=== PATIENT | male | born 1950 | race African-American/Black ===

== ENCOUNTER 2018-08-16 17:07 | Emergency (ER) | payer OTHER ==
[2018-08-16 19:15] LABS: Absolute Lymphocytes (CBC) 2.2 K/uL (0.7-4.9); Absolute Neutrophil 10.8 K/uL (1.8-8.0); Basophils % 0.6 % (0-1.3); Eosinophils % 0.7 % (0-4.4); Hematocrit 22.9 % (39.6-49.0); Lymphocytes % 15.8 % (15.3-44.8); MPV 8.8 fL (7.6-11.3); Monocytes % 6.9 % (3.3-12.3); RBC Red Blood Cell Count 2.81 M/uL (4.33-5.43)
[2018-08-16 19:29] LABS: Protime INR 1.16
[2018-08-16 19:38] LABS: ALT/SGPT 19 U/L (12-78); AST/SGOT 23 U/L (15-37); Albumin 3.3 g/dL (3.4-5.0); Alkaline Phosphatase 65 U/L (45-117); BUN Blood Urea Nitrogen 49 mg/dL (7-18); Bicarbonate 29 mmol/L (21-32); Bilirubin Direct < 0.1 mg/dL (0-0.2); Bilirubin Total 0.1 mg/dL (0.2-1.0); Glucose Level 117 mg/dL (74-106); Lipase 299 U/L (73-393); Magnesium 1.8 mg/dL (1.8-2.4); NT PRO-BNP 19 pg/mL (<125); Potassium 4.1 mmol/L (3.5-5.1); Protein, Total 7.3 g/dL (6.4-8.2); Sodium Level 131 mmol/L (136-145); Troponin (Emerg Dept Use Only) < 0.02 ng/mL (0.0-0.045)
--- NOTE | 2018-08-16 19:39 | RAD REPORT ---
EXAM DESCRIPTION: Nesha Single View08/16/2018 7:14 pm CLINICAL HISTORY: sob COMPARISON: none FINDINGS: The lungs appear clear of acute infiltrate. The heart is normal size IMPRESSION: No acute abnormalities displayed
--- NOTE | 2018-08-17 00:35 | ER ---
Nurse's Notes [facility] Name: Justen Escalera Age: 68 yrs Sex: Male : 1950 Arrival Date: 08/16/2018 Time: 17:11 Bed 20 Private MD: Diagnosis: Acute Anemia;Gastrointestinal hemorrhage, unspecified-Upper GI bleed;Gastritis, unspecified, with bleeding Presentation: 08/16 17:36 Presenting complaint: Patient states: epigastric abdominal pain for two week, with ch vomiting. pain is radiating into my chest. states it started after buying a bottle of scotch that I guess was bad. It doesn't hurt now, but when I lay down it goes up a lot. Transition of care: patient was not received from another setting of care. Onset of symptoms was August 02, 2018. Risk Assessment: Do you want to hurt yourself or someone else? Patient reports no desire to harm self or others. Initial Sepsis Screen: Does the patient meet any 2 criteria? No. Patient's initial sepsis screen is negative. Does the patient have a suspected source of infection? No. Patient's initial sepsis screen is negative. Care prior to arrival: None. 17:36 Method Of Arrival: Ambulatory 17:36 Acuity: SHU 4 ch Triage Assessment: 17:39 General: Appears in no apparent distress. comfortable, Behavior is calm, cooperative, ch appropriate for age. Pain: Complains of pain in diaphragm, xyphoid area and epigastric area Pain currently is 0 out of 10 on a pain scale. at worst was 9 out of 10 on a pain scale. Respiratory: No deficits noted. Historical: - Allergies: 17:39 No Known Allergies; ch - PMHx: 17:39 GERD; ch - PSHx: 17:39 LEFT ANKLE SX; ch - Immunization history:: Adult Immunizations up to date. - Social history:: Smoking status: Patient/guardian denies using tobacco, Patient uses alcohol, I quit two weeks ago, before that, twice a month. . Patient/guardian denies using street drugs. - Ebola Screening: : Patient negative for fever greater than or equal to 101.5 degrees Fahrenheit, and additional compatible Ebola Virus Disease symptoms Patient denies exposure to infectious person Patient denies travel to an Ebola-affected area in the 21 days before illness onset No symptoms or risks identified at this time. Screenin:08 Abuse screen: Denies threats or abuse. Denies injuries from another. Nutritional sv screening: No deficits noted. Tuberculosis screening: No symptoms or risk factors identified. Fall Risk None identified. Assessment: 18:33 General: Appears in no apparent distress. comfortable, well groomed, well developed, sv Behavior is calm, cooperative, appropriate for age. Pain: Denies pain. Neuro: Level of Consciousness is awake, alert, obeys commands, Oriented to person, place, time, situation, Moves all extremities. Full function Gait is steady, Speech is normal. Respiratory: Respiratory effort is even, unlabored, Respiratory pattern is regular, symmetrical. GI: Reports epigastric pain, that starts at 0700 and ends shortly after and starts again around 1900 and ends shortly after. Pt reports that he usually drink bourbon daily but has backed off to monthly and decided to switch to scotch last week to see how it tastes. Patient currently denies nausea, vomiting. Derm: Skin is pink, warm \T\ dry. 19:15 Reassessment: Patient appears in no apparent distress at this time. Patient and/or aa1 family updated on plan of care and expected duration. Pain level reassessed. Patient is alert, oriented x 3, equal unlabored respirations, skin warm/dry/pink. Awaiting lab reults. 21:00 Reassessment: Patient appears in no apparent distress at this time. Patient and/or aa1 family updated on plan of care and expected duration. Pain level reassessed. Patient is alert, oriented x 3, equal unlabored respirations, skin warm/dry/pink. Awaiting CT scan. 22:30 Reassessment: Patient appears in no apparent distress at this time. Patient and/or aa1 family updated on plan of care and expected duration. Pain level reassessed. Patient is alert, oriented x 3, equal unlabored respirations, skin warm/dry/pink. Awaiting CT results. 23:35 Reassessment: Patient appears in no apparent distress at this time. Patient and/or aa1 family updated on plan of care and expected duration. Pain level reassessed. Patient is alert, oriented x 3, equal unlabored respirations, skin warm/dry/pink. Pt still awaiting CT results. 08/17 00:29 Reassessment: Patient appears in no apparent distress at this time. Patient and/or aa1 family updated on plan of care and expected duration. Pain level reassessed. Patient is alert, oriented x 3, equal unlabored respirations, skin warm/dry/pink. PA at bedside discussing CT results with pt. 00:58 Reassessment: Patient appears in no apparent distress at this time. Patient and/or aa1 family updated on plan of care and expected duration. Pain level reassessed. Patient is alert, oriented x 3, equal unlabored respirations, skin warm/dry/pink. Pt to be transferred. 02:10 Reassessment: Patient appears in no apparent distress at this time. Patient and/or aa1 family updated on plan of care and expected duration. Pain level reassessed. Patient is alert, oriented x 3, equal unlabored respirations, skin warm/dry/pink. Pt consented for blood transfusion; awaiting unit from blood bank. 03:18 Reassessment: Patient appears in no apparent distress at this time. Patient and/or aa1 family updated on plan of care and expected duration. Pain level reassessed. Patient is alert, oriented x 3, equal unlabored respirations, skin warm/dry/pink. PRBCs infusing at this time. Transfer pending completion of unit. 03:23 Reassessment: Report given to Shanique Cuenca RN at [facility]. Will contact [facility] for transfer once PRBCs completed. 03:46 Reassessment: Patient appears in no apparent distress at this time. Patient and/or aa1 family updated on plan of care and expected duration. Pain level reassessed. Patient is alert, oriented x 3, equal unlabored respirations, skin warm/dry/pink. PRBCs complete at this time. [employer] notified EMS for transfer \T\ was told crew will be here in approx 1.5 hrs. 04:45 Reassessment: Patient appears in no apparent distress at this time. Patient and/or aa1 family updated on plan of care and expected duration. Pain level reassessed. Patient is alert, oriented x 3, equal unlabored respirations, skin warm/dry/pink. Pt continues to await EMS for transfer. 05:45 Reassessment: Patient appears in no apparent distress at this time. Patient and/or aa1 family updated on plan of care and expected duration. Pain level reassessed. Patient is alert, oriented x 3, equal unlabored respirations, skin warm/dry/pink. Pt still awaiting EMS for transfer. 06:04 Reassessment: Patient appears in no apparent distress at this time. Patient is alert, aa1 oriented x 3, equal unlabored respirations, skin warm/dry/pink. [facility] present for transfer. Vital Signs: 08/16 17:39 BP 102 / 73; Pulse 78; Resp 16; Temp 98.5; Pulse Ox 99% on R/A; Weight 99.79 kg; Height 6 ft. 4 in. (193.04 cm); Pain 0/10; 18:33 BP 106 / 68; Pulse 108; Resp 16; Pulse Ox 99% ; sv 19:55 BP 116 / 85; Pulse 104; Resp 16; Pulse Ox 99% on R/A; mt 21:00 BP 134 / 84; Pulse 102; Resp 18; Pulse Ox 98% on R/A; Pain 0/10; aa1 22:00 BP 106 / 74; Pulse 108; Resp 18; Pulse Ox 100% on R/A; Pain 0/10; aa1 23:01 BP 99 / 51; Pulse 94; Resp 16; Pulse Ox 100% on R/A; Pain 0/10; aa1 08/17 00:29 BP 92 / 51; Pulse 91; Resp 18; Pulse Ox 99% on R/A; Pain 0/10; aa1 00:59 BP 122 / 66; Pulse 93; Resp 16; Pulse Ox 98% on R/A; Pain 0/10; aa1 02:15 BP 123 / 72; Pulse 92; Resp 18; Temp 98.4; Pulse Ox 100% on R/A; Pain 0/10; aa1 03:12 BP 117 / 75; Pulse 90; Resp 16; Temp 98.1; Pulse Ox 100% ; Pain 0/10; aa1 03:46 BP 112 / 72; Pulse 89; Resp 16; Temp 98.2; Pulse Ox 100% on R/A; Pain 0/10; aa1 05:18 BP 106 / 78; Pulse 86; Resp 18; Pulse Ox 99% on R/A; Pain 0/10; aa1 08/16 17:39 Body Mass Index 26.78 (99.79 kg, 193.04 cm) ED Course: 08/16 17:11 Patient arrived in ED. as 17:38 Triage completed. ch 17:39 Arm band placed on left wrist. Patient placed in an exam room, on a stretcher. ch 18:13 Mina Petersen PA is PHCP. jr8 18:13 Spike Schneider MD is Attending Physician. jr8 18:27 Elsi Beard, RN is Primary Nurse. sv 18:30 Patient has correct armband on for positive identification. Placed in gown. Bed in low sv position. Call light in reach. compliance monitor on. Pulse ox on. NIBP on. Door closed. Head of bed elevated. 19:00 Initial lab(s) drawn, by me, sent to lab. Inserted saline lock: 20 gauge in left sv antecubital area, using aseptic technique. Blood collected. Flushed left antecubital with 5 ml normal saline. 19:08 Report given to Aishwarya YU. sv 19:09 Primary Nurse role handed off by Elsi Beard, AIMEE sv 19:14 XRAY Chest (1 view) In Process Unspecified. EDMS 20:30 Oral contrast reported to be complete. vr 20:48 Aishwarya Fleming, RN is Primary Nurse. aa1 21:14 T\T\S collected, blood band applied to patient. aa1 22:17 CT Abd/Pelvis - Without Cont In Process Unspecified. EDMS 03 02:29 Inserted saline lock: 20 gauge in left upper arm, using aseptic technique. aa1 06:09 No provider procedures requiring assistance completed. Patient admitted, IV remains in aa1 place. Administered Medications: 00:50 Drug: ProTONIX 40 mg Route: IVP; Site: left antecubital; aa1 01:50 Follow up: Response: No adverse reaction; Marked relief of symptoms aa1 00:52 Drug: ProTONIX 8 mg/hr Route: IV; Rate: 25 ml/hr; Site: left antecubital; aa1 03:17 Follow up: IV Status: Infusion continued upon transfer aa1 Outcome: 00:35 ER care complete, transfer ordered by . jr8 06:09 Transferred by ground EMS to [facility], Transfer form completed. aa1 06:09 Condition: stable 06:09 Instructed on the need for transfer, Demonstrated understanding of instructions. 06:11 Patient left the ED. aa1 Signatures: Dispatcher [employer] Erica Thomson RN RN Elsi Beard RN RN Aishwarya Fleming RN RN aa1 Edd, Nazanin Yost Josh, PA PA jr8 Jenny Cunha mt Corrections: (The following items were deleted from the chart) 08/16 17:41 17:36 Presenting complaint: Patient states: epigastric abdominal pain for two week, ch with vomiting. pain is radiating into my chest. states it started after buying a bottle of scotch that I guess was bad. 17:41 17:36 Acuity: SHU 3 ch 20:36 20:[address] vr vr 23:19 22:59 Reassessment: Patient appears in no apparent distress at this time. Patient aa1 and/or family updated on plan of care and expected duration. Pain level reassessed. Patient is alert, oriented x 3, equal unlabored respirations, skin warm/dry/pink. MD at bedside with pt \T\ family discussing CT results aa1
--- NOTE | 2018-08-17 00:36 | EDPHYS ---
Physician Documentation [facility] Name: Justen Escalera Age: 68 yrs Sex: Male : 1950 Arrival Date: 08/16/2018 Time: 17:11 Bed 20 Private MD: ED Physician Spike Schneider HPI: 08/16 20:35 This 68 yrs old Black Male presents to ER via Ambulatory with complaints of abdominal jr8 pain. 20:35 The patient presents with abdominal pain. Onset: The symptoms/episode began/occurred jr8 gradually, 2 week(s) ago. The symptoms radiate to chest. Associated signs and symptoms: Pertinent positives: blood in stools, nausea. The symptoms are described as intermittent, vague. Modifying factors: The symptoms are alleviated by antacids, the symptoms are aggravated by alcohol, food. Severity of pain: At its worst the pain was moderate in the emergency department the pain has improved mildly. The patient has not experienced similar symptoms in the past. The patient has not recently seen a physician. Patient stated that he has longstanding drinking history. Thought he had a bad bottle of scotch 2 weeks ago. Stated that he stopped drinking since then because he was having abdominal pain that would radiate to epigastric region and chest. Worse at night. Some relief with antacids. Has never had this before. Has also noticed blood in stools that seems to be improving per patient . Historical: - Allergies: 17:39 No Known Allergies; ch - PMHx: 17:39 GERD; ch - PSHx: 17:39 LEFT ANKLE SX; ch - Immunization history:: Adult Immunizations up to date. - Social history:: Smoking status: Patient/guardian denies using tobacco, Patient uses alcohol, I quit two weeks ago, before that, twice a month. . Patient/guardian denies using street drugs. - Ebola Screening: : Patient negative for fever greater than or equal to 101.5 degrees Fahrenheit, and additional compatible Ebola Virus Disease symptoms Patient denies exposure to infectious person Patient denies travel to an Ebola-affected area in the 21 days before illness onset No symptoms or risks identified at this time. ROS: 20:35 Eyes: Negative for injury, pain, redness, and discharge, ENT: Negative for injury, jr8 pain, and discharge, Neck: Negative for injury, pain, and swelling, Cardiovascular: Negative for chest pain, palpitations, and edema, Respiratory: Negative for shortness of breath, cough, wheezing, and pleuritic chest pain, Back: Negative for injury and pain, MS/Extremity: Negative for injury and deformity, Skin: Negative for injury, rash, and discoloration, Neuro: Negative for headache, weakness, numbness, tingling, and seizure. 20:35 Abdomen/GI: Positive for abdominal pain, nausea, abdominal cramps, black/tarry stool. Exam: 20:35 Eyes: Pupils equal round and reactive to light, extra-ocular motions intact. Lids and jr8 lashes normal. Conjunctiva and sclera are non-icteric and not injected. Cornea within normal limits. Periorbital areas with no swelling, redness, or edema. ENT: Nares patent. No nasal discharge, no septal abnormalities noted. Tympanic membranes are normal and external auditory canals are clear. Oropharynx with no redness, swelling, or masses, exudates, or evidence of obstruction, uvula midline. Mucous membranes moist. Neck: Trachea midline, no thyromegaly or masses palpated, and no cervical lymphadenopathy. Supple, full range of motion without nuchal rigidity, or vertebral point tenderness. No Meningismus. Cardiovascular: Sinus Tachycardia with a normal S1 and S2. No gallops, murmurs, or rubs. Normal PMI, no JVD. No pulse deficits. Respiratory: Lungs have equal breath sounds bilaterally, clear to auscultation and percussion. No rales, rhonchi or wheezes noted. No increased work of breathing, no retractions or nasal flaring. Back: No spinal tenderness. No costovertebral tenderness. Full range of motion. Skin: Warm, dry with normal turgor. Normal color with no rashes, no lesions, and no evidence of cellulitis. MS/ Extremity: Pulses equal, no cyanosis. Neurovascular intact. Full, normal range of motion. Neuro: Awake and alert, GCS 15, oriented to person, place, time, and situation. Cranial nerves II-XII grossly intact. Motor strength 5/5 in all extremities. Sensory grossly intact. Cerebellar exam normal. Normal gait. 20:35 Abdomen/GI: Inspection: abdomen appears normal, Bowel sounds: active, all quadrants, jr8 Palpation: soft, in all quadrants, mild abdominal tenderness, in the epigastric area, right upper quadrant and left upper quadrant, mass, is not appreciated, rebound tenderness, is not appreciated, voluntary guarding, is not appreciated, involuntary guarding, is not appreciated, no appreciated organomegaly, Rectal exam: Prostate: normal, rectal tone normal, Stool: guaiac positive, black, hemorrhoid(s), are not appreciated, mass, is not appreciated, swelling, is not appreciated, tenderness, is not appreciated, Indicators: McBurney's point is not tender, Rahman's sign is negative, Rovsing's sign is negative, Liver: tenderness, is not appreciated. Vital Signs: 17:39 BP 102 / 73; Pulse 78; Resp 16; Temp 98.5; Pulse Ox 99% on R/A; Weight 99.79 kg; Height ch 6 ft. 4 in. (193.04 cm); Pain 0/10; 18:33 BP 106 / 68; Pulse 108; Resp 16; Pulse Ox 99% ; sv 19:55 BP 116 / 85; Pulse 104; Resp 16; Pulse Ox 99% on R/A; mt 21:00 BP 134 / 84; Pulse 102; Resp 18; Pulse Ox 98% on R/A; Pain 0/10; aa1 22:00 BP 106 / 74; Pulse 108; Resp 18; Pulse Ox 100% on R/A; Pain 0/10; aa1 23:01 BP 99 / 51; Pulse 94; Resp 16; Pulse Ox 100% on R/A; Pain 0/10; aa1 /23 00:29 BP 92 / 51; Pulse 91; Resp 18; Pulse Ox 99% on R/A; Pain 0/10; aa1 00:59 BP 122 / 66; Pulse 93; Resp 16; Pulse Ox 98% on R/A; Pain 0/10; aa1 02:15 BP 123 / 72; Pulse 92; Resp 18; Temp 98.4; Pulse Ox 100% on R/A; Pain 0/10; aa1 03:12 BP 117 / 75; Pulse 90; Resp 16; Temp 98.1; Pulse Ox 100% ; Pain 0/10; aa1 03:46 BP 112 / 72; Pulse 89; Resp 16; Temp 98.2; Pulse Ox 100% on R/A; Pain 0/10; aa1 05:18 BP 106 / 78; Pulse 86; Resp 18; Pulse Ox 99% on R/A; Pain 0/10; aa1 08/16 17:39 Body Mass Index 26.78 (99.79 kg, 193.04 cm) ch MDM: 08/16 18:13 Patient medically screened. 8 08/17 00:33 Data reviewed: vital signs, nurses notes, lab test result(s), radiologic studies, CT jr8 scan. Data interpreted: Pulse oximetry: on room air is 99 %. Interpretation: normal. Counseling: I had a detailed discussion with the patient and/or guardian regarding: the historical points, exam findings, and any diagnostic results supporting the discharge/admit diagnosis, lab results, radiology results, the need to transfer to another facility, for higher level of care, [facility] does not immediately have the required specialist. 01:18 ED course: Spoke with GI and Medicine at [facility]. Both accepted for further jr8 evaluation of patient . 08/16 18:49 Order name: Basic Metabolic Panel; Complete Time: 20:[address] [facility] 08/16 18:49 Order name: CBC with Diff; Complete Time: 19:29 8 08/16 18:49 Order name: LFT's; Complete Time: 20:[address] [facility] 08/16 18:49 Order name: Magnesium; Complete Time: 20:[address] [facility] 08/16 18:49 Order name: NT PRO-BNP; Complete Time: 20:[address] [facility] 08/16 18:49 Order name: PT-INR; Complete Time: 20:[address] [facility] 08/16 18:49 Order name: Troponin (emerg Dept Use Only); Complete Time: 20:[address] [facility] 08/16 18:49 Order name: XRAY Chest (1 view); Complete Time: 20:07 jr 08/16 18:49 Order name: Lipase; Complete Time: 20:[address] [facility] 08/16 19:30 Order name: TS jr8 08/16 20:08 Order name: CT Abd/Pelvis - Without Cont jr8 08/17 00:35 Order name: Packed RBCs (Additional Unit) [facility] 08/17 01:43 Order name: ABO/RH no charge; Complete Time: 02:06 EDNM 08/16 18:01 Order name: EKG Electrocardiogram; Complete Time: 18:02 [facility] 08/16 18:49 Order name: Cardiac monitoring; Complete Time: 19:8 08/16 18:49 Order name: EKG - Nurse/Tech; Complete Time: 19:8 08/16 18:49 Order name: IV Saline Lock; Complete Time: :8 08/16 18:49 Order name: Labs collected and sent; Complete Time: 19:8 08/16 18:49 Order name: O2 Per Protocol; Complete Time: :08/16 18:49 Order name: O2 Sat Monitoring; Complete Time: : Administered Medications: 00:50 Drug: ProTONIX 40 mg Route: IVP; Site: left antecubital; aa1 01:50 Follow up: Response: No adverse reaction; Marked relief of symptoms aa1 00:52 Drug: ProTONIX 8 mg/hr Route: IV; Rate: 25 ml/hr; Site: left antecubital; aa1 03:17 Follow up: IV Status: Infusion continued upon transfer aa1 Disposition: 08/17/18 00:35 Transfer ordered to [facility]. Diagnosis are Acute Anemia, Gastrointestinal hemorrhage, unspecified - Upper GI bleed, Gastritis, unspecified, with bleeding. - Reason for transfer: Higher level of care. - Accepting physician is Dr. Jean-Baptiste . - Condition is Stable. - Problem is new. - Symptoms are unchanged. Addendum: 08/19/2018 10:08 Co-signature as Attending Physician, Spike Schneider MD I agree with the assessment and c cary plan of care. Signatures: Dispatcher [employer] EDMS Erica Martin RN RN ch Autenrieth, Alissa, RN RN aa1 Spike Schneider MD MD cha Roszak, Josh, PA PA jr8 Corrections: (The following items were deleted from the chart) 08/17 00:32 08/16 20:35 Eyes: Pupils equal round and reactive to light, extra-ocular motions jr8 intact. Lids and lashes normal. Conjunctiva and sclera are non-icteric and not injected. Cornea within normal limits. Periorbital areas with no swelling, redness, or edema. ENT: Nares patent. No nasal discharge, no septal abnormalities noted. Tympanic membranes are normal and external auditory canals are clear. Oropharynx with no redness, swelling, or masses, exudates, or evidence of obstruction, uvula midline. Mucous membranes moist. Neck: Trachea midline, no thyromegaly or masses palpated, and no cervical lymphadenopathy. Supple, full range of motion without nuchal rigidity, or vertebral point tenderness. No Meningismus. Cardiovascular: Sinus Tachycardia with a normal S1 and S2. No gallops, murmurs, or rubs. Normal PMI, no JVD. No pulse deficits. Respiratory: Lungs have equal breath sounds bilaterally, clear to auscultation and percussion. No rales, rhonchi or wheezes noted. No increased work of breathing, no retractions or nasal flaring. Abdomen/GI: Soft, non-tender, with normal bowel sounds. No distension or tympany. No guarding or rebound. No evidence of tenderness throughout. Back: No spinal tenderness. No costovertebral tenderness. Full range of motion. Skin: Warm, dry with normal turgor. Normal color with no rashes, no lesions, and no evidence of cellulitis. MS/ Extremity: Pulses equal, no cyanosis. Neurovascular intact. Full, normal range of motion. Neuro: Awake and alert, GCS 15, oriented to person, place, time, and situation. Cranial nerves II-XII grossly intact. Motor strength 5/5 in all extremities. Sensory grossly intact. Cerebellar exam normal. Normal gait. jr8 08/17 01:16 00:35 08/17/2018 00:35 Transfer ordered to [facility]. Diagnosis is jr8 Acute Anemia; Gastrointestinal hemorrhage, unspecified - Upper GI bleed. Reason for transfer: Higher level of care. Accepting physician is [facility]. Condition is Stable. Problem is new. Symptoms are unchanged. jr8 :18 01:16 08/17/2018 00:35 Transfer ordered to [facility]. Diagnosis is jr8 Acute Anemia; Gastrointestinal hemorrhage, unspecified - Upper GI bleed. Reason for transfer: Higher level of care. Accepting physician is Dr. Jean-Baptiste . Condition is Stable. Problem is new. Symptoms are unchanged. jr8 06:11 01:18 08/17/2018 00:35 Transfer ordered to [facility]. Diagnosis is aa1 Acute Anemia; Gastrointestinal hemorrhage, unspecified - Upper GI bleed; Gastritis, unspecified, with bleeding. Reason for transfer: Higher level of care. Accepting physician is Dr. Jean-Baptiste . Condition is Stable. Problem is new. Symptoms are unchanged. jr8
[2018-08-17] MEDS ORDERED: PANTOPRAZOLE 40 MG INJ ONE (00:46)
[2018-08-17] MEDS ORDERED: NA CHLORIDE 0.9% 250 ML ONE (00:46)
[2018-08-17] MEDS ORDERED: NA CHLORIDE 0.9% 100 ML IV ONE (02:29)
--- NOTE | 2018-08-19 11:41 | RAD REPORT ---
EXAM DESCRIPTION: CT - Abdomen Pelvis Wo Contrast - 08/16/2018 10:43 pm CLINICAL HISTORY: The patient is 68 years old and is Male; ABD PAIN TECHNIQUE: Axial computed tomography images of the abdomen and pelvis without intravenous contrast. Sagittal and coronal reformatted images were created and reviewed. This CT exam was performed usi ng one or more of the following dose reduction techniques: automated exposure control, adjustment o f the mA and/or kV according to patient size, and/or use of iterative reconstruction technique. Oral contrast was administered. COMPARISON: None. FINDINGS: LUNG BASES: Unremarkable. No mass. No consolidation. ABDOMEN: LIVER: Unremarkable. GALLBLADDER AND BILE DUCTS: Unremarkable. No calcified stones. No ductal dilation. PANCREAS: Unremarkable. No ductal dilation. SPLEEN: Unremarkable. No splenomegaly. ADRENALS: Unremarkable. No mass. KIDNEYS AND URETERS: Unremarkable. No obstructing stones. No hydronephrosis. STOMACH AND BOWEL: Partial evaluation of nodular thickening of the gastric wall with ulcerated reg ion involving the distal aspect of the lesser curvature measuring 1.4 x 1.5 cm with contrast within i t (series 201, image 20). Prominent perigastric vasculature an perigastric stranding PELVIS: APPENDIX: Enteric contrast is seen throughout the small and large bowel. The appendix is seen and is within normal limits. No obstruction or perforation. BLADDER: Unremarkable. No stones. REPRODUCTIVE: Unremarkable as visualized. ABDOMEN and PELVIS: INTRAPERITONEAL SPACE: Unremarkable. No free air. No significant fluid collection. BONES/JOINTS: Grade 1 anterolisthesis of L5 on S1 on a spondylolysis basis. Retrolisthesis of L4 on L5. Lower lumbar disc space narrowing also present. No acute fracture. No dislocation. SOFT TISSUES: Unremarkable. VASCULATURE: Atherosclerotic calcification of the abdominal aorta and iliac vasculature. LYMPH NODES: Unremarkable. No enlarged lymph nodes. OTHER FINDINGS: Heterogenous mineralization with multiple hypodensities. IMPRESSION: 1. Diffuse heterogenous thickening of the gastric wall with ulcerated defect involving the distal aspect of the lesser curvature with intraluminal contrast. Associated prominence of the p erigastric vasculature and mild perigastric stranding. Findings could be due to chronic gastritis juana mariama neoplastic process (linitis plastica). Endoscopy is recommended. 2. Heterogenous mineralization of the lower lumbar spine and advanced degenerative changes. MRI of the lumbar spine with and without contrast is recommended for bone marrow further characterization. Electronically signed by: Ryder Oviedo DO 08/16/2018 10:36 PM CDT Due to temporary technical issues with the PACS/Fluency reporting system, reports are being signed by the in house radiologist as a courtesy to ensure prompt reporting. The interpreting radiologist is f ully responsible for the content of the report.
== END 2018-08-17 06:11 | disposition short-term general hospital (02) ==
LOC: ER 17:07
PROC: 30233N1 Transfusion of Nonautologous Red Blood Cells into Peripheral Vein, Percutaneous Approach (ICD-10-PCS; principal; 2018-08-17)
DX: D64.9 Anemia, unspecified (principal); K29.71 Gastritis, unspecified, with bleeding
CPT/HCPCS: 96365; 93005; 85025; 80048; 36415; 86900; 83735; 86850; 85610; 86901; 80076; 84484; 83690; 83880; 74176; 71045; 99285; 96366; 36430; C9113; P9016

== ENCOUNTER 2020-02-09 13:57 | Emergency (ER) | payer OTHER ==
--- OUTSIDE RECORDS SUMMARY | 2020-02-09 13:59 | XMS REPORT | Clinical Summary ---
:1950 Author Organization [facility] Address [address] [place] [address] Care Team Providers Name Role Phone Unavailable Primary Care Provider Unavailable Allergies No Known Allergies Medications Medication Sig Dispensed Refills Start Date End Date Status thiamine 100 MG Take 1 tablet 30 tablet 0 08/20/2018 0 tablet (100 mg total) by mouth daily. folic acid (FOLVITE) Take 1 tablet (1 30 tablet 0 08/20/2018 0 08/20/2019 1 MG tablet mg total) by mouth daily. Active Problems Problem Noted Date Acute gastric ulcer with hemorrhage 08/19/2018 Alcoholism 08/17/2018 Normocytic anemia 08/17/2018 Epigastric pain 08/17/2018 Hyponatremia 08/17/2018 BERTHA (acute kidney injury) 08/17/2018 GI bleed 08/17/2018 Immunizations Name Dates Previously Given Next Due Pneumococcal Conjugate (Prevnar) 08/18/2018 (Deferred: - Va ccine 13-Valent never sent after several requests to pharmacy) Social History Tobacco Use Types Packs/Day Years Used Date Never Smoker Smokeless Tobacco: Never Used Alcohol Use Drinks/Week oz/Week Comments Yes 2 bottles a week Alcohol Habits Answer Date Recorded How often do you have a drink containing 4 or more times a w [place] 08/17/2018 alcohol? How many drinks containing alcohol do you have 3 or 4 08/17/2018 on a typical day when you are drinking? How often do you have six or more drinks on one Less than mo nthly 08/17/2018 occasion? Sex Assigned at Date Recorded Not on file Job Start Date Occupation Industry Not on file Not on file Not on file Travel History Travel Start Travel End No recent travel history available. Last Filed Vital Signs Not on file Plan of Treatment Health Maintenance Due Date Last Done Comments COLON CANCER SCREENING COLONOSCOPY 1950 PNEUMOCOCCAL 65+ LOW/MEDIUM RISK (1 of 2 - PCV13) 2017 MEDICARE ANNUAL WELLNESS (YEAR 2 or FIRST YEAR if no 05/29/2018 IPPE) INFLUENZA VACCINE (#1) 2020 Results Not on fileafter 02/08/2019 Insurance Payer Benefit Plan / Group Subscriber ID Type Phone A ddress MEDICARE MEDICARE A B xxxxxxxxxxx Medicare Advance Directives For more information, please contact:[facility] [place], [place] [phone] Code Status Date Activated Date Inactivated Comments Full Code 08/17/2018 9:07 AM 08/20/2018 1:46 PM This code status was determined by: Patient
--- OUTSIDE RECORDS SUMMARY | 2020-02-09 13:59 | XMS REPORT | Continuity of Care Document ---
:1950 [facility] t Address [address] [place] [id number] Care Team Providers Name Role Phone KARL SANZ Attending Clinician Unavailable Willie SANZ Admitting Clinician Unavailable Problems Condition Condition Condition Status Onset Resolution Last Treating Co mments Source Name Details Category Date Date Treatment Clinician Date Acute Acute Disease Active [facility] - ulcer with ulcer with 00:00: Ia dical hemorrhage hemorrhage 00 Ce nter Alcoholism Alcoholism Disease Active [facility] 00 [place] Normocytic Normocytic Disease Active [facility] anemia anemia 08-17 [facility] - 00:[facility]: Medical 00 [place] Epigastric Epigastric Disease Active [facility] pain pain 08-17 [facility] - 00:[facility]: Medical 00 [place] Hyponatrem Hyponatrem Disease Active [facility] ia ia 08-17 [facility] - 00:00: Medical 00 [place] BERTHA (acute BERTHA (acute Disease Active [facility] kidney kidney 08-17 [facility] - injury) injury) 00:00: Medical 00 [place] GI bleed GI bleed Disease [facility] 00 Center Allergies, Adverse Reactions, Alerts This patient has no known allergies or adverse reactions. Social History Social Habit Start Date Stop Date Quantity Comments Source Sex Assigned At [facility] - [facility] History [facility] 2018-08-17 2018-08-[address] [facility] [address] [facility] - Alcohol Frequency 00:00:00 00:00:00 Medical Center History [facility] 2018-08-17 2018-08-[address] [facility] [address] [facility] - Alcohol Std Drinks 00:00:00 00:00:00 Medica Center History [facility] 2018-08-17 2018-08-[address] [facility] - Alcohol Binge 00:00:00 00:00:00 Medical [facility] ter Alcohol Comment 2018-08-17 2018-08-17 2 bottles a week [facility] - 00:[facility]00 Medical Center Smoking Status Start Date Stop Date Source Never smoker [facility] Medications Ordered Filled Start Stop Current Ordering Indication Dosage Frequency Signature Comments Components Source Medication Medication Date Date Medication? Clinician (SIG) Name Name thiamine 2019- No 100mg QD Take 1 [facility] - tablet 00:00: 23:59 (100 mg Medical 00 :00 total) by Center mouth daily. folic acid 2019- No 1mg QD Take [address] (FOLVITE) 1 08-20 tablet (1 Vika kes - MG tablet 00:00: 23:59 mg total) Me dical 00 :00 by mouth Center daily. Procedures This patient has no known procedures. Plan of Care Planned Activity Planned Date Details Comments Source Future Scheduled 2020-01-27 INFLUENZA VACCINE (#1) [facility] Test 00:[facility]00 [code = INFLUENZA Medical Ce nter VACCINE (#1)] Future Scheduled 2018-05-[address] [facility] - Test 00:00:00 WELLNESS (YEAR 2 or Medical Center FIRST YEAR if no IPPE) [code = MEDICARE ANNUAL WELLNESS (YEAR 2 or FIRST YEAR if no IPPE)] Future Scheduled 2017 PNEUMOCOCCAL [address] - Test 00:00:00 LOW/MEDIUM RISK ([facility] [place] 2 - PCV13) [code = PNEUMOCOCCAL 65+ LOW/MEDIUM RISK (1 of 2 - PCV13)] Future Scheduled [address] [facility] - Test 00:00:00 malignant [facility] colon (procedure) [code = 652298966] Results Test Description Test Time Test Comments Results Result [facility] e Comments TISSUE EXAM 2018-08-23 Surgical Pathology Report 16:45:00 Case: [id number] Authorizing Provider: Dom Le MD Collected: 08/19/2018 1031 Ordering Location: [address] Received: 08/19/2018 1423 Service Pathologist: Jonas Gaines MD Specimens: A) - Biopsy, Gastric, R/O H PYLORI B) - Ulcer, PRE PYLORIC BX C) - Ulcer, INCISURA ULCER Addendum is issued to report additional results. The original diagnosis remains the same.Results:B. An iron stain is negative. The finding is supportive of the original diagnosis.Addendum electronically signed by Jonas Gaines MD on 08/23/2018 at 3:17 PMA. STOMACH, BIOPSY: - INTESTINAL METAPLASIA - CHRONIC ACTIVE GASTRITIS - MICROORGANISMS COMPATIBLE H. PYLORI IDENTIFIED BY BOTH WARTHIN-STARRY STAIN AND IMMUNOHISTOCHEMISTRY B. STOMACH, PRE PYLORIC AREA, ULCER, BIOPSY: - ULCER WITH GRANULATION TISSUE AND REACTIVE EPITHELIAL CHANGES - CHRONIC ACTIVE GASTRITIS (SEE COMMENT) - EQUIVOCAL FOR H. PYLORI-LIKE ORGANISMS BY IMMUNOHISTOCHEMISTRYC. STOMACH, INCISURA, ULCER, BIOPSY: - ULCER WITH CHRON ACTIVE GASTRITIS Signing Pathologist Direct Phone Line: [phone] electronically signed by Jonas Gaines MD on 08/23/2018 at 4:45 PM The diagnosis is amended to delete the diagnosis line for part B, "intestinal metaplasia". The diagnosis line is a typographic error and was removed. Dr. Le was notified about the change via email on 08/23/2018.B. Sections show ulceration with marked reactive epithelial changes, and chronic active gastritis. An immunostain for Helicobacter is equivocal. Additionally, due to the extensive ulceration, an immunostain for CMV was performed and is negative. AFB and GMS stains are negative for acid fast bacilli and fungal elements. An iron stain is pending. [id number] x [id number] x [id number] bleed, rule out H. Pylori A. Gastric biopsy. B. Prepyloric ulcer biopsy. C. Incisura ulcer biopsy Specimen is received in three parts all labeled with the patient's information. Specimen A: Labeled "gastric biopsy" consists of three fragments of su tissue ranging from 0.1 to 0.3 cm, submitted entirely in A1. Specimen B: Labeled "prepyloric ulcer biopsy" consists of four fragments of su tissue ranging from 0.1 to 0.3 cm, submitted entirely in B1. Specimen C: Labeled "incisura ulcer biopsy" consists of multiple fragments of su-white soft tissue ranging from 0.1 and 0.3 cm, submitted entirely in C1. CG/ew A-C performedThe interpretation of this case included the use of immunohistochemistry or special stains. Please see the immunohistochemistry and special stain results in the COMMENT section. Immunohistochemistry technical testing was performed at [facility], Pathology Laboratory where it was developed and its performance characteristics were determined. It has not been cleared or approved by the U.S. Food and Drug Administration. The FDA has determined that such clearance or approval is not necessary. The test is used for clinical purposes. It should not be regarded as investigational or for research. This laboratory is certified under the Clinical Laboratory Improvement Amendments of 1988 (CLIA-88) as qualified to perform high complexity clinical laboratory testing. CALCIUM, IONIZED 2018-08-20 07:23:00 Test Item Value Reference Range Interpretation Comme nts CALCIUM IONIZED (BEAKER) (test code = 698) 0.94 mmol/L 1.12-1.27 L PH, BLOOD (BEAKER) (test code = 1810) 7.37 [id number] 05:55:00 Test Item Value Reference Range Interpretation Comments PHOSPHORUS (BEAKER) (test code = 3.0 mg/dL 2.3-4.7 604) [id number] 05:55:00 Test Item Value Reference Range Interpretation Comments MAGNESIUM (BEAKER) (test code = 1.7 mg/dL 1.6-2.6 627) BASIC METABOLIC [id number] 05:55:00 Test Item Value Reference Range Interpretation Comments SODIUM (BEAKER) 135 meq/L 136-145 L (test code = 381) POTASSIUM (BEAKER) 3.9 meq/L 3.5-5.1 (test code = 379) CHLORIDE (BEAKER) 105 meq/L 98-107 (test code = 382) CO2 (BEAKER) (test 21 meq/L 22-29 L code = 355) BLOOD UREA NITROGEN 9 mg/dL 7-21 (BEAKER) (test code = 354) CREATININE (BEAKER) 0.98 mg/dL 0.57-1.25 (test code = 358) GLUCOSE RANDOM 101 mg/dL 70-105 (BEAKER) (test code = 652) CALCIUM (BEAKER) 8.7 mg/dL 8.4-10.2 (test code = 697) EGFR (BEAKER) (test mL/min/1.73 INSUFFIC IENT CLINICAL code = 1092) sq m DATA TO CALCULA TE ESTIMATED GFR. CBC W/PLT COUNT & AUTO [id number] 05:17:00 Test Item Value Reference Range Interpretation Comments WHITE BLOOD CELL COUNT (BEAKER) 9.2 K/ L 3.5-10.5 (test code = 775) RED BLOOD CELL COUNT (BEAKER) 3.26 M/ L 4.63-6.08 L (test code = 761) HEMOGLOBIN (BEAKER) (test code = 8.8 GM/DL 13.7-17.5 L 410) HEMATOCRIT (BEAKER) (test code = 27.8 % 40.1-51.0 L 411) MEAN CORPUSCULAR VOLUME (BEAKER) 85.3 fL 79.0-92.2 (test code = 753) MEAN CORPUSCULAR HEMOGLOBIN 27.0 pg 25.7-32.2 (BEAKER) (test code = 751) MEAN CORPUSCULAR HEMOGLOBIN CONC 31.7 GM/DL 32.3-36.5 L (BEAKER) (test code = 752) RED CELL DISTRIBUTION WIDTH 15.7 % 11.6-14.4 H (BEAKER) (test code = 412) PLATELET COUNT (BEAKER) (test 381 K/CU MM 150-450 code = 756) MEAN PLATELET VOLUME (BEAKER) 10.1 fL 9.4-12.4 (test code = 754) NUCLEATED RED BLOOD CELLS 0 /100 WBC 0-0 (BEAKER) (test code = 413) NEUTROPHILS RELATIVE PERCENT 69 % (BEAKER) (test code = 429) LYMPHOCYTES RELATIVE PERCENT 18 % (BEAKER) (test code = 430) MONOCYTES RELATIVE PERCENT 9 % (BEAKER) (test code = 431) EOSINOPHILS RELATIVE PERCENT 3 % (BEAKER) (test code = 432) BASOPHILS RELATIVE PERCENT 1 % (BEAKER) (test code = 437) NEUTROPHILS ABSOLUTE COUNT 6.28 K/ L 1.78-5.38 H (BEAKER) (test code = 670) LYMPHOCYTES ABSOLUTE COUNT 1.64 K/ L 1.32-3.57 (BEAKER) (test code = 414) MONOCYTES ABSOLUTE COUNT (BEAKER) 0.85 K/ L 0.30-0.82 H (test code = 415) EOSINOPHILS ABSOLUTE COUNT 0.28 K/ L 0.04-0.54 (BEAKER) (test code = 416) BASOPHILS ABSOLUTE COUNT (BEAKER) 0.05 K/ L 0.01-0.08 (test code = 417) IMMATURE GRANULOCYTES-RELATIVE 1 % 0-1 PERCENT (BEAKER) (test code = 2801) CALCIUM, [id number] 05:40:00 Test Item Value Reference Range Interpretation Comments CALCIUM IONIZED (BEAKER) (test 1.09 mmol/L 1.12-1.27 L code = 698) PH, BLOOD (BEAKER) (test code = 7.31 1810) BASIC METABOLIC [id number] 04:21:00 Test Item Value Reference Range Interpretation Comments SODIUM (BEAKER) 140 meq/L 136-145 (test code = 381) POTASSIUM (BEAKER) 4.0 meq/L 3.5-5.1 (test code = 379) CHLORIDE (BEAKER) 108 meq/L 98-107 H (test code = 382) CO2 (BEAKER) (test 23 meq/L 22-29 code = 355) BLOOD UREA NITROGEN 11 mg/dL 7-21 (BEAKER) (test code = 354) CREATININE (BEAKER) 0.97 mg/dL 0.57-1.25 (test code = 358) GLUCOSE RANDOM 100 mg/dL 70-105 (BEAKER) (test code = 652) CALCIUM (BEAKER) 8.9 mg/dL 8.4-10.2 (test code = 697) EGFR (BEAKER) (test mL/min/1.73 INSUFFIC IENT CLINICAL code = 1092) sq m DATA TO CALCULA TE ESTIMATED GFR. [id number] 04:18:00 Test Item Value Reference Range Interpretation Comments PHOSPHORUS (BEAKER) (test code = 2.2 mg/dL 2.3-4.7 L 604) [id number] 04:18:00 Test Item Value Reference Range Interpretation Comments MAGNESIUM (BEAKER) (test code = 1.9 mg/dL 1.6-2.6 627) CBC W/PLT COUNT & AUTO [id number] 04:02:00 Test Item Value Reference Range Interpretation Comments WHITE BLOOD CELL COUNT (BEAKER) 9.2 K/ L 3.5-10.5 (test code = 775) RED BLOOD CELL COUNT (BEAKER) 3.31 M/ L 4.63-6.08 L (test code = 761) HEMOGLOBIN (BEAKER) (test code = 9.0 GM/DL 13.7-17.5 L 410) HEMATOCRIT (BEAKER) (test code = 28.5 % 40.1-51.0 L 411) MEAN CORPUSCULAR VOLUME (BEAKER) 86.1 fL 79.0-92.2 (test code = 753) MEAN CORPUSCULAR HEMOGLOBIN 27.2 pg 25.7-32.2 (BEAKER) (test code = 751) MEAN CORPUSCULAR HEMOGLOBIN CONC 31.6 GM/DL 32.3-36.5 L (BEAKER) (test code = 752) RED CELL DISTRIBUTION WIDTH 15.8 % 11.6-14.4 H (BEAKER) (test code = 412) PLATELET COUNT (BEAKER) (test 370 K/CU MM 150-450 code = 756) MEAN PLATELET VOLUME (BEAKER) 9.9 fL 9.4-12.4 (test code = 754) NUCLEATED RED BLOOD CELLS 0 /100 WBC 0-0 (BEAKER) (test code = 413) NEUTROPHILS RELATIVE PERCENT 71 % (BEAKER) (test code = 429) LYMPHOCYTES RELATIVE PERCENT 19 % (BEAKER) (test code = 430) MONOCYTES RELATIVE PERCENT 8 % (BEAKER) (test code = 431) EOSINOPHILS RELATIVE PERCENT 3 % (BEAKER) (test code = 432) BASOPHILS RELATIVE PERCENT 1 % (BEAKER) (test code = 437) NEUTROPHILS ABSOLUTE COUNT 6.47 K/ L 1.78-5.38 H (BEAKER) (test code = 670) LYMPHOCYTES ABSOLUTE COUNT 1.71 K/ L 1.32-3.57 (BEAKER) (test code = 414) MONOCYTES ABSOLUTE COUNT (BEAKER) 0.69 K/ L 0.30-0.82 (test code = 415) EOSINOPHILS ABSOLUTE COUNT 0.23 K/ L 0.04-0.54 (BEAKER) (test code = 416) BASOPHILS ABSOLUTE COUNT (BEAKER) 0.05 K/ L 0.01-0.08 (test code = 417) IMMATURE GRANULOCYTES-RELATIVE 0 % 0-1 PERCENT (BEAKER) (test code = 2801) HEMOGLOBIN [id number] 14:11:00 Test Item Value Reference Range Interpretation Comments HEMOGLOBIN A1C (BEAKER) (test code = 5.8 % 4.3-6.1 368) TSH/FREE T4 IF [id number] 08:40:00 Test Item Value Reference Range Interpretation Comments THYROID STIMULATING HORMONE 1.88 uIU/mL 0.35-4.94 (BEAKER) (test code = 772) CBC W/PLT COUNT & AUTO [id number] 06:27:00 Test Item Value Reference Range Interpretation Comments WHITE BLOOD CELL COUNT (BEAKER) 7.2 K/ L 3.5-10.5 (test code = 775) RED BLOOD CELL COUNT (BEAKER) 2.24 M/ L 4.63-6.08 L (test code = 761) HEMOGLOBIN (BEAKER) (test code = 6.1 GM/DL 13.7-17.5 L 410) HEMATOCRIT (BEAKER) (test code = 19.2 % 40.1-51.0 L 411) MEAN CORPUSCULAR VOLUME (BEAKER) 85.7 fL 79.0-92.2 (test code = 753) MEAN CORPUSCULAR HEMOGLOBIN 27.2 pg 25.7-32.2 (BEAKER) (test code = 751) MEAN CORPUSCULAR HEMOGLOBIN CONC 31.8 GM/DL 32.3-36.5 L (BEAKER) (test code = 752) RED CELL DISTRIBUTION WIDTH 16.5 % 11.6-14.4 H (BEAKER) (test code = 412) PLATELET COUNT (BEAKER) (test 307 K/CU MM 150-450 code = 756) MEAN PLATELET VOLUME (BEAKER) 10.6 fL 9.4-12.4 (test code = 754) NUCLEATED RED BLOOD CELLS 0 /100 WBC 0-0 (BEAKER) (test code = 413) NEUTROPHILS RELATIVE PERCENT 65 % (BEAKER) (test code = 429) LYMPHOCYTES RELATIVE PERCENT 24 % (BEAKER) (test code = 430) MONOCYTES RELATIVE PERCENT 8 % (BEAKER) (test code = 431) EOSINOPHILS RELATIVE PERCENT 3 % (BEAKER) (test code = 432) BASOPHILS RELATIVE PERCENT 0 % (BEAKER) (test code = 437) NEUTROPHILS ABSOLUTE COUNT 4.70 K/ L 1.78-5.38 (BEAKER) (test code = 670) LYMPHOCYTES ABSOLUTE COUNT 1.73 K/ L 1.32-3.57 (BEAKER) (test code = 414) MONOCYTES ABSOLUTE COUNT (BEAKER) 0.55 K/ L 0.30-0.82 (test code = 415) EOSINOPHILS ABSOLUTE COUNT 0.19 K/ L 0.04-0.54 (BEAKER) (test code = 416) BASOPHILS ABSOLUTE COUNT (BEAKER) 0.03 K/ L 0.01-0.08 (test code = 417) IMMATURE GRANULOCYTES-RELATIVE 1 % 0-1 PERCENT (BEAKER) (test code = 2801) BASIC METABOLIC [id number] 06:09:00 Test Item Value Reference Range Interpretation Comments SODIUM (BEAKER) 138 meq/L 136-145 (test code = 381) POTASSIUM (BEAKER) 3.9 meq/L 3.5-5.1 (test code = 379) CHLORIDE (BEAKER) 106 meq/L 98-107 (test code = 382) CO2 (BEAKER) (test 24 meq/L 22-29 code = 355) BLOOD UREA NITROGEN 18 mg/dL 7-21 (BEAKER) (test code = 354) CREATININE (BEAKER) 0.97 mg/dL 0.57-1.25 (test code = 358) GLUCOSE RANDOM 100 mg/dL 70-105 (BEAKER) (test code = 652) CALCIUM (BEAKER) 8.1 mg/dL 8.4-10.2 L (test code = 697) EGFR (BEAKER) (test mL/min/1.73 INSUFFIC IENT CLINICAL code = 1092) sq m DATA TO CALCULA TE ESTIMATED GFR. [id number] 06:08:00 Test Item Value Reference Range Interpretation Comments PHOSPHORUS (BEAKER) (test code = 3.1 mg/dL 2.3-4.7 604) [id number] 06:08:00 Test Item Value Reference Range Interpretation Comments MAGNESIUM (BEAKER) (test code = 1.7 mg/dL 1.6-2.6 627) LIPID [id number] 06:08:00 Test Item Value Reference Range Interpretation Comments TRIGLYCERIDES (BEAKER) (test code = 96 mg/dL 540) CHOLESTEROL (BEAKER) (test code = 121 mg/dL 631) HDL CHOLESTEROL (BEAKER) (test code 32 mg/dL = 976) LDL CHOLESTEROL CALCULATED (BANNER) 70 mg/dL (test code = 633) Triglyceride Reference Range: Low Risk <150 Borderline 150-199 High Risk 200-499 Very High Risk >=500Cholesterol Reference Range: Low Risk <200 Borderline 200-239 High Risk >240HDL Cholesterol Reference Range: Low Risk >=60 High Risk <40LDL Cholesterol Reference Range: Optimal <100 Near Optimal 100-129 Borderline 130-159 High 160-189 Very High >=190CALCIUM, [id number] 05:51:00 Test Item Value Reference Range Interpretation Comments CALCIUM IONIZED (BANNER) (test 1.01 mmol/L 1.12-1.27 L code = 698) PH, BLOOD (BANNER) (test code = 7.37 1810) POCT-GLUCOSE [id number] 21:21:00 Test Item Value Reference Range Interpretation Comments POC-GLUCOSE METER 135 mg/dL 70-110 H TESTED AT [facility] 6720 (BANNER) (test code = [facility] 1538) [address] PROTHROMBIN [id number] 17:27:00 Test Item Value Reference Range Interpretation Comments PROTIME (1006.tv) (test code = 14.1 seconds 11.7-14.7 759) INR (BANNER) (test code = 370) 1.1 <=5.9 RECOMMENDED COUMADIN/WARFARIN INR THERAPY RANGESSTANDARD DOSE: 2.0 - 3.0 Includes: PROPHYLAXIS forvenous thrombosis, systemic embolization; TREATMENT for venous thrombosis and/or pulmonary embolus.HIGH RISK: Target INR is 2.5-3.5 for patients with mechanical heart valves.COMPREHENSIVE METABOLIC [id number] 10:27:00 Test Item Value Reference Range Interpretation Comments TOTAL PROTEIN 6.5 gm/dL 6.0-8.3 (Zoom TelephonicsAKER) (test code = 770) ALBUMIN (AKER) 3.4 g/dL 3.5-5.0 L (test code = 1145) ALKALINE PHOSPHATASE 62 U/L 40-150 (BEAKER) (test code = 346) BILIRUBIN TOTAL 0.5 mg/dL 0.2-1.2 (BEAKER) (test code = 377) SODIUM (BEAKER) 134 meq/L 136-145 L (test code = 381) POTASSIUM (BEAKER) 3.6 meq/L 3.5-5.1 (test code = 379) CHLORIDE (BEAKER) 97 meq/L 98-107 L (test code = 382) CO2 (BEAKER) (test 27 meq/L 22-29 code = 355) BLOOD UREA NITROGEN 31 mg/dL 7-21 H (BEAKER) (test code = 354) CREATININE (BEAKER) 1.17 mg/dL 0.57-1.25 (test code = 358) GLUCOSE RANDOM 113 mg/dL 70-105 H (BEAKER) (test code = 652) CALCIUM (BEAKER) 8.8 mg/dL 8.4-10.2 (test code = 697) AST (SGOT) (BEAKER) 17 U/L 5-34 (test code = 353) ALT (SGPT) (BEAKER) 11 U/L 6-55 (test code = 347) EGFR (BEAKER) (test mL/min/1.73 INSUFFIC IENT code = 1092) sq m CLINICAL DATA T O CALCULATE ESTIM ATED GFR. CBC W/PLT COUNT & AUTO [id number] 09:55:00 Test Item Value Reference Range Interpretation Comments WHITE BLOOD CELL COUNT (BEAKER) 9.6 K/ L 3.5-10.5 (test code = 775) RED BLOOD CELL COUNT (BEAKER) 2.73 M/ L 4.63-6.08 L (test code = 761) HEMOGLOBIN (BEAKER) (test code = 7.5 GM/DL 13.7-17.5 L 410) HEMATOCRIT (BEAKER) (test code = 22.8 % 40.1-51.0 L 411) MEAN CORPUSCULAR VOLUME (BEAKER) 83.5 fL 79.0-92.2 (test code = 753) MEAN CORPUSCULAR HEMOGLOBIN 27.5 pg 25.7-32.2 (BEAKER) (test code = 751) MEAN CORPUSCULAR HEMOGLOBIN CONC 32.9 GM/DL 32.3-36.5 (BEAKER) (test code = 752) RED CELL DISTRIBUTION WIDTH 16.6 % 11.6-14.4 H (BEAKER) (test code = 412) PLATELET COUNT (BEAKER) (test 328 K/CU MM 150-450 code = 756) MEAN PLATELET VOLUME (BEAKER) 10.4 fL 9.4-12.4 (test code = 754) NUCLEATED RED BLOOD CELLS 0 /100 WBC 0-0 (BEAKER) (test code = 413) NEUTROPHILS RELATIVE PERCENT 67 % (BEAKER) (test code = 429) LYMPHOCYTES RELATIVE PERCENT 18 % (BEAKER) (test code = 430) MONOCYTES RELATIVE PERCENT 11 % (BEAKER) (test code = 431) EOSINOPHILS RELATIVE PERCENT 2 % (BEAKER) (test code = 432) BASOPHILS RELATIVE PERCENT 1 % (BEAKER) (test code = 437) NEUTROPHILS ABSOLUTE COUNT 6.42 K/ L 1.78-5.38 H (BEAKER) (test code = 670) LYMPHOCYTES ABSOLUTE COUNT 1.73 K/ L 1.32-3.57 (BEAKER) (test code = 414) MONOCYTES ABSOLUTE COUNT (BEAKER) 1.07 K/ L 0.30-0.82 H (test code = 415) EOSINOPHILS ABSOLUTE COUNT 0.20 K/ L 0.04-0.54 (BEAKER) (test code = 416) BASOPHILS ABSOLUTE COUNT (BEAKER) 0.05 K/ L 0.01-0.08 (test code = 417) IMMATURE GRANULOCYTES-RELATIVE 1 % 0-1 PERCENT (BEAKER) (test code = 0940)
[2020-02-09 14:36] LABS: Absolute Lymphocytes (CBC) 1.4 K/uL (0.7-4.9); Basophils % 0.1 % (0-1.3); MPV 8.9 fL (7.6-11.3); RBC Red Blood Cell Count 3.27 M/uL (4.33-5.43)
[2020-02-09] MEDS ORDERED: PANTOPRAZOLE 40 MG INJ ONE (14:36)
[2020-02-09] MEDS ORDERED: NA CHLORIDE 0.9% 2,000 ML ONE (14:36)
[2020-02-09] MEDS ORDERED: ONDANSETRON 4 MG/2 ML VIAL ONE ×2 (14:36→15:08)
[2020-02-09 14:42] LABS: Protime INR 1.17
--- NOTE | 2020-02-09 14:50 | ER ---
Nurse's Notes [facility] Name: Justen Escalera Age: 69 yrs Sex: Male : 1950 Arrival Date: 02/09/2020 Time: 13:58 Bed 17 Private MD: Diagnosis: Abdominal tenderness;Vomiting;Gastrointestinal hemorrhage, unspecified-upper;Anemia, unspecified;Hypokalemia;Hypotension;Acute kidney failure;Gastric ulcer Presentation: 02/08 14:05 Chief complaint: Patient states: Diarrhea x 2 months, intermittent. Vomiting blood x 1 ca1 month, intermittent. Worse in the past 2 weeks. Chest pain just started upon MAINTENANCE CHIEF. Pt appears weak and pale. Coronavirus screen: Client denies travel out of the [place] in the last 14 days. At this time, the client does not indicate any symptoms associated with coronavirus-19. Ebola Screen: Patient negative for fever greater than or equal to 101.5 degrees Fahrenheit, and additional compatible Ebola Virus Disease symptoms Patient denies exposure to infectious person. Patient denies travel to an Ebola-affected area in the 21 days before illness onset. No symptoms or risks identified at this time. Initial Sepsis Screen: Does the patient meet any 2 criteria? Systolic BP < 90 mmHg. HR > 90 bpm. Does the patient have a suspected source of infection? No. Patient's initial sepsis screen is negative. Risk Assessment: Do you want to hurt yourself or someone else? Patient reports no desire to harm self or others. Onset of symptoms was February 09, 2020. 14:05 Method Of Arrival: Wheelchair ca1 14:05 Acuity: SHU 2 ca1 Historical: - Allergies: 14:09 No Known Allergies; ca1 - Home Meds: 14:09 None [Active]; ca1 - PMHx: 14:09 GERD; ca1 - PSHx: 14:09 None; ca1 - Immunization history:: Adult Immunizations up to date. - Social history:: Smoking status: Patient denies any tobacco usage or history of. Patient uses alcohol, son reports pt is alcoholic. Screenin:23 Abuse screen: Denies threats or abuse. Nutritional screening: No deficits noted. tw2 Tuberculosis screening: No symptoms or risk factors identified. Fall Risk Secondary diagnosis (15 points) impaired mobility. Assessment: 14:10 General: Appears uncomfortable, Behavior is calm, cooperative. Pain: Complains of pain aa5 in epigastric area Pain does not radiate. Pain currently is 8 out of 10 on a pain scale. Quality of pain is described as burning, Pain began 1 day ago. Is continuous. Neuro: Level of Consciousness is awake, alert, obeys commands, Oriented to person, place, time, situation. Cardiovascular: Heart tones S1 S2 present Rhythm is sinus tachycardia. Respiratory: Airway is patent Respiratory effort is even, unlabored, Respiratory pattern is regular, symmetrical. GI: Abdomen is flat, non-distended, Bowel sounds present X 4 quads. Abdomen is tender to palpation in epigastric area Reports diarrhea, nausea, vomiting, Pt reports vomiting blood on and off x 1 month ago, reports got worse last night. Pt also reports intermittent black diarrhea x 2 months. : No signs and/or symptoms were reported regarding the genitourinary system. EENT: No signs and/or symptoms were reported regarding the EENT system. Derm: Skin is dry, Skin is pale, Skin temperature is warm. Musculoskeletal: Range of motion: intact in all extremities. 14:30 Reassessment: Pt vomited 200cc of dark blood emesis . aa5 14:40 Reassessment: Pt states "I used to be an alcoholic and used to drink every day, now I aa5 only drink about every couple of weeks". Pt reports last drink was 2 weeks ago. . 15:00 Reassessment: Central line placement consent signed by pt. . aa5 15:00 Neuro: Level of Consciousness is awake, alert, obeys commands, Oriented to person, aa5 place, time, situation. Respiratory: Airway is patent Respiratory effort is even, unlabored, Respiratory pattern is regular, symmetrical. Derm: Skin is dry, Skin is pale, Skin temperature is warm. 15:00 GI: Reports nausea is unchanged, MD was notified. aa5 15:05 Reassessment: Pt vomited 100cc of dark blood emesis . aa5 15:30 Neuro: Level of Consciousness is awake, alert, obeys commands, Oriented to person, aa5 place, time, situation. Respiratory: Airway is patent Respiratory effort is even, unlabored, Respiratory pattern is regular, symmetrical. Derm: Skin is dry, Skin is pale, Skin temperature is warm. 15:30 GI: Reports nausea. aa5 15:32 Reassessment: Pt vomited dark blood, 100cc noted in emesis bag. . aa5 15:35 Reassessment: RBC administration consent form signed by pt. . aa5 15:35 Reassessment: Pt states feeling better and reports nausea has improved. . Neuro: Level aa5 of Consciousness is awake, alert, obeys commands, Oriented to person, place, time, situation. Cardiovascular: Rhythm is sinus tachycardia. Respiratory: Airway is patent Respiratory effort is even, unlabored, Respiratory pattern is regular, symmetrical. Derm: Skin is dry, Skin is pale, Skin temperature is warm. 15:51 Reassessment: Pt to CT via stretcher. Received unit of RBCs from lab while pt was in [facility], will administer when pt comes back from CT.. 16:10 Reassessment: Pt back from CT scan via stretcher . aa5 16:25 Reassessment: RBC unit # 1 administered at 1610 at 50mls/hr, pt tolerating well, lungs aa5 CTA, pt denies any complaints at this time, states feeling better, no adverse reactions noted or reported by pt. RBC now infusing at 200ml/hr, pt tolerating well. . 17:17 Reassessment: Repeat lactate drawn and sent to lab. Pt states feeling better, pt's skin aa5 color has improved at this time, equal and unlabored respirations. No blood transfusion reactions noted, RBCs infusing at 200ml/hr, pt tolerating well, denies any complaints. Awaiting EMS for transfer, pt notified of wait time. . 17:30 Reassessment: EMS at bedside. Blood transfusion, Unit # 1 completed at this time. Will [facility] start 2nd unit before transfer. . 17:45 Reassessment: Pt c/o nausea, notified and Phenergan ordered. . aa5 18:10 Reassessment: RBC unit # 2 administered at 1755 at 50mls/hr, pt tolerating well, lungs aa5 CTA, no adverse reactions noted or reported, RBCs now infusing at 200mls/hr, pt tolerating well. Blood transfusion transferred of care to [facility]. . 18:10 Neuro: Level of Consciousness is awake, alert, obeys commands, Oriented to person, aa5 place, time, situation. Respiratory: Airway is patent Respiratory effort is even, unlabored, Respiratory pattern is regular, symmetrical. Derm: Skin is dry, Skin is normal, Skin temperature is warm. 18:10 Cardiovascular: Rhythm is sinus tachycardia. aa5 Vital Signs: 14:05 BP 80 / 63; Pulse 125; Resp 19 S; Temp 97.2(TE); Pulse Ox 100% on R/A; Weight 99.79 kg ca1 (R); Height 6 ft. 4 in. (193.04 cm) (R); 16:10 BP 94 / 63; Pulse 123; Resp 20 S; Temp 99.0(O); Pulse Ox 97% on R/A; aa5 16:25 BP 117 / 70; Pulse 120; Resp 18; Temp 98.6(O); Pulse Ox 97% on R/A; aa5 16:25 aa5 16:40 BP 93 / 54; Pulse 115; Resp 18 S; Temp 98.7(O); Pulse Ox 97% on R/A; aa5 17:30 BP 121 / 72; Pulse 105; Resp 18 S; Temp 99.0(O); Pulse Ox 97% on R/A; aa5 18:00 BP 123 / 72; Pulse 106; Resp 18 S; Temp 99.4(O); Pulse Ox 97% on R/A; aa5 18:10 BP 106 / 67; Pulse 104; Resp 20 S; Temp 99.0(O); Pulse Ox 94% on R/A; aa5 14:05 Body Mass Index 26.78 (99.79 kg, 193.04 cm) ca1 16:25 See blood transfusion record for more information and VS. aa5 ED Course: 13:58 Patient arrived in ED. as 14:00 Placed in gown. Bed in low position. Side rails up X 1. quality assurance monitor body on. Pulse ox tw2 on. NIBP on. 14:07 Triage completed. ca1 14:08 Michelle Catalan, RN is Primary Nurse. aa5 14:09 Arm band placed on right wrist. ca1 14:15 Inserted saline lock: 18 gauge in right antecubital area, using aseptic technique. aa5 14:15 Initial lab(s) drawn, by sc, sent to lab. First set of blood cultures drawn by me. aa5 14:25 Spike Schneider MD is Attending Physician. nam 14:30 Second set of blood cultures drawn by me. aa5 14:30 Missed attempt(s): 20 gauge in right wrist. Bleeding controlled, band aid applied, aa5 catheter tip intact. 14:35 Inserted saline lock: 20 gauge in left upper arm, using aseptic technique. ,using aa5 aseptic technique. Inserted by GIULIANA Nath. 14:48 Chest Single View XRAY In Process Unspecified. EDMS 14:52 transfer initiated to [facility] by dr Schneider. bd 15:30 Assisted provider with central line placement. Set up central line tray. Triple lumen aa5 line placed in right femoral. Line placed by Spike Schneider MD Placement verified by blood return, Dressed with Tegaderm, Patient tolerated well. Before procedure, did Practitioner(s) obtain informed consent? Yes. 15:57 Abdomen In Process Unspecified. EDMS 16:22 pt accepted in transfer to [facility] by Dr Vivar, admin approval given by chuy Snider. 18:10 Patient transferred, IV remains in place. aa5 19:46 Primary Nurse role handed off by Michelle Catalan, RN aa5 Administered Medications: 14:20 Drug: NS 0.9% (30 ml/kg) 30 ml/kg Route: IV; Rate: bolus; Site: right antecubital; aa5 16:15 Follow up: IV Status: Completed infusion; IV Intake: 2000ml ; Administered 2000ml per aa5 MD VO 14:38 Drug: ProTONIX 80 mg Route: IVP; Site: right antecubital; aa5 14:45 Follow up: Response: No adverse reaction aa5 14:38 Drug: Zofran (Ondansetron) 4 mg Route: IVP; Site: right antecubital; aa5 14:45 Follow up: Response: No adverse reaction aa5 15:00 Drug: Flagyl 500 mg Volume: 100 ml; Route: IVPB; Rate: 200 ml/hr; Infused Over: 30 aa5 mins; Site: right antecubital; 15:00 Drug: fentaNYL (PF) 25 mcg Route: IVP; Site: right antecubital; aa5 15:05 Follow up: Response: No adverse reaction aa5 15:11 Drug: Zofran (Ondansetron) 4 mg Route: IVP; Site: left upper arm; aa5 15:16 Follow up: Response: No adverse reaction aa5 15:15 Drug: Thiamine 100 mg Route: IV; Rate: bolus; Site: left upper arm; aa5 15:30 Drug: ProTONIX 8 mg/hr Route: IV; Rate: 25 ml/hr; Site: right femoral; aa5 18:10 Follow up: IV Status: Infusion continued upon transfer aa5 15:30 Drug: Potassium Chloride 20 mEq Route: IV; Rate: per protocol; Site: right femoral; aa5 17:21 Follow up: IV Status: Completed infusion aa5 15:30 Drug: SandoSTATIN 100 mcg Route: IV; Rate: per protocol; Site: left upper arm; aa5 15:30 Drug: Phenergan 12.5 mg Route: IVP; Site: left upper arm; aa5 15:40 Follow up: Response: No adverse reaction aa5 15:40 Drug: Cipro 400 mg Volume: 200 ml; Route: IVPB; Infused Over: 60 mins; Site: right aa antecubital; 16:40 Follow up: Response: No adverse reaction; IV Status: Completed infusion aa5 16:10 Drug: SandoSTATIN 50 mcg/h Route: IV; Rate: calculated rate; Site: left upper arm; aa5 18:10 Follow up: IV Status: Infusion continued upon transfer aa5 16:10 Drug: Tylenol Suppository 650 mg Route: RI; aa5 17:00 Follow up: Response: No adverse reaction aa5 16:10 Drug: Benadryl 12.5 mg Route: IVP; Site: left upper arm; aa5 16:15 Follow up: Response: No adverse reaction aa5 16:30 Drug: Vitamin K1 10 mg Route: Sub-Q; Site: left upper arm; aa5 17:00 Follow up: Response: No adverse reaction aa5 17:21 Drug: Potassium Chloride 20 mEq Route: IV; Rate: per protocol; Site: right femoral; aa5 18:10 Follow up: IV Status: Infusion continued upon transfer aa5 17:48 Drug: Phenergan 12.5 mg Route: IVP; Site: right antecubital; aa5 17:55 Follow up: Response: No adverse reaction; Nausea is decreased aa5 Point of Care Testing: Blood Glucose: 14:22 Blood Glucose: 201 mg/dL; tw2 Ranges: Intake: 16:15 IV: 2000ml; Total: 2000ml. aa5 Outcome: 14:48 ER care complete, transfer ordered by MD. browinng 18:10 Patient left the ED. aa5 18:10 Transferred by ground EMS to [facility], [facility], Transfer form completed. aa5 X-rays sent w/ patient. Note: Report given to [facility] and AIMEE Patricia at [facility] 18:10 Condition: improved aa5 18:10 Discharge instructions given to patient, Instructed on the need for transfer, Demonstrated understanding of instructions. Signatures: Dispatcher [employer] EDMS Cecilia Padron Corey, MD MD cha Martinez, Amelia as Calderon, Audri RN RN aa5 Palmira Irizarry RN RN tw2 Rosy Fraire RN RN ca1 Corrections: (The following items were deleted from the chart) 14:09 14:05 Chief complaint: Patient states: Diarrhea x 2 months, intermittent. Vomiting ca1 blood x 1 month, intermittent. Chest pain just started upon MAINTENANCE CHIEF. Pt appears weak and pale. ca1 19:45 18:19 Patient left the ED. aa5 aa5 19:49 19:48 Patient left the ED. aa5 aa5
--- NOTE | 2020-02-09 14:50 | EDPHYS ---
Physician Documentation [facility] Name: Justen Escalera Age: 69 yrs Sex: Male : 1950 Arrival Date: 02/09/2020 Time: 13:58 Bed 17 Private MD: ED Physician Spike Schneider HPI: 02/08 14:44 This 69 yrs old Black Male presents to ER via Wheelchair with complaints of Vomiting. nam 14:44 The patient presents to the emergency department with nausea, vomiting, that is nam continuous. Onset: The symptoms/episode began/occurred 14 day(s) ago. Possible causes: unknown. The symptoms are aggravated by nothing. movement. Associated signs and symptoms: Pertinent positives: abdominal pain, GI bleeding. Severity of symptoms: At their worst the symptoms were moderate in the emergency department the symptoms are unchanged. The patient has not experienced similar symptoms in the past. Historical: - Allergies: 14: No Known Allergies; ca1 - Home Meds: 14: None [Active]; ca1 - PMHx: 14: GERD; ca1 - PSHx: 14: None; ca1 - Immunization history:: Adult Immunizations up to date. - Social history:: Smoking status: Patient denies any tobacco usage or history of. Patient uses alcohol, son reports pt is alcoholic. ROS: 14:45 Constitutional: Negative for fever, chills, and weight loss, Eyes: Negative for injury, nam pain, redness, and discharge, ENT: Negative for injury, pain, and discharge, Neck: Negative for injury, pain, and swelling, Cardiovascular: Negative for chest pain, palpitations, and edema, Respiratory: Negative for shortness of breath, cough, wheezing, and pleuritic chest pain, Back: Negative for injury and pain, : Negative for injury, bleeding, discharge, and swelling, MS/Extremity: Negative for injury and deformity, Skin: Negative for injury, rash, and discoloration, Neuro: Negative for headache, weakness, numbness, tingling, and seizure, Psych: Negative for depression, anxiety, suicide ideation, homicidal ideation, and hallucinations, Allergy/Immunology: Negative for hives, rash, and allergies, Endocrine: Negative for neck swelling, polydipsia, polyuria, polyphagia, and marked weight changes, Hematologic/Lymphatic: Negative for swollen nodes, abnormal bleeding, and unusual bruising. 14:45 Abdomen/GI: Positive for abdominal pain, nausea and vomiting, abdominal cramps, hematemesis, black/tarry stool. Exam: 14:45 Constitutional: This is a well developed, well nourished patient who is awake, alert, nam and in no acute distress. Head/Face: Normocephalic, atraumatic. Eyes: Pupils equal round and reactive to light, extra-ocular motions intact. Lids and lashes normal. Conjunctiva and sclera are non-icteric and not injected. Cornea within normal limits. Periorbital areas with no swelling, redness, or edema. ENT: Nares patent. No nasal discharge, no septal abnormalities noted. Tympanic membranes are normal and external auditory canals are clear. Oropharynx with no redness, swelling, or masses, exudates, or evidence of obstruction, uvula midline. Mucous membranes moist. Neck: Trachea midline, no thyromegaly or masses palpated, and no cervical lymphadenopathy. Supple, full range of motion without nuchal rigidity, or vertebral point tenderness. No Meningismus. Chest/axilla: Normal chest wall appearance and motion. Nontender with no deformity. No lesions are appreciated. Respiratory: Lungs have equal breath sounds bilaterally, clear to auscultation and percussion. No rales, rhonchi or wheezes noted. No increased work of breathing, no retractions or nasal flaring. Back: No spinal tenderness. No costovertebral tenderness. Full range of motion. Male : Normal genitalia with no discharge or lesions. Skin: Warm, dry with normal turgor. Normal color with no rashes, no lesions, and no evidence of cellulitis. MS/ Extremity: Pulses equal, no cyanosis. Neurovascular intact. Full, normal range of motion. Neuro: Awake and alert, GCS 15, oriented to person, place, time, and situation. Cranial nerves II-XII grossly intact. Motor strength 5/5 in all extremities. Sensory grossly intact. Cerebellar exam normal. Normal gait. Psych: Awake, alert, with orientation to person, place and time. Behavior, mood, and affect are within normal limits. 14:45 Cardiovascular: Rate: tachycardic, Rhythm: regular, Pulses: Pulses are 4+ in bilateral radial, brachial, femoral, popliteal, posterior tibial and and dorsalis pedis arteries.. Heart sounds: normal, Edema: is not appreciated, JVD: is not appreciated. 14:59 ECG was reviewed by the Attending Physician. [facility] Vital Signs: 14:05 BP 80 / 63; Pulse 125; Resp 19 S; Temp 97.2(TE); Pulse Ox 100% on R/A; Weight 99.79 kg ca1 (R); Height 6 ft. 4 in. (193.04 cm) (R); 16:10 BP 94 / 63; Pulse 123; Resp 20 S; Temp 99.0(O); Pulse Ox 97% on R/A; aa5 16:25 BP 117 / 70; Pulse 120; Resp 18; Temp 98.6(O); Pulse Ox 97% on R/A; aa5 16:25 aa5 16:40 BP 93 / 54; Pulse 115; Resp 18 S; Temp 98.7(O); Pulse Ox 97% on R/A; aa5 17:30 BP 121 / 72; Pulse 105; Resp 18 S; Temp 99.0(O); Pulse Ox 97% on R/A; aa5 18:00 BP 123 / 72; Pulse 106; Resp 18 S; Temp 99.4(O); Pulse Ox 97% on R/A; aa5 18:10 BP 106 / 67; Pulse 104; Resp 20 S; Temp 99.0(O); Pulse Ox 94% on R/A; aa5 14:05 Body Mass Index 26.78 (99.79 kg, 193.04 cm) ca1 16:25 See blood transfusion record for more information and VS. aa5 Procedures: 15:43 Central Line: the site was prepped with Betadine, in sterile fashion, a triple lumen nam catheter was inserted, in the right femoral vein, in 1 attempts. placement was verified, by blood return, the site was dressed with using sterile technique, the patient tolerated the procedure, well. MDM: 14:25 Patient medically screened. [facility] 14:49 Differential diagnosis: Nonspecific abd pain, gastritis, cholecystitis, pancreatitis, nam viral gastroenteritis, gastroenteritis, gastritis, varices. Data reviewed: vital signs, nurses notes, lab test result(s), EKG, radiologic studies, CT scan, plain films. Data interpreted: assistant portfolio manager: rate is 125 beats/min, Pulse oximetry: on room air is 100 %. Test interpretation: by ED physician or midlevel provider: ECG, plain radiologic studies. Counseling: I had a detailed discussion with the patient and/or guardian regarding: the historical points, exam findings, and any diagnostic results supporting the discharge/admit diagnosis, lab results, radiology results, the need to transfer to another facility, for higher level of care, [facility] does not immediately have the required specialist. ED course: to [facility] icu. gi consult. 15:40 Other consultation: icu attending and gi at [facility]. [facility] 02/08 14:14 Order name: Amylase, Serum; Complete Time: 15:12 tw02/08 14:14 Order name: Basic Metabolic Panel; Complete Time: 15:12 tw02/08 14:14 Order name: Blood Culture Adult (2) tw02/08 14:14 Order name: CBC with Diff; Complete Time: 15:38 tw02/08 14:14 Order name: Ckmb; Complete Time: 15:12 tw02/08 14:14 Order name: CPK; Complete Time: 15:12 tw02/08 14:14 Order name: Lactate; Complete Time: 15:12 tw02/08 14:14 Order name: LFT's; Complete Time: 15:12 tw02/08 14:14 Order name: Lipase; Complete Time: 15:12 tw02/08 14:14 Order name: Procalcitonin; Complete Time: 15:12 02/08 14:14 Order name: Protime (+inr); Complete Time: 15:04 tw02/08 14:14 Order name: Ptt, Activated; Complete Time: 15:04 tw02/08 14:14 Order name: Troponin (emerg Dept Use Only); Complete Time: 15:12 tw02/08 14:14 Order name: Chest Single View XRAY; Complete Time: 15:04 tw02/08 14:34 Order name: Glucose, Ancillary Testing; Complete Time: 14:39 EDMS 02/08 14:38 Order name: Type And Screen [facility] 02/08 14:40 Order name: Manual Differential; Complete Time: 15:38 EDMS 02/08 14:44 Order name: Bb Add On bd 02/08 14:45 Order name: Packed RBC Leukored EDOH 02/08 15:02 Order name: Phosphorus; Complete Time: 15:38 [facility] 02/08 15:39 Order name: Occult Blood--Ancillary bd 02/08 15:55 Order name: Abdomen ; Complete Time: 16:38 EDOH 02/08 17:49 Order name: Lactate Sepsis 2 HR Follow-up EDOH 02/08 14:14 Order name: Accucheck; Complete Time: 14:22 tw2 02/08 14:14 Order name: Cardiac monitoring; Complete Time: 14:45 tw2 02/08 14:14 Order name: EKG - Nurse/Tech; Complete Time: 14:45 tw2 02/08 14:14 Order name: IV Saline Lock - Large Bore; Complete Time: 14:46 tw2 02/08 14:14 Order name: Labs collected and sent; Complete Time: 14:45 tw2 02/08 14:14 Order name: O2 Per Protocol; Complete Time: 14:45 tw2 02/08 14:14 Order name: O2 Sat Monitoring; Complete Time: 14:45 tw2 02/08 14:38 Order name: Transfuse; Complete Time: 16:37 [facility] EC:59 Rate is 115 beats/min. Rhythm is regular. QRS [place] is Normal. [place] interval is normal. nam QRS interval is normal. QT interval is normal. No Q waves. T waves are Normal. ST Segment is depressed in leads I, aVL, V4, V5, V6. Clinical impression: Sinus tachycardia. Interpreted by me. Reviewed by me. Administered Medications: 14:20 Drug: NS 0.9% (30 ml/kg) 30 ml/kg Route: IV; Rate: bolus; Site: right antecubital; aa5 16:15 Follow up: IV Status: Completed infusion; IV Intake: 2000ml ; Administered 2000ml per aa5 MD VO 14:38 Drug: ProTONIX 80 mg Route: IVP; Site: right antecubital; aa5 14:45 Follow up: Response: No adverse reaction aa5 14:38 Drug: Zofran (Ondansetron) 4 mg Route: IVP; Site: right antecubital; aa5 14:45 Follow up: Response: No adverse reaction aa5 15:00 Drug: Flagyl 500 mg Volume: 100 ml; Route: IVPB; Rate: 200 ml/hr; Infused Over: 30 aa5 mins; Site: right antecubital; 15:00 Drug: fentaNYL (PF) 25 mcg Route: IVP; Site: right antecubital; aa5 15:05 Follow up: Response: No adverse reaction aa5 15:11 Drug: Zofran (Ondansetron) 4 mg Route: IVP; Site: left upper arm; aa5 15:16 Follow up: Response: No adverse reaction aa5 15:15 Drug: Thiamine 100 mg Route: IV; Rate: bolus; Site: left upper arm; aa5 15:30 Drug: ProTONIX 8 mg/hr Route: IV; Rate: 25 ml/hr; Site: right femoral; aa5 18:10 Follow up: IV Status: Infusion continued upon transfer aa5 15:30 Drug: Potassium Chloride 20 mEq Route: IV; Rate: per protocol; Site: right femoral; aa5 17:21 Follow up: IV Status: Completed infusion 5 15:30 Drug: SandoSTATIN 100 mcg Route: IV; Rate: per protocol; Site: left upper arm; aa5 15:30 Drug: Phenergan 12.5 mg Route: IVP; Site: left upper arm; aa5 15:40 Follow up: Response: No adverse reaction aa5 15:40 Drug: Cipro 400 mg Volume: 200 ml; Route: IVPB; Infused Over: 60 mins; Site: right aa5 antecubital; 16:40 Follow up: Response: No adverse reaction; IV Status: Completed infusion aa5 16:10 Drug: SandoSTATIN 50 mcg/h Route: IV; Rate: calculated rate; Site: left upper arm; aa5 18:10 Follow up: IV Status: Infusion continued upon transfer aa5 16:10 Drug: Tylenol Suppository 650 mg Route: [place]; aa5 17:00 Follow up: Response: No adverse reaction aa5 16:10 Drug: Benadryl 12.5 mg Route: IVP; Site: left upper arm; aa5 16:15 Follow up: Response: No adverse reaction aa5 16:30 Drug: Vitamin K1 10 mg Route: Sub-Q; Site: left upper arm; aa5 17:00 Follow up: Response: No adverse reaction aa5 17:21 Drug: Potassium Chloride 20 mEq Route: IV; Rate: per protocol; Site: right femoral; aa5 18:10 Follow up: IV Status: Infusion continued upon transfer aa5 17:48 Drug: Phenergan 12.5 mg Route: IVP; Site: right antecubital; aa5 17:55 Follow up: Response: No adverse reaction; Nausea is decreased aa5 Point of Care Testing: Blood Glucose: 14:22 Blood Glucose: 201 mg/dL; tw2 Ranges: Critical Glucose Levels:Adult <50 mg/dl or >400 mg/dl <40 mg/dl or >180 mg/dl Disposition: 02/09/20 14:[address] [facility]. Diagnosis are Abdominal tenderness, Vomiting, Gastrointestinal hemorrhage, unspecified - upper, Anemia, unspecified, Hypokalemia, Hypotension, Acute kidney failure, Gastric ulcer. - Reason for transfer: Higher level of care. - Accepting physician is [facility]. - Condition is Stable. - Problem is new. - Symptoms have improved. Signatures: Dispatcher [employer] Spike De Jesus MD MD cha Calderon, Audri, RN RN aa5 Palmira Irizarry RN RN tw2 Rosy Fraire RN AIMEE ca1 Corrections: (The following items were deleted from the chart) 15:03 14:48 02/09/2020 14:[address] [facility]. nam Diagnosis is Abdominal tenderness; Vomiting; Gastrointestinal hemorrhage, unspecified - upper; Anemia, unspecified. Reason for transfer: Higher level of care. Accepting physician is [facility] [place]. Condition is Stable. Problem is new. Symptoms have improved. [facility] 15:04 15:03 02/09/2020 14:[address] [facility]. nam Diagnosis is Abdominal tenderness; Vomiting; Gastrointestinal hemorrhage, unspecified - upper; Anemia, unspecified; Hypokalemia. Reason for transfer: Higher level of care. Accepting physician is [facility] [place]. Condition is Stable. Problem is new. Symptoms have improved. nam 15:13 15:04 02/09/2020 14:[address] [facility]. nam Diagnosis is Abdominal tenderness; Vomiting; Gastrointestinal hemorrhage, unspecified - upper; Anemia, unspecified; Hypokalemia; Hypotension. Reason for transfer: Higher level of care. Accepting physician is [facility] [place]. Condition is Stable. Problem is new. Symptoms have improved. [facility] 15:55 14:39 Abdomen Pelvis W Con+CT.RAD.BRZ ordered. EDMS EDMS 16:40 15:13 02/09/2020 14:[address] [facility]. nam Diagnosis is Abdominal tenderness; Vomiting; Gastrointestinal hemorrhage, unspecified - upper; Anemia, unspecified; Hypokalemia; Hypotension; Acute kidney failure. Reason for transfer: Higher level of care. Accepting physician is [facility] [place]. Condition is Stable. Problem is new. Symptoms have improved. nam 18:17 14:14 Urine Dipstick-Ancillary ordered. tw2 aa5 18:19 16:40 02/09/2020 14:[address] [facility]. aa5 Diagnosis is Abdominal tenderness; Vomiting; Gastrointestinal hemorrhage, unspecified - upper; Anemia, unspecified; Hypokalemia; Hypotension; Acute kidney failure; Gastric ulcer. Reason for transfer: Higher level of care. Accepting physician is [facility] [place]. Condition is Stable. Problem is new. Symptoms have improved. nam 19:48 18:19 02/09/2020 14:[address] [facility]. aa5 Diagnosis is Abdominal tenderness; Vomiting; Gastrointestinal hemorrhage, unspecified - upper; Anemia, unspecified; Hypokalemia; Hypotension; Acute kidney failure; Gastric ulcer. Reason for transfer: Higher level of care. Accepting physician is [facility] [place]. Condition is Stable. Problem is new. Symptoms have improved. aa5
--- NOTE | 2020-02-09 14:54 | RAD REPORT ---
EXAM DESCRIPTION: RAD - Chest Single View - 02/09/2020 2:49 pm CLINICAL HISTORY: CHEST PAIN Chest pain. COMPARISON: Chest Single View dated 08/16/2018 FINDINGS: Portable technique limits examination quality. The lungs are grossly clear. The heart is normal in size. No displaced fractures. IMPRESSION: No acute intrathoracic process suspected.
[2020-02-09 14:58] LABS: ALT/SGPT 27 U/L (12-78); AST/SGOT 13 U/L (15-37); Albumin 2.6 g/dL (3.4-5.0); Alkaline Phosphatase 57 U/L (45-117); Amylase 75 U/L (25-115); BUN Blood Urea Nitrogen 63 mg/dL (7-18); Bicarbonate 37 mmol/L (21-32); Bilirubin Direct < 0.1 mg/dL (0-0.2); Bilirubin Total 0.2 mg/dL (0.2-1.0); CKMB Creatine Kinase MB < 1.0 ng/mL (0.3-3.6); Creatine Phosphokinase 63 U/L (39-308); Glucose Level 230 mg/dL (74-106); Lipase 112 U/L (73-393); Protein, Total 7.4 g/dL (6.4-8.2); Sodium Level 137 mmol/L (136-145); Troponin (Emerg Dept Use Only) < 0.02 ng/mL (0.0-0.045)
[2020-02-09 15:00] LABS: Potassium 2.9 mmol/L (3.5-5.1)
[2020-02-09] MEDS ORDERED: PANTOPRAZOLE INJ 80 MG in NA CHLORIDE 0.9% 250 ML IV ONE (15:00)
[2020-02-09] MEDS ORDERED: PROMETHAZINE INJ 25 MG/ML AMP ONE ×2 (15:07→17:48)
[2020-02-09] MEDS ORDERED: CIPROFLOXACIN 400mg IV 400 MG/200 ML BAG IV ONE (15:08)
[2020-02-09] MEDS ORDERED: FENTANYL CITR 100 MCG/2 ML ONE (15:08)
[2020-02-09] MEDS ORDERED: METRONIDAZOLE 500mg IVPB 500 MG/100 ML BAG IV ONE (15:08)
[2020-02-09 15:16] LABS: Anisocytosis 1+; Blood Morphology Comment NOTED (NOT SEEN); Hypochromasia 1+; Platelet Estimate ADEQ
[2020-02-09] MEDS ORDERED: THIAMINE 200 MG/2 ML INJ ONE (15:26)
[2020-02-09] MEDS ORDERED: OCTREOTIDE ACETATE 100 MCG/ML ONE (15:27)
[2020-02-09] MEDS ORDERED: KCL 20 MEQ/100 mL IVPB 20 MEQ/100 ML BAG IV ONE ×2 (15:27→17:27)
[2020-02-09] MEDS ORDERED: NA CHLORIDE 0.9% 250 ML ONE ×2 (15:40→17:49)
[2020-02-09] MEDS ORDERED: OCTREOTIDE 500 MCG in NA CHLORIDE 0.9% 500 ML IV ONE (16:00)
--- NOTE | 2020-02-09 16:08 | RAD REPORT ---
EXAM DESCRIPTION: CT - Abdomen Pelvis Wo Contrast - 02/09/2020 3:57 pm CLINICAL HISTORY: Abdominal pain. ABD PAIN COMPARISON: Abdomen Pelvis Wo Contrast dated 08/16/2018 TECHNIQUE: CT imaging of the abdomen and pelvis was performed without contrast. Solid organ, bowel a nd vascular assessment is limited due to lack of IV and oral contrast. All CT scans are performed using dose optimization technique as appropriate and may include automated exposure control or mA/KV adjustment according to patient size. FINDINGS: The lower lung fong are clear.A few small gastroesophageal lymph nodes are seen. Stomach wall appears thickened with an area ulceration along the superior greater curvature of the st omach. This appears to be a progressive abnormality since comparative 2019 study. Several perigastric lymph nodes are present with inflammatory changes in the perigastric fat. The liver, spleen, pancreas, adrenal glands and kidneys are within normal limits for a limited non-co ntrast examination. No bowel obstruction, free air, free fluid or abscess. The appendix is not identified as a discrete structure, however, no secondary findings of appendicitis are identified. Significant lower lumbar degenerative changes. IMPRESSION: A significant gastric ulcer or ulcerating gastric mass is suspected, a progressive abnor mality since comparative study. Recommend followup upper endoscopy assessment for direct visualizatio n. A limited non-contrast examination was performed as detailed.
[2020-02-09] MEDS ORDERED: DIPHENHYDRAMINE 50 MG/ML VIAL ONE (16:16)
[2020-02-09] MEDS ORDERED: ACETAMINOPHEN 650MG/RECT SUPP PR ONE (16:16)
[2020-02-09] MEDS ORDERED: VITAMIN K (ADULT) 10 MG/ML ONE (16:23)
[2020-02-09 20:50] VITALS: BP 106/67; TEMP 99; O2SAT 94
--- NOTE | 2020-02-11 05:55 | EKG ---
Test Date: 2020-02-09 Test Time: 14:47:58 [employer] Specialist: ELTON MEASUREMENT RESULTS: Intervals: Rate: 115 DC: 144 QRSD: 90 QT: 346 QTc: 478 [place]: P: 2 DC: 144 QRS: -7 T: 121 INTERPRETIVE STATEMENTS: Sinus tachycardia Inferior infarct, age undetermined ST & T wave abnormality, consider lateral ischemia Abnormal ECG Compared to ECG 08/16/2018 17:45:29 Myocardial infarct finding now present ST (T wave) deviation now present Ventricular premature complex(es) no longer present T-wave abnormality no longer present Possible ischemia still present Electronically Signed On 02-11-20 05:50:42 CDT by Anson Gutierrez
== END 2020-02-09 19:48 | disposition short-term general hospital (02) ==
LOC: ER 13:57
PROC: 06HM33Z Insertion of Infusion Device into Right Femoral Vein, Percutaneous Approach (ICD-10-PCS; principal; 2020-02-09)
PROC: 30233N1 Transfusion of Nonautologous Red Blood Cells into Peripheral Vein, Percutaneous Approach (ICD-10-PCS; 2020-02-09)
DX: D64.9 Anemia, unspecified (principal); N17.9 Acute kidney failure, unspecified; E87.6 Hypokalemia; I95.9 Hypotension, unspecified; K25.9 Gastric ulcer, unspecified as acute or chronic, without hemorrhage or perforation; R10.819 Abdominal tenderness, unspecified site
CPT/HCPCS: 93005; 87040 ×2; 85025; 80048; 36415; 82150; 86900; 86850; 82550; 84100; 85610; 86901; 82947; 80076; 83605 ×2; 85730; 84484; 82553; 83690; 84145; 74176; 71045; 96372; 99285; 36556; 36430; J2550 ×2; J3411; J3430; J1200; J2354 ×2; C9113 ×2; J3480 ×2; J3010; P9016 ×2; J7050 ×3; J7040; J7030; J2405 ×2; J0744; 96361; 96365; 96366; 96367; 96368; 96375

== ENCOUNTER 2021-05-01 09:10 | Inpatient (IN) | payer OTHER ==
--- OUTSIDE RECORDS SUMMARY | 2021-05-01 09:28 | XMS REPORT | Continuity of Care Document ---
:1950 Author Organization [facility] t Address [address] [place] [id number] Care Team Providers Name Role Phone TALYA DE LA CRUZ Attending Clinician Unavailhao BUTTERFIELD Attending Clinician Unavailable Lulú Addison MD Attending Clinician George GOLDSTEIN Attending Clinician Azael GOLDSTEIN Attending Clinician Soheila MARTEL Attending Clinician Unavailable Noemi ALTAMIRANO Attending Clinician Unavailable Sandor Attending Clinician Sea GOLDSTEIN Attending Clinician Stacy GOLDSTEIN P Attending Clinician Smith Marie MD Attending Clinician Noemi Altamirano MD Attending Clinician SEA Attending Clinician Unavailable Fortino YU, A Attending Clinician Unavailable Noemi Samuels DO Attending Clinician Elijah GOLDSTEIN Attending Clinician Marco GOLDSTEIN Attending Clinician Noemi SAMUELS Attending Clinician Unavailable Willie SANZ Attending Clinician Unavailable RAMANDEEP DE LA CRUZ Admitting Clinician Unavailable KYLEIGH BUTTERFIELD Admitting Clinician Unavailable Azael GOLDSTEIN Admitting Clinician Stacy GOLDSTEIN P Admitting Clinician Willie SANZ Admitting Clinician Unavailable Payers Payer Name Policy Type Policy Number Effective Date Expiration Date S ource MEDICARE PART A [id number] 2017 \\T\\ B 00:00:00 MEDICARE A B [id number] 2017 00:00:00 Problems Condition Condition Condition Status Onset Resolution Last Treating Co mments Source Name Details Category Date Date Treatment Clinician Date BERTHA (acute BERTHA (acute Disease Active U nivers kidney kidney 2-13 ity of injury) injury) 00:00: [place] 00 Medical Branch Other Other Disease Active Univers chest pain chest pain 2-13 it y of 00:00: [place] 00 Medical Branch UTI UTI Disease Active Univers (urinary (urinary 2-13 ity of tract tract 00:00: [place] infection) infection) 00 Nd dical Branch Pulmonary Pulmonary Disease Active 2019-05 Uni vers embolism, embolism, 1- it[place] of bilateral bilateral [place] [facility] [place] Acute Acute Disease Active 2019-05 Univers blood loss blood loss 1-02 it y of anemia anemia 00:00: [place] 00 Medical Branch Upper GI Upper GI Disease Active 2019-05 Overview: Un jackie bleed bleed 0-26 Added ity of 00:00: automatic [place] 00 ally from Medical request Branch for surgery [id number] Duodenal Duodenal Disease Active 2019-05 Overview: Un jackie ulcer ulcer 0-26 Added ity of 00:00: automatic [place] 00 ally from Medical request Branch for surgery [id number] Esophagiti Esophagiti Disease Active U nivers s s 9- ity of 00:00: [place] 00 Medical Branch H. pylori H. pylori Disease Active Uni vers infection infection 9- ity of 00:00: [place] 00 Medical Branch Gastrointe Gastrointe Disease Active Overview : Univers stinal stinal 9-20 Added ity of hemorrhage hemorrhage 00:00: automatic [place] with with 00 ally from Medical melena melena request Branch for surgery [id number] Allergies, Adverse Reactions, Alerts Allergy Allergy Status Severity Reaction(s) Onset Inactive Treating Comm ents Source Name Type Date Date Clinician NO KNOWN Drug Active Univers ALLERGIE Class ity of S [facility] NO KNOWN Allergy Active [facility] ALLERGIE S Social History Social Habit Start Date Stop Date Quantity Comments Source Sex Assigned At Universit y of [facility] Exposure to Yes University of SARS-CoV-2 [place] [facility] (event) Branch Tobacco use and 2020-07-10 2020-07-10 Never used Universit y of exposure 00:00:00 00:00:00 [facility] Alcohol intake 2020-07-10 2020-07-10 Ex-drinker University 00:00:00 00:00:00 (finding) [facility] Smoking Status Start Date Stop Date Source Former smoker 2020-07-10 00:00:00 2020-07-10 00:00:00 Universi [facility] Unknown if ever smoked [facility] Medications Ordered Filled Start Stop Current Ordering Indication Dosage Frequency Signature Comments Components Source Medication Medication Date Date Medication? Clinician (SIG) Name Name flu vaccine 2020- No .7mL 0.7 mL, Un jackie 67 yrs and 14 07-11 Intramuscu it y of up(PF) 19:30: 19:31 lar, [place]CE[place] (FLUZONE 00 :00 1 dose, Medical HIGHDOSE [facility] QUAD -07/11/20 at PF) syringe 1330, 0.7 mL Routine enoxaparin Yes 40mg 40 mg, Unive rs (LOVENOX) 2-13 Subcutaneo ity of injection 23:00: [place], [place]ILY, [place] 40 mg 00 First dose Medical on [facility] Branch 07/10/20 at 1700, Until Discontinu ed, Routine cefTRIAXone Yes 1000mg 1,000 mg, Univers (ROCEPHIN) 2-13 IV ity of 1,000 mg in 20:00: [place], [place] NaCl 0.9% 00 Q24H ABX, Medic al (NS) 50 mL First dose [facility] MINI-BAG (after last reorder) on 07/10/20 at 1400, Until Discontinu ed, 50 mL
Reas on for Anti-Infec tive: Documented Infection< br>Documen arsalan Infection Site: Urine
D uration of Therapy: Other (see Comments) NaCl 0.9% Yes 1000mL at 100 Univ ers (NS) IV 2-13 mL/hr, ity of infusion 17:45: Intravenou [place] 1,000 mL 00 s, Medical CONTINUOUS Branch , Starting 07/10/20 at 1145, Until Discontinu ed, Routine magnesium Yes 400mg 400 mg, Univ ers oxide 2-13 Oral, ity of (MAG-OX 15:00: DAILY, [place] 400) tablet 00 First dose Me dical 400 mg on Sat Branch 07/10/20 at 0900, Until Discontinu ed, Routine docusate Yes 100mg 100 mg, Unive rs (COLACE) 2-13 Oral, BID, ity o f capsule 100 14:00: First dose [place] mg 00 on [facility] Medical 07/10/20 at Branch 0800, Until Discontinu ed, Routine magnesium 2020- No 2g 2 g, IV Univ ers sulfate in 07-10 Piggyback, it y of water 2 10:51: 12:42 ONCE, 1 [place] gram/50 mL 00 :00 dose, [facility] Medi albaro (4 %) 07/10/20 at [place] infusion 2 0500, SOFÍA g NaCl 0.9% 2020- No 1000mL at 999 Uni vers (NS) bolus 07-10- mL/hr, ity of infusion 10:45: 10:24 1,000 mL, [place] as 1,000 mL 00 :00 IV Medical Infusion, [place] ONCE, 1 dose, 07/10/20 at 0445, STAT lactobacill 0 Yes 1{tbl} 1 tablet, Univers us 2- Oral, BID, ity of acidophilus 10:15: First dose [place] (ACIDOPHILL 00 on [facility] Medica l US) 25 07/10/20 at Branch million 0415, cell -100 Until mg captab 1 Discontinu tablet ed, Routine pantoprazol Yes 40mg 40 mg, Univ ers e 07-10 Oral, ity of (PROTONIX) 10:15: DAILY, [place] EC tablet 00 First dose Medi albaro 40 mg on Sat Branch 07/10/20 at 0415, Until Discontinu ed, Routine NaCl 0.9% 2020- No 1000mL at 150 Uni vers (NS) IV 07-10- mL/hr, ity of infusion 10:15: 17:40 Intravenou [place] 1,000 mL 00 :24 s, Medical CONTINUOUS Branch , Starting 07/10/20 at 0415, Until 07/10/20 at 1140, Routine NaCl 0.9% 2020- No 1000mL at 125 Uni vers (NS) IV 07-10- mL/hr, ity of infusion 07:15: 10:06 Intravenou [place] 1,000 mL 00 :26 s, Medical CONTINUOUS Branch , Starting 07/10/20 at 0115, Until 07/10/20 at 0406, Routine cefTRIAXone 2020- No 1000mg 1,000 mg, Univers (ROCEPHIN) 07-10 IV ity of 1,000 mg in 07:15: 06:56 Piggyback, [place] NaCl 0.9% 00 :00 ONCE, 1 Medical (NS) 50 mL dose, Sat Bran ch MINI-BAG 07/10/20 at 0115, 50 mL
Reas on for Anti-Infec tive: Documented Infection< br>Documen arsalan Infection Site: Urine
D uration of Therapy: Other (see Comments) NaCl 0.9% 2020- No 500mL at 999 Univ ers (NS) bolus 07-10 mL/hr, 500 it y of infusion 05:00: 04:50 mL, IV [place] 500 mL 00 :00 Infusion, Medical ONCE, 1 Branch dose, 07/09/20 at 2300, STAT ondansetron 2020- No 4mg 4 mg, Slow Univers (ZOFRAN 07-10 IV Push, ity of (PF)) 03:45: 02:47 ONCE, 1 [place] injection 4 00 :00 dose, Fri Med ical mg 07/09/20 at Branch 2145, SOFÍA pantoprazol 2019-05 Yes [id number] 40mg Take 1 Univers e 40 mg EC 1-17 tablet by ity of tablet 00:00: mouth [place] 00 daily. Medical Branch magnesium 2019-05 2020- No 2g 2 g, IV Univ ers sulfate in 06-07 Piggyback, it y of water 2 15:15: 15:27 ONCE, 1 [place] gram/50 mL 00 :00 dose, Wed Medi albaro (4 %) 04/07/20 Branch infusion 2 at 0915, g Routine pantoprazol 2019-05 Yes [id number] 40mg Take 1 Univers e 40 mg EC -11 tablet by ity of tablet 00:00: mouth [place] 00 daily. Medical Branch pantoprazol 2019-05 Yes [id number] 40mg Take 1 Univers e 40 mg EC 06-07 tablet by ity of tablet 00:00: mouth [place] 00 daily. Medical Branch acetaminoph 2019-05- No [id number] 650mg Take 2 Univers en 325 mg 06-07 tablets by ity of tablet 00:00: 05:59 mouth [place] 00 :00 every 6 Medical (six) Branch hours as needed for Pain (scale 1-3), Pain (scale 4-6) or Temp > 38.5 C. acetaminoph 2019-05 No [id number] 650mg Take 2 Univers en 325 mg 06-07 tablets by ity of tablet 00:00: 05:59 mouth [place] 00 :00 every 6 Medical (six) Branch hours as needed for Pain (scale 1-3), Pain (scale 4-6) or Temp > 38.5 C. acetaminoph 2019-05 No [id number] 650mg Take 2 Univers en 325 mg 06-07 tablets by ity of tablet 00:00: 05:59 mouth [place] 00 :00 every 6 Medical (six) Branch hours as needed for Pain (scale 1-3), Pain (scale 4-6) or Temp > 38.5 C. traMADoL 50 2019-05- No [id number] 50mg Take 1 Uni vers mg tablet 06-07 tablet by ity of 00:00: 05:59 mouth [place] 00 :00 every 6 Medical (six) Branch hours as needed for Pain (scale 7-10) for up to 7 days. Indication s: acute pain traMADoL 50 2019-05- No [id number] 50mg Take 1 Uni vers mg tablet 06-07 tablet by ity of 00:00: 05:59 mouth [place] 00 :00 every 6 Medical (six) Branch hours as needed for Pain (scale 7-10) for up to 7 days. Indication s: acute pain KCL 20 2019-05 Yes 20meq 20 mEq, Univers mEq/15 mL 1-10 Oral, ity of solution 20 15:00: DAILY, [place] mEq 00 First dose Medical on [place] [facility] 04/06/20 at 0900, Until Discontinu ed, Routine NaCl 0.9% 2019-05- No 1000mL at 10 Univ ers (NS) IV 06-05 mL/hr, IV ity of infusion 17:30: 19:31 Infusion, [place] 1,000 mL 00 :16 CONTINUOUS Medic al , Starting Branch [facility] 04/05/20 at 1130, Until [facility] 04/05/20 at 1331, Routine NaCl 0.9% 2019-05 Yes 10mL 10 mL, Univer s (NS) 06-05 Slow IV ity of injection 17:17: Push, PRN [place] as 10 mL 43 - SEE Medical INSTRUCTIO [place] NS, Starting [facility] 04/05/20 at 1117, Until Discontinu ed, Routine heparin 2019-05 Yes 2mL 200 Units Unive rs lock flush 06-05 (2 mL), IV ity of (HEP-LOCK) 17:17: Push, PRN [place] 100 unit/mL 43 - SEE [facility] , Starting [facility] 04/05/20 at 1117, Until Discontinu ed, Routine sennosides- 2019-05 Yes 1{tbl} 1 tablet, Univers docusate 06-05 Oral, ity of sodium 15:00: DAILY, [place] (SENOKOT-S) 00 First dose Me dical 8.6-50 mg on [facility] per tablet 04/05/20 at 1 tablet 0900, Until Discontinu ed, Routine magnesium 2019-05- No 2g 2 g, IV Univ ers sulfate in 06-05 Piggyback, it y of water 2 13:00: 13:00 ONCE, 1 [place] gram/50 mL 00 :00 dose, [facility] albaro (4 %) 04/05/20 at [place] infusion 2 0700, g Routine KCL 20 2019-05 2020- No 40meq 40 mEq, Univer s mEq/15 mL 06-05 Oral, ity of solution 40 13:00: 12:37 ONCE, 1 [place] mEq 00 :00 dose, [facility] 04/05/20 at Branch 0700, Routine KCL 20 2019-05 2020- No 40meq 40 mEq, Univer s mEq/15 mL 06-04 Oral, ity of solution 40 12:30: 11:55 ONCE, 1 [place] mEq 00 :00 dose, [facility] 04/04/20 at Branch 0630, Routine KCL 20 2019-05 2020- No 40meq 40 mEq, Univer s mEq/15 mL 06-03 Oral, ity of solution 40 13:15: 12:48 ONCE, 1 [place] mEq 00 :00 dose, Sat Medical 04/03/20 at Branch 0715, Routine HYDROcodone 2019-05 Yes 1{tbl} 1 tablet, Univers -acetaminop 06-03 Oral, ity of hen (NORCO 00:50: Q6HPRN, [place] 5) 5-325 mg 44 Starting Medi albaro tablet 1 [place] tablet 04/02/20 at 1850, Until Discontinu ed, Routine, Pain (scale 4-6) acetaminoph 2019-05 Yes 500mg 500 mg, Un jackie en 06-03 Oral, ity of (TYLENOL) 00:50: Q6HPRN, [place] tablet 500 44 Starting Medic al mg [facility] 04/02/20 at 1850, Until Discontinu ed, Routine, Pain (scale 1-3) morpHINE 2019-05 Yes 2mg 2 mg, Slow Uni vers injection 2 06-03 IV Push, ity of mg 00:50: Q4HPRN, [place] 29 Starting Medical [facility] 04/02/20 at 1850, Until Discontinu ed, Routine, Pain (scale 7-10) D5W 0.45% 2019-05 2020- No IV Univers NaCl + KCL 06-03 Infusion, ity of 20 mEq RTU 00:30: 16:23 CONTINUOUS [place] 20 mEq/L 00 :46 , Starting Medic al 1,000 mL IV Fri Branch Solution 04/02/20 at 1830, Until 04/05/20 at 1023, 1,000 mL, at 50 mL/hr iohexol 2019-05 2020- No 200mL 200 mL, Unive rs (OMNIPAQUE 06-02 Oral, ity of 300-150 mL) 22:15: 22:12 ONCE, 1 [place] injection 00 :00 dose, Fri Medic al 200 mL 04/02/20 at Branch 1615, Routine magnesium 2019-05 2020- No 2g 2 g, IV Univ ers sulfate in 06-01 Piggyback, it y of water 2 23:45: 23:58 ONCE, 1 [place] gram/50 mL 00 :00 dose, [place] Medi albaro (4 %) 04/01/20 at Branch infusion 2 1745, g Routine enoxaparin 2019-05 Yes 40mg 40 mg, Unive rs (LOVENOX) 06-01 Subcutaneo ity of injection 22:30: us, Q24H, [place] 40 mg 00 First dose Medical on [place] Branch 04/01/20 at 1630, Until Discontinu ed, Routine furosemide 2019-05- No 20mg 20 mg, Univ ers (LASIX) 05-31 Slow IV ity of injection 19:15: 18:33 Push, [place] 20 mg 00 :00 ONCE, 1 Medical dose, Wed Branch 03/31/20 at 1315, Routine magnesium 2019-05- No 2g 2 g, IV Univ ers sulfate in 05-31 Piggyback, it y of water 2 13:00: 14:52 ONCE, 1 [place] gram/50 mL 00 :00 dose, [facility] albaro (4 %) 03/31/20 at Branch infusion 2 0700, g Routine KCL 20 2019-05 No 40meq 40 mEq, Univer s mEq/15 mL 05-31 Enteral, ity o f solution 40 11:52: 13:34 ONCE, 1 [place] mEq 00 :00 dose, [facility] Medical 03/31/20 at Branch 0600, Routine D5W-LR IV 2019-05- No 1000mL at 20 Univ ers infusion 05-31 11-07 mL/hr, IV ity o f 1,000 mL 04:15: 00:48 Infusion, [place] as 00 :14 CONTINUOUS Medical , Starting Branch Tu03/30/20 at 2215, Until Sun04/02/20 at 1848, Routine KCL 2019-05 No 40meq 40 mEq, IV Unive rs (POTASSIUM 05-31 Piggyback, it y of CHLORIDE) 03:30: 04:26 ONCE, 1 [place] 40 mEq in 00 :00 dose, Tue Medic al NaCl 0.9% 03/30/20 at [facility] ch (NS) 2130, 250 piggyback mL potassium 2019-05- No 20meq 20 mEq, IV Univers chloride 20 05-30 Piggyback, i ty of mEq/100 mL 21:45: 23:27 ONCE, 1 [place] (KCL) 20 00 :00 dose, Tue Medica l mEq/100 mL 03/30/20 at [facility] RTU IVPB 20 1545, 100 mEq mL furosemide 2019-05- No 40mg 40 mg, Univ ers (LASIX) 05-30 Slow IV ity of injection 17:45: 17:23 Push, [place] 40 mg 00 :00 ONCE, 1 Medical dose, Tue Branch 03/30/20 at 1145, Routine pantoprazol 2019-05 Yes 40mg 40 mg, IV U nivers e 05-30 Piggyback, ity of (PROTONIX) 16:45: Q12H, [place] 40 mg in 00 First dose Medic al NaCl 0.9% on Tue Branch (NS) 100 mL 03/30/20 at MINI-BAG 1045, Until Discontinu ed, 100 mL magnesium 2019-05- No 4g 4 g, IV Univ ers sulfate in 05-30 Piggyback, it y of water 4 12:15: 13:00 ONCE, 1 [place] gram/50 mL 00 :00 dose, [facility] Medi albaro (8 %) IV 03/30/20 at [facility] h Piggyback 4 0615, g Routine KCL 2019-05 No 40meq 40 mEq, IV Unive rs (POTASSIUM 05-28 Piggyback, it y of CHLORIDE) 20:30: 19:37 ONCE, 1 [place] 40 mEq in 00 :00 dose, [place] Medic al NaCl 0.9% 03/28/20 at [facility] (NS) 1430, 100 piggyback mL lactated 2019-05- No 1000mL at 42 Unive rs ringers IV 05-28 mL/hr, ity of infusion 14:45: 16:44 1,000 mL, [place] as 1,000 mL 00 :57 IV Medical Infusion, Branch CONTINUOUS , Starting 03/28/20 at 0845, Until 03/29/20 at 1044, Routine calcium 2019-05- No 2g 2 g, IV Univer s gluconate 2 05-28 Infusion, it y of g in NaCl 12:30: 12:20 ONCE, 1 [place] 100 mL 00 :00 dose, [place] Medical (ISO-OSM) 03/28/20 at [facility] RTU IV 0630, infusion 2 Routine g potassium 2019-05- No 40meq 40 mEq, Uni vers chloride 40 103-28 Intravenou i ty of mEq in 100 10:45: 12:45 s, ONCE, 1 [place] mL IVPB 00 :00 dose, [place] Medical 03/28/20 at Branch 0445, 100 mL morpHINE 50 2019-05 No 2mg/h 2 mg/hr (2 Univers mg in NaCl 0 11-07 mL/hr), IV it y of 0.9% (NS) 07:15: 00:51 Infusion, [place] infusion 00 :01 CONTINUOUS Medic al , Starting Branch 03/27/20 at 0215 LORazepam 2019-05 No 2mg/h 2 mg/hr (2 Univers (ATIVAN) 0 1107 mL/hr), IV ity of 100 mg in 07:15: 00:51 Infusion, [place] NaCl 0.9% 00 :01 CONTINUOUS Medi albaro (NS) 100 mL , Starting Br anch infusion 03/27/20 at 0215 magnesium 2019-05 No 4g 4 g, IV Univ ers sulfate in 003-27 Piggyback, it y of water 4 07:15: 07:00 ONCE, 1 [place] gram/50 mL 00 :00 dose, Sat Medi albaro (8 %) IV 03/27/20 Branch Piggyback 4 at 0215, g Routine dexMEDEtomi 2019-05 No .2ug/kg 0.2-1.5 Univers dine 200 031 10-31 /h mcg/kg/hr ity o f mcg in 0.9 05:55: 09:40 ?83.1 kg [place] % NaCl 50 50 :04 (4.155-31. Medi albaro mL 1625 Branch (PRECEDEX) mL/hr, RTU IV rounded to infusion 4.16-31.16 mL/hr), IV Infusion, TITRATE, Sedation-R ASS score (0 to -1), Starting 03/27/20 at 0055
In itiate infusion at 0.2 mcg/kg/hr and titrate by 0.1 mcg/kg/hr every 30 minutes to goal sedation score. Maximum dose = 1.5 mcg/kg/hr. If goal not maintained at maximum allowed dose, contact prescriber .
fluconazole 2020-1 Yes 100mg at 100 Uni vers (DIFLUCAN) 0-31 mL/hr, IV ity of IV 05:30: Piggyback, [place] piggyback 00 Q24H ABX, Medic al 100 mg First dose Branch on 03/27/20 at 0030, Until Discontinu ed, SOFÍA pantoprazol 2019-05- No 8mg/h 8 mg/hr U nivers e 0-31 1103 (50 ity of (PROTONIX) 05:30: 16:42 mL/hr), IV [place] 80 mg in 00 :42 Infusion, Medica l NaCl 0.9% CONTINUOUS Bran ch (NS) 500 mL , Starting infusion 03/27/20 at 0030 piperacilli 2019-05 Yes 3.375g 3.375 g, Univers n-tazobacta 0-31 IV ity of m (ZOSYN) 02:45: [place]gyback, [place] 3.375 g in 00 Q6H ABX, Medic al NaCl 0.9% First dose Bran ch (NS) 100 mL on Sun MINI-BAG 03/26/20 at 2145, Until Discontinu ed, 100 mL
R silviano for Anti-Infec tive: Surgical Prophylaxi s
Surgi albaro Prophylaxi s: Abdominal< br>Duratio n of therapy: within 24 hours of surgery lactated 2019-05- No 1000mL at 999 Univ ers ringers IV 0-30 10-31 mL/hr, ity of infusion 23:45: 06:39 1,000 mL, [place] 1,000 mL 00 :00 Intravenou Medic al s, ONCE, 1 Branch dose, 03/26/20 at 1845, Routine phenylephri 2019-05- No .5ug/kg 0.5-6 U nivers ne 10 mg in 0-30 10-31 /min mcg/kg/min i ty of NaCl 0.9% 23:31: 04:34 ?83.1 kg [place] as (NS) 250 mL 58 :37 (62.325-74 Me dical infusion 7.9 mL/hr, Branc h RTU rounded to 62.33-747. 9 mL/hr), IV Infusion, TITRATE, MAP Goal > or = 65 mmHg, Starting 10/30/20 at 1831
In itiate infusion at 0.5 mcg/kg/min . &nb sp;Increas e by 0.1 mcg/kg/min every 30 seconds to 5 minutes as needed to reach and maintain goal blood pressure.& nbsp;&nbsp ;Maximum dose = 6 mcg/kg/min . &nb sp;If goal not maintained at maximum allowed dose, contact prescriber .
lactated 2019-05- No 1000mL at 125 Univ ers ringers IV 0-30 11-01 mL/hr, ity of infusion 11:15: 14:40 1,000 mL, [place] as 1,000 mL 00 :47 IV Medical Infusion, Branch CONTINUOUS , Starting 03/26/20 at 0615, Until 03/28/20 at 0840, Routine iohexol 2019-05- No 150mL 150 mL, Unive rs (OMNIPAQUE 0-30 10-30 Intravenou it y of 350 02:30: 02:45 s, ONCE, 1 [place] BULK-150 00 :00 dose, [place] Medica l mL) 03/25/20 Branch injection at 2130, 150 mL Routine KCL 2019-05 No 40meq 40 mEq, IV Unive rs (POTASSIUM 0-30 10-30 Piggyback, it y of CHLORIDE) 01:15: 00:59 ONCE, 1 [place] 40 mEq in 00 :00 dose, [place] Medic al NaCl 0.9% 03/25/20 Branch (NS) at 2015, piggyback 250 mL pantoprazol 2019-05 No 40mg 40 mg, IV Univers e 0-30 10-31 Piggyback, ity of (PROTONIX) 01:00: 04:34 Q12H, [place] 40 mg in 00 :37 First dose Medic al NaCl 0.9% on [place] Branch (NS) 100 mL 03/25/20 MINI-BAG at 2000, Until Discontinu ed, 100 mL lactated 2019-05- No 1000mL at 150 Univ ers ringers IV 0-30 10-31 mL/hr, ity of infusion 00:30: 06:39 1,000 mL, [place] 1,000 mL 00 :00 IV Medical Infusion, Branch ONCE, 1 dose, [place] 03/25/20 at 1930, Routine lactated 2020-1 2020- No 1000mL at 150 Univ ers ringers IV 0-29 10-31 mL/hr, ity of infusion 23:30: 06:39 1,000 mL, [place] 1,000 mL 00 :00 IV Medical Infusion, Branch ONCE, 1 dose, [place] 03/25/20 at 1830, Routine KCL 2019-05 40meq 40 mEq, IV Unive rs (POTASSIUM 003-25 Piggyback, it y of CHLORIDE) 13:15: 14:32 ONCE, 1 [place] 40 mEq in 00 :00 dose, [place] Medic al NaCl 0.9% 03/25/20 Branch (NS) at 0815, piggyback 250 mL pantoprazol 2019-05 No 40mg 40 mg, IV Univers e 003-25 Piggyback, ity of (PROTONIX) 13:00: 23:56 Q12H, [place] 40 mg in 00 :26 First dose Medic al NaCl 0.9% on [place] Branch (NS) 100 mL 03/25/20 MINI-BAG at 0800, Until Discontinu ed, 100 mL pantoprazol 2019-05 No 8mg/h 8 mg/hr U nivers e 03-25 (50 ity of (PROTONIX) 06:30: 12:29 mL/hr), IV [place] 80 mg in 00 :00 Infusion, Medica l NaCl 0.9% CONTINUOUS Bran ch (NS) 500 mL , Starting infusion [place] 03/25/20 at 0130, For 6 hours iohexol 2019-05 150mL 150 mL, Unive rs (OMNIPAQUE 003-24 Intravenou it y of 350 15:00: 15:00 s, ONCE, 1 [place] BULK-150 00 :00 dose, Wed Medica l mL) 03/24/20 Branch injection at 1015, 150 mL Routine thiamine 2019-05 IV Univers (VITAMIN 003-24 Infusion, ity o f B1) 100 mg, 14:45: 01:00 at 100 Yuri as foLIC acid 00 :00 mL/hr, Medical (FOLATE) 1 ONCE, 1 Branch mg, dose, Tue multivitami 03/23/20 n adult at 0945, (INFUVITE 1,000 mL ADULT) 3,300 unit- 150 mcg/10 mL 10 mL in D5W 0.45% NaCl (1/2NS) IV Solution lactated 2019-05- No 1000mL at 75 Unive rs ringers IV 0- 10-29 mL/hr, ity of infusion 13:30: 16:09 1,000 mL, [place] as 1,000 mL 00 :03 IV Medical Infusion, Branch CONTINUOUS , Starting 03/23/20 at 0830, Until [place] 03/25/20 at 1109, Routine NaCl 0.9% 2019-05- No 1000mL at 999 Uni vers (NS) bolus 0 10-28 mL/hr, ity of infusion 01:00: 01:00 1,000 mL, [place] as 1,000 mL 00 :00 IV Medical Infusion, Branch ONCE, 1 dose, 03/22/20 at 2000, STAT KCL 2019-05 No 40meq 40 mEq, IV Unive rs (POTASSIUM 003-23 Piggyback, it y of CHLORIDE) 01:00: 01:14 ONCE, 1 [place] 40 mEq in 00 :00 dose, Mon Medic al NaCl 0.9% 03/22/20 Branch (NS) at 2000, piggyback 250 mL pantoprazol 2019-05- No 8mg/h 8 mg/hr U nivers e 03-25 (50 ity of (PROTONIX) 00:45: 01:25 mL/hr), IV [place] 80 mg in 00 :03 Infusion, Medica l NaCl 0.9% CONTINUOUS Bran ch (NS) 500 mL , Starting infusion 03/22/20 at 1945 dextrose 50 2019-05 Yes 25mL 25 mL, Univ ers % in water 0 Slow IV ity of (D50W) 23:37: Push, PRN, [place] injection 00 Starting Medica l 25 mL Mon Branch 03/22/20 at 1837, Until Discontinu ed, SOFÍA, Blood Glucose < or = 70 mg/dL and patient is unable to swallow or has mental status changes. piperacilli 2019-05- No 3.375g 3.375 g, Univers n-tazobacta 003-22 IV ity of m (ZOSYN) 21:45: 21:48 Piggyback, [place] 3.375 g in 00 :00 ONCE, 1 Medica l NaCl 0.9% dose, Mon Branc h (NS) 100 mL 03/22/20 MINI-BAG at 1645, 100 mL
Reas on for Anti-Infec tive: Empiric Therapy for Suspected Infection< br>Empiric Therapy Site: Abdominal< br>Duratio n of therapy: 72 hours NaCl 0.9% 2019-05- No 1000mL at 999 Uni vers (NS) bolus 0-22 03- mL/hr, ity of infusion 21:30: 21:26 1,000 mL, Yuri as 1,000 mL 00 :00 IV Medical Infusion, Branch ONCE, 1 dose, 03/22/20 at 1630, STAT octreotide 2019-05- No 50ug 50 mcg, Uni vers (SANDOSTATI 003-22 Slow IV ity of N) 21:30: 20:31 Push, [place] injection 00 :00 ONCE, 1 Medical 50 mcg dose, Mon Branch 03/22/20 at 1630, STAT octreotide 2019-05- No 50ug/h 50 mcg/hr Univers (SANDOSTATI 03-22 (10 ity of N) 1,250 21:30: 23:42 mL/hr), IV [place] mcg in NaCl 00 :54 Infusion, Med ical 0.9% (NS) CONTINUOUS Bran ch 250 mL , Starting infusion 03/22/20 at 1630, Until 03/22/20 at 1842 ondansetron 2019-05- No 4mg 4 mg, Slow Univers (ZOFRAN 03-22 IV Push, ity of (PF)) 20:45: 19:58 ONCE, 1 [place] injection 4 00 :00 dose, Mon Med ical mg 03/22/20 Branch at 1545, SOFÍA pantoprazol 2019-05- No 8mg/h 8 mg/hr U nivers e 03-22 (50 ity of (PROTONIX) 20:45: 23:40 mL/hr), IV [place] 80 mg in 00 :47 Infusion, Medica l NaCl 0.9% CONTINUOUS Bran ch (NS) 500 mL , Starting infusion 03/22/20 at 1545 pantoprazol 2019-05- No 80mg 80 mg, IV Univers e 003-22 Push, ity of (PROTONIX) 20:45: 20:01 ONCE, 1 [place] as 80 mg in 00 :00 dose, Mon Medica l NaCl 0.9% 03/22/20 Branch (NS) 20 mL at 1545, syringe 20 mL foLIC acid 2019-0 Yes [id number] 1mg Take 1 U nivers 1 mg tablet 9-25 tablet by ity of 00:00: mouth [place] 00 daily. Medical Branch thiamine 2020-0 Yes [id number] 100mg Take 1 Un jackie 100 mg 9-25 tablet by ity of tablet 00:00: mouth [place] 00 daily. Medical Branch foLIC acid 2020-0 Yes [id number] 1mg Take 1 U nivers 1 mg tablet 9-25 tablet by ity of 00:00: mouth [place] 00 daily. Medical Branch thiamine 2020-0 Yes [id number] 100mg Take 1 Un jackie 100 mg 9-25 tablet by ity of tablet 00:00: mouth [place] 00 daily. Medical Branch foLIC acid 2019-0 2020- No [id number] 1mg Take 1 Univers 1 mg tablet 9-25 10-26 tablet by it y of 00:00: 00:00 mouth [place] 00 :00 daily. Medical Branch thiamine 2020-0 2020- No [id number] 100mg Take 1 U nivers 100 mg 9-25 10-26 tablet by ity of tablet 00:00: 00:00 mouth [place] 00 :00 daily. Medical Branch pneumococca 2019-0 2020- No .5mL 0.5 mL, Un jackie l vac 02-18 Intramuscu ity of polyvalent 20:15: 21:19 lar, ONCE, [place] (PNEUMOVAX- 00 :00 1 dose, Medic al 23) [place] Branch injection 02/19/20 at 0.5 mL 1515, Routine flu vaccine 2019-0 2020- No .7mL 0.7 mL, Un jackie 67 yrs and 02-18 Intramuscu it y of up(PF) 19:30: 21:43 lar, ONCE[place] (FLUZONE 00 :00 1 dose, Medical HIGHDOSE [place] Branch QUAD -02/19/20 at PF) syringe 1430, 0.7 mL Routine acetaminoph 2019-0 2020- No Take by U nivers en 02-18 mouth. ity of (TYLENOL) 17:57: 00:00 [place] 325 mg Cap 12 :00 Medical Branch naproxen 2019- 2020- No 250mg Take 250 Uni vers 250 mg 02-18 09-24 mg by ity of tablet 17:57: 00:00 mouth 2 [place] 12 :00 (two) Medical times Branch daily as needed for Pain (scale 4-6). pantoprazol 2020-0 Yes 40mg 40 mg, Univ ers e 9-24 Oral, BID, ity of (PROTONIX) 01:00: First dose [place] EC tablet 00 (after Medical 40 mg last Branch modificati on) on Sun02/18/20 at 2000, Until Discontinu ed, Routine pantoprazol 2020-0 Yes [id number] 40mg Take 1 Univers e 40 mg EC 9-24 tablet by ity of tablet 00:00: mouth 2 [place] 00 (two) Medical times Branch daily. pantoprazol 2020-0 Yes [id number] 40mg Take 1 Univers e 40 mg EC 9-24 tablet by ity of tablet 00:00: mouth 2 [place] 00 (two) Medical times Branch daily. pantoprazol 2019-0 2020- No [id number] 40mg Take 1 Univers e 40 mg EC 9-24 10-26 tablet by ity of tablet 00:00: 00:00 mouth 2 [place] 00 :00 (two) Medical times Branch daily. KCL 2019- No 40meq 40 mEq, IV Unive rs (POTASSIUM 02-17 Piggyback, it y of CHLORIDE) 08:45: 09:07 ONCE, 1 [place] 40 mEq in 00 :00 dose, Wed Medic al NaCl 0.9% 02/18/20 at [facility] (NS) 0345, 250 piggyback mL glucagon 2019-0 2020- No Intravenou Un jackie (GLUCAGEN 02-16 s, PRN, ity of DIAGNOSTIC 22:52: 22:52 [place] KIT) 20 :20 Tue Medical injection 02/17/20 at [facility] 1752, Until Discontinu ed, Routine lidocaine 2019- 2020- No Subcutaneo U nivers 1% (PF) 02-16 us, PRN, ity of (XYLOCAINE) 22:40: 22:40 Starting [place] injection 35 :35 Tue Medical 02/17/20 at Branch 1740, Until Discontinu ed, Routine FENTanyl PF 2020-0 2020- No Slow IV Un jackie (SUBLIMAZE 02-16 Push, PRN, it y of (PF)) 22:38: 23:32 Starting [place] injection 12 :58 [facility] 02/17/20 at Branch 1738, Until Discontinu ed, Routine midazolam 2020-0 2020- No IV Push, Uni vers (VERSED) 02-16 PRN, ity of injection 22:38: 23:26 Starting [place] as 01 :13 [facility] 02/17/20 at Branch 1738, Until Discontinu ed, Routine heparin 2020-0 2020- No IV Push, Unive rs flush (PF) 02-16 PRN, ity of 2,000 units 22:32: 22:32 Starting [place] in 1000 mL 30 :30 [facility] NS RTU 02/17/20 at [place] injection 1732, Until Discontinu ed, Routine NaCl 0.9% 2019- 2020- No IV Univers (NS) IV 02-16 Infusion, ity of infusion 22:32: 22:32 CONTINUOUS [place] 12 :12 PRN, Medical Starting [facility] 02/17/20 at 1732, Until Discontinu ed, Routine iodixanol 2019-0 2020- No 250mL 250 mL, Uni vers (VISIPAQUE 02-16 Injection, it y of 320-100 mL) 21:30: 22:00 ONCE, 1 [place] injection 00 :00 dose, e Medic al 250 mL 02/17/20 at [place] 1630, Routine KCL 2019-0 2019- No 40meq 40 mEq, IV Unive rs (POTASSIUM 02-16 Piggyback, it y of CHLORIDE) 06:30: 08:42 ONCE, 1 [place] 40 mEq in 00 :00 dose, Tue Medic al NaCl 0.9% 02/17/20 at [facility] (NS) 0130, 250 piggyback mL iron 0 2020- No 1000mg 1,000 mg, Unive rs dextran 02-16 IV ity of (INFED) 02:00: 08:42 Infusion, [place] 1,000 mg in 00 :00 ONCE, 1 Medic al NaCl 0.9% dose, [facility] (NS) 500 mL 02/16/20 at IV infusion 2100, 500 mL iron 2020-0 2020- No 25mg 25 mg, IV Univers dextran 02-16 Piggyback, ity o f (INFED) 25 01:30: 02:38 ONCE, 1 [place] mg in NaCl 00 :00 dose, [facility] Medi albaro 0.9% (NS) 02/16/20 at Bran ch 100 mL IV 2030, 100 piggyback mL NaCl 0.9% 2020-0 Yes 10mL 10 mL, Univer s (NS) 02-15 Slow IV ity of injection 13:57: Push, PRN, [place] 10 mL 18 Starting Medical [facility] 02/16/20 at 0857, Until Discontinu ed, Routine, line maintenanc e lidocaine 2020-0 Yes 5mL 5 mL, Univers 1% (PF) 02-15 Subcutaneo ity of (XYLOCAINE) 13:57: us, PRN, [place] injection 5 18 Starting Medi albaro mL [facility] 02/16/20 at 0857, Until Discontinu ed, Routine, Local anesthesia NaCl 0.9% 2020-0 2020- No 1000mL at 999 Uni vers (NS) bolus 02-15 mL/hr, ity of infusion 08:45: 08:36 1,000 mL, [place] 1,000 mL 00 :00 IV Medical Infusion, Branch ONCE, 1 dose, [facility] 02/16/20 at 0345, SOFÍA NaCl 0.9% 2020-0 2020- No 1000mL at 999 Uni vers (NS) bolus 02-15 mL/hr, ity of infusion 06:30: 07:00 1,000 mL, [place] as 1,000 mL 00 :00 IV Medical Infusion, Branch ONCE, 1 dose, [facility] 02/16/20 at 0130, SOFÍA magnesium 2020-0 2020- No 2g 2 g, IV Univ ers sulfate in 02-15 Piggyback, it y of water 2 06:15: 08:36 ONCE, 1 [place] gram/50 mL 00 :00 dose, [facility] Medi albaro (4 %) 02/16/20 at Branch infusion 2 0115, g Routine thiamine 2019-0 Yes 100mg 100 mg, Unive rs (VITAMIN 02-15 Oral, ity of B1) tablet 06:00: DAILY, [place] 100 mg 00 First dose Medical on [facility] Branch 02/16/20 at 0100, Until Discontinu ed, Routine foLIC acid 2020-0 Yes 1mg 1 mg, Univer s (FOLATE) 02-15 Oral, ity of tablet 1 mg 06:00: DAILY, [place] 00 First dose Medical on [facility] Branch 02/16/20 at 0100, Until Discontinu ed, Routine glucagon 2019-0 Yes 1mg 1 mg, Univers (GLUCAGEN 02-15 Intramuscu ity of DIAGNOSTIC 04:51: lar, PRN, [place] KIT) 42 Starting Medical injection 1 [place] Branch mg 02/15/20 at 2351, Until Discontinu ed, SOFÍA, Blood Glucose < or = 70 mg/dL and patient is unable to swallow or has mental changes. phytonadion 2020- No 10mg 10 mg, Uni vers e (VITAMIN 02-14 Intramuscu it y of K) 23:45: 23:09 lar, ONCE, [place] injection 00 :00 1 dose, Medical 10 mg [facility] 02/15/20 at 1845, STAT cefTRIAXone 2020- No 1000mg 1,000 mg, Univers (ROCEPHIN) 02-14 IV ity of 1,000 mg in 23:15: 23:46 Piggyback, [place] NaCl 0.9% 00 :00 ONCE, 1 Medical (NS) 50 mL dose, Sun Bran ch MINI-BAG 02/15/20 at 1815, 50 mL
Reas on for Anti-Infec tive: Empiric Therapy for Suspected Infection< br>Empiric Therapy Site: Abdominal< br>Duratio n of therapy: 72 hours metoclopram 2020- No 10mg 10 mg, Uni vers lisette HCl 02-14 Slow IV ity of (REGLAN) 23:00: 21:48 Push, [place] injection 00 :00 ONCE, 1 Medical 10 mg dose, [facility] 02/15/20 at 1800, SOFÍA octreotide 2019-0 2020- No 50ug/h 50 mcg/hr Univers (SANDOSTATI 02-14 (10 ity of N) 1,250 22:45: 05:47 mL/hr), IV [place] mcg in NaCl 00 :10 Infusion, Med ical 0.9% (NS) CONTINUOUS Bran ch 250 mL , Starting infusion [place] 02/15/20 at 1745 octreotide 2019- 2020- No 50ug 50 mcg, Uni vers (SANDOSTATI 02-14 Slow IV ity of N) 22:45: 21:37 Push, [place] injection 00 :00 ONCE, 1 Medical 50 mcg dose, Sun Branch 02/15/20 at 1745, STAT ondansetron 2019- 2020- No 8mg 8 mg, Slow Univers (ZOFRAN 02-14 IV Push, ity of (PF)) 22:30: 21:17 ONCE, 1 [place] injection 8 00 :00 dose, Sun Med ical mg 02/15/20 at Branch 1730, SOFÍA pantoprazol 2019- 2020- No 8mg/h 8 mg/hr U nivers e 02-14 (50 ity of (PROTONIX) 21:30: 19:55 mL/hr), IV [place] 80 mg in 00 :07 Infusion, Medica l NaCl 0.9% CONTINUOUS Bran ch (NS) 500 mL , Starting infusion 02/15/20 at 1630 pantoprazol 2020- No 80mg 80 mg, IV Univers e 02-14 Push, ity of (PROTONIX) 21:30: 21:32 ONCE, 1 [place] 80 mg in 00 :00 dose, Sun Medica l NaCl 0.9% 02/15/20 at Bran ch (NS) 20 mL 1630, 20 syringe mL NaCl 0.9% 2020- No 1000mL at 999 Uni vers (NS) bolus 02-14 mL/hr, ity of infusion 21:00: 23:24 1,000 mL, [place] 1,000 mL 00 :00 IV Medical Infusion, Branch ONCE, 1 dose, 02/15/20 at 1600, SOFÍA Immunizations Ordered Filled Immunization Date Status Comments [facility] e Immunization Name Name Influenza High Dose 2020-07-11 Completed Unive rsity of [place] 00:00:00 [facility] Pneumococcal 2020-02-19 Completed University o f Polysaccharide, 00:00:00 [place] Med ical PPSV23 (PNEUMOVAX) Branch Influenza High Dose 2020-02-19 Completed Unive rsity of [place] 00:00:00 [facility] Pneumococcal 2020-02-19 Completed University o f Polysaccharide, 00:00:00 [place] Med ical PPSV23 (PNEUMOVAX) Branch Influenza High Dose 2020-02-19 Completed Unive rsity of [place] 00:00:00 [facility] Pneumococcal 2020-02-19 Completed University o f Polysaccharide, 00:00:00 [place] Med ical PPSV23 (PNEUMOVAX) Branch Influenza High Dose 2020-02-19 Completed Unive rsity of [place] 00:00:00 [facility] Pneumococcal 2020-02-19 Completed University o f Polysaccharide, 00:00:00 [place] Med ical PPSV23 (PNEUMOVAX) Branch Influenza High Dose 2020-02-19 Completed Unive rsity of Quad 00:00:00 [facility] Pneumococcal 2020-02-19 Completed University o f Polysaccharide, 00:00:00 [place] Med ical PPSV23 (PNEUMOVAX) Branch Influenza High Dose 2020-02-19 Completed Unive rsity of Quad 00:00:00 [facility] Vital Signs Vital Name Observation Time Observation Value Comments Source WEIGHT 2020-02-09 00:00:00 94.666 kg HEIGHT 2020-02-09 00:00:00 193 cm Systolic blood 2020-07-11 17:24:00 112 mm[Hg] Univer sity of pressure [facility] Diastolic blood 2020-07-11 17:24:00 77 mm[Hg] Unive rsity of pressure [facility] Heart rate 2020-07-11 17:24:00 82 /min [facility] Body temperature 2020-07-11 17:24:00 36.89 Gissel [facility] Respiratory rate 2020-07-11 17:24:00 18 /min [facility] Oxygen saturation in 2020-07-11 17:24:00 96 /min [facility] Arterial blood by [facility] Pulse oximetry Branch Body weight 2020-07-11 10:05:00 84.369 kg [facility] BMI 2020-07-11 10:05:00 22.64 kg/m2 [facility] Body height 2020-07-10 07:36:00 193 cm [facility] Systolic blood 2020-04-07 18:13:00 113 mm[Hg] Univer sity of pressure [facility] Diastolic blood 2020-04-07 18:13:00 71 mm[Hg] Unive rsity of pressure [facility] Heart rate 2020-04-07 18:13:00 88 /min Universi ty of [place] [facility] [place] Respiratory rate 2020-04-07 18:13:00 20 /min Univ ersity of [facility] Branch Oxygen saturation in 2020-04-07 18:13:00 98 /min University of Arterial blood by [facility] Pulse oximetry Branch Body temperature 2020-04-07 13:27:00 37 Gissel Univ ersity of [place] [facility] [place] Body weight 2020-03-25 13:00:00 83.09 kg [facility]i ty [facility] [place] [facility] BMI 2020-03-25 13:00:00 22.30 kg/m2 Universi ty of [facility] Body height 2020-03-22 19:33:00 193 cm Universi ty of [facility] Systolic blood 2020-02-19 16:18:00 137 mm[Hg] Univer sity of pressure [facility] Diastolic blood 2020-02-19 16:18:00 72 mm[Hg] Unive rsity of pressure [facility] Heart rate 2020-02-19 16:18:00 81 /min [facility]i ty [facility] [place] [facility] [place] Body temperature 2020-02-19 16:18:00 37.39 Gissel Univ ersity of [facility] Respiratory rate 2020-02-19 16:18:00 18 /min Univ ersity of [facility] Oxygen saturation in 2020-02-19 16:18:00 98 /min University of Arterial blood by [facility] Pulse oximetry Branch Body height 2020-02-17 22:23:00 193 cm Universi ty of [facility] Body weight 2020-02-17 22:23:00 92.987 kg [facility] [place] [facility] BMI 2020-02-17 22:23:00 24.95 kg/m2 [facility] [place] [facility] [place] WEIGHT 2020-02-09 00:00:00 94.666 kg HEIGHT 2020-02-09 00:00:00 193 cm Procedures Procedure Date / Time Performing Source Performed Clinician PHOSPHORUS 2020-07-11 Jael Vazquez [facility] 09:56:00 [facility] MAGNESIUM 2020-07-11 Jael Vazquez [facility] 09:56:00 [facility] TROPONIN I 2020-07-11 Jael Vazquez [facility] 09:56:00 [facility] HEPATIC FUNCTION PANEL (58580) 2020-07-11 Jael Vazquez U niversity of (ALB,T.PRO,BILI 09:56:00 [place] [facility] T,BU/BC,ALT,AST,ALK PHOS) Branch BASIC METABOLIC PANEL (NA, K, CL, 2020-07-11 [facility] University of CO2, GLUCOSE, BUN, CREATININE, CA) 09:56:00 [facility] CBC WITH DIFF 2020-07-11 [facility] of 09:56:00 [facility] TROPONIN I 2020-07-11 [facility] of 02:15:00 [facility] SEDIMENTATION RATE 2020-07-11 [facility] of 02:15:00 [facility] PREALBUMIN, SERUM 2020-07-10 [facility] of 10:49:00 [facility] PHOSPHORUS 2020-07-10 [facility], [facility] of 10:49:00 [facility] MAGNESIUM 2020-07-10 [facility], [facility] of 10:49:00 [facility] TROPONIN I 2020-07-10 [facility] of 10:49:00 [facility] HEPATIC FUNCTION PANEL ([id number]) 2020-07-10 Jael Vazquez U niversity of (ALB,T.PRO,BILI 10:49:00 [place] [facility] T,BU/BC,ALT,AST,ALK PHOS) [place] BASIC METABOLIC PANEL (NA, K, CL, 2020-07-10 [facility] University of CO2, GLUCOSE, BUN, CREATININE, CA) 10:49:00 [facility] CBC WITH DIFF 2020-07-10 [facility] of 10:49:00 [facility] LACTIC ACID WHOLE BLOOD 2020-07-10 [facility] ty of 10:49:00 [facility] PROCALCITONIN 2020-07-10 [facility] of 10:49:00 [facility] URINE CULTURE 2020-07-10 Jorge Addison University of 06:25:00 [facility] CT ABDOMEN PELVIS WO CONTRAST 2020-07-10 Jorge Addison U niversity of 04:24:33 [facility] URINALYSIS 2020-07-10 Jorge Addison [place] of 04:10:00 [facility] HB ABO GROUPING 2020-07-10 Jorge Addison [place] of 02:50:00 [facility] PHOSPHORUS 2020-07-10 Jael Vazquez [place] of 02:44:00 [facility] CREATINE KINASE 2020-07-10 Jael Vazquez [place] of 02:44:00 [facility] URIC ACID 2020-07-10 Jael Vazquez [place] of 02:44:00 [facility] LIPASE 2020-07-10 Jorge Addison [place] of 02:44:00 [facility] MAGNESIUM 2020-07-10 Jael Vazquez [place] of 02:44:00 [facility] TROPONIN I 2020-07-10 Jorge Addison [place] of 02:44:00 [facility] THYROID STIMULATING HORMONE 2020-07-10 Jael Vazquez [facility] ersity of 02:44:00 [facility] COMP. METABOLIC PANEL ([id number]) 2020-07-10 Jorge Addison U niversity of 02:44:00 [facility] LIPID PANEL ([id number])(TOTAL 2020-07-10 [facility] [place] [facility] CHOLESTEROL, TRIGLYCERIDES, HDL) 02:44:00 [facility] CBC WITH DIFF 2020-07-10 Jorge Addison [place] of 02:44:00 [facility] GLYCOSYLATED HEMOGLOBIN (A1C) 2020-07-10 Jael Vazquez iversity of 02:44:00 [facility] N-TERMINAL PRO-BNP 2020-07-10 Jael Vazquez [place] of 02:44:00 [facility] COVID-19 (ID NOW RAPID TESTING) 2020-07-10 Jorge Addison [place] of 02:44:00 [facility] XR CHEST 1 VW 2020-07-10 Jorge Addison [place] of 02:40:10 [facility] HB ECG ROUTINE & RHYTHM STRIP 2020-07-10 Jorge Addison U niversity of 01:59:31 [facility] NOTICE OF PRIVACY PRACTICES 2020-07-10 Doctor Univ ersity of 00:08:22 Unassigned, No [facility] CONSENT/REFUSAL FOR DIAGNOSIS AND 2020-07-10 [facility] 00:04:46 Unassigned, No [facility] PHOSPHORUS 2020-04-07 [place], [facility] of 10:27:00 [facility] MAGNESIUM 2020-04-07 [place], [facility] of 10:27:00 [facility] BASIC METABOLIC PANEL (NA, K, CL, 2020-04-07 [place], [facility] of CO2, GLUCOSE, BUN, CREATININE, CA) 10:27:00 [facility] CBC WITH DIFF 2020-04-07 [place], [facility] of 10:27:00 [facility] CBC WITH DIFF 2020-04-06 [place], [facility] of 12:16:00 [facility] PHOSPHORUS 2020-04-06 [place], [facility] of 10:58:00 [facility] MAGNESIUM 2020-04-06 [place], [facility] of 10:58:00 [facility] BASIC METABOLIC PANEL (NA, K, CL, 2020-04-06 [place], [facility] University of CO2, GLUCOSE, BUN, CREATININE, CA) 10:58:00 [facility] PHOSPHORUS 2020-04-05 [place], [facility] of 09:41:00 [facility] MAGNESIUM 2020-04-05 [place], [facility] of 09:41:00 [facility] BASIC METABOLIC PANEL (NA, K, CL, 2020-04-05 [place], [facility] University of CO2, GLUCOSE, BUN, CREATININE, CA) 09:41:00 [facility] CBC WITH DIFF 2020-04-05 [place], [facility] of 09:41:00 [facility] PHOSPHORUS 2020-04-04 [place], [facility] of 10:00:00 [facility] MAGNESIUM 2020-04-04 [place], [facility] of 10:00:00 [facility] BASIC METABOLIC PANEL (NA, K, CL, 2020-04-04 [place], [facility] University of CO2, GLUCOSE, BUN, CREATININE, CA) 10:00:00 [facility] CBC WITH DIFF 2020-04-04 Lisa Mccall [place] of 10:00:00 [facility] PHOSPHORUS 2020-04-03 [place], [facility] of 10:59:00 [facility] MAGNESIUM 2020-04-03 [place], [facility] of 10:59:00 [facility] BASIC METABOLIC PANEL (NA, K, CL, 2020-04-03 [place], Mani angulo University of CO2, GLUCOSE, BUN, CREATININE, CA) 10:59:00 [facility] CBC WITH DIFF 2020-04-03 [place] [facility] of 10:59:00 [facility] FL UPPER GI SERIES 2020-04-02 [place] [facility] of 22:40:00 [facility] XR CHEST 1 VW 2020-04-02 [facility] of 15:55:00 [facility] XR KUB 2020-04-02 [place], [facility] of 15:55:00 [facility] XR CHEST 1 VW 2020-04-02 [place] [facility] of 11:15:00 [facility] ACUTE CARE ARTERIAL BLOOD GAS 2020-04-02 [place] [facility] of 10:08:00 [facility] PHOSPHORUS 2020-04-02 [place], [facility] of 09:15:00 [facility] MAGNESIUM 2020-04-02 [place], [facility] of 09:15:00 [facility] BASIC METABOLIC PANEL (NA, K, CL, 2020-04-02 [facility] of CO2, GLUCOSE, BUN, CREATININE, CA) 09:15:00 [facility] CBC WITH DIFF 2020-04-02 [place] [facility] of 09:15:00 [facility] XR CHEST 1 VW 2020-04-01 Perico [place]field [place] of 11:22:00 [facility] PHOSPHORUS 2020-04-01 [place], [facility] of 10:53:00 [facility] MAGNESIUM 2020-04-01 [place], [facility] of 10:53:00 [facility] BASIC METABOLIC PANEL (NA, K, CL, 2020-04-01 [place], University of CO2, GLUCOSE, BUN, CREATININE, CA) 10:53:00 [facility] CBC WITH DIFF 2020-04-01 [place] [facility] of 10:53:00 [facility] PHOSPHORUS 2020-03-31 [place] [facility] of 10:55:00 [facility] MAGNESIUM 2020-03-31 [facility] of 10:55:00 [facility] BASIC METABOLIC PANEL (NA, K, CL, 2020-03-31 [place], University of CO2, GLUCOSE, BUN, CREATININE, CA) 10:55:00 [facility] CBC WITH DIFF 2020-03-31 [facility] of 10:55:00 [facility] XR CHEST 1 VW 2020-03-31 Perico [place] of 10:30:00 [facility] BASIC METABOLIC PANEL (NA, K, CL, 2020-03-30 Saul Enamorado University of CO2, GLUCOSE, BUN, CREATININE, CA) 23:54:00 [facility] AC PANEL 20 + LACTIC ACID 2020-03-30 [place], [facility] sity of 19:07:00 [facility] AC PANEL 20 + LACTIC ACID 2020-03-30 [place], [place] [facility] 15:46:00 [facility] PROTHROMBIN TIME / INR 2020-03-30 [facility] 15:45:00 [facility] ACTIVATED PARTIAL THRMPLAS NATE 2020-03-30 Kalen Fatima niversity of 15:45:00 [facility] FIBRINOGEN 2020-03-30 Kalen Fatima [place] of 15:45:00 [facility] XR CHEST 1 VW 2020-03-30 [facility] of 12:02:00 [facility] PHOSPHORUS 2020-03-30 [place] [facility] of 09:15:00 [facility] MAGNESIUM 2020-03-30 [facility] of 09:15:00 [facility] BASIC METABOLIC PANEL (NA, K, CL, 2020-03-30 [place], [employer] of CO2, GLUCOSE, BUN, CREATININE, CA) 09:15:00 [facility] CBC WITH DIFF 2020-03-30 [facility] of 09:15:00 Breanna [facility] AC PANEL 20 + LACTIC ACID 2020-03-30 [facility] sity of 09:15:00 [facility] POCT GLUCOSE (AUTOMATED) 2020-03-30 Damien Kumar [facility] of 00:11:00 [facility] POCT GLUCOSE (AUTOMATED) 2020-03-29 Damien Kumar [facility] it[facility] of 22:16:00 [facility] AC PANEL 20 + LACTIC ACID 2020-03-29 [facility], [facility] of 19:43:00 [facility] AC PANEL 20 + LACTIC ACID 2020-03-29 Sketchler, [facility] sity of 16:59:00 [facility] POCT GLUCOSE (AUTOMATED) 2020-03-29 Damien Kumar [facility] ity of 16:21:00 [facility] XR CHEST 1 VW 2020-03-29 Sonia Samuels [place] of 12:00:00 [facility] BASIC METABOLIC PANEL (NA, K, CL, 2020-03-29 [facility] of CO2, GLUCOSE, BUN, CREATININE, CA) 10:52:00 [facility] CBC WITH DIFF 2020-03-29 [facility] of 10:52:00 [facility] AC PANEL 20 + LACTIC ACID 2020-03-29 Coleoglou [facility] sity of 10:52:00 Rashaun Dao [facility] CBC WITH DIFF 2020-03-28 [facility] of 22:03:00 [facility] PREPARE PACKED RBC 2020-03-28 Sonia Samuels [place] o f 19:32:04 [facility] AC PANEL 20 + LACTIC ACID 2020-03-28 [facility] sity of 18:35:00 [facility] BASIC METABOLIC PANEL (NA, K, CL, 2020-03-28 Gerry Samuels [facility] of CO2, GLUCOSE, BUN, CREATININE, CA) 16:03:00 [facility] CBC WITH DIFF 2020-03-28 Abril [facility] of 16:03:00 [facility] CBC WITH DIFF 2020-03-28 [facility] of 12:17:00 [facility] AC PANEL 20 + LACTIC ACID 2020-03-28 Sketchler, Univer sity of 12:17:00 [facility] XR CHEST 1 VW 2020-03-28 Mauriciosd [facility] of 09:50:00 [facility] BASIC METABOLIC PANEL (NA, K, CL, 2020-03-28 [facility] CO2, GLUCOSE, BUN, CREATININE, CA) 09:12:00 [facility] CBC WITHOUT DIFF 2020-03-28 [place], [place] of 09:12:00 [facility] AC PANEL 20 + LACTIC ACID 2020-03-28 Sketchler, Univer sity of 09:12:00 [facility] CBC WITHOUT DIFF 2020-03-28 [place]ler, [place] of 04:32:00 [facility] AC PANEL 20 + LACTIC ACID 2020-03-28 Sketchler, Univer sity of 04:32:00 [facility] CBC WITHOUT DIFF 2020-03-27 Sketchler, [place] of 23:05:00 [facility] AC PANEL 20 + LACTIC ACID 2020-03-27 Sketchler, Univer sity of 23:05:00 [facility] AC PANEL 20 + LACTIC ACID 2020-03-27 Sketchler, Univer sity of 21:24:00 [facility] XR CHEST 1 VW 2020-03-27 [facility] of 16:55:00 [facility] AC PANEL 20 + LACTIC ACID 2020-03-27 [facility] of 16:47:00 [facility] CBC WITHOUT DIFF 2020-03-27 [facility] of 16:46:00 [facility] AC PANEL 20 + LACTIC ACID 2020-03-27 [facility] Univer sity of 13:00:00 [facility] PHOSPHORUS 2020-03-27 [facility] of 09:58:00 [facility] MAGNESIUM 2020-03-27 [facility] of 09:58:00 [facility] BASIC METABOLIC PANEL (NA, K, CL, 2020-03-27 [facility] of CO2, GLUCOSE, BUN, CREATININE, CA) 09:58:00 [facility] AC PANEL 20 + LACTIC ACID 2020-03-27 [facility] Univer sity of 09:58:00 [facility] AC PANEL 20 + LACTIC ACID 2020-03-27 [facility] of 07:51:00 Dao [facility] PREPARE PACKED RBC 2020-03-27 [facility] of 05:25:00 Sylwia Rashaun [facility] XR CHEST 1 VW 2020-03-27 Katelin Seymour [place] of 05:19:12 [facility] XR KUB 2020-03-27 [facility] of 05:19:12 [facility] PREPARE PLASMA 2020-03-27 [facility] of 05:09:59 [facility] PHOSPHORUS 2020-03-27 [facility] of 05:03:00 [facility] MAGNESIUM 2020-03-27 [facility] of 05:03:00 [facility] BASIC METABOLIC PANEL (NA, K, CL, 2020-03-27 [facility] of CO2, GLUCOSE, BUN, CREATININE, CA) 05:03:00 Dao [facility] CBC WITHOUT DIFF 2020-03-27 [facility] of 05:03:00 [facility] / INR 2020-03-27 [facility] 05:03:00 [facility] FIBRINOGEN 2020-03-27 [facility] of 05:03:00 [facility] AC PANEL 20 + LACTIC ACID 2020-03-27 [facility] of 05:03:00 Dao [facility] TRANSFUSE PACKED RBC 2020-03-27 [facility] of 04:24:20 [facility] TRANSFUSE PLATELETS 2020-03-27 [facility] o f 04:23:05 [facility] PREPARE PLATELETS 2020-03-27 [facility] of 03:37:21 [facility] PREPARE CRYOPRECIPITATE 2020-03-27 [facility] of 03:09:34 Sylwia [facility] ABG+COOX+NA+K+GLU+CA2+ 2020-03-27 Damien Kumar Universit y of 03:00:00 [facility] TRANSFUSE PACKED RBC 2020-03-27 [facility] of 02:55:20 [facility] TRANSFUSE PACKED RBC 2020-03-27 [facility] 02:54:23 [facility] TRANSFUSE PLASMA 2020-03-27 [facility] 02:52:45 [facility] TRANSFUSE PLASMA 2020-03-27 [facility] 02:51:52 [facility] TRANSFUSE PLATELETS 2020-03-27 [facility] o f 02:51:00 [facility] SURGICAL PATHOLOGY EXAM 2020-03-27 Kike Adams [facility] ty of 02:46:00 [facility] TRANSFUSE PACKED RBC 2020-03-27 [facility] 02:34:20 [facility] TRANSFUSE PACKED RBC 2020-03-27 [facility] 02:27:13 [facility] ABG+COOX+NA+K+GLU+CA2+ 2020-03-27 Damien Kumar [facility] y of 02:27:00 [facility] TRANSFUSE PACKED RBC 2020-03-27 [facility] 02:19:53 [facility] TRANSFUSE PACKED RBC 2020-03-27 [facility] 02:14:16 [facility] PROTHROMBIN TIME / INR 2020-03-27 Kike Adams [facility] y of 02:13:34 [facility] ACTIVATED PARTIAL THRMPLAS NATE 2020-03-27 Kike Adams U niversity of 02:13:34 [facility] CBC WITH DIFF 2020-03-27 [facility] of 02:13:10 [facility] PREPARE CRYOPRECIPITATE 2020-03-27 [facility] ty of 01:52:48 [facility] PREPARE PACKED RBC 2020-03-27 Tia Osei [place] of 01:26:25 [facility] PREPARE PLASMA 2020-03-27 Tia Osei [place] of 01:26:25 [facility] PREPARE PLATELETS 2020-03-27 [facility] 01:26:21 [facility] PREPARE PACKED RBC 2020-03-27 [facility] 01:26:20 [facility] PROTHROMBIN TIME / INR 2020-03-27 Kalen Jeff [facility] y of 01:11:00 [facility] ACTIVATED PARTIAL THRMPLAS NATE 2020-03-27 Kalen Jeff U niversity of 01:11:00 [facility] FIBRINOGEN 2020-03-27 Kalen Jeff [place] of 01:11:00 [facility] EXPLORATORY LAPAROTOMY 2020-03-27 Kike Adams [facility] y of 01:10:00 Godfrey [facility] AC PANEL 20 + LACTIC ACID 2020-03-27 Katelin [facility] of 01:01:00 [facility] XR CHEST 1 VW 2020-03-27 [facility] of 00:31:47 [facility] PREPARE PACKED RBC 2020-03-27 [facility] of 00:15:25 [facility] PREPARE PACKED RBC 2020-03-26 Tomer Kalen [place] of 23:13:02 [facility] POCT GLUCOSE (AUTOMATED) 2020-03-26 [facility] of 22:42:00 Chava C [facility] CBC WITHOUT DIFF 2020-03-26 Eduardo, [facility] of 22:37:00 [facility] CBC WITHOUT DIFF 2020-03-26 [facility] of 19:01:00 [facility] CBC WITHOUT DIFF 2020-03-26 [facility] of 15:06:00 [facility] TRANSFUSE PACKED RBC 2020-03-26 [facility] of 14:05:02 [facility] PREPARE PACKED RBC 2020-03-26 [facility] of 11:33:08 [facility] BASIC METABOLIC PANEL (NA, K, CL, 2020-03-26 [facility] of CO2, GLUCOSE, BUN, CREATININE, CA) 09:52:00 [facility] CBC WITHOUT DIFF 2020-03-26 Eduardo, [facility] of 09:52:00 [facility] HB INDIRECT ANTIGLOBULIN TEST 2020-03-26 [facility] i[facility] of 09:50:00 [facility] CBC WITHOUT DIFF 2020-03-[address] [facility] of 05:00:00 [facility] CT ANGIOGRAM ABDOMEN/PELVIS 2020-03-26 Hang Dunaway [facility] ersity of 02:59:10 [facility] LACTIC ACID WHOLE BLOOD 2020-03-25 Hang [facility]way [facility] of 23:45:00 [facility] POCT GLUCOSE (AUTOMATED) 2020-03-25 Cynthia [facility] of 23:22:00 Chava Mtz [facility] CBC WITH DIFF 2020-03-25 [facility] of 23:02:00 [facility] CBC WITH DIFF 2020-03-25 [facility] of 18:26:00 [facility] BASIC METABOLIC PANEL (NA, K, CL, 2020-03-25 [facility] of CO2, GLUCOSE, BUN, CREATININE, CA) 10:57:00 [facility] CBC WITH DIFF 2020-03-25 [facility] of 10:57:00 [facility] CBC WITH DIFF 2020-03-25 [facility] of 05:02:00 [facility] CBC WITHOUT DIFF 2020-03-24 [facility] of 22:51:00 [facility] CBC WITHOUT DIFF 2020-03-24 [facility] 19:14:00 [facility] CT ANGIOGRAM ABDOMEN/PELVIS 2020-03-24 [facility] ersity of 15:07:14 [facility] CBC WITHOUT DIFF 2020-03-24 [facility] of 12:52:00 [facility] CBC WITHOUT DIFF 2020-03-24 [facility] 10:49:00 [facility] CREATININE, URINE RANDOM 2020-03-24 [facility] of 10:49:00 [facility] SODIUM, URINE RANDOM 2020-03-[address] [facility] 10:49:00 [facility] BASIC METABOLIC PANEL (NA, K, CL, 2020-03-24 [facility] of CO2, GLUCOSE, BUN, CREATININE, CA) 06:55:00 [facility] CBC WITHOUT DIFF 2020-03-24 [facility] 06:55:00 [facility] CBC WITHOUT DIFF 2020-03-24 Analilia, [facility] 01:40:00 [facility] PROTHROMBIN TIME / INR 2020-03-23 Analilia [facility] y of 23:41:00 [facility] ESOPHAGOGASTRODUODENOSCOPY 2020-03-23 Nixon Bundy Uni versity of 20:32:00 [facility] EGD (ENDO) 2020-03-23 Damien Kumar [place] of 20:19:35 [facility] CBC WITHOUT DIFF 2020-03-23 [facility] of 17:34:00 [facility] VITAMIN B1 (THIAMINE), WHOLE BLOOD 2020-03-23 Analilia [facility] 14:06:00 Pankhuri [facility] US RETROPERITONEAL COMPLETE 2020-03-23 [facility] ersity of 11:06:38 [facility] BASIC METABOLIC PANEL (NA, K, CL, 2020-03-23 [facility] of CO2, GLUCOSE, BUN, CREATININE, CA) 10:19:00 [facility] CBC WITHOUT DIFF 2020-03-23 [facility], [facility] of 10:19:00 [facility] CBC WITHOUT DIFF 2020-03-23 [facility], [facility] of 06:38:00 [facility] BASIC METABOLIC PANEL (NA, K, CL, 2020-03-23 [facility], [facility] of CO2, GLUCOSE, BUN, CREATININE, CA) 01:15:00 [facility] CBC WITHOUT DIFF 2020-03-23 [facility] of 01:15:00 [facility] PROTHROMBIN TIME / INR 2020-03-23 [facility] y of 01:15:00 [facility] FIBRINOGEN 2020-03-23 [facility], [facility] of 01:15:00 [facility] MRSA / MSSA SCREEN BY JASON JARVIS 2020-03-23 [facility] of 01:15:00 [facility] CT ABDOMEN PELVIS WO CONTRAST 2020-03-22 Tia Osei iversity of 21:48:27 [facility] CRITICAL CARE 2020-03-22 Tia Osei of 21:35:03 [facility] COVID-19 (ID NOW RAPID TESTING) 2020-03-22 Tia Osei of 19:57:00 [facility] LAB ONLY COVID INTERPRETATION 2020-03-22 Tia Osei Un iversity of 19:57:00 [facility] LIPASE 2020-03-22 Tia Osei of 19:51:00 [facility] TROPONIN I 2020-03-22 Tia Osei of 19:51:00 [facility] HEPATIC FUNCTION PANEL (17628) 2020-03-22 Tia Osei niversity of (ALB,T.PRO,BILI 19:51:00 [facility] T,BU/BC,ALT,AST,ALK PHOSPhelps Health BASIC METABOLIC PANEL (NA, K, CL, 2020-03-22 Sharmaine Osei University of CO2, GLUCOSE, BUN, CREATININE, CA) 19:51:00 [facility] CBC WITH DIFF 2020-03-22 Tia Osei [place] of 19:51:00 [facility] PROTHROMBIN TIME / INR 2020-03-22 Tia Oseiit y of 19:51:00 [facility] ACTIVATED PARTIAL THRMPLAS NATE 2020-03-22 Tia Osei niversity of 19:51:00 [facility] HB ABO GROUPING 2020-03-22 Tia Osei [place] of 19:51:00 [facility] N-TERMINAL PRO-BNP 2020-03-22 Tia Osei [place] of 19:51:00 [facility] EKG-12 LEAD 2020-03-22 Tia Osei [place] of 19:40:08 [facility] EMERGENCY DEPARTMENT DOCUMENTS 2020-03-22 [facility] of 05:01:00 Unassigned, No [facility] HOSPITAL ADMISSION 2020-03-22 [facility] of 05:01:00 Unassigned, No [facility] XR KUB 2020-02-18 Deja [facility] of 07:22:55 [facility] MAGNESIUM 2020-02-18 Deja [facility] of 07:06:00 [facility] BASIC METABOLIC PANEL (NA, K, CL, 2020-02-18 Ezio Short University of CO2, GLUCOSE, BUN, CREATININE, CA) 07:06:00 [facility] CBC WITHOUT DIFF 2020-02-18 Elias Short [place] of 07:06:00 [facility] LACTATE DEHYDROGENASE 2020-02-17 Elias Short [facility] ty of 11:13:00 [facility] PROTHROMBIN TIME / INR 2020-02-17 Deja [facility] ity of 11:13:00 [facility] CBC WITHOUT DIFF 2020-02-17 Danny Knight [place] of 11:12:00 [facility] TRANSFUSE PACKED RBC 2020-02-17 Tyler Chinchilla [place] of 08:48:36 [facility] PREPARE PACKED RBC 2020-02-17 Elias Short [place] of 06:26:36 [facility] GASTRIN 2020-02-17 Deja [facility] of 04:35:00 [facility] MAGNESIUM 2020-02-17 Deja [facility] of 04:35:00 [facility] VITAMIN B12, LEVEL 2020-02-17 Deja [facility] of 04:35:00 [facility] HEPATIC FUNCTION PANEL ([id number]) 2020-02-17 Deja [facility] of (ALB,T.PRO,BILI 04:35:00 [facility],BU/BC,ALT,AST,ALK PHOS) [place] BASIC METABOLIC PANEL (NA, K, CL, 2020-02-17 Deja, [facility] CO2, GLUCOSE, BUN, CREATININE, CA) 04:35:00 [facility] CBC WITHOUT DIFF 2020-02-17 Deja [facility] of 04:35:00 [facility] EGD (ENDO) 2020-02-16 Nava [facility] of 18:12:41 [facility] ESOPHAGOGASTRODUODENOSCOPY 2020-02-16 Kvng [facility] of 18:03:00 [facility] CBC WITHOUT DIFF 2020-02-[address] [facility] of 17:37:00 [facility] ACTIVATED PARTIAL THRMPLAS NATE 2020-02-16 Deja [facility] of 17:37:00 [facility] MRSA / MSSA SCREEN BY PCR, JASON 2020-02-16 Yadiel Short [facility] of 17:37:00 [facility] TRANSFUSE PACKED RBC 2020-02-16 Elias Short [facility] y of 16:04:29 [facility] PREPARE PACKED RBC 2020-02-16 Tyler Chinchilla [place] of 14:22:26 [facility] TRANSFUSE PACKED RBC 2020-02-16 Elias Short [facility] y of 13:57:09 [facility] CBC WITHOUT DIFF 2020-02-16 Elias Short [place] of 13:27:00 [facility] XR CHEST 1 VW 2020-02-16 Deja [facility] of 11:03:09 [facility] PREPARE PACKED RBC 2020-02-16 Elias Short [place] of 10:07:25 [facility] TRANSFUSE PACKED RBC 2020-02-16 Elias Short [facility] y of 09:57:48 [facility] FIBRINOGEN 2020-02-16 Deja [facility] of 06:56:00 [facility] HB INDIRECT ANTIGLOBULIN TEST 2020-02-16 Elias Short [place] of 06:30:00 [facility] LACTIC ACID WHOLE BLOOD 2020-02-16 Elias Short [facility] sity of 06:29:00 [facility] CBC WITH DIFF 2020-02-16 [facility] of 05:45:00 [facility] CREATINE KINASE 2020-02-16 Tyler Chinchilla [place] of 02:26:00 [facility] MAGNESIUM 2020-02-16 [facility] of 02:26:00 [facility] IONIZED CALCIUM 2020-02-16 [facility] of 02:26:00 [facility] HAPTOGLOBIN, SERUM 2020-02-16 [facility] of 02:26:00 [facility] BASIC METABOLIC PANEL (NA, K, CL, 2020-02-16 [facility] of CO2, GLUCOSE, BUN, CREATININE, CA) 02:26:00 [facility] PROTHROMBIN TIME / INR 2020-02-16 [facility] of 02:26:00 [facility] HEMOGLOBIN 2020-02-16 [facility] of 01:32:00 [facility] URINALYSIS 2020-02-16 [facility] 01:13:00 J [facility] LACTIC ACID WHOLE BLOOD 2020-02-15 Rosy Samuels [facility] ity of 23:28:00 [facility] TRANSFUSE PACKED RBC 2020-02-15 Abril [facility] of 22:36:02 [facility] PREPARE PACKED RBC 2020-02-15 Abril [facility] o f 22:29:34 J [facility] TRANSFUSE PACKED RBC 2020-02-15 Rosy Samuels [place] of 22:00:19 J [facility] ABORH CONFIRMATION 2020-02-15 Abril [facility] o f 20:56:00 [facility] EKG-12 LEAD 2020-02-15 Abril [facility] of 20:31:31 [facility] [facility] HB ABO GROUPING 2020-02-15 Rosy Samuels [place] of 20:27:00 [facility] LACTIC ACID WHOLE BLOOD 2020-02-15 Rosy Samuels [facility] ity of 20:27:00 [facility] LIPASE 2020-02-15 Rosy Samuels [place] of 20:26:00 [facility] TROPONIN I 2020-02-15 Abril [facility] of 20:26:00 [facility] HEPATIC FUNCTION PANEL (49027) 2020-02-15 [facility] of (ALB,T.PRO,BILI 20:26:00 J [facility],BU/BC,ALT,AST,ALK PHOS) Branch BASIC METABOLIC PANEL (NA, K, CL, 2020-02-15 [facility] of CO2, GLUCOSE, BUN, CREATININE, CA) 20:26:00 [facility] CBC WITH DIFF 2020-02-15 [facility] of 20:26:00 [facility] PROTHROMBIN TIME / INR 2020-02-15 [facility] of 20:26:00 [facility] COVID-19 (ID NOW RAPID TESTING) 2020-02-15 [facility] of 20:23:00 [facility] EKG-12 LEAD 2020-02-15 [facility] of 20:19:04 [facility] NOTICE OF PRIVACY PRACTICES 2020-02-15 [facility] of 20:15:55 Unassigned, No [facility] CONSENT/REFUSAL FOR DIAGNOSIS AND 2020-02-15 [facility] of TREATMENT 20:15:36 Unassigned, No [facility] EMERGENCY DEPARTMENT DOCUMENTS 2020-02-15 [facility] of 05:01:00 Unassigned, No [facility] EMERGENCY SERVICES AGREEMENTS AND 2020-02-15 [facility] of AUTHORIZATIONS 05:01:00 Unassigned, No [facility] Encounters Start End Encounter Admission Attending Care Care Encounter Source Date/Time Date/Time Type Type Clinicians Facility Department ID 2021-03-26 Emergency [facility] [id number] Univers 23:28:20 ity of [facility] 2021-03-02 Inpatient ER [facility] Medical ICU [id number] [facility] [address] 07:43:30 Joan MARCIAL [facility] 2020-02-09 Inpatient ER ARIZMENDI [facility] [id number] SLEH 19:28:00 ANGELA BUTTERFIELD 2020-07-09 2020-07-11 [facility] 1.2.840. 114 [id number] Univers 18:14:00 13:40:00 Encounter Jael Vazquez [id number] ity of [facility] 4.2.7.2.686 [facility] [id number] Medical 081 Branch 2020-05-25 2020-05-25 Outpatient R [facility] [id number] Univers 10:30:00 10:30:00 [id number] ity of [facility] 2020-05-25 2020-05-25 Outpatient R [facility] [id number] Univers 10:30:00 10:30:00 ity of [facility] 2020-05-04 2020-05-04 Outpatient R [facility] [id number] Univers 10:00:00 10:00:00 ity of [facility] 2020-05-04 2020-05-04 [facility] [id number] Univers 10:00:00 10:00:00 JUAN wilson o f [facility] 2020-04-13 2020-04-13 [facility] [id number] Univers 11:15:00 11:15:00 RITO wilson [facility] 2020-04-08 2020-04-08 Transition Ramona Patten [id number] Univers 00:00:00 00:00:00 of Care Emily Benavidez [id number] ity of [place] 4.2.7.2.686 [facility] [id number] [address] 2020-03-22 2020-04-07 Hospital Tia Osei 1.2.840.1 [id number] Univers 14:29:00 16:50:00 Encounter Damien Kumar [id number] [facility] 4.2.7.2.68 6 [place] Damien Kumar [id number] [facility] Rito Altamirano Noemi 093 Branch 2020-03-22 2020-03-22 Emergency X [facility] ERT [id number] Univers 14:29:00 14:29:00 TIA wilson [facility] 2020-02-20 2020-02-20 Transition Ramona Freitas 1.2.840.114 [id number] Univers 00:00:00 00:00:00 of Care Tru Benavidez [id number] ity of [place] 4.2.7.2.686 Sammie ball [id number] [facility] 403 Branch 2020-02-15 2020-02-19 Hospital Rosy Samuels 1.2.84 0.114 [id number] Univers 15:18:00 18:32:00 Encounter Jorge Addison [id number] ity of StacyDamien [facility] 4.2.7.2.686 [place] Yousif Nava [id number] [facility] Terrance Lara 094 Branch 2020-02-15 2020-02-15 Emergency X ABRIL [facility] ERT [id number] Univers 15:18:00 15:18:00 ROSY wilson [facility] Results Test Description Test Time Test Comments Results Result Comments Source URINE CULTURE 2020-07-11 13:16:00 Test Item Value Reference Range Interpretation Comme nts URINE CULTURE (test code = 630-4) No aerobic growth (< 1000 CFU/mL) [facility] [id number] 11:13:00 Test Item Value Reference Range Interpretation Comments TROPONIN I (test 0.011 ng/mL See_Comment [Automated code = 9317744586) message] The system which generated this result transmitted reference range : <=0.034. The reference range was not used to interpret this result as normal/abnormal . YENI (test code = Equal or Less than YENI) 0.034 ng/ml---Normal ?Note: Cardiac troponin begins to rise 3-4 hours after the onset of ischemia. Repeat in 4-6 hours if the sample was drawn within 3-4 hours of the onset of the symptom and found normal. Between 0.035 and 0.120 ng/mL--- Borderline. Questionable myocardial injury or necrosis ? ?Note: Serial measurement may be necessary to confirm or exclude the diagnosis of myocardial injury or necrosis; Clinical correlation (symptoms, EKGs, imaging studies, and others) required; Repeat in 4-6 hours if clinically indicated. ? Equal or Higher than 0.121 ng/mL---Abnormal. Myocardial Injury or Necrosis Likely ? Biotin has been reported to cause a negative bias, interpret results relative to patient's use of biotin. ? Lab Interpretation Normal (test code = 77172-4) [facility] METABOLIC PANEL (NA, K, CL, CO2, GLUCOSE, BUN, CREATININE, CA)2020-07-11 11:03:00 Test Item Value Reference Range Interpretation Comments NA (test code = 139 mmol/L 135-145 9971446908) K (test code = 4.3 mmol/L 3.5-5 4491520515) CL (test code = 108 mmol/L 98-108 6399936424) CO2 TOTAL (test code = 24 mmol/L 23-31 3581645134) AGAP (test code = 2-16 0248661321) BUN (test code = 16 mg/dL 7-23 4642988399) GLUCOSE (test code = 95 mg/dL 70-110 7546152660) CREATININE (test code = 1.20 mg/dL 0.6-1.25 1234054792) CALCIUM (test code = 8.4 mg/dL 8.6-10.6 L 6424958661) eGFR Calculation mL/min/1.73m2 (Non-) (test code = 5135004422) eGFR Calculation mL/min/1.73m2 () (test code = 0171817038) YENI (test code = YENI) Association of Glomerular Filtration Rate (GFR) and Staging of Kidney Disease* + --+ --+ ------+| GFR (mL/min/1.73 m2) ?| With Kidney Damage ?| ?Without Kidney Damage+ --------+ --------+ +| ?>90 ?| ?Stage one ?| ? Normal ?+ ---+ ---+ -------+| ?60-89 ?| ?Stage two ?| ? Decreased GFR ? + --+ --+ ------+| ?30-59 ?| ?Stage three ?| ? Stage three ? + --+ --+ ------+| ?15-29 ?| ?Stage four ? | ? Stage four ?+ ---+ ---+ -------+| ?<15 (or dialysis) ? ?| ?Stage five ? | ? Stage five ?+ ---+ ---+ -------+ *Each stage assumes the associated GFR level has been in effect for at least three months. ?Stages 1 to 5, with or without kidney disease, indicate chronic kidney disease. Notes: Determination of stages one and two (with eGFR >59mL/min/1.73 m2) requires estimation of kidney damage for at least three months as defined by structural or functional abnormalities of the kidney, manifested by either:Pathological abnormalities or Markers of kidney damage (including abnormalities in the composition of the blood or urine or abnormalities in imaging tests). Lab Interpretation Abnormal (test code = 98553-0) [facility] 11:03:00 Test Item Value Reference Range Interpretation Comments MAGNESIUM (test code = 8734195224) 1.8 mg/dL 1.7-2.4 Lab Interpretation (test code = Normal 38721-7) [facility]21-[facility]14 11:03:00 Test Item Value Reference Range Interpretation Comments PHOSPHORUS (test code = 0738251081) 3.3 mg/dL 2.5-5 Lab Interpretation (test code = Normal 70914-8) [facility]51054[facility] (ALB,T.PRO,BILI T,BU/BC,ALT,AST,ALK PHOS)2020-07-11 11:02:00 Test Item Value Reference Range Interpretation Comments TOTAL BILI (test code = 8876071547) 0.3 mg/dL 0.1-1.1 BILI UNCON (test code = 7573550993) 0.2 mg/dL 0.1-1.1 BILI CONJ (test code = 7398243349) 0.0 mg/dL 0-0.3 T PROTEIN (test code = 6823457508) 6.4 g/dL 6.3-8.2 ALBUMIN (test code = 4167591173) 3.4 g/dL 3.5-5 L ALK PHOS (test code = 2467131066) 67 U/L 34-122 ALTv (test code = 1742-6) 14 U/L 5-50 AST(SGOT) (test code = 6594126339) 20 U/L 13-40 Lab Interpretation (test code = Abnormal 69846-6) [facility] WITH [id number] 10:43:00 Test Item Value Reference Range Interpretation Comments WBC (test code = See_Comment [Automated 6690-2) message] The sy stem which generated this result transmitted reference range : 4.20 - 10.70 10*3/?L. The reference range was not used to interpret this result as normal/abnormal . RBC (test code = See_Comment L [Automated 789-8) message] The sy stem which generated this result transmitted reference range : 4.26 - 5.52 10*6/?L. The reference range was not used to interpret this result as normal/abnormal . HGB (test code = 9.7 g/dL 12.2-16.4 L 718-7) HCT (test code = 30.5 % 38.4-49.3 L 4544-3) MCV (test code = 83.8 fL 81.7-95.6 787-2) MCH (test code = 26.6 pg 26.1-32.7 785-6) MCHC (test code = 31.8 g/dL 31.2-35 786-4) RDW-SD (test code = 44.2 fL 38.5-51.6 75888-5) RDW-CV (test code = 14.4 % 12.1-15.4 788-0) PLT (test code = See_Comment [Automated 777-3) message] The sy stem which generated this result transmitted reference range : 150 - 328 10*3/ ?L. The reference r fili was not used to interpret this result as normal/abnormal . MPV (test code = 10.3 fL 9.8-13 60069-7) NRBC/100 WBC (test See_Comment [Automat ed code = 4953542855) message] The system which generated this result transmitted reference range : 0.0 - 10.0 /100 WBCs. The refer ence range was not u sed to interpret th is result as normal/abnormal . NRBC x10^3 (test code <0.01 See_Comment [Auto mated = 7323787624) message] The s ystem which generated this result transmitted reference range : 10*3/?L. The reference range was not used to interpret this result as normal/abnormal . GRAN MAT (NEUT) % 52.4 % (test code = 770-8) IMM GRAN % (test code 0.20 % = 6059800315) LYMPH % (test code = 32.4 % 736-9) MONO % (test code = 10.7 % 5905-5) EOS % (test code = 3.9 % 713-8) BASO % (test code = 0.4 % 706-2) GRAN MAT x10^3(ANC) 2.56 10*3/uL 1.99-6.95 (test code = 5525873572) IMM GRAN x10^3 (test <0.03 0-0.06 code = 0369649590) LYMPH x10^3 (test code 1.58 10*3/uL 1.09-3.23 = 731-0) MONO x10^3 (test code 0.52 10*3/uL 0.36-1.02 = 742-7) EOS x10^3 (test code = 0.19 10*3/uL 0.06-0.53 711-2) BASO x10^3 (test code <0.03 0.01-0.09 = 704-7) Lab Interpretation Abnormal (test code = 84948-1) [facility] [id number] 03:33:00 Test Item Value Reference Range Interpretation Comments ESR (test code = See_Comment H [Automated message] 4681302475) The system Myrio generated this result transmitted ref erence range: 0 - 10 m m/HR. The reference r fili was not used to interpret this result as normal/abnor mal. Lab Interpretation (test Abnormal code = 86538-1) [facility] [id number] 02:51:00 Test Item Value Reference Range Interpretation Comments TROPONIN I (test 0.008 ng/mL See_Comment [Automated code = 8350049468) message] The system which generated this result transmitted reference range : <=0.034. The reference range was not used to interpret this result as normal/abnormal . YENI (test code = Equal or Less than YENI) 0.034 ng/ml---Normal ?Note: Cardiac troponin begins to rise 3-4 hours after the onset of ischemia. Repeat in 4-6 hours if the sample was drawn within 3-4 hours of the onset of the symptom and found normal. Between 0.035 and 0.120 ng/mL--- Borderline. Questionable myocardial injury or necrosis ? ?Note: Serial measurement may be necessary to confirm or exclude the diagnosis of myocardial injury or necrosis; Clinical correlation (symptoms, EKGs, imaging studies, and others) required; Repeat in 4-6 hours if clinically indicated. ? Equal or Higher than 0.121 ng/mL---Abnormal. Myocardial Injury or Necrosis Likely ? Biotin has been reported to cause a negative bias, interpret results relative to patient's use of biotin. ? Lab Interpretation Normal (test code = 52946-2) [facility]2021-02-13 17:32:00 Test Item Value Reference Range Interpretation Comments Procalcitonin (test 0.08 ng/mL <0.07 H code = 0526608463) YENI (test code = YENI) INTERPRETATION OF PROCALCITONIN RESULTS IN ADULTS >= 18 YEARS OF AGE Initiation and discontinuation of antibiotics on patients with suspected or confirmed Lower Respiratory Tract Infection in Adults >= 18 years of age. + +-------- --------+ + -----+|Procalcitonin |Interpretation ?|Antibiotic ? ? |Considerations ? |ng/mL ? | ?|recommendation | ? + +-------- --------+ + -----+| <0.1 ? | Bacterial ? ? ?| Strongly ? ? ?| ? | ?| infection very | discouraged ? | Overruling: ? | ?| unlikely ? ? ? | ? | ? Clinically unstable ? ? ? + +-------- --------+ + ? High risk for adverse ? ? | <0.25 ?| Bacterial ? ? ?| Discouraged ? | ? outcome ? | ?| infection ? ? ?| ? | ? SEE IMPORTANT NOTE ?| ?| unlikely ? ? ? | ? | ? + +-------- --------+ + -----+| >=0.25 ? ? ? | Bacterial ? ? ?| Encouraged ? ?| ? | ?| infection ? ? ?| ? | ? | ?| likely ? | ? | Consider treatment failure ?+ +------- ---------+ -+ if levels does not decrease | >0.5 ? | Bacterial ? ? ?| Strongly ? ? ?| appropriately ? | ?| infection very | encouraged ? ?| ? | ?| likely ? | ? | ? + +-------- --------+ + -----+ Discontinuation of antibiotics in high-acuity patients with suspected or confirmed sepsis in Adults >= 18 years of age. + +-------- --------+ + -----+|Procalcitonin |Interpretation ?|Antibiotic ? ? |Considerations ? |ng/mL ? | ?|recommendation | ? + +-------- --------+ + -----+| <0.25 ?| Bacterial ? ? ?| Strongly ? ? ?| ? | ?| infection very | discouraged ? | Overruling: ? | ?| unlikely ? ? ? | ? | ? Clinically unstable ? ? ? + +-------- --------+ + ? High risk for adverse ? ? | <0.5 or drop | Bacterial ? ? ?| Discouraged ? | ? outcome ? | >80% from ? ?| infection ? ? ?| ? | ? SEE IMPORTANT NOTE ?| highest PCT ?| unlikely ? ? ? | ? | ? | level ?| ?| ? | ? + +-------- --------+ + -----+| >=0.5 ?| Bacterial ? ? ?| Encouraged ? ?| ? | ?| infection ? ? ?| ? | ? | ?| likely ? | ? | Consider treatment failure ?+ +------- ---------+ -+ if levels does not decrease | >1.0 ? | Bacterial ? ? ?| Strongly ? ? ?| appropriately ? | ?| infection very | encouraged ? ?| ? | ?| likely ? | ? | ? + +-------- --------+ + -----+ Percentage of drop of Procalcitonin calculation for Discontinuation of antibiotics in high-acuity patients with suspected or confirmed sepsis in Adults >= 18 years of age. ? Procalcitonin highest{}-Procalcitonin current{}Delta Procalcitonin = x100% ? Procalcitonin current {} IMPORTANT NOTE: Procalcitonin may be elevated without bacterial infection by physiologic stress related to trauma, carbajal, chronic dialysis, metastatic cancer, surgery in the past seven days, malaria, some fungal infections, and some forms of vasculitis. The interpretation algorithm may not apply to patients with immunosuppression (equivalent of >10 mg of prednisone daily), HIV with CD4 cell count < 350 cells/mm3, active malignancy on systemic chemotherapy, solid organ transplant or hematopoietic stem cell transplantation, or hospital acquired pneumonia. Additionally, some clinical trials of procalcitonin have excluded patients with shock requiring vasopressor use, acute respiratory failure requiring mechanical ventilation, or those with known lung abscess/empyema. For further information please refer to:[email or web address] Lab Interpretation Abnormal (test code = 88083-2) [facility]2021-02-13 17:10:00 Test Item Value Reference Range Interpretation Comments PALB (test code = 40293-8) 21.2 mg/dL 18-45 Lab Interpretation (test code = Normal 86227-8) [facility] [id number] 13:31:00 Test Item Value Reference Range Interpretation Comments TROPONIN I (test 0.010 ng/mL See_Comment [Automated code = 2940316767) message] The system which generated this result transmitted reference range : <=0.034. The reference range was not used to interpret this result as normal/abnormal . YENI (test code = Equal or Less than YENI) 0.034 ng/ml---Normal ?Note: Cardiac troponin begins to rise 3-4 hours after the onset of ischemia. Repeat in 4-6 hours if the sample was drawn within 3-4 hours of the onset of the symptom and found normal. Between 0.035 and 0.120 ng/mL--- Borderline. Questionable myocardial injury or necrosis ? ?Note: Serial measurement may be necessary to confirm or exclude the diagnosis of myocardial injury or necrosis; Clinical correlation (symptoms, EKGs, imaging studies, and others) required; Repeat in 4-6 hours if clinically indicated. ? Equal or Higher than 0.121 ng/mL---Abnormal. Myocardial Injury or Necrosis Likely ? Biotin has been reported to cause a negative bias, interpret results relative to patient's use of biotin. ? Lab Interpretation Normal (test code = 38165-2) [facility] METABOLIC PANEL (NA, K, CL, CO2, GLUCOSE, BUN, CREATININE, CA)2020-07-10 13:21:00 Test Item Value Reference Range Interpretation Comments NA (test code = 138 mmol/L 135-145 3870071589) K (test code = 4.2 mmol/L 3.5-5 9710377784) CL (test code = 104 mmol/L 98-108 3585929668) CO2 TOTAL (test code = 24 mmol/L 23-31 3024011262) AGAP (test code = 2-16 7444678947) BUN (test code = 18 mg/dL 7-23 2878486350) GLUCOSE (test code = 107 mg/dL 70-110 1877425007) CREATININE (test code = 1.71 mg/dL 0.6-1.25 H 6662823986) CALCIUM (test code = 8.3 mg/dL 8.6-10.6 L 3975042295) eGFR Calculation mL/min/1.73m2 (Non-) (test code = 0912255950) eGFR Calculation mL/min/1.73m2 () (test code = 8818417602) YENI (test code = YENI) Association of Glomerular Filtration Rate (GFR) and Staging of Kidney Disease* + --+ --+ ------+| GFR (mL/min/1.73 m2) ?| With Kidney Damage ?| ?Without Kidney Damage+ --------+ --------+ +| ?>90 ?| ?Stage one ?| ? Normal ?+ ---+ ---+ -------+| ?60-89 ?| ?Stage two ?| ? Decreased GFR ? + --+ --+ ------+| ?30-59 ?| ?Stage three ?| ? Stage three ? + --+ --+ ------+| ?15-29 ?| ?Stage four ? | ? Stage four ?+ ---+ ---+ -------+| ?<15 (or dialysis) ? ?| ?Stage five ? | ? Stage five ?+ ---+ ---+ -------+ *Each stage assumes the associated GFR level has been in effect for at least three months. ?Stages 1 to 5, with or without kidney disease, indicate chronic kidney disease. Notes: Determination of stages one and two (with eGFR >59mL/min/1.73 m2) requires estimation of kidney damage for at least three months as defined by structural or functional abnormalities of the kidney, manifested by either:Pathological abnormalities or Markers of kidney damage (including abnormalities in the composition of the blood or urine or abnormalities in imaging tests). Lab Interpretation Abnormal (test code = 19201-9) [facility]2021-[facility]-13 13:20:00 Test Item Value Reference Range Interpretation Comments MAGNESIUM (test code = 0657002574) 1.5 mg/dL 1.7-2.4 L Lab Interpretation (test code = Abnormal 70162-2) [facility] (97949) (ALB,T.PRO,BILI T,BU/BC,ALT,AST,ALK PHOS)2020-07-10 13:19:00 Test Item Value Reference Range Interpretation Comments TOTAL BILI (test code = 7964672365) 0.4 mg/dL 0.1-1.1 BILI UNCON (test code = 0626740468) 0.4 mg/dL 0.1-1.1 BILI CONJ (test code = 0644381776) 0.0 mg/dL 0-0.3 T PROTEIN (test code = 2085948351) 6.8 g/dL 6.3-8.2 ALBUMIN (test code = 8807183408) 3.8 g/dL 3.5-5 ALK PHOS (test code = 1309989560) 72 U/L 34-122 ALTv (test code = 1742-6) 19 U/L 5-50 AST(SGOT) (test code = 6911461126) 26 U/L 13-40 Lab Interpretation (test code = Normal 76200-7) [facility]2021-02-13 13:19:00 Test Item Value Reference Range Interpretation Comments PHOSPHORUS (test code = 9796235127) 4.5 mg/dL 2.5-5 Lab Interpretation (test code = Normal 77882-2) [facility] WITH [id number] 11:57:00 Test Item Value Reference Range Interpretation Comments WBC (test code = See_Comment [Automated 6690-2) message] The sy stem which generated this result transmitted reference range : 4.20 - 10.70 10*3/?L. The reference range was not used to interpret this result as normal/abnormal . RBC (test code = See_Comment L [Automated 799-8) message] The sy stem which generated this result transmitted reference range : 4.26 - 5.52 10*6/?L. The reference range was not used to interpret this result as normal/abnormal . HGB (test code = 10.9 g/dL 12.2-16.4 L 718-7) HCT (test code = 33.1 % 38.4-49.3 L 4544-3) MCV (test code = 81.7 fL 81.7-95.6 787-2) MCH (test code = 26.9 pg 26.1-32.7 785-6) MCHC (test code = 32.9 g/dL 31.2-35 786-4) RDW-SD (test code = 43.2 fL 38.5-51.6 10460-3) RDW-CV (test code = 14.6 % 12.1-15.4 788-0) PLT (test code = See_Comment [Automated 777-3) message] The sy stem which generated this result transmitted reference range : 150 - 328 10*3/ ?L. The reference r fili was not used to interpret this result as normal/abnormal . MPV (test code = 10.5 fL 9.8-13 75246-9) NRBC/100 WBC (test See_Comment [Automat ed code = 0299387748) message] The system which generated this result transmitted reference range : 0.0 - 10.0 /100 WBCs. The refer ence range was not u sed to interpret th is result as normal/abnormal . NRBC x10^3 (test code <0.01 See_Comment [Auto mated = 4687169604) message] The s ystem which generated this result transmitted reference range : 10*3/?L. The reference range was not used to interpret this result as normal/abnormal . GRAN MAT (NEUT) % 69.4 % (test code = 770-8) IMM GRAN % (test code 0.20 % = 6846252865) LYMPH % (test code = 19.8 % 736-9) MONO % (test code = 8.4 % 5905-5) EOS % (test code = 2.0 % 713-8) BASO % (test code = 0.2 % 706-2) GRAN MAT x10^3(ANC) 5.56 10*3/uL 1.99-6.95 (test code = 6738803588) IMM GRAN x10^3 (test <0.03 0-0.06 code = 7106239171) LYMPH x10^3 (test code 1.59 10*3/uL 1.09-3.23 = 731-0) MONO x10^3 (test code 0.67 10*3/uL 0.36-1.02 = 742-7) EOS x10^3 (test code = 0.16 10*3/uL 0.06-0.53 711-2) BASO x10^3 (test code <0.03 0.01-0.09 = 704-7) Lab Interpretation Abnormal (test code = 56381-5) [facility] Whole [id number] 11:04:00 Test Item Value Reference Range Interpretation Comments LACTIC ACID (test code = 1.16 mmol/L 0.5-2.2 4238948290) Lab Interpretation (test code = Normal 50169-2) [facility]ham[facility] STIMULATING [id number] 09:17:00 Test Item Value Reference Range Interpretation Comments TSH (test code = See_Comment [Automated message] 2322484872) The system Myrio generated this result transmitted ref erence range: 0.45 - 4 .70 mIU/L. The refe rence range was not u sed to interpret this result as normal/abnor mal. Lab Interpretation (test Normal code = 09628-6) [facility] [place]N[facility]2021-02-13 09:10:00 Test Item Value Reference Range Interpretation Comments MAGNESIUM (test code = 1495144651) 1.6 mg/dL 1.7-2.4 L Lab Interpretation (test code = Abnormal 68130-0) [facility]2021-02-13 09:10:00 Test Item Value Reference Range Interpretation Comments PHOSPHORUS (test code = 2531580680) 5.2 mg/dL 2.5-5 H Lab Interpretation (test code = Abnormal 43951-2) [facility]hamURIC [id number] 09:10:00 Test Item Value Reference Range Interpretation Comments URIC ACID (test code = 5516067488) 5.7 mg/dL 3.6-8 Lab Interpretation (test code = Normal 37186-1) [facility]hamN-TERMINAL [id number] 09:10:00 Test Item Value Reference Range Interpretation Comments NT-proBNP (test code 110 pg/mL See_Comment [Autom ated = 2159126903) message] The system which generated this result transmitted reference range : <=125. The reference range was not used to interpret this result as normal/abnormal . YENI (test code = YENI) Biotin has been reported to cause a negative bias, interpret results relative to patient's use of biotin. Lab Interpretation Normal (test code = 82708-1) [facility]hamCREATINE [id number] 09:10:00 Test Item Value Reference Range Interpretation Comments CK (test code = 0413120561) 129 U/L 33-194 Lab Interpretation (test code = Normal 42768-6) [facility]hamGLYCOSYLATED HEMOGLOBIN (A1C)2020-07-10 09:09:00 Test Item Value Reference Range Interpretation Comments HGB A1C (test code = 5.8 % 4-6 4548-4) YENI (test code = YENI) %A1C (NGSP) Interpretation (ADA)4.8-5.6 ? ? Normal or (Non-Diabetic Range)5.7-6.4 ? ? Increased Risk (Pre-Diabetic)>6.5 ?Diabetes Indicated Lab Interpretation Normal (test code = 33356-6) [facility]hamLIPID PANEL (63761)(TOTAL CHOLESTEROL, TRIGLYCERIDES, HDL)2020-07-10 08:47:00 Test Item Value Reference Range Interpretation Comments CHOL (test code = 230 mg/dL 120-200 H 5633290077) HDL (test code = 46 mg/dL >40 3603787550) HDLC RATIO (test code = See_Comment [Au tomated message] 4827898743) The system Myrio generated this result transmit arsalan reference range : <=5.0. The refe rence range was not u sed to interpret th is result as normal/abnormal . TRIG (test code = 146 mg/dL 30-170 1330329054) LDL CHOL (test code = 155 mg/dL See_Comment [Auto mated message] 93912-0) The system Myrio generated this result transmit arsalan reference range : <=160. The refe rence range was not u sed to interpret th is result as normal/abnormal . VLDL (test code = 29 mg/dL 5-60 0471819923) Lab Interpretation (test Abnormal code = 04648-1) [facility]hamCT ABDOMEN PELVIS WO [id number] 05:19:13 1. Maribell appearance of the mesentery with a few mildly prominent mesentericlymph nodes in the left abdomen, suggestive of sclerosing mesenteritis.Otherwise no acute abdominopelvic CT findings within the confines of thislimited noncontrast study. Preliminary Report Dictated by Resident: Gordon Rodriguez MD., have reviewed this study and agree with the abovereport.CT ABDOMEN PELVIS WO CONTRAST HISTORY: 70 years-old; Male; Abdominal pain, acute, nonlocalized COMPARISON: AbdominopelvicCT 03/25/2020 TECHNIQUE AND FINDINGS: Contiguous axial imaging from the level of the lungbases through the pubic symphysis was performed without the intravenousadministration of contrast. Coronal and sagittal reconstructions wereobtained. ?Auto mA and/or iterative reconstruction were used to reduceradiation dose. FINDINGS: LOWER THORAX: The lung bases are clear. No cardiomegaly. LIVER: Normal in sizeand contour. GALLBLADDER AND BILIARY TREE: No intra or extrahepatic biliary ductaldilation. No gallbladder wall thickening. SPLEEN: A splenule measuring 0.9 cm (2:37). PANCREAS: No ductal dilation or masses. ADRENAL GLANDS: No adrenal mass. KIDNEYS: No hydronephrosis or stones. PERITONEUM AND RETROPERITONEUM: No free air or fluid collection. Mistyappearance of the mesentery is noted with fat stranding and multiplemesenteric prominent lymph nodes measuring up to 1.2 cm (2:61). LYMPH NODES: Multiple mesenteric prominent lymph nodes up to 1.2 cm (2:61). GI TRACT: Changes of gastric bypass surgery arenoted. No dilation or bowelwall thickening. The appendix is not clearly visualized, however noinflamm atory stranding is noted about the cecum to suggest appendicitis. PELVIS/BLADDER: Bladder is decompressed with no wall thickening. Theprostate is normal in size. Bilateral prominent inguinal lymph nodes areseen. VESSELS: Atherosclerotic calcifications are seen in the aorta and itsbranches.. BONES AND SOFT TISSUES: Moderate lumbar spondylotic changes with exuberantanterior osteophytosis at L5-S1. Grade 1 retrolisthesis of L4 over L5 andanterolisthesis of L5 over S1. Bilateral L5 pars defect. Lines/Tubes/Devices/Hardware: None [facility], Radiant Results Inft User - 07/09/2020 11:20 PM CSTCT ABDOMEN PELVIS WO CONTRASTHISTORY: 70 years-old; Male; Abdominal pain, acute, nonlocalized COMPARISON: Abdominopelvic CT 03/25/2020TECHNIQUE AND FINDINGS: Contiguous axial imaging from the level of the lungbases through the pubic symphysis was performed without the intravenousadministration of contrast. Coronal andsagittal reconstructions wereobtained. Auto mA and/or iterative reconstruction were used to reduceradiation dose.FINDINGS:LOWER THORAX: The lung bases are clear. No cardiomegaly.LIVER: Normal in size and contour. GALLBLADDER AND BILIARY TREE: No intra or extrahepatic biliary ductaldilation. No gallbladder wall thickening.SPLEEN: A splenule measuring 0.9 cm (2:37).PANCREAS: No ductal dilation or masses.ADRENAL GLANDS: No adrenal mass.KIDNEYS: No hydronephrosis or stones.PERITONEUM AND RETROPERITONEUM: No free air or fluid collection. Mistyappearance of the mesentery is noted with fat stranding and m ultiplemesenteric prominent lymph nodes measuring up to 1.2 cm (2:61).LYMPH NODES: Multiple mesenteric prominent lymph nodes up to 1.2 cm (2:61).GI TRACT: Changes of gastric bypass surgery are noted. No dilation or bowelwall thickening. The appendix is not clearly visualized, however noinflammatory str anding is noted about the cecum to suggest appendicitis. PELVIS/BLADDER: Bladder is decompressed with no wall thickening. Theprostate is normal in size. Bilateral prominent inguinal lymph nodes areseen.VESSELS: Atherosclerotic calcifications are seen in the aorta and itsbranches..BONES AND SOFT TISSUES: Moderate lumbar spondylotic changes with exuberantanterior osteophytosis at L5- S1. Grade 1 retrolisthesis of L4 over L5 andanterolisthesis of L5 over S1. Bilateral L5 pars defect.Lines/Tubes/Devices/Hardware: NoneIMPRESSION1. Maribell appearance of the mesentery with a few mildly prominent mesentericlymph nodes in the left abdomen, suggestive of sclerosing mesenteritis.Otherwise no acute abdominopelvic CT findings within the confines of thislimited noncontrast study.Preliminary Report Dictated by Resident: Gordon Kemp MD., have reviewed this study and agree with the abovereport.[facility]hamURINALYSIS2021-02-13 04:54:00 Test Item Value Reference Range Interpretation Comments APPEARANCE (test code = Cloudy Clear A 2371398778) COLOR (test code = Tawana Yellow A 3016727591) PH (test code = 4.8-8.0 5826812950) SP GRAVITY (test code = 1.003-1.030 H 9147692339) GLU U QUAL (test code = Normal Normal 5002234925) BLOOD (test code = Negative Negative 3387145936) KETONES (test code = 5 mg/dL Negative A 3097461203) PROTEIN (test code = 100 mg/dL Negative A 2887-8) UROBILIN (test code = 2.0 mg/dL Normal A 3064028991) BILIRUBIN (test code = 2 mg/dL Negative A 1624914151) NITRITE (test code = Negative Negative 0322825399) LEUK BLAINE (test code = Negative Negative 8713243167) RBC/HPF (test code = See_Comment H [Autom ated message] 1918418548) The system Myrio generated this result transmit arsalan reference range : 0 - 3 HPF. The refe rence range was not u sed to interpret th is result as normal/abnormal . WBC/HPF (test code = See_Comment H [Autom ated message] 0503245063) The system Myrio generated this result transmit arsalan reference range : 0 - 5 HPF. The refe rence range was not u sed to interpret th is result as normal/abnormal . BACTERIA (test code = Few Negative A 7775240720) MUCOUS (test code = Moderate Negative LPF A 4498714771) SQ EPITH (test code = HPF 5022717625) HYAL CAST (test code = See_Comment H [Aut omated message] 2166508008) The system Myrio generated this result transmit arsalan reference range : <=2 LPF. The refere nce range was not u sed to interpret th is result as normal/abnormal . Lab Interpretation (test Abnormal code = 25415-3) [facility] [id number] 03:30:00 Test Item Value Reference Range Interpretation Comments TROPONIN I (test 0.013 ng/mL See_Comment [Automated code = 7831629667) message] The system which generated this result transmitted reference range : <=0.034. The reference range was not used to interpret this result as normal/abnormal . YENI (test code = Equal or Less than YENI) 0.034 ng/ml---Normal ?Note: Cardiac troponin begins to rise 3-4 hours after the onset of ischemia. Repeat in 4-6 hours if the sample was drawn within 3-4 hours of the onset of the symptom and found normal. Between 0.035 and 0.120 ng/mL--- Borderline. Questionable myocardial injury or necrosis ? ?Note: Serial measurement may be necessary to confirm or exclude the diagnosis of myocardial injury or necrosis; Clinical correlation (symptoms, EKGs, imaging studies, and others) required; Repeat in 4-6 hours if clinically indicated. ? Equal or Higher than 0.121 ng/mL---Abnormal. Myocardial Injury or Necrosis Likely ? Biotin has been reported to cause a negative bias, interpret results relative to patient's use of biotin. ? Lab Interpretation Normal (test code = 14204-9) [facility]hamType and Screen - ONCE [id number] 03:28:40 Test Item Value Reference Range Interpretation Comments ABO & RH (test AB Positive Performed at [facility] code = 20) Laboratory [facility] Blood Bank[address] [place], [place] [address]Toll Free: [phone] A No. [id number] IAT (test code = Negative Performed a t [facility] 1185) Laboratory [facility] Blood [facility] [place], [place] [address]Toll Free: [phone] A No. [id number] [facility]hamCOMP. METABOLIC PANEL (45185)2020-07-10 03:20:00 Test Item Value Reference Range Interpretation Comments NA (test code = 135 mmol/L 135-145 4232380065) K (test code = 5.2 mmol/L 3.5-5 H 4289315621) CL (test code = 100 mmol/L 98-108 2894926650) CO2 TOTAL (test code = 25 mmol/L 23-31 5127482715) AGAP (test code = 2-16 5040819646) BUN (test code = 16 mg/dL 7-23 6121857399) GLUCOSE (test code = 110 mg/dL 70-110 3865943825) CREATININE (test code = 2.21 mg/dL 0.6-1.25 H 7748008674) TOTAL BILI (test code = 0.5 mg/dL 0.1-1.7 9685725645) CALCIUM (test code = 9.2 mg/dL 8.6-10.6 3379349661) T PROTEIN (test code = 8.6 g/dL 6.3-8.2 H 8626625782) ALBUMIN (test code = 4.9 g/dL 3.5-5 4729589252) ALK PHOS (test code = 91 U/L 34-122 3454737930) ALTv (test code = 25 U/L 5-50 1742-6) AST(SGOT) (test code = 32 U/L 13-40 8455624781) eGFR Calculation mL/min/1.73m2 (Non-) (test code = 5137257657) eGFR Calculation mL/min/1.73m2 () (test code = 2716701257) YENI (test code = YENI) Association of Glomerular Filtration Rate (GFR) and Staging of Kidney Disease* + --+ --+ ------+| GFR (mL/min/1.73 m2) ?| With Kidney Damage ?| ?Without Kidney Damage+ --------+ --------+ +| ?>90 ?| ?Stage one ?| ? Normal ?+ ---+ ---+ -------+| ?60-89 ?| ?Stage two ?| ? Decreased GFR ? + --+ --+ ------+| ?30-59 ?| ?Stage three ?| ? Stage three ? + --+ --+ ------+| ?15-29 ?| ?Stage four ? | ? Stage four ?+ ---+ ---+ -------+| ?<15 (or dialysis) ? ?| ?Stage five ? | ? Stage five ?+ ---+ ---+ -------+ *Each stage assumes the associated GFR level has been in effect for at least three months. ?Stages 1 to 5, with or without kidney disease, indicate chronic kidney disease. Notes: Determination of stages one and two (with eGFR >59mL/min/1.73 m2) requires estimation of kidney damage for at least three months as defined by structural or functional abnormalities of the kidney, manifested by either:Pathological abnormalities or Markers of kidney damage (including abnormalities in the composition of the blood or urine or abnormalities in imaging tests). Lab Interpretation Abnormal (test code = 14753-1) [facility]hamLIPASE2021-02-13 03:20:00 Test Item Value Reference Range Interpretation Comments LIPASE (test code = 2766460490) 198 U/L 0-220 Lab Interpretation (test code = Normal 73624-8) [facility]hamCOVID-19 (ID NOW RAPID TESTING)2020-07-10 03:13:00 Test Item Value Reference Range Interpretation Comments SARS-CoV-2 Rapid ID NOW Not Detected Not Detected (test code = 37753-5) YENI (test code = YENI) ID NOW COVID-19 Assay is an isothermal nucleic acid amplification test intended for the qualitative detection of nucleic acid from SARS-CoV-2 viral RNA in nasopharyngeal (COOLING T[employer] TECHNICIAN) specimens. It is used under Emergency Use Authorization (EUA) by FDA. The limit of detection (LOD) of the assay is 125 Genome Equivalents/mL. A positive result is indicative of the presence of SARS-CoV-2 RNA. ?Clinical correlation with patient history and other diagnostic information is necessary to determine patient infection status. A negative (Not Detected) result does not preclude SARS-CoV-2 infection. In patients with clinical symptoms and other tests that are consistent with SARS-CoV-2 infection, negative results should be treated as presumptive negative and a new specimen should be tested with alternative PCR molecular test. Invalid: Please collect a new specimen for repeat patient testing if clinically indicated. Lab Interpretation Normal (test code = 77016-0) [facility] WITH [id number] 03:03:00 Test Item Value Reference Range Interpretation Comments WBC (test code = See_Comment H [Automated 7390-2) message] The sy stem which generated this result transmitted reference range : 4.20 - 10.70 10*3/?L. The reference range was not used to interpret this result as normal/abnormal . RBC (test code = See_Comment [Automated 908-8) message] The sy stem which generated this result transmitted reference range : 4.26 - 5.52 10*6/?L. The reference range was not used to interpret this result as normal/abnormal . HGB (test code = 12.6 g/dL 12.2-16.4 718-7) HCT (test code = 40.1 % 38.4-49.3 4544-3) MCV (test code = 84.4 fL 81.7-95.6 787-2) MCH (test code = 26.5 pg 26.1-32.7 785-6) MCHC (test code = 31.4 g/dL 31.2-35 786-4) RDW-SD (test code = 44.3 fL 38.5-51.6 26157-0) RDW-CV (test code = 14.5 % 12.1-15.4 788-0) PLT (test code = See_Comment H [Automated 777-3) message] The sy stem which generated this result transmitted reference range : 150 - 328 10*3/ ?L. The reference r fili was not used to interpret this result as normal/abnormal . MPV (test code = 10.1 fL 9.8-13 76991-3) NRBC/100 WBC (test See_Comment [Automat ed code = 1358370687) message] The system which generated this result transmitted reference range : 0.0 - 10.0 /100 WBCs. The refer ence range was not u sed to interpret th is result as normal/abnormal . NRBC x10^3 (test code <0.01 See_Comment [Auto mated = 2601450554) message] The s ystem which generated this result transmitted reference range : 10*3/?L. The reference range was not used to interpret this result as normal/abnormal . GRAN MAT (NEUT) % 85.9 % (test code = 770-8) IMM GRAN % (test code 0.40 % = 7922170704) LYMPH % (test code = 7.9 % 736-9) MONO % (test code = 5.3 % 5905-5) EOS % (test code = 0.3 % 713-8) BASO % (test code = 0.2 % 706-2) GRAN MAT x10^3(ANC) 9.98 10*3/uL 1.99-6.95 H (test code = 0531079702) IMM GRAN x10^3 (test 0.05 10*3/uL 0-0.06 code = 2715224586) LYMPH x10^3 (test code 0.92 10*3/uL 1.09-3.23 L = 731-0) MONO x10^3 (test code 0.62 10*3/uL 0.36-1.02 = 742-7) EOS x10^3 (test code = 0.03 10*3/uL 0.06-0.53 L 711-2) BASO x10^3 (test code <0.03 0.01-0.09 = 704-7) Lab Interpretation Abnormal (test code = 42540-0) [facility]hamXR CHEST 1 [id number] 02:46:55CHEST PORTABLE ONE VIEW HISTORY:Cough TECHNIQUE: Frontal, portable projection of the chest is obtained. COMPARISON: 04/02/2020 FINDINGS: The lungs are clear. A lucent area in the right midlung probablyrepresents a prominent bulla. The heart size and mediastinal silhouette arenormal. No pleural effusionor pneumothorax is seen. CONCLUSIONS: No acute cardiopulmonary disease. [facility], Radiant Results Inft User - 07/09/2020 8:48 PM CSTCHEST PORTABLE ONE VIEWHISTORY:CoughTECHNIQUE: Frontal, portable projection of the chest is obtained.COMPARISON: 04/02/2020FINDINGS: The lungs are clear. A lucent area in theright midlung probablyrepresents a prominent bulla. The heart size and mediastinal silhouette arenormal. No pleural effusion or pneumothorax is seen.CONCLUSIONS: No acute cardiopulmonary disease. [facility]hamBASI METABOLIC PANEL (NA, K, CL, CO2, GLUCOSE, BUN, CREATININE, CA)2020-04-07 11:24:00 Test Item Value Reference Range Interpretation Comments NA (test code = 139 mmol/L 135-145 1133473319) K (test code = 3.7 mmol/L 3.5-5 8184942966) CL (test code = 109 mmol/L 98-108 H 2969607677) CO2 TOTAL (test code = 23 mmol/L 23-31 8140992066) AGAP (test code = 2-16 6333721272) BUN (test code = 3 mg/dL 7-23 L 5647042907) GLUCOSE (test code = 104 mg/dL 70-110 1048534070) CREATININE (test code = 1.01 mg/dL 0.6-1.25 0985446212) CALCIUM (test code = 8.3 mg/dL 8.6-10.6 L 4269741810) eGFR Calculation mL/min/1.73m2 (Non-) (test code = 8210290022) eGFR Calculation mL/min/1.73m2 () (test code = 5065494583) YENI (test code = YENI) Association of Glomerular Filtration Rate (GFR) and Staging of Kidney Disease* + --+ --+ ------+| GFR (mL/min/1.73 m2) ?| With Kidney Damage ?| ?Without Kidney Damage+ --------+ --------+ +| ?>90 ?| ?Stage one ?| ? Normal ?+ ---+ ---+ -------+| ?60-89 ?| ?Stage two ?| ? Decreased GFR ? + --+ --+ ------+| ?30-59 ?| ?Stage three ?| ? Stage three ? + --+ --+ ------+| ?15-29 ?| ?Stage four ? | ? Stage four ?+ ---+ ---+ -------+| ?<15 (or dialysis) ? ?| ?Stage five ? | ? Stage five ?+ ---+ ---+ -------+ *Each stage assumes the associated GFR level has been in effect for at least three months. ?Stages 1 to 5, with or without kidney disease, indicate chronic kidney disease. Notes: Determination of stages one and two (with eGFR >59mL/min/1.73 m2) requires estimation of kidney damage for at least three months as defined by structural or functional abnormalities of the kidney, manifested by either:Pathological abnormalities or Markers of kidney damage (including abnormalities in the composition of the blood or urine or abnormalities in imaging tests). Lab Interpretation Abnormal (test code = 43842-9) [facility]hamMAG[facility]IUM2020-11-11 11:24:00 Test Item Value Reference Range Interpretation Comments MAGNESIUM (test code = 3461801988) 1.8 mg/dL 1.7-2.4 Lab Interpretation (test code = Normal 58459-5) [facility]hamPHOSPHORUS2020-11-11 11:24:00 Test Item Value Reference Range Interpretation Comments PHOSPHORUS (test code = 7400936501) 3.7 mg/dL 2.5-5 Lab Interpretation (test code = Normal 37879-2) [facility]hamCB WITH [id number] 10:49:00 Test Item Value Reference Range Interpretation Comments WBC (test code = See_Comment [Automated 6690-2) message] The sy stem which generated this result transmitted reference range : 4.20 - 10.70 10*3/?L. The reference range was not used to interpret this result as normal/abnormal . RBC (test code = See_Comment L [Automated 789-8) message] The sy stem which generated this result transmitted reference range : 4.26 - 5.52 10*6/?L. The reference range was not used to interpret this result as normal/abnormal . HGB (test code = 8.2 g/dL 12.2-16.4 L 718-7) HCT (test code = 25.2 % 38.4-49.3 L 4544-3) MCV (test code = 89.4 fL 81.7-95.6 787-2) MCH (test code = 29.1 pg 26.1-32.7 785-6) MCHC (test code = 32.5 g/dL 31.2-35 786-4) RDW-SD (test code = 44.8 fL 38.5-51.6 83796-4) RDW-CV (test code = 13.6 % 12.1-15.4 788-0) PLT (test code = See_Comment H [Automated 777-3) message] The sy stem which generated this result transmitted reference range : 150 - 328 10*3/ ?L. The reference r fili was not used to interpret this result as normal/abnormal . MPV (test code = 9.6 fL 9.8-13 L 33102-0) NRBC/100 WBC (test See_Comment [Automat ed code = 8615128159) message] The system which generated this result transmitted reference range : 0.0 - 10.0 /100 WBCs. The refer ence range was not u sed to interpret th is result as normal/abnormal . NRBC x10^3 (test code <0.01 See_Comment [Auto mated = 6838804677) message] The s ystem which generated this result transmitted reference range : 10*3/?L. The reference range was not used to interpret this result as normal/abnormal . GRAN MAT (NEUT) % 68.1 % (test code = 770-8) IMM GRAN % (test code 0.30 % = 2055341840) LYMPH % (test code = 20.1 % 736-9) MONO % (test code = 7.3 % 5905-5) EOS % (test code = 3.7 % 713-8) BASO % (test code = 0.5 % 706-2) GRAN MAT x10^3(ANC) 4.42 10*3/uL 1.99-6.95 (test code = 9807102198) IMM GRAN x10^3 (test <0.03 0-0.06 code = 1857583328) LYMPH x10^3 (test code 1.30 10*3/uL 1.09-3.23 = 731-0) MONO x10^3 (test code 0.47 10*3/uL 0.36-1.02 = 742-7) EOS x10^3 (test code = 0.24 10*3/uL 0.06-0.53 711-2) BASO x10^3 (test code 0.03 10*3/uL 0.01-0.09 = 704-7) Lab Interpretation Abnormal (test code = 02289-4) [facility]hamSURG[facility] PATHOLOGY [id number] 14:12:00 Test Item Value Reference Range Interpretation Comments Case Report (test Surgical Pathology code = 3735700998) ?Case: [id number] ? Authorizing Provider: ?Kike Adams MD Collected: ? 03/26/20202145 ?Ordering Location: ? ? [facility] OR ? Received: ?03/29/2020 0935 ? Department ? Pathologist: ? Iona Rachel MD ? Specimens: ? A) - STOMACH, gastric ulcer biopsy. ?test for H Pylori ? B) - STOMACH, gastric ulcer atrium, R/O cancer ? Final Diagnosis z0dxdNUyHUVtg3yxKJ Previo us (test code = VmbGFuZzEwMzNcZnRu prelimina ry result 2169069710) YmpcdWMxIHtccnRmMV was repor arsalan on esp8GcF9RcIaExQVqq 04/02/2020 at 1824 bnNpXGRlZmxhbmcxMD RETAIL VISUAL MERCHANDISER GqKKA0mjAkCLShRAsl YVKaPAsqVs9znHYyuT goHvKuSCIme9cizjZD slawuTa1z0tzDKFiHn E7mJJzZWjcT3rregWl mTCgDBJlWNt4fG81MZ YchG0sjTOpNJsztwKz QgG4BOufLPUsWfH3XA IqtBDePQOzN6ksOYXg XGdyZWVuMFxibHVlMC Q6hFajy4M0cUFvePWt dHtcZjBcZnMyMCBOb3 LsGJd0wZvfL4UdJMDu JpZ5bAMpZCEgSMeyCW HgCNLcfdU0gL06GUyv xgO3nMRxy4Adw51ru5 26nM8wrTXoESB6PCVl HMSaxFNlLPArNOJ9PC ByhERaK9hqWSalML0r kahbSNO8YAvjMXNdrI cyMFxtYXJnYjBcaGVh VGRdwYhwFEosf150DW Q3ObTeUV8mV2Myg3P3 rH9xoBUjYIJdhOKrOo DuLZWrqz2doPZoACef m4RkHBW3afS1vEBipX CfAYDyYK28Ktqde1Lk MuirCKP4FIWvfwEsj0 Eom3kuFvDpjrZvB1bs O7LpQTBfIONqTGDcAf LaysOiu9Dkq9WpoGCk xKx3g1cyTUPpSEQqsA xfz3auBFC2TNVzQ1T7 bBOac3rhLUwkMVNbpB X8btYoNKIibGYwX9Ta dB6tOGfeGY0htwx6a8 aeWbIxUA3opudqw0az DHroGWJgSED2OxKhBN Bmh6RqtezyHtRlp3Ji uVUgJCrxS88un593FW CbdkRhA5hmvRKdbwyb cVFwhncdBHduppK9DG FsXHBsYWluXGYxXGZz MjBcbGFuZzEwMzNcaG ljaFxmMVxkYmNoXGYx UQfbH8iiHpQcNlJaCN xwYXJccGFyZFxwbGFp qnyuJUevmoA6YMRxGA luXGYxXGZzMjBcbGFu ZzEwMzNcaGljaFxmMV slPcYvKNDrJWzwW3ew ZjFcZnMyMCBBLiBTVE 9QGLGDVJFTQA6QH8e7 GDByfhScRFIuSQ5oM9 HHNGSOQaAZW9TAHR3I A19ZEPGDNZTRXFOGSa 8ARPEaX0GDIHLDQJkG EATNYMMRYh1BQ18sXV JNVUBKIjtEEhtVP7Ik KFBQSSkgRUZGRUNUXH XpyrCpQJXdTO6zIx3j CT5METFOBL2AQXUNRH JCZHnSH5pMKIbICU3R SUZJRURccGFyXHFsXH BsYWluXGYwXGZzMjRc bDkavK9qFcQeCwLsBH brXT2kJETlN4bhjWDi NASrDDHoD0pmKwCnoJ 9jaFxmMVxmczIwICAg ICAgLSBOTyBILiBQWU qETorfY2GEFT7WE61U LUoRJC5MHXXCTLDgN1 8iOB5GJB8BF4JVLS9n cGFyXHBhciBCLiBTVE 6ABNVVXRXGRsSBDK7k BKTODxQNNOnrC2YEQN SVG2JZINm2UQkhYOUy cGFyZFxwbGFpblxmMF giwgU0ZJEcLAczVSHw XGZzMjBcbGFuZzEwMz NcaGljaFxmMVxkYmNo IQMyRPyyA4pxOgUbUs ZkAMVgEDQnXF4fP5BS VFJJQyBUSVNTVUUgV0 sLLBOUC9LDPmZoC9cX I22MNgEXODXOUlqHTP CoNUDJG5LLHNUKI67m AJJQWV7NEZWYOGlzRL NXAQYdUF7FJPJyfiCf UPBzYMIoKRCZWd8PUQ GhGZ2IUNTAUSIIRG2P LCBHUkFOVUxBVElPTi BUSVNTVUUsIEFORCBI UF9LYrROMFdZKTIopx SlLPUgPJ5yAn6iZI7L VTROSN8HVATVKMQXEE pGE9iHAVoDYJ3OAJWR RURccGFyICAgICAgLS BOTyBILiBQWUxPUkkg S8KPNR3FX47EBRfCPQ 4JWGCBOKOqX18mBF7S ER9GQ5QSAK4rjCSnBS FsXHBsYWluXGYwXGZz WcPuyUmliH7bJiVaKm OcAAwlJK3eSHSgQ4nx nQFaSAGgWZCxR4ufKo CozS3jhTjbYBarudFq ZKBvJUKxXFFPH67eEa DCR3BNGvKpAOkHJZuu Pe6NONEwjOHnROHePQ BxVEVGReAZJPePP93G HlYSMKoBNB2FATTROF SeYDBpiuypLQK8k4gl dGYxXHNzdGVjZjIyMD FzUPTxp0uqTZUxwNFd ZzEwMzNcZnRuYmpcdW FcMJHwPlJhp5zzo359 pLGne4weZILqJjM0dG QvUSYwnIntmin0nGdx RzFlUOIig6udjvXhHe NoYXJzZXQwIEFyaWFs T776VIXmUNbig6hyi2 QzQWVksBKiw1A2GCYE LOdtUxVpM492e2ryy2 oisaNngGL8JPUzRZC2 KCivdoPqouV1FHyqzQ RzPiB4NQecjwUxPLtp miKtxsWhVzu5FDKoA3 66YAF3bKcxo2swAPS0 BWZtXWOmKeelBp8omU MzY798TFOwABFDIXJy aWv4UGKhzhCvubMvnU XFt728Z329x7xnEQIj mlPjtXyPkagbi5fcV8 19XHBhcGVydzEyMjQw PPOgkJQxmBI4ITHkJR 1hcmdsMTgwMFxtYXJn gwF1TXCdvWDiD1ShRB NxCU9kotuoXXA8QAwq NTNyRYP5HrZbSWEqe6 Mwezw5WwMxvw4ido18 RJM4g5WrePgxGIX3OE T1EsEzTo7grSZlTQFs AW7pJxRsbANwASXddz 54nSxjFPxfqpDrbZ1a YmRiXGZldDRcYWVuZG 9uiLPjZRUkpZ0jycsm XHBnYnJkcmhlYWRccG kklaTxRj8tdInxCQX0 ZVzvD7gcmE9uNoL1DJ cnM7tsnW2vCCl0WPku aCC1CDYhgR0zVP2vna uzc4lvDRgsFCtlPLGd ubN2imT8WQFtnSOwM6 WvzT6nBNXsNL9aormk r0kiTEK2QAakQGLdMM U9BiDxOYHms5Qkmjg9 FoEml7BvkDDdSLhkY4 6ei089GDHmgmLxI9qf bGFpblxwbGFpblxmMF hqhwD8VSZyAUYpCTbg XGYxXGZzMjBcbGFuZz EwMzNcaGljaFxmMVxk WbXqHFVbPKxoS4ozYv UsG4KdVPYcLdPgaYQo MUwsdJZ4ZRVmHITzc7 1xmSd7DLYynbqmt3Pa EAQkwEXhfQOnrG2aus Igz9szMJQtIPZvJDCg F9YyCWU3fRFtFQLfdO NxeYJ8TH4sztTqZL2i ZGUgYnkgcmVzaWRlbn XqEEAcZZula7gxWO9v CZQliKhqeO9hvTH8HP Iwf5tqzUZvdMUxz4il d4CxhdNoRKonCJZoMM isGTUoTRKrSQ2cIWAw rMHyqvNgi2H4QbcvmR EcbgjhMqtoohU1FEfl gfvlFPVqRTlmE8kcZj IgUJIcoMqgLjqlp9Op XGYyXGZzMjhccGFyfX 0= Final Diagnosis s3cefOSqQKHfwLBpBh Previo us Comment (test code UwSKKePVXcz7paACGr pre liminary result = [id number]) FuZzEwMzNcZnRuYtoo was repo rted on yokHZcJLNzWkIut4cl 04/02/2020 at 1824 h633hIRfb9vnPCUwQt RETAIL VISUAL MERCHANDISER J1wNCdPBZziMVaL908 JDCaOBcig2fgx3JqSB FloXZhi4J2ZKARuoib fYq7jHpwM51ik8C1Cr awZ8vjNDNwDSIfY6Qt AM5iCXEcJnj7OQB9NJ I3CZDeYMTlL4FnTU1o RMVipUKfTHo9w4dtjO itYJKeZHZ4x6bgOVjw tvCdPV7cqk1dtPh8a5 xjczEgRGVmYXVsdCBQ ZDZgB7RkqQsgMs4qxR z8kYdzGboqCID3Dtd4 FZ6uvg81msy7nSliAK NfnlurTkB1HHmeYSBx tpjuDYz1GOllOKRhaH MxIZGqlMZiN7XdGFga RB8gieu5DrFnSY6rao qmEUvhHHCcAWZ4FqWc RUUke2JcpjvoYkJfkd 4qzj03DPD1n3VkeSgw CZP2GKM7WtXiLl1lxS DmUYKkGJ1cSaCwgHUv VJTuii16pOasIQoquj DvcE9gHtKoPGJprKSg RCCeLZPgD1ezOaJqts SwV7evW2TvPQEtNXAp RHMsYtEynvGqt4Xdc8 LufQEtsFs1o8uyLLPb UMXkkZmlc0veTVC1TB VpT0R4dEMjo7euDQuw CHAhcXZ1poRcFRUzmN RbK4AzyR1wEFwwXJ2p ngt7o8ikZbAyDS2saj cud5xrUThiEYRjDOD2 WyAvZWNnd2YgfmcaGb Pvr4RmmJBbTKfbL72c h382GYMiylJzP2swjV FpblxwbGFpblxmMFxm eiX4NVTrACMpXOkfLM YxXGZzMjBcbGFuZzEw MzNcaGljaFxmMVxkYm CwFROiCXmaG1bsYbWb AwArNMZKbN59mn0aqN MorpHdb7QsFE3DlHgd unruuHTnQi7wnQTdZP 9yNAJgIYXgeH6pjiVE IBFtsqFgSBagjSr2GO 5ccGFyXHBhcmRccGxh tC6oOdMkIaEcIBocmM FpblxmMVxmczIwXGxh nbfhRHEuXRdeJ8ciWz DsZOMqgSlvDTtce7Iq WLDeEKWyPsZxQT8yuL 6sy2EuyD2nOo2aVEoq DVblp0YwONJhmyUetm 1aKRHztnZ3fPVfRlys P3wqUeCrlJUeixRlSQ RpdmUuXHBhclxxbFxw hTNhwseeSGhyzaY1QO BsYWluXGYxXGZzMjBc bGFuZzEwMzNcaGljaF xmMVxkYmNoXGYxXGxv S2hdVrSwMmSiCJhfBB DxyGgukY0sPtDnZrVq UUsjXG0qRTXtQ0jggH FfWFCtMSJuP0mmAgCu hI0huMvnNXnqGhFfXb MyMFxsdHJjaCBBbGwg J57gqDFrwRGrp1oyfb GyuFCoo0VfcQF6WJSi ZXPfzBm8mCR4GTOyZL luXGYxXGZzMjBcbGFu ZzEwMzNcaGljaFxmMV qzJhAbAVPeMTbuT5ws ZjFcZnMyMCAgIFxwYX JccGFyfQ== Clinical Gastric bleeding Information (test code = 9528813857) Gross Description x3ypsUPuSZDqvAQlNt (test code = IuUGSqVPBik0yrAXFi [id number]) bGFuZzEwMzNcZnRuYm hsyJWnWPAnNeZyh6yf i289pHCfr9hfVAPkEv L7kPRwETPgrSMbF699 ZGJwRQczf3uuh5VlQM TrzMCts5T0UDMLledr sMz8lTguK07dx3X4Ld yfP8sgGESuCERjA5Od ZH4uUTSrYjl7IAE3GQ W3HOWrXNBsG1QbSJ2o VZJxsNCmXOu0s8wsmY gaPIAuSSN8e1auUQzg jlHnZN0htu2esNg5x9 xjczEgRGVmYXVsdCBQ AUUxG8MkfPmxGm3teE a6fSuoRehpMYD3Kaq2 VM0jjp36tcp3fTcpWJ HmqnsbHqD5UAngQDQf kvmiFTl5KVkvOHUohR JbVSTxdKHgJ1PmYKbf NT2mvzi7ZlJtQO7oop vqLDbqOEQiNAR8KoTz UVNwm3EoqgnyBpWewj 7sot86JPC4y3AveQdn AZQ9AZA2ZrPwJg2rgV RxAUJkRY4mYbAjmLCb DQIjba63wOxeRQwwsn ZnkT1bJfAbYWAlzJKf MNYnOC1fyIBoNFKsgD 5ucmxjXHBnYnJkcmhl WNLyzQsgmxQqIh5jrS xzNEC6IGioL0vupT0i GhE1ILnlG5sdpO8xYE t8RDcssGD9USRxlA9v TO0swjqrk8keMNV3RV duCTBsinB9xfMtRLPs qYFxL8UfnX24IlNzxT AvI8HbhE2lRSwjEPEl gbr9QrVkSs9xeUFcqD R2JPyyLevaWWsrOPYa bmNvbnRccGduZGVjXH BsYWluXHBsYWluXGYw XGZzMjRccWxccGxhaW 2dSzQcCsVoYLzdAS2j LPYhD5wxkWEkJAZdNH EzU5ctSeLlfF7baPyn MVxmczIwIFNwZWNpbW VuIEEgaXMgcmVjZWl2 CRUmUcZcq9rmrFLbOE eqQNV4jYJmLJZnFEDt GFPrSL84I0UjvdMgWL wgVUggbnVtYmVyIGFu NGEng7LdwLHjoOsrB9 XztCTvDsR6sTSyffHs pM7ah2lpLAApm1XbWA ZvciBILiBweWxvcmki HNIjXNTvv54xmEM0qm BvZiBhIHNpbmdsZSB0 NM9sKrYbt62mn34wkP S6uPVirYZuRqTsM78g vmGwHEKtOIP2SECgVY H9BFKaVcNrgRwpBSHy SFEkOTOfJ9Yyu93elL NhR1slPDeeNCsze2Yb KURsfKKhNX8gTZWbTC OqlNFukN2zrwOvchNf CDGyGEgzqEJfPPX0nC 5dWZLicO4ngwK5OAGv QOKkrf7wyR5tMCZ3tY CamTKaNCBpny7xGSbf IHNwZWNpbWVuIGlzIH R2Rw4baLStLSHcruUs noAqkMPydPQgc7poYS Tqa7hvQLmgTZJaHveg YXJccGFyIFNwZWNpbW VuIEIgaXMgcmVjZWl2 AZTdsF2qWo0qtZOtxW 0rqZIaXZejNYI8oHGq XHKrLJFpMYIpFO03O5 MgbmFtZSwgVUggbnVt VjSbHVAwHVYwG6AcvX ZoTaL2dVMfbnDpdHLy tQ3zTWP8kZBto8G1FK OlinWqlwTsBE9xRPMy zaSvc5MkKT7rNAZcd9 ckD1iuWTM8tu5yvGEm gSXtTJI2NB5quqPhHH Q7l67dU4kdMiZjF24r kqRlUWGtWPP4FZMzIE O7KNJiAAGkfHxpTFDk ZXJlIGlzIGFuIHVsY2 LhPOYiVFDkZRYag16z h7g9pIBqkJQeKBHvIN TzJYLfEDNxFeG7CZVs BKAsmSvls16npSojOF 00P77oLLlbEJG0yEAo axqhwRoyKPRvw4Vmy5 AlemFqPGO7cW7vTZ9n dtwerlHekqEtWC7mBJ JvJxLpFB4sLZDdHRDg oPKlzh7tHZTmSWWmmI gdocXiCFYdA5Gel46j jFLjV8tokx4dQXcvJN Qtde5zAYPzynOhvZ0g VLRfmmF8xILvPYX1V3 tlcmluZyBzdWJqYWNl qnNjmE7dpUbgIRAzE9 VyLiBUaGVyZSBpcyBh OE1hkVNboOoeNLTzpQ Oil06htAbrFH67X95q BLpbk9jmTP1zZKeeME NwZWNpbWVuIGlzIGlu s8RfXIDaEDTcNLYwQB sviTZcVXF9oB4qFWCl bA76ysW9SIIejLXixv G0yuKmLIWxWMkhHO2a LPStLOPvbSQrHD6wDX HuZRV3vUAyvyGvugDv VJLxSBLnShPcy95bfB 4yxSYmbJYeu9NqgUC9 dXJlICgxLjIgeCAwLj mmrTKjWzZvC79uKOlq c2piQIZ4hHLacBcqSJ WmUGFiBHIjNT3qxO4o caojY4K6RYK5lxPmN3 CcLURxXBQ8IA6zq0gb uZLtXN0tDNY3RfEluk jyHKerl3QgDF7dWWzf HOqpeYyynL4mkyHtwX YlWGWiEGAqu6AmBGCi ZCByZXByZXNlbnRhdG x5ZNQsAYL3qD1rceHf eeTij0BxeXe2wISdTU luIEIxXHBsYWluXGYx XGZzMjBcbGFuZzEwMz NcaGljaFxmMVxkYmNo YNQdTYqrH0thNrOgAm VrDEv1TZOcIWWmDcf7 XHBsYWluXGYxXGZzMj BcbGFuZzEwMzNcaGlj aFxmMVxkYmNoXGYxXG stU2xaHxAnHbRaLBUW RPE5cxBwzkVizQOcKF RoZSBlbnRpcmUgdWxj ZXIuIFxwYXJccGFyIE asopXdh3PvHhISqWRz NSTbXJEeZ1Fry40cxK XoM8zoLHYxoHMtu9hs bGFpblxmMVxmczIwXG hzzpliWQFdSHzqI2dh ZjFcZGJjaFxmMVxsb2 NoXGYxXGZzMjBcdTgy XWFrGRu8ItqczLPkgn xmMVxmczIwXGxhbmcx UKFuCYxfX2pyXtIwXW VgaFzhMYpry8AwTRGd QIXfWoKfj8Rbs7KknM BzdXJmYWNlXHBhclxw GCXtP1BsrAtnfuAyb7 RlOlxwYXIgQjFccGxh mL6tEuDxJsWpVWviKS 4hAGAiP8cytDBjPFRi ENFcR1bhIuRagG8flF iaEApzvjAgZDK2SmWy FFbyXEBdkNfxlO8aUa BvLnYkYUsbDA6xBMWl A3ebkQJgEXEnKEXgM8 cvCoVjdL7hdXldSSzb czIwIEIyOiBVbGNlci Duab4aLCPbqNKnHAUf RRXkp7UjkUHlIEAxie QAJv1ITNkxOVlsZAQc ZnJvbSBzbGljZSAzLC FckGKjW4QoCZpnYESc HiKgBtC7IHHtW7MaDB Tzv91lj5fuY4WkLDB3 byBpbmNsdWRlIHBvbH nua5hwVAN7edTwtFJj HKPayiYczJOfd3TnbT BwdWNrZXJpbmdccGFy BNP0KBB6UyVXvQCuue Syxp3nPGYniMIkSHZn mB5dxT6vxTFyVSPzz5 z1bE1dKABypHX1Q7F9 beYxbMAfPTK1NhXLyR GsuxWigp2kIQRucFVs IDYgXHBhclxwYXJccG FyZFxwbGFpblxmMFxm ppO3NIUqBHckYXUnBP ZzMjBcbGFuZzEwMzNc aGljaFxmMVxkYmNoXG QkHXklO7zaNrChYkQh IUUTBJ2jriSgCWplMR IsIFBhdGhBMiBTdHVk OI09PRxpDHJuYwXgaQ OwXJXAlMepgpY0WJMB QSAoQVNDUClccGFyXH Bhcn0= Embedded Images (test code = 5101755130) [facility] WITH [id number] 12:35:00 Test Item Value Reference Range Interpretation Comments WBC (test code = See_Comment [Automated 6690-2) message] The sy stem which generated this result transmitted reference range : 4.20 - 10.70 10*3/?L. The reference range was not used to interpret this result as normal/abnormal . RBC (test code = See_Comment L [Automated 789-8) message] The sy stem which generated this result transmitted reference range : 4.26 - 5.52 10*6/?L. The reference range was not used to interpret this result as normal/abnormal . HGB (test code = 8.3 g/dL 12.2-16.4 L 718-7) HCT (test code = 25.0 % 38.4-49.3 L 4544-3) MCV (test code = 87.7 fL 81.7-95.6 787-2) MCH (test code = 29.1 pg 26.1-32.7 785-6) MCHC (test code = 33.2 g/dL 31.2-35 786-4) RDW-SD (test code = 43.5 fL 38.5-51.6 09826-4) RDW-CV (test code = 13.4 % 12.1-15.4 788-0) PLT (test code = See_Comment H [Automated 777-3) message] The sy stem which generated this result transmitted reference range : 150 - 328 10*3/ ?L. The reference r fili was not used to interpret this result as normal/abnormal . MPV (test code = 9.7 fL 9.8-13 L 33865-4) NRBC/100 WBC (test See_Comment [Automat ed code = 1054606955) message] The system which generated this result transmitted reference range : 0.0 - 10.0 /100 WBCs. The refer ence range was not u sed to interpret th is result as normal/abnormal . NRBC x10^3 (test code <0.01 See_Comment [Auto mated = 0980725726) message] The s ystem which generated this result transmitted reference range : 10*3/?L. The reference range was not used to interpret this result as normal/abnormal . GRAN MAT (NEUT) % 69.1 % (test code = 770-8) IMM GRAN % (test code 0.30 % = 4024088234) LYMPH % (test code = 18.2 % 736-9) MONO % (test code = 7.9 % 5905-5) EOS % (test code = 3.9 % 713-8) BASO % (test code = 0.6 % 706-2) GRAN MAT x10^3(ANC) 4.44 10*3/uL 1.99-6.95 (test code = 9864073076) IMM GRAN x10^3 (test <0.03 0-0.06 code = 0994730578) LYMPH x10^3 (test code 1.17 10*3/uL 1.09-3.23 = 731-0) MONO x10^3 (test code 0.51 10*3/uL 0.36-1.02 = 742-7) EOS x10^3 (test code = 0.25 10*3/uL 0.06-0.53 711-2) BASO x10^3 (test code 0.04 10*3/uL 0.01-0.09 = 704-7) Lab Interpretation Abnormal (test code = 04619-4) [facility] METABOLIC PANEL (NA, K, CL, CO2, GLUCOSE, BUN, CREATININE, CA)2020-04-06 11:51:00 Test Item Value Reference Range Interpretation Comments NA (test code = 139 mmol/L 135-145 8147934580) K (test code = 3.6 mmol/L 3.5-5 Slight 7528620229) hemolysis CL (test code = 108 mmol/L 98-108 0122313434) CO2 TOTAL (test code 25 mmol/L 23-31 = 5315725326) AGAP (test code = 2-16 4534002833) BUN (test code = 4 mg/dL 7-23 L Slight 3306259240) hemolysis GLUCOSE (test code = 101 mg/dL 70-110 1819987791) CREATININE (test code 0.96 mg/dL 0.6-1.25 = 5218348601) CALCIUM (test code = 8.3 mg/dL 8.6-10.6 L 5851643098) eGFR Calculation mL/min/1.73m2 (Non-) (test code = 3820121741) eGFR Calculation mL/min/1.73m2 () (test code = 7368708381) YENI (test code = YENI) Association of Glomerular Filtration Rate (GFR) and Staging of Kidney Disease* + -----+ --------+ +| GFR (mL/min/1.73 m2) ?| With Kidney Damage ?| ?Without Kidney Damage+ +------- +---- --+| ?>90 ?| ?Stage one ?| ? Normal ?+ ------+ ---------+--------- +| ?60-89 ?| ?Stage two ?| ? Decreased GFR ? + -----+ --------+ +| ?30-59 ?| ?Stage three ?| ? Stage three ? + -----+ --------+ +| ?15-29 ?| ?Stage four ? | ? Stage four ?+ ------+ ---------+--------- +| ?<15 (or dialysis) ? ?| ?Stage five ? | ? Stage five ?+ ------+ ---------+--------- + *Each stage assumes the associated GFR level has been in effect for at least three months. ?Stages 1 to 5, with or without kidney disease, indicate chronic kidney disease. Notes: Determination of stages one and two (with eGFR >59mL/min/1.73 m2) requires estimation of kidney damage for at least three months as defined by structural or functional abnormalities of the kidney, manifested by either:Pathological abnormalities or Markers of kidney damage (including abnormalities in the composition of the blood or urine or abnormalities in imaging tests). Lab Interpretation Abnormal (test code = 18448-6) [facility] Test Item Value Reference Range Interpretation Comments MAGNESIUM (test code = 0476667436) 1.9 mg/dL 1.7-2.4 Lab Interpretation (test code = Normal 95453-1) [facility] Test Item Value Reference Range Interpretation Comments PHOSPHORUS (test code = 5059789278) 3.5 mg/dL 2.5-5 Lab Interpretation (test code = Normal 77358-9) [facility] Test Item Value Reference Range Interpretation Comments MAGNESIUM (test code = 4190800646) 1.8 mg/dL 1.7-2.4 Lab Interpretation (test code = Normal 27105-3) [facility] 10:20:00 Test Item Value Reference Range Interpretation Comments PHOSPHORUS (test code = 5296282051) 3.8 mg/dL 2.5-5 Lab Interpretation (test code = Normal 95651-2) [facility] METABOLIC PANEL (NA, K, CL, CO2, GLUCOSE, BUN, CREATININE, CA)2020-04-05 10:20:00 Test Item Value Reference Range Interpretation Comments NA (test code = 136 mmol/L 135-145 4877006412) K (test code = 3.3 mmol/L 3.5-5 L 2768665526) CL (test code = 107 mmol/L 98-108 6207062627) CO2 TOTAL (test code = 23 mmol/L 23-31 8541587614) AGAP (test code = 2-16 8800922342) BUN (test code = 3 mg/dL 7-23 L 2116051391) GLUCOSE (test code = 100 mg/dL 70-110 6575819447) CREATININE (test code = 0.77 mg/dL 0.6-1.25 1555408883) CALCIUM (test code = 8.2 mg/dL 8.6-10.6 L 6744424455) eGFR Calculation mL/min/1.73m2 (Non-) (test code = 0355836608) eGFR Calculation mL/min/1.73m2 () (test code = 8770835782) YENI (test code = YENI) Association of Glomerular Filtration Rate (GFR) and Staging of Kidney Disease* + --+ --+ ------+| GFR (mL/min/1.73 m2) ?| With Kidney Damage ?| ?Without Kidney Damage+ --------+ --------+ +| ?>90 ?| ?Stage one ?| ? Normal ?+ ---+ ---+ -------+| ?60-89 ?| ?Stage two ?| ? Decreased GFR ? + --+ --+ ------+| ?30-59 ?| ?Stage three ?| ? Stage three ? + --+ --+ ------+| ?15-29 ?| ?Stage four ? | ? Stage four ?+ ---+ ---+ -------+| ?<15 (or dialysis) ? ?| ?Stage five ? | ? Stage five ?+ ---+ ---+ -------+ *Each stage assumes the associated GFR level has been in effect for at least three months. ?Stages 1 to 5, with or without kidney disease, indicate chronic kidney disease. Notes: Determination of stages one and two (with eGFR >59mL/min/1.73 m2) requires estimation of kidney damage for at least three months as defined by structural or functional abnormalities of the kidney, manifested by either:Pathological abnormalities or Markers of kidney damage (including abnormalities in the composition of the blood or urine or abnormalities in imaging tests). Lab Interpretation Abnormal (test code = 37744-3) [facility] WITH [id number] 10:00:00 Test Item Value Reference Range Interpretation Comments WBC (test code = See_Comment [Automated 4780-2) message] The sy stem which generated this result transmitted reference range : 4.20 - 10.70 10*3/?L. The reference range was not used to interpret this result as normal/abnormal . RBC (test code = See_Comment L [Automated 726-8) message] The sy stem which generated this result transmitted reference range : 4.26 - 5.52 10*6/?L. The reference range was not used to interpret this result as normal/abnormal . HGB (test code = 8.6 g/dL 12.2-16.4 L 718-7) HCT (test code = 26.5 % 38.4-49.3 L 4544-3) MCV (test code = 90.4 fL 81.7-95.6 787-2) MCH (test code = 29.4 pg 26.1-32.7 785-6) MCHC (test code = 32.5 g/dL 31.2-35 786-4) RDW-SD (test code = 44.6 fL 38.5-51.6 23118-0) RDW-CV (test code = 13.3 % 12.1-15.4 788-0) PLT (test code = See_Comment H [Automated 777-3) message] The sy stem which generated this result transmitted reference range : 150 - 328 10*3/ ?L. The reference r fili was not used to interpret this result as normal/abnormal . MPV (test code = 9.8 fL 9.8-13 06742-3) NRBC/100 WBC (test See_Comment [Automat ed code = 6701636143) message] The system which generated this result transmitted reference range : 0.0 - 10.0 /100 WBCs. The refer ence range was not u sed to interpret th is result as normal/abnormal . NRBC x10^3 (test code <0.01 See_Comment [Auto mated = 3846746739) message] The s ystem which generated this result transmitted reference range : 10*3/?L. The reference range was not used to interpret this result as normal/abnormal . GRAN MAT (NEUT) % 66.2 % (test code = 770-8) IMM GRAN % (test code 0.30 % = 2773929483) LYMPH % (test code = 20.8 % 736-9) MONO % (test code = 6.9 % 5905-5) EOS % (test code = 5.0 % 713-8) BASO % (test code = 0.8 % 706-2) GRAN MAT x10^3(ANC) 4.23 10*3/uL 1.99-6.95 (test code = 5446436848) IMM GRAN x10^3 (test <0.03 0-0.06 code = 5297098752) LYMPH x10^3 (test code 1.33 10*3/uL 1.09-3.23 = 731-0) MONO x10^3 (test code 0.44 10*3/uL 0.36-1.02 = 742-7) EOS x10^3 (test code = 0.32 10*3/uL 0.06-0.53 711-2) BASO x10^3 (test code 0.05 10*3/uL 0.01-0.09 = 704-7) Lab Interpretation Abnormal (test code = 43512-5) [facility] Test Item Value Reference Range Interpretation Comments MAGNESIUM (test code = 9933118024) 1.9 mg/dL 1.7-2.4 Lab Interpretation (test code = Normal 23077-5) [facility] 10:29:00 Test Item Value Reference Range Interpretation Comments PHOSPHORUS (test code = 1824057168) 3.7 mg/dL 2.5-5 Lab Interpretation (test code = Normal 10846-8) [facility] (NA, K, CL, CO2, GLUCOSE, BUN, CREATININE, CA)2020-04-04 10:29:00 Test Item Value Reference Range Interpretation Comments NA (test code = 138 mmol/L 135-145 3429874162) K (test code = 3.6 mmol/L 3.5-5 5786183045) CL (test code = 107 mmol/L 98-108 7403910018) CO2 TOTAL (test code = 25 mmol/L 23-31 0640974708) AGAP (test code = 2-16 2842647915) BUN (test code = 4 mg/dL 7-23 L 0910808748) GLUCOSE (test code = 103 mg/dL 70-110 6888490346) CREATININE (test code = 0.80 mg/dL 0.6-1.25 5977169679) CALCIUM (test code = 8.2 mg/dL 8.6-10.6 L 0132554773) eGFR Calculation mL/min/1.73m2 (Non-) (test code = 2489660923) eGFR Calculation mL/min/1.73m2 () (test code = 5504254443) YENI (test code = YENI) Association of Glomerular Filtration Rate (GFR) and Staging of Kidney Disease* + --+ --+ ------+| GFR (mL/min/1.73 m2) ?| With Kidney Damage ?| ?Without Kidney Damage+ --------+ --------+ +| ?>90 ?| ?Stage one ?| ? Normal ?+ ---+ ---+ -------+| ?60-89 ?| ?Stage two ?| ? Decreased GFR ? + --+ --+ ------+| ?30-59 ?| ?Stage three ?| ? Stage three ? + --+ --+ ------+| ?15-29 ?| ?Stage four ? | ? Stage four ?+ ---+ ---+ -------+| ?<15 (or dialysis) ? ?| ?Stage five ? | ? Stage five ?+ ---+ ---+ -------+ *Each stage assumes the associated GFR level has been in effect for at least three months. ?Stages 1 to 5, with or without kidney disease, indicate chronic kidney disease. Notes: Determination of stages one and two (with eGFR >59mL/min/1.73 m2) requires estimation of kidney damage for at least three months as defined by structural or functional abnormalities of the kidney, manifested by either:Pathological abnormalities or Markers of kidney damage (including abnormalities in the composition of the blood or urine or abnormalities in imaging tests). Lab Interpretation Abnormal (test code = 61096-4) [facility] WITH [id number] 10:16:00 Test Item Value Reference Range Interpretation Comments WBC (test code = See_Comment [Automated 1852-2) message] The sy stem which generated this result transmitted reference range : 4.20 - 10.70 10*3/?L. The reference range was not used to interpret this result as normal/abnormal . RBC (test code = See_Comment L [Automated 199-8) message] The sy stem which generated this result transmitted reference range : 4.26 - 5.52 10*6/?L. The reference range was not used to interpret this result as normal/abnormal . HGB (test code = 8.6 g/dL 12.2-16.4 L 718-7) HCT (test code = 26.3 % 38.4-49.3 L 4544-3) MCV (test code = 89.5 fL 81.7-95.6 787-2) MCH (test code = 29.3 pg 26.1-32.7 785-6) MCHC (test code = 32.7 g/dL 31.2-35 786-4) RDW-SD (test code = 44.3 fL 38.5-51.6 89090-5) RDW-CV (test code = 13.4 % 12.1-15.4 788-0) PLT (test code = See_Comment H [Automated 777-3) message] The sy stem which generated this result transmitted reference range : 150 - 328 10*3/ ?L. The reference r fili was not used to interpret this result as normal/abnormal . MPV (test code = 9.8 fL 9.8-13 69340-7) NRBC/100 WBC (test See_Comment [Automat ed code = 2601380743) message] The system which generated this result transmitted reference range : 0.0 - 10.0 /100 WBCs. The refer ence range was not u sed to interpret th is result as normal/abnormal . NRBC x10^3 (test code <0.01 See_Comment [Auto mated = 1269258080) message] The s ystem which generated this result transmitted reference range : 10*3/?L. The reference range was not used to interpret this result as normal/abnormal . GRAN MAT (NEUT) % 66.9 % (test code = 770-8) IMM GRAN % (test code 0.30 % = 3203887306) LYMPH % (test code = 19.6 % 736-9) MONO % (test code = 7.1 % 5905-5) EOS % (test code = 5.4 % 713-8) BASO % (test code = 0.7 % 706-2) GRAN MAT x10^3(ANC) 4.92 10*3/uL 1.99-6.95 (test code = 0561744427) IMM GRAN x10^3 (test <0.03 0-0.06 code = 3026491695) LYMPH x10^3 (test code 1.44 10*3/uL 1.09-3.23 = 731-0) MONO x10^3 (test code 0.52 10*3/uL 0.36-1.02 = 742-7) EOS x10^3 (test code = 0.40 10*3/uL 0.06-0.53 711-2) BASO x10^3 (test code 0.05 10*3/uL 0.01-0.09 = 704-7) Lab Interpretation Abnormal (test code = 67868-6) [facility] 11:[facility]:00 Test Item Value Reference Range Interpretation Comments MAGNESIUM (test code = 8685047249) 2.0 mg/dL 1.7-2.4 Lab Interpretation (test code = Normal 39621-1) [facility] 11:38:00 Test Item Value Reference Range Interpretation Comments PHOSPHORUS (test code = 7342851384) 4.1 mg/dL 2.5-5 Lab Interpretation (test code = Normal 51963-4) [facility] (NA, K, CL, CO2, GLUCOSE, BUN, CREATININE, CA)2020-04-03 11:38:00 Test Item Value Reference Range Interpretation Comments NA (test code = 136 mmol/L 135-145 2183966316) K (test code = 3.6 mmol/L 3.5-5 8077908803) CL (test code = 103 mmol/L 98-108 2420862904) CO2 TOTAL (test code = 30 mmol/L 23-31 8279804619) AGAP (test code = 2-16 7441165610) BUN (test code = 4 mg/dL 7-23 L 1130783035) GLUCOSE (test code = 101 mg/dL 70-110 9420588020) CREATININE (test code = 0.83 mg/dL 0.6-1.25 6716965311) CALCIUM (test code = 8.1 mg/dL 8.6-10.6 L 7842222115) eGFR Calculation mL/min/1.73m2 (Non-) (test code = 1175227895) eGFR Calculation mL/min/1.73m2 () (test code = 3413017472) YENI (test code = YENI) Association of Glomerular Filtration Rate (GFR) and Staging of Kidney Disease* + --+ --+ ------+| GFR (mL/min/1.73 m2) ?| With Kidney Damage ?| ?Without Kidney Damage+ --------+ --------+ +| ?>90 ?| ?Stage one ?| ? Normal ?+ ---+ ---+ -------+| ?60-89 ?| ?Stage two ?| ? Decreased GFR ? + --+ --+ ------+| ?30-59 ?| ?Stage three ?| ? Stage three ? + --+ --+ ------+| ?15-29 ?| ?Stage four ? | ? Stage four ?+ ---+ ---+ -------+| ?<15 (or dialysis) ? ?| ?Stage five ? | ? Stage five ?+ ---+ ---+ -------+ *Each stage assumes the associated GFR level has been in effect for at least three months. ?Stages 1 to 5, with or without kidney disease, indicate chronic kidney disease. Notes: Determination of stages one and two (with eGFR >59mL/min/1.73 m2) requires estimation of kidney damage for at least three months as defined by structural or functional abnormalities of the kidney, manifested by either:Pathological abnormalities or Markers of kidney damage (including abnormalities in the composition of the blood or urine or abnormalities in imaging tests). Lab Interpretation Abnormal (test code = 92772-4) [facility] WITH [id number] 11:18:00 Test Item Value Reference Range Interpretation Comments WBC (test code = See_Comment [Automated 5008-2) message] The sy stem which generated this result transmitted reference range : 4.20 - 10.70 10*3/?L. The reference range was not used to interpret this result as normal/abnormal . RBC (test code = See_Comment L [Automated 517-8) message] The sy stem which generated this result transmitted reference range : 4.26 - 5.52 10*6/?L. The reference range was not used to interpret this result as normal/abnormal . HGB (test code = 8.5 g/dL 12.2-16.4 L 718-7) HCT (test code = 26.9 % 38.4-49.3 L 4544-3) MCV (test code = 91.5 fL 81.7-95.6 787-2) MCH (test code = 28.9 pg 26.1-32.7 785-6) MCHC (test code = 31.6 g/dL 31.2-35 786-4) RDW-SD (test code = 45.2 fL 38.5-51.6 79780-3) RDW-CV (test code = 13.5 % 12.1-15.4 788-0) PLT (test code = See_Comment H [Automated 777-3) message] The sy stem which generated this result transmitted reference range : 150 - 328 10*3/ ?L. The reference r fili was not used to interpret this result as normal/abnormal . MPV (test code = 10.1 fL 9.8-13 44025-8) NRBC/100 WBC (test See_Comment [Automat ed code = 4140050361) message] The system which generated this result transmitted reference range : 0.0 - 10.0 /100 WBCs. The refer ence range was not u sed to interpret th is result as normal/abnormal . NRBC x10^3 (test code <0.01 See_Comment [Auto mated = 3298820222) message] The s ystem which generated this result transmitted reference range : 10*3/?L. The reference range was not used to interpret this result as normal/abnormal . GRAN MAT (NEUT) % 67.3 % (test code = 770-8) IMM GRAN % (test code 0.30 % = 9250138200) LYMPH % (test code = 18.2 % 736-9) MONO % (test code = 7.3 % 5905-5) EOS % (test code = 6.1 % 713-8) BASO % (test code = 0.8 % 706-2) GRAN MAT x10^3(ANC) 5.29 10*3/uL 1.99-6.95 (test code = 8200344546) IMM GRAN x10^3 (test <0.03 0-0.06 code = 3327720492) LYMPH x10^3 (test code 1.43 10*3/uL 1.09-3.23 = 731-0) MONO x10^3 (test code 0.57 10*3/uL 0.36-1.02 = 742-7) EOS x10^3 (test code = 0.48 10*3/uL 0.06-0.53 711-2) BASO x10^3 (test code 0.06 10*3/uL 0.01-0.09 = 704-7) Lab Interpretation Abnormal (test code = 68163-7) [facility] UPPER GI [id number] 04:49:59 No gastric outlet obstruction and no evidence of a leak in this patientwith recent partial gastrectomy. Preliminary Report Dictated by Resident: Madie Mayo I, Yanira Brandt MD., have reviewed this study and agree with the abovereport.EXAM: [place] UPPER GI SERIES HISTORY: 69 years old Male with s/p partial gastrectomy, eval for adequategastric transit/gastric outlet obstruction TECHNIQUE: OralOmnipaque was administered as contrast for this exam. COMPARISON: CT AP 03/25/2020 FINDINGS: Esophagus: Limited evaluation of the esophagus on this post thisexamination of the stomach in this postsurgical patient. Normal esophagealcaliber throughout with no obstruction, stricture, or diverticulum. Stomach: Limited characterization of the morphology of the distal stomachgiven absence of filling of this portion of the stomach on AP imaging. Noobstruction to flow of contrast through the distal stomachand the smallbowel is seen however. When patient is rotated from supine AP position,passage of contrast to small bowel loops is observed. No extraluminalaccumulation of contrast indicate a leak. Duodenum: Normal course and caliber. Visualized proximal small bowel is unremarkable. Skin shari presentinthis patient with recent exploratory laparotomy. Multiple embolizationcoils project at the upper abdomen. [facility], Radiant Results Inft User - 04/02/2020 10:51 PM CSTEXAM: [place] UPPER GI SERIESHISTORY: 69 years old Male with s/p partial gastrectomy, eval for adequategastric transit/gastric outlet obstruction TECHNIQUE: Oral Omnipaque was administered as contrast for this exam.COMPARISON: CT AP 03/25/2020F INDINGS:Esophagus: Limited evaluation of the esophagus on this post thisexamination of the stomach in this postsurgical patient. Normal esophagealcaliber throughout with no obstruction, stricture, or di verticulum.Stomach: Limited characterization of the morphology of the distal stomachgiven absence offilling of this portion of the stomach on AP imaging. Noobstruction to flow of contrast through the distal stomach and the smallbowel is seen however. When patient is rotated from supine AP position,passage of contrast to small bowel loops is observed. No extraluminalaccumulation of contrast indicate a leak. Duodenum: Normal course and caliber.Visualized proximal small bowel is unremarkable. Skin shari present inthis patient with recent exploratory laparotomy. Multiple embolizationcoils project atthe upper abdomen.IMPRESSIONNo gastric outlet obstruction and no evidence of a leak in this patientwith recent partial gastrectomy.Preliminary Report Dictated by Resident: Yanira Mauro MD., have reviewed this study and agree with the abovereport.[facility] 2020-04-02 21:48:01 Endotracheal tube approximately 6.5 cm jumana. Preliminary Report Dictated by Resident: Jacki Azevedo MD., have reviewed this study and agree with theabove report.EXAM: XR CHEST 1VW 04/02/2020 5:10 AM HISTORY: 69 years-old Male with intubated TECHNIQUE: Portable AP view of the chest. COMPARISON: 03/01/2020, 03/31/2020 FINDINGS: Lines and tubes: Endotracheal tube tip terminates approximately 6.5 cmabove jumana. Nasogastric tube seen passing the mid thorax with distal tipin the gastric fundus. A Dobbhoff tube is also seen passing the mid thoraxwith distal end of ksfem-dr-wlka field. Multiple metallic densities are seen in the mid abdomen, correlate withpatient's history of any recent surgery or past abdominal surgery. Cardiomediastinal: The cardiomediastinal silhouette is unchanged. Tortuousand atherosclerotic thoracic aorta is noted. Lungs and pleura: The lungs are unchanged. No evidence of pneumothorax orpleural effusion. Musculoskeletal: No acute osseous abnormality. [facility], Radiant Results Inft User - 04/02/2020 3:49 PM CSTEXAM: XR CHEST 1 VW 04/02/2020 5:10 AMHISTORY: 69years-old Male with intubatedTECHNIQUE: Portable AP view of the chest. COMPARISON: 03/01/2020, 03/31/2020FINDINGS: Lines and tubes: Endotracheal tube tip terminates approximately 6.5 cmabove jumana. Nasogastric tube seen passing the mid thorax with distal tipin the gastric fundus. A Dobbhoff tube is also seen passing the mid thoraxwith distal end of zhrsc-tm-dljx field.Multiple metallic densities are seen in the mid abdomen, correlate withpatient's history of any recent surgery or past abdominal surgery.Cardiomediastinal: The cardiomediastinal silhouette is unchanged. Tortuousand atherosclerotic thoracic aorta is noted. Lungs and pleura: The lungs are unchanged. No evidence of pneumothorax orpleural effusion.Musculoskeletal: No acute osseous abnormality.IMPRESSIONEndotracheal tube approximately 6.5cm jumana.Preliminary Report Dictated by Resident: Jacki Sanchez MD., have reviewed this study and agree with theabove report.[facility] [id number] 18:54:11 The tip of the enteric tube is in the proximal jejunum. An NG tubeterminates in the stomach with its sidehole in the cardia. Preliminary Report Dictated by Resident: Madie Mayo I, Meseret Werner MD., have reviewed this study and agree with theabove report.EXAM: XR KUB HISTORY: 69-year-old male post extubation for evaluation of placement ofDOBBHOFF and NG tube. COMPARISON: Abdominal radiograph 03/27/2020. TECHNIQUE: Frontal radiographs of the abdomen and pelvis were obtained. FINDINGS:The tip of the enteric tube is in the proximal jejunum. An NG tubeterminates in the stomach, with its sidehole in the cardia. Gaseous distention is seen in the bowel loops in the visualized abdomen. Noradiopaque stones or abnormal calcifications are identified. No acute bonyabnormality is present. Multiple vascular coils are seen in the right upperquadrant. Surgical skin shari are seen in the left paramidline. [facility], Radiant Results Inft User - 04/02/2020 12:55 PM CSTEXAM: XR KUBHISTORY: 69-year-old male post extubation for evaluation of placement ofDOBBHOFF and NG tube.COMPARISON: Abdominal radiograph 03/27/2020.TECHNIQUE: Frontal radiographs of the abdomen and pelvis were obtained.FINDINGS:The tip of the enteric tube is in the proximal jejunum. An NG tubeterminates in the stomach, with its sidehole in the cardia.Gaseous distention is seen in the bowel loops in the visualized abdomen. Noradiopaque stones or abnormal calcifications are identified. No acute bonyabnormality is present. Multiple vascular coils are seen in the right upperquadrant. Surgical skin shari are seen in the left paramidline.IMPRESSIONThe tip of the enteric tube is in the proximal jejunum. An NG tubeterminates in the stomach with its sidehole in the cardia.Preliminary Report Dictated by Resident: Madie Sampson, Meseret Werner MD., have reviewed this study and agree with theabove report.[facility] [id number] 16:21:31 Hilar vascular congestion and volume overload. Preliminary Report Dictated by Resident: Godfrey Azevedo MD., have reviewed this study and agree withthe above report.EXAM: XR CHEST 1 VW 04/02/2020 9:50 AM HISTORY: 69 years-old Male with post extubation TECHNIQUE: Portable AP view of the chest. COMPARISON: 04/02/2020, 04/01/2020 FINDINGS: Lines and tubes: Interval removal of ET tube is noted. Enteric tube is seenpassing the mid thorax with distal end out of lazjg-gu-zwbw. Right IJcentral line catheter tip is seen overlying the right atrium.. Cardiomediastinal: The cardiomediastinal silhouette is enlarged, unchanged. Lungs and pleura: Bilateral hilar vascular congestion silhouette the rightheart border and left paratracheal region. Lungs otherwise satisfactoryexpanded and clear. No evidence of pneumothorax or overt pleural effusion. Musculoskeletal: No acute osseous abnormality. [facility], Radiant Results Inft User - 04/02/2020 10:22 AM CSTEXAM: XR CHEST 1 VW 04/02/2020 9:50 AMHISTORY: 69 years-old Male with post extubationTECHNIQUE: Portable AP view of the chest. COMPARISON: 04/02/2020, 04/01/2020FINDINGS: Lines and tubes: Interval removal of ET tube is noted. Enteric tube is seenpassing the mid thorax with distal end out of zsooo-ju-hfvv. Right IJcentral line catheter tip isseen overlying the right atrium..Cardiomediastinal: The cardiomediastinal silhouette is enlarged, unc hanged.Lungs and pleura: Bilateral hilar vascular congestion silhouette the rightheart border and left paratracheal region. Lungs otherwise satisfactoryexpanded and clear. No evidence of pneumothorax or overt pleural effusion.Musculoskeletal: No acute osseous abnormality.IMPRESSIONHilar vascular congestion and volume overload.Preliminary Report Dictated by Resident: Godfrey Sanchez MD., have reviewed this study and agree withthe above report.[facility] Care Arterial Blood Gas. 2020-04-02 10:14:00 Test Item Value Reference Range Interpretation Comments PH (test code = 2) 7.35-7.45 PCO2 (test code = See_Comment [Automat ed message] 7214114941) The system [employer] generated this result transmitted ref erence range: 35 - 45 mmHg. The reference r fili was not used to interpret this result as normal/abnor mal. PO2 (test code = See_Comment [Automated message] 6512239860) The system [employer] generated this result transmitted ref erence range: 80 - 100 mmHg. The reference r fili was not used to interpret this result as normal/abnor mal. HCO3 (test code = See_Comment [Automate d message] 5108943887) The system [employer] generated this result transmitted ref erence range: 22 - 26 mEq/L. The reference r fili was not used to interpret this result as normal/abnor mal. BE (test code = See_Comment [Automated message] 6685445297) The system [employer] generated this result transmitted ref erence range: -3.0 - 3 .0 mEq/L. The refe rence range was not u sed to interpret this result as normal/abnor mal. Lab Interpretation (test Normal code = 67275-8) [facility]2020-[facility] 10:10:00 Test Item Value Reference Range Interpretation Comments MAGNESIUM (test code = 7576107070) 2.2 mg/dL 1.7-2.4 Lab Interpretation (test code = Normal 72128-6) [facility]2020-11-06 10:10:00 Test Item Value Reference Range Interpretation Comments PHOSPHORUS (test code = 5551722679) 4.3 mg/dL 2.5-5 Lab Interpretation (test code = Normal 30211-6) [facility] (NA, K, CL, CO2, GLUCOSE, BUN, CREATININE, CA)2020-04-02 10:10:00 Test Item Value Reference Range Interpretation Comments NA (test code = 137 mmol/L 135-145 2232719769) K (test code = 3.6 mmol/L 3.5-5 5382652899) CL (test code = 102 mmol/L 98-108 5818117659) CO2 TOTAL (test code = 30 mmol/L 23-31 4980130827) AGAP (test code = 2-16 3522840207) BUN (test code = 3 mg/dL 7-23 L 8217158505) GLUCOSE (test code = 112 mg/dL 70-110 H 9448646227) CREATININE (test code = 0.77 mg/dL 0.6-1.25 1875065677) CALCIUM (test code = 8.0 mg/dL 8.6-10.6 L 9055473648) eGFR Calculation mL/min/1.73m2 (Non-) (test code = 4159252837) eGFR Calculation mL/min/1.73m2 () (test code = 9861582182) YENI (test code = YENI) Association of Glomerular Filtration Rate (GFR) and Staging of Kidney Disease* + --+ --+ ------+| GFR (mL/min/1.73 m2) ?| With Kidney Damage ?| ?Without Kidney Damage+ --------+ --------+ +| ?>90 ?| ?Stage one ?| ? Normal ?+ ---+ ---+ -------+| ?60-89 ?| ?Stage two ?| ? Decreased GFR ? + --+ --+ ------+| ?30-59 ?| ?Stage three ?| ? Stage three ? + --+ --+ ------+| ?15-29 ?| ?Stage four ? | ? Stage four ?+ ---+ ---+ -------+| ?<15 (or dialysis) ? ?| ?Stage five ? | ? Stage five ?+ ---+ ---+ -------+ *Each stage assumes the associated GFR level has been in effect for at least three months. ?Stages 1 to 5, with or without kidney disease, indicate chronic kidney disease. Notes: Determination of stages one and two (with eGFR >59mL/min/1.73 m2) requires estimation of kidney damage for at least three months as defined by structural or functional abnormalities of the kidney, manifested by either:Pathological abnormalities or Markers of kidney damage (including abnormalities in the composition of the blood or urine or abnormalities in imaging tests). Lab Interpretation Abnormal (test code = 28473-3) [facility] WITH [id number] 09:55:00 Test Item Value Reference Range Interpretation Comments WBC (test code = See_Comment [Automated 7390-2) message] The sy stem which generated this result transmitted reference range : 4.20 - 10.70 10*3/?L. The reference range was not used to interpret this result as normal/abnormal . RBC (test code = See_Comment L [Automated 789-8) message] The sy stem which generated this result transmitted reference range : 4.26 - 5.52 10*6/?L. The reference range was not used to interpret this result as normal/abnormal . HGB (test code = 8.4 g/dL 12.2-16.4 L 718-7) HCT (test code = 25.8 % 38.4-49.3 L 4544-3) MCV (test code = 90.2 fL 81.7-95.6 787-2) MCH (test code = 29.4 pg 26.1-32.7 785-6) MCHC (test code = 32.6 g/dL 31.2-35 786-4) RDW-SD (test code = 45.4 fL 38.5-51.6 72620-4) RDW-CV (test code = 13.9 % 12.1-15.4 788-0) PLT (test code = See_Comment [Automated 777-3) message] The sy stem which generated this result transmitted reference range : 150 - 328 10*3/ ?L. The reference r fili was not used to interpret this result as normal/abnormal . MPV (test code = 10.2 fL 9.8-13 21951-1) NRBC/100 WBC (test See_Comment [Automat ed code = 9486548971) message] The system which generated this result transmitted reference range : 0.0 - 10.0 /100 WBCs. The refer ence range was not u sed to interpret th is result as normal/abnormal . NRBC x10^3 (test code <0.01 See_Comment [Auto mated = 5781044920) message] The s ystem which generated this result transmitted reference range : 10*3/?L. The reference range was not used to interpret this result as normal/abnormal . GRAN MAT (NEUT) % 70.4 % (test code = 770-8) IMM GRAN % (test code 0.50 % = 9099318961) LYMPH % (test code = 14.5 % 736-9) MONO % (test code = 9.0 % 5905-5) EOS % (test code = 5.2 % 713-8) BASO % (test code = 0.4 % 706-2) GRAN MAT x10^3(ANC) 5.58 10*3/uL 1.99-6.95 (test code = 3315562193) IMM GRAN x10^3 (test 0.04 10*3/uL 0-0.06 code = 0462727390) LYMPH x10^3 (test code 1.15 10*3/uL 1.09-3.23 = 731-0) MONO x10^3 (test code 0.71 10*3/uL 0.36-1.02 = 742-7) EOS x10^3 (test code = 0.41 10*3/uL 0.06-0.53 711-2) BASO x10^3 (test code 0.03 10*3/uL 0.01-0.09 = 704-7) Lab Interpretation Abnormal (test code = 27881-8) [facility] [id number] 14:01:43EXAM: XR CHEST 1 VW HISTORY: surgery COMPARISON: None. FINDINGS: The tip of the endotracheal tube is at the level of the clavicles and 2nasogastric tubes pass through the thorax and into the stomach. The tip ofthe right IJ line is in the right atrium. The heart remains enlarged to theleft with a tortuous and arteriosclerotic thoracic aorta. The lungs areonly moderately well expanded, but they are clear. ? [facility], Radiant Results Inft User - 04/01/2020 8:02 AM CSTEXAM: XR CHEST 1 VWHISTORY: surgery COMPARISON: None.FINDINGS:The tip of the endotracheal tube is at the level of the clavicles and 2nasogastric tubes pass through the thorax and into the stomach. The tip ofthe right IJ line is in theright atrium. The heart remains enlarged to theleft with a tortuous and arteriosclerotic thoracic aorta. The lungs areonly moderately well expanded, but they are clear.[facility] (NA, K, CL, CO2, GLUCOSE, BUN, CREATININE, CA)2020-04-01 12:57:00 Test Item Value Reference Range Interpretation Comments NA (test code = 138 mmol/L 135-145 5978493238) K (test code = 3.8 mmol/L 3.5-5 3494109819) CL (test code = 103 mmol/L 98-108 6122395329) CO2 TOTAL (test code = 31 mmol/L 23-31 3539406410) AGAP (test code = 2-16 5748392361) BUN (test code = <2 7-23 L 2757414885) GLUCOSE (test code = 132 mg/dL 70-110 H 1725205315) CREATININE (test code = 0.77 mg/dL 0.6-1.25 3610596533) CALCIUM (test code = 7.8 mg/dL 8.6-10.6 L 4423212237) eGFR Calculation mL/min/1.73m2 (Non-) (test code = 0343075137) eGFR Calculation mL/min/1.73m2 () (test code = 7787923892) YENI (test code = YENI) Association of Glomerular Filtration Rate (GFR) and Staging of Kidney Disease* + --+ --+ ------+| GFR (mL/min/1.73 m2) ?| With Kidney Damage ?| ?Without Kidney Damage+ --------+ --------+ +| ?>90 ?| ?Stage one ?| ? Normal ?+ ---+ ---+ -------+| ?60-89 ?| ?Stage two ?| ? Decreased GFR ? + --+ --+ ------+| ?30-59 ?| ?Stage three ?| ? Stage three ? + --+ --+ ------+| ?15-29 ?| ?Stage four ? | ? Stage four ?+ ---+ ---+ -------+| ?<15 (or dialysis) ? ?| ?Stage five ? | ? Stage five ?+ ---+ ---+ -------+ *Each stage assumes the associated GFR level has been in effect for at least three months. ?Stages 1 to 5, with or without kidney disease, indicate chronic kidney disease. Notes: Determination of stages one and two (with eGFR >59mL/min/1.73 m2) requires estimation of kidney damage for at least three months as defined by structural or functional abnormalities of the kidney, manifested by either:Pathological abnormalities or Markers of kidney damage (including abnormalities in the composition of the blood or urine or abnormalities in imaging tests). Lab Interpretation Abnormal (test code = 60198-0) [facility]2020-11-05 11:42:00 Test Item Value Reference Range Interpretation Comments MAGNESIUM (test code = 3931573530) 1.9 mg/dL 1.7-2.4 Lab Interpretation (test code = Normal 95463-7) [facility]2020-11-05 11:42:00 Test Item Value Reference Range Interpretation Comments PHOSPHORUS (test code = 9529741647) 2.9 mg/dL 2.5-5 Lab Interpretation (test code = Normal 07529-9) [facility] WITH [id number] 11:32:00 Test Item Value Reference Range Interpretation Comments WBC (test code = See_Comment [Automated 6490-2) message] The sy stem which generated this result transmitted reference range : 4.20 - 10.70 10*3/?L. The reference range was not used to interpret this result as normal/abnormal . RBC (test code = See_Comment L [Automated 017-8) message] The sy stem which generated this result transmitted reference range : 4.26 - 5.52 10*6/?L. The reference range was not used to interpret this result as normal/abnormal . HGB (test code = 8.2 g/dL 12.2-16.4 L 718-7) HCT (test code = 24.8 % 38.4-49.3 L 4544-3) MCV (test code = 88.3 fL 81.7-95.6 787-2) MCH (test code = 29.2 pg 26.1-32.7 785-6) MCHC (test code = 33.1 g/dL 31.2-35 786-4) RDW-SD (test code = 44.5 fL 38.5-51.6 33180-1) RDW-CV (test code = 13.6 % 12.1-15.4 788-0) PLT (test code = See_Comment [Automated 777-3) message] The sy stem which generated this result transmitted reference range : 150 - 328 10*3/ ?L. The reference r fili was not used to interpret this result as normal/abnormal . MPV (test code = 10.3 fL 9.8-13 74160-5) NRBC/100 WBC (test See_Comment [Automat ed code = 9027295596) message] The system which generated this result transmitted reference range : 0.0 - 10.0 /100 WBCs. The refer ence range was not u sed to interpret th is result as normal/abnormal . NRBC x10^3 (test code <0.01 See_Comment [Auto mated = 2319429766) message] The s ystem which generated this result transmitted reference range : 10*3/?L. The reference range was not used to interpret this result as normal/abnormal . GRAN MAT (NEUT) % 76.5 % (test code = 770-8) IMM GRAN % (test code 0.50 % = 0239993732) LYMPH % (test code = 10.8 % 736-9) MONO % (test code = 8.4 % 5905-5) EOS % (test code = 3.6 % 713-8) BASO % (test code = 0.2 % 706-2) GRAN MAT x10^3(ANC) 7.40 10*3/uL 1.99-6.95 H (test code = 3398785914) IMM GRAN x10^3 (test 0.05 10*3/uL 0-0.06 code = 5981980047) LYMPH x10^3 (test code 1.05 10*3/uL 1.09-3.23 L = 731-0) MONO x10^3 (test code 0.81 10*3/uL 0.36-1.02 = 742-7) EOS x10^3 (test code = 0.35 10*3/uL 0.06-0.53 711-2) BASO x10^3 (test code <0.03 0.01-0.09 = 704-7) Lab Interpretation Abnormal (test code = 13426-7) [facility] [id number] 14:19:07EXAM: XR CHEST 1 VW HISTORY: surgery COMPARISON: None. FINDINGS: Two tubes traverse the thorax through the esophagus and end in the stomach.The tip of the endotracheal tube is at the level of the clavicles and thetip of a right IJ line is at the atriocaval junction. The heart remainsslightly enlargedto the left. Mild hilar vascular congestion is presentbut the lungs are satisfactorily expanded and clear otherwise. ? [facility], Radiant Results Inft User - 03/31/2020 8:20 AM CSTEXAM: XR CHEST 1 VWHISTORY: surgery COMPARISON: None.FINDINGS:Two tubes traverse the thorax through the esophagus and end in the stomach.The tip of the endotracheal tube is at the level of the clavicles and thetip of a right IJ line is at the atriocaval junction. The heart remainsslightly enlarged to the left. Mild hilar vascular congestion is presentbut the lungs are satisfactorily expanded and clear otherwise.[facility] 2020-03-31 11:28:00 Test Item Value Reference Range Interpretation Comments MAGNESIUM (test code = 5465668352) 1.8 mg/dL 1.7-2.4 Lab Interpretation (test code = Normal 05608-1) [facility]2020-11-04 11:28:00 Test Item Value Reference Range Interpretation Comments PHOSPHORUS (test code = 6313150062) 2.7 mg/dL 2.5-5 Lab Interpretation (test code = Normal 82810-8) [facility] (NA, K, CL, CO2, GLUCOSE, BUN, CREATININE, CA)2020-03-31 11:28:00 Test Item Value Reference Range Interpretation Comments NA (test code = 135 mmol/L 135-145 7239484900) K (test code = 3.2 mmol/L 3.5-5 L 6260216886) CL (test code = 102 mmol/L 98-108 6046814861) CO2 TOTAL (test code = 31 mmol/L 23-31 7762551743) AGAP (test code = 2-16 1066447228) BUN (test code = 2 mg/dL 7-23 L 6294559170) GLUCOSE (test code = 139 mg/dL 70-110 H 1154232684) CREATININE (test code = 0.75 mg/dL 0.6-1.25 7681787531) CALCIUM (test code = 7.5 mg/dL 8.6-10.6 L 4639185662) eGFR Calculation mL/min/1.73m2 (Non-) (test code = 3619307260) eGFR Calculation mL/min/1.73m2 () (test code = 0650015516) YENI (test code = YENI) Association of Glomerular Filtration Rate (GFR) and Staging of Kidney Disease* + --+ --+ ------+| GFR (mL/min/1.73 m2) ?| With Kidney Damage ?| ?Without Kidney Damage+ --------+ --------+ +| ?>90 ?| ?Stage one ?| ? Normal ?+ ---+ ---+ -------+| ?60-89 ?| ?Stage two ?| ? Decreased GFR ? + --+ --+ ------+| ?30-59 ?| ?Stage three ?| ? Stage three ? + --+ --+ ------+| ?15-29 ?| ?Stage four ? | ? Stage four ?+ ---+ ---+ -------+| ?<15 (or dialysis) ? ?| ?Stage five ? | ? Stage five ?+ ---+ ---+ -------+ *Each stage assumes the associated GFR level has been in effect for at least three months. ?Stages 1 to 5, with or without kidney disease, indicate chronic kidney disease. Notes: Determination of stages one and two (with eGFR >59mL/min/1.73 m2) requires estimation of kidney damage for at least three months as defined by structural or functional abnormalities of the kidney, manifested by either:Pathological abnormalities or Markers of kidney damage (including abnormalities in the composition of the blood or urine or abnormalities in imaging tests). Lab Interpretation Abnormal (test code = 20005-4) [facility] WITH [id number] 11:17:00 Test Item Value Reference Range Interpretation Comments WBC (test code = See_Comment [Automated 6690-2) message] The sy stem which generated this result transmitted reference range : 4.20 - 10.70 10*3/?L. The reference range was not used to interpret this result as normal/abnormal . RBC (test code = See_Comment L [Automated 789-8) message] The sy stem which generated this result transmitted reference range : 4.26 - 5.52 10*6/?L. The reference range was not used to interpret this result as normal/abnormal . HGB (test code = 8.0 g/dL 12.2-16.4 L 718-7) HCT (test code = 23.2 % 38.4-49.3 L 4544-3) MCV (test code = 85.9 fL 81.7-95.6 787-2) MCH (test code = 29.6 pg 26.1-32.7 785-6) MCHC (test code = 34.5 g/dL 31.2-35 786-4) RDW-SD (test code = 43.7 fL 38.5-51.6 54613-4) RDW-CV (test code = 13.9 % 12.1-15.4 788-0) PLT (test code = See_Comment [Automated 777-3) message] The sy stem which generated this result transmitted reference range : 150 - 328 10*3/ ?L. The reference r fili was not used to interpret this result as normal/abnormal . MPV (test code = 10.3 fL 9.8-13 22049-3) NRBC/100 WBC (test See_Comment [Automat ed code = 8379525548) message] The system which generated this result transmitted reference range : 0.0 - 10.0 /100 WBCs. The refer ence range was not u sed to interpret th is result as normal/abnormal . NRBC x10^3 (test code <0.01 See_Comment [Auto mated = 0216231688) message] The s ystem which generated this result transmitted reference range : 10*3/?L. The reference range was not used to interpret this result as normal/abnormal . GRAN MAT (NEUT) % 78.7 % (test code = 770-8) IMM GRAN % (test code 0.50 % = 1478955629) LYMPH % (test code = 8.9 % 736-9) MONO % (test code = 7.6 % 5905-5) EOS % (test code = 4.0 % 713-8) BASO % (test code = 0.3 % 706-2) GRAN MAT x10^3(ANC) 6.92 10*3/uL 1.99-6.95 (test code = 2953791427) IMM GRAN x10^3 (test 0.04 10*3/uL 0-0.06 code = 4957710637) LYMPH x10^3 (test code 0.78 10*3/uL 1.09-3.23 L = 731-0) MONO x10^3 (test code 0.67 10*3/uL 0.36-1.02 = 742-7) EOS x10^3 (test code = 0.35 10*3/uL 0.06-0.53 711-2) BASO x10^3 (test code 0.03 10*3/uL 0.01-0.09 = 704-7) Lab Interpretation Abnormal (test code = 69133-8) [facility] METABOLIC PANEL (NA, K, CL, CO2, GLUCOSE, BUN, CREATININE, CA)2020-03-31 00:16:00 Test Item Value Reference Range Interpretation Comments NA (test code = 133 mmol/L 135-145 L 9738813074) K (test code = 3.4 mmol/L 3.5-5 L 9603614987) CL (test code = 99 mmol/L 98-108 1958942261) CO2 TOTAL (test code = 27 mmol/L 23-31 6739684283) AGAP (test code = 2-16 9910706790) BUN (test code = 2 mg/dL 7-23 L 0008011959) GLUCOSE (test code = 108 mg/dL 70-110 9371485064) CREATININE (test code = 0.79 mg/dL 0.6-1.25 5641791564) CALCIUM (test code = 7.5 mg/dL 8.6-10.6 L 7247636983) eGFR Calculation mL/min/1.73m2 (Non-) (test code = 7223122859) eGFR Calculation mL/min/1.73m2 () (test code = 2542379832) YENI (test code = YENI) Association of Glomerular Filtration Rate (GFR) and Staging of Kidney Disease* + --+ --+ ------+| GFR (mL/min/1.73 m2) ?| With Kidney Damage ?| ?Without Kidney Damage+ --------+ --------+ +| ?>90 ?| ?Stage one ?| ? Normal ?+ ---+ ---+ -------+| ?60-89 ?| ?Stage two ?| ? Decreased GFR ? + --+ --+ ------+| ?30-59 ?| ?Stage three ?| ? Stage three ? + --+ --+ ------+| ?15-29 ?| ?Stage four ? | ? Stage four ?+ ---+ ---+ -------+| ?<15 (or dialysis) ? ?| ?Stage five ? | ? Stage five ?+ ---+ ---+ -------+ *Each stage assumes the associated GFR level has been in effect for at least three months. ?Stages 1 to 5, with or without kidney disease, indicate chronic kidney disease. Notes: Determination of stages one and two (with eGFR >59mL/min/1.73 m2) requires estimation of kidney damage for at least three months as defined by structural or functional abnormalities of the kidney, manifested by either:Pathological abnormalities or Markers of kidney damage (including abnormalities in the composition of the blood or urine or abnormalities in imaging tests). Lab Interpretation Abnormal (test code = 80793-9) [facility] L[facility] [id number] 19:28:00 Test Item Value Reference Range Interpretation Comments PH (test code = 2) 7.35-7.45 PCO2 (test code = See_Comment L [Automat ed 3277428426) message] The sy stem which generated this result transmitted reference range : 35 - 45 mmHg. The reference range was not used to interpret this result as normal/abnormal . PO2 (test code = See_Comment H [Automated 1593034685) message] The sy stem which generated this result transmitted reference range : 80 - 100 mmHg. The reference range was not used to interpret this result as normal/abnormal . HCO3 (test code = See_Comment [Automate d 5327517003) message] The sy stem which generated this result transmitted reference range : 22 - 26 mEq/L. The reference range was not used to interpret this result as normal/abnormal . BE (test code = See_Comment [Automated 7493800618) message] The sy stem which generated this result transmitted reference range : -3.0 - 3.0 mEq/ L. The reference r fili was not used to interpret this result as normal/abnormal . THB (test code = 7.2 g/dL 13.5-18 LL 0679328235) %O2HB (test code = 98.0 % 94-99 6225504084) %COHB ART (test code = 0.8 % 0-1.5 3781930637) %METHB ART (test code = 0.4 % 0.4-1.5 4520962169) VOL%O2 ART (test code = 10.3 % 15-23 L 0782308521) NA (test code = 134 mmol/L 135-145 L 1838451552) K+ (test code = 3.2 mmol/L 3.5-5 L 5106076122) AC CA IONZ (test code = 4.40 mg/dL 4.5-5.3 L 4587808930) GLUCOSE (test code = 101 mg/dL 70-110 6041689113) LACTIC ACID (test code 0.47 mmol/L = 8937474474) Lab Interpretation Abnormal (test code = 00837-1) [facility] / [id number] 16:02:00 Test Item Value Reference Range Interpretation Comments PROTIME PATIENT (test See_Comment [Auto mated message] code = 5964-2) The system wh ich generated this result transmitted ref erence range: 10.1 - 1 2.6 Seconds. The re ference range was not u sed to interpret this result as normal/abnor mal. INR (test code = 6301-6) Nor mal INR <1.1; Warfarin Therap eutic range 2.0 to 3. 0 or 2.5 to 3.5, dep ending upon the indica tions. Lab Interpretation (test Normal code = 96847-8) [facility] THRMPLAS [id number] 16:02:00 Test Item Value Reference Range Interpretation Comments APTT Patient (test code = See_Comment [ Automated message] 3173-2) The system whic h generated this result transmitted ref erence range: 26 - 36 Seconds. The re ference range was not u sed to interpret this result as normal/abnor mal. Lab Interpretation (test Normal code = 15020-0) [facility]2020-11-03 16:02:00 Test Item Value Reference Range Interpretation Comments Fibrinogen (test code = 1138120503) 384 mg/dL 167-453 Lab Interpretation (test code = Normal 99062-8) [facility] + LACTIC [id number] 15:51:00 Test Item Value Reference Range Interpretation Comments PH (test code = 2) 7.35-7.45 PCO2 (test code = See_Comment [Automat ed 0733897546) message] The sy stem which generated this result transmitted reference range : 35 - 45 mmHg. The reference range was not used to interpret this result as normal/abnormal . PO2 (test code = See_Comment H [Automated 0003267386) message] The sy stem which generated this result transmitted reference range : 80 - 100 mmHg. The reference range was not used to interpret this result as normal/abnormal . HCO3 (test code = See_Comment [Automate d 4586527879) message] The sy stem which generated this result transmitted reference range : 22 - 26 mEq/L. The reference range was not used to interpret this result as normal/abnormal . BE (test code = See_Comment [Automated 8752766815) message] The sy stem which generated this result transmitted reference range : -3.0 - 3.0 mEq/ L. The reference r fili was not used to interpret this result as normal/abnormal . THB (test code = 8.0 g/dL 13.5-18 LL 2090697222) %O2HB (test code = 98.3 % 94-99 1824282855) %COHB ART (test code = 1.0 % 0-1.5 9948988751) %METHB ART (test code = 0.1 % 0.4-1.5 L 1927660335) VOL%O2 ART (test code = 11.4 % 15-23 L 8222559622) NA (test code = 133 mmol/L 135-145 L 5336773264) K+ (test code = 3.4 mmol/L 3.5-5 L 0342056449) AC CA IONZ (test code = 4.40 mg/dL 4.5-5.3 L 1303601178) GLUCOSE (test code = 94 mg/dL 70-110 4679938737) LACTIC ACID (test code 0.44 mmol/L = 1960906233) Lab Interpretation Abnormal (test code = 47256-3) [facility] 1 [id number] 14:50:49EXAM: XR CHEST 1 VW HISTORY: intubated COMPARISON: None. FINDINGS: The heart remains slightly enlarged to the left and the aorta is elongatedand arteriosclerotic. The tip of the endotracheal tube is at the level ofthe clavicles and a nasogastric tube passes through the thorax and into thestomach. Thetip of the right IJ line is in the right atrium. The left lungis well expanded and clear and the right lung is less well expanded with anopacity laterally and inferiorly suggesting pneumonia or atelectasis orboth. Hilar vascular congestion persists. ? Prmb, Radiant Results Inft User - 03/30/2020 8:51 AM CSTEXAM: XR CHEST 1 VWHISTORY: intubated COMPARISON: None.FINDINGS:The heart remains slightly enlarged to the left and the aorta is elongatedand arteriosclerotic. The tip of the endotracheal tube is at the level ofthe clavicles and a nasogastric tube passes through the thorax and into thestomach. The tip of the right IJ line is in the right atrium. The left lungis well expanded and clear and the right lung is less well expanded with anopacity laterally and inferiorly suggesting pneumonia or atelectasis orboth. Hilar vascular congestion persists.[facility] [id number] 10:17:00 Test Item Value Reference Range Interpretation Comments MAGNESIUM (test code = 5905454426) 1.5 mg/dL 1.7-2.4 L Lab Interpretation (test code = Abnormal 46424-9) [facility]2020-11-03 10:17:00 Test Item Value Reference Range Interpretation Comments PHOSPHORUS (test code = 5280415058) 3.4 mg/dL 2.5-5 Lab Interpretation (test code = Normal 33940-4) [facility] (NA, K, CL, CO2, GLUCOSE, BUN, CREATININE, CA)2020-03-30 10:17:00 Test Item Value Reference Range Interpretation Comments NA (test code = 133 mmol/L 135-145 L 9516367202) K (test code = 3.5 mmol/L 3.5-5 0282093703) CL (test code = 105 mmol/L 98-108 8184588778) CO2 TOTAL (test code = 24 mmol/L 23-31 1448120406) AGAP (test code = 2-16 5950661702) BUN (test code = 4 mg/dL 7-23 L 9051128907) GLUCOSE (test code = 95 mg/dL 70-110 4264989576) CREATININE (test code = 0.82 mg/dL 0.6-1.25 7592766213) CALCIUM (test code = 7.4 mg/dL 8.6-10.6 L 0429700300) eGFR Calculation mL/min/1.73m2 (Non-) (test code = 9730131541) eGFR Calculation mL/min/1.73m2 () (test code = 9080941476) YENI (test code = YENI) Association of Glomerular Filtration Rate (GFR) and Staging of Kidney Disease* + --+ --+ ------+| GFR (mL/min/1.73 m2) ?| With Kidney Damage ?| ?Without Kidney Damage+ --------+ --------+ +| ?>90 ?| ?Stage one ?| ? Normal ?+ ---+ ---+ -------+| ?60-89 ?| ?Stage two ?| ? Decreased GFR ? + --+ --+ ------+| ?30-59 ?| ?Stage three ?| ? Stage three ? + --+ --+ ------+| ?15-29 ?| ?Stage four ? | ? Stage four ?+ ---+ ---+ -------+| ?<15 (or dialysis) ? ?| ?Stage five ? | ? Stage five ?+ ---+ ---+ -------+ *Each stage assumes the associated GFR level has been in effect for at least three months. ?Stages 1 to 5, with or without kidney disease, indicate chronic kidney disease. Notes: Determination of stages one and two (with eGFR >59mL/min/1.73 m2) requires estimation of kidney damage for at least three months as defined by structural or functional abnormalities of the kidney, manifested by either:Pathological abnormalities or Markers of kidney damage (including abnormalities in the composition of the blood or urine or abnormalities in imaging tests). Lab Interpretation Abnormal (test code = 41199-1) [facility] WITH [id number] 10:04:00 Test Item Value Reference Range Interpretation Comments WBC (test code = See_Comment [Automated 6690-2) message] The sy stem which generated this result transmitted reference range : 4.20 - 10.70 10*3/?L. The reference range was not used to interpret this result as normal/abnormal . RBC (test code = See_Comment L [Automated 789-8) message] The sy stem which generated this result transmitted reference range : 4.26 - 5.52 10*6/?L. The reference range was not used to interpret this result as normal/abnormal . HGB (test code = 8.1 g/dL 12.2-16.4 L 718-7) HCT (test code = 23.8 % 38.4-49.3 L 4544-3) MCV (test code = 87.8 fL 81.7-95.6 787-2) MCH (test code = 29.9 pg 26.1-32.7 785-6) MCHC (test code = 34.0 g/dL 31.2-35 786-4) RDW-SD (test code = 45.9 fL 38.5-51.6 60963-6) RDW-CV (test code = 14.3 % 12.1-15.4 788-0) PLT (test code = See_Comment [Automated 777-3) message] The sy stem which generated this result transmitted reference range : 150 - 328 10*3/ ?L. The reference r fili was not used to interpret this result as normal/abnormal . MPV (test code = 10.9 fL 9.8-13 62462-6) NRBC/100 WBC (test See_Comment [Automat ed code = 1712992155) message] The system which generated this result transmitted reference range : 0.0 - 10.0 /100 WBCs. The refer ence range was not u sed to interpret th is result as normal/abnormal . NRBC x10^3 (test code <0.01 See_Comment [Auto mated = 9713814029) message] The s ystem which generated this result transmitted reference range : 10*3/?L. The reference range was not used to interpret this result as normal/abnormal . GRAN MAT (NEUT) % 75.4 % (test code = 770-8) IMM GRAN % (test code 0.60 % = 7429978433) LYMPH % (test code = 11.1 % 736-9) MONO % (test code = 7.4 % 5905-5) EOS % (test code = 5.0 % 713-8) BASO % (test code = 0.5 % 706-2) GRAN MAT x10^3(ANC) 6.46 10*3/uL 1.99-6.95 (test code = 3190565960) IMM GRAN x10^3 (test 0.05 10*3/uL 0-0.06 code = 8491217891) LYMPH x10^3 (test code 0.95 10*3/uL 1.09-3.23 L = 731-0) MONO x10^3 (test code 0.63 10*3/uL 0.36-1.02 = 742-7) EOS x10^3 (test code = 0.43 10*3/uL 0.06-0.53 711-2) BASO x10^3 (test code 0.04 10*3/uL 0.01-0.09 = 704-7) Lab Interpretation Abnormal (test code = 48491-2) [facility] + LACTIC [id number] 09:28:00 Test Item Value Reference Range Interpretation Comments PH (test code = 2) 7.35-7.45 PCO2 (test code = See_Comment [Automat ed 8260835530) message] The sy stem which generated this result transmitted reference range : 35 - 45 mmHg. The reference range was not used to interpret this result as normal/abnormal . PO2 (test code = See_Comment H [Automated 1258317430) message] The sy stem which generated this result transmitted reference range : 80 - 100 mmHg. The reference range was not used to interpret this result as normal/abnormal . HCO3 (test code = See_Comment L [Automate d 0089452630) message] The sy stem which generated this result transmitted reference range : 22 - 26 mEq/L. The reference range was not used to interpret this result as normal/abnormal . BE (test code = See_Comment L [Automated 9063491032) message] The sy stem which generated this result transmitted reference range : -3.0 - 3.0 mEq/ L. The reference r fili was not used to interpret this result as normal/abnormal . THB (test code = 9.2 g/dL 13.5-18 L 5558430908) %O2HB (test code = 97.7 % 94-99 9759674057) %COHB ART (test code = 1.0 % 0-1.5 1372683487) %METHB ART (test code = 0.3 % 0.4-1.5 L 7193672314) VOL%O2 ART (test code = 12.9 % 15-23 L 7131097017) NA (test code = 132 mmol/L 135-145 L 7392689888) K+ (test code = 3.5 mmol/L 3.5-5 9144341447) AC CA IONZ (test code = 4.60 mg/dL 4.5-5.3 9451314996) GLUCOSE (test code = 90 mg/dL 70-110 8471839341) LACTIC ACID (test code 1.15 mmol/L = 9890227230) Lab Interpretation Abnormal (test code = 96143-4) [facility]X+NA+K+GLU+CA2+2020-03-30 02:27:00 Test Item Value Reference Range Interpretation Comments PH (test code = 2) 7.35-7.45 L PCO2 (test code = See_Comment [Automat ed message] 8315506532) The system [employer] generated this result transmit arsalan reference range : 35 - 45 mmHg. The reference range was not used to interpret this result as normal/abnormal . PO2 (test code = See_Comment H [Automated message] 0502512421) The system [employer] h generated this result transmit arsalan reference range : 80 - 100 mmHg. The reference range was not used to interpret this result as normal/abnormal . HCO3 (test code = See_Comment L [Automate d message] 3346131452) The system [employer] generated this result transmit arsalan reference range : 22 - 26 mEq/L. The reference range was not used to interpret this result as normal/abnormal . BE (test code = See_Comment L [Automated message] 2911041539) The system My[employer] generated this result transmit arsalan reference range : -3.0 - 3.0 mEq/ L. The reference r fili was not used to interpret this result as normal/abnormal . THB (test code = 11.2 g/dL 13.5-18 L 0239085457) %O2HB (test code = 97.5 % 94-99 3974419481) %COHB ART (test code = 0.3 % 0-1.5 7128461827) %METHB ART (test code = 1.4 % 0.4-1.5 5471804995) VOL%O2 ART (test code = 15.9 % 15-23 7122869148) NA (test code = 136 mmol/L 135-145 7616139424) K+ (test code = 3.9 mmol/L 3.5-5 2716432902) AC CA IONZ (test code = 5.30 mg/dL 4.5-5.3 7646594594) GLUCOSE (test code = 258 mg/dL 70-110 H 7690873576) Lab Interpretation Abnormal (test code = 46974-4) [facility]+NA+K+GLU+CA2+2020-03-30 01:48:00 Test Item Value Reference Range Interpretation Comments PH (test code = 2) 7.35-7.45 LL PCO2 (test code = See_Comment H [Automat ed message] 9320580079) The system [employer] generated this result transmit arsalan reference range : 35 - 45 mmHg. The reference range was not used to interpret this result as normal/abnormal . PO2 (test code = See_Comment H [Automated message] 7171368274) The system [employer] generated this result transmit arsalan reference range : 80 - 100 mmHg. The reference range was not used to interpret this result as normal/abnormal . HCO3 (test code = See_Comment L [Automate d message] 4650106865) The system whic h generated this result transmit arsalan reference range : 22 - 26 mEq/L. The reference range was not used to interpret this result as normal/abnormal . BE (test code = See_Comment L [Automated message] 6848223092) The system [employer] h generated this result transmit arsalan reference range : -3.0 - 3.0 mEq/ L. The reference r fili was not used to interpret this result as normal/abnormal . THB (test code = 12.0 g/dL 13.5-18 L 7492118484) %O2HB (test code = 98.8 % 94-99 0538408973) %COHB ART (test code = 0.1 % 0-1.5 3840803855) %METHB ART (test code = 0.4 % 0.4-1.5 0889752906) VOL%O2 ART (test code = 17.2 % 15-23 4917989311) NA (test code = 136 mmol/L 135-145 3186448795) K+ (test code = 4.4 mmol/L 3.5-5 0749471775) AC CA IONZ (test code = 3.80 mg/dL 4.5-5.3 L 3636715699) GLUCOSE (test code = 274 mg/dL 70-110 H 8636194724) Lab Interpretation Abnormal (test code = 44379-4) [facility] GLUCOSE (AUTOMATED)2020-03-30 00:12:00 Test Item Value Reference Range Interpretation Comments POCT GLU (test code = 3350094081) 82 mg/dL 70-110 Lab Interpretation (test code = Normal 05742-2) [facility] GLUCOSE (AUTOMATED)2020-03-29 22:18:00 Test Item Value Reference Range Interpretation Comments POCT GLU (test code = 3154598712) 84 mg/dL 70-110 Lab Interpretation (test code = Normal 31210-6) [facility] + LACTIC [id number] 20:03:00 Test Item Value Reference Range Interpretation Comments PH (test code = 2) 7.35-7.45 L PCO2 (test code = See_Comment [Automat ed 5425083477) message] The sy stem which generated this result transmitted reference range : 35 - 45 mmHg. The reference range was not used to interpret this result as normal/abnormal . PO2 (test code = See_Comment H [Automated 6864229319) message] The sy stem which generated this result transmitted reference range : 80 - 100 mmHg. The reference range was not used to interpret this result as normal/abnormal . HCO3 (test code = See_Comment L [Automate d 8932462918) message] The sy stem which generated this result transmitted reference range : 22 - 26 mEq/L. The reference range was not used to interpret this result as normal/abnormal . BE (test code = See_Comment L [Automated 5944937596) message] The sy stem which generated this result transmitted reference range : -3.0 - 3.0 mEq/ L. The reference r fili was not used to interpret this result as normal/abnormal . THB (test code = 12.1 g/dL 13.5-18 L 2269211831) %O2HB (test code = 98.1 % 94-99 8604748669) %COHB ART (test code = 0.6 % 0-1.5 5250686857) %METHB ART (test code = 0.0 % 0.4-1.5 L 2368199941) VOL%O2 ART (test code = 16.9 % 15-23 8581685423) NA (test code = 131 mmol/L 135-145 L 9768936103) K+ (test code = 3.6 mmol/L 3.5-5 0625106886) AC CA IONZ (test code = 4.50 mg/dL 4.5-5.3 1826981047) GLUCOSE (test code = 79 mg/dL 70-110 7617327490) LACTIC ACID (test code 0.56 mmol/L = 4782306197) Lab Interpretation Abnormal (test code = 45764-9) [facility] LACTIC [id number] 17:38:00 Test Item Value Reference Range Interpretation Comments PH (test code = 2) 7.35-7.45 PCO2 (test code = See_Comment [Automat ed 6816053332) message] The sy stem which generated this result transmitted reference range : 35 - 45 mmHg. The reference range was not used to interpret this result as normal/abnormal . PO2 (test code = See_Comment H [Automated 3676026363) message] The sy stem which generated this result transmitted reference range : 80 - 100 mmHg. The reference range was not used to interpret this result as normal/abnormal . HCO3 (test code = See_Comment L [Automate d 6744023975) message] The sy stem which generated this result transmitted reference range : 22 - 26 mEq/L. The reference range was not used to interpret this result as normal/abnormal . BE (test code = See_Comment L [Automated 4953557330) message] The sy stem which generated this result transmitted reference range : -3.0 - 3.0 mEq/ L. The reference r fili was not used to interpret this result as normal/abnormal . THB (test code = 8.2 g/dL 13.5-18 LL 4897226838) %O2HB (test code = 97.7 % 94-99 2009915477) %COHB ART (test code = 0.8 % 0-1.5 3281273109) %METHB ART (test code = 0.2 % 0.4-1.5 L 3720673353) VOL%O2 ART (test code = 11.6 % 15-23 L 1002255243) NA (test code = 131 mmol/L 135-145 L 4215744171) K+ (test code = 3.6 mmol/L 3.5-5 7221507314) AC CA IONZ (test code = 4.50 mg/dL 4.5-5.3 1229266846) GLUCOSE (test code = 77 mg/dL 70-110 9763101555) LACTIC ACID (test code 0.61 mmol/L = 9856629951) Lab Interpretation Abnormal (test code = 33619-3) [facility]29 16:22:00 Test Item Value Reference Range Interpretation Comments POCT GLU (test code = 9663018507) 78 mg/dL 70-110 Lab Interpretation (test code = Normal 50243-4) [facility] [id number] 14:29:23EXAM: XR CHEST 1 VW HISTORY: evaluate lungs COMPARISON: None. FINDINGS: The tip of the endotrachealtube is at the level of the clavicles and anasogastric tube passes through the thorax and into the stomach. The tip ofthe right IJ line is in the right atrium. The heart remains slightlyenlarged to theleft. Hilar vascular congestion persists but the onlymoderately well expanded lungs are clear otherwi se. Pleural effusion issuspected on the left but is less voluminous than noted previously. ? [facility], Radiant Results Inft User - 03/29/2020 8:30 AM CSTEXAM: XR CHEST 1 VWHISTORY: evaluate lungs COMPARISON: None.FINDINGS:The tip of the endotracheal tube is at the level of the clavicles and anasogastric tube passes through the thorax and into the stomach. The tip ofthe right IJ line is in the rightatrium. The heart remains slightlyenlarged to the left. Hilar vascular congestion persists but the onlymoderately well expanded lungs are clear otherwise. Pleural effusion issuspected on the left but is less voluminous than noted previously.[facility] (NA, K, CL, CO2, GLUCOSE, BUN, CREATININE, CA)2020-03-29 11:40:00 Test Item Value Reference Range Interpretation Comments NA (test code = 132 mmol/L 135-145 L 5935236805) K (test code = 3.6 mmol/L 3.5-5 2762021915) CL (test code = 105 mmol/L 98-108 5094109357) CO2 TOTAL (test code = 22 mmol/L 23-31 L 4295039727) AGAP (test code = 2-16 3451241701) BUN (test code = 8 mg/dL 7-23 9493409357) GLUCOSE (test code = 84 mg/dL 70-110 8921593222) CREATININE (test code = 0.86 mg/dL 0.6-1.25 7558845120) CALCIUM (test code = 7.2 mg/dL 8.6-10.6 L 9966106472) eGFR Calculation mL/min/1.73m2 (Non-) (test code = 7781017525) eGFR Calculation mL/min/1.73m2 () (test code = 7218860542) YNEI (test code = YENI) Association of Glomerular Filtration Rate (GFR) and Staging of Kidney Disease* + --+ --+ ------+| GFR (mL/min/1.73 m2) ?| With Kidney Damage ?| ?Without Kidney Damage+ --------+ --------+ +| ?>90 ?| ?Stage one ?| ? Normal ?+ ---+ ---+ -------+| ?60-89 ?| ?Stage two ?| ? Decreased GFR ? + --+ --+ ------+| ?30-59 ?| ?Stage three ?| ? Stage three ? + --+ --+ ------+| ?15-29 ?| ?Stage four ? | ? Stage four ?+ ---+ ---+ -------+| ?<15 (or dialysis) ? ?| ?Stage five ? | ? Stage five ?+ ---+ ---+ -------+ *Each stage assumes the associated GFR level has been in effect for at least three months. ?Stages 1 to 5, with or without kidney disease, indicate chronic kidney disease. Notes: Determination of stages one and two (with eGFR >59mL/min/1.73 m2) requires estimation of kidney damage for at least three months as defined by structural or functional abnormalities of the kidney, manifested by either:Pathological abnormalities or Markers of kidney damage (including abnormalities in the composition of the blood or urine or abnormalities in imaging tests). Lab Interpretation Abnormal (test code = 65154-8) [facility] WITH [id number] 11:26:00 Test Item Value Reference Range Interpretation Comments WBC (test code = See_Comment [Automated 6933-2) message] The sy stem which generated this result transmitted reference range : 4.20 - 10.70 10*3/?L. The reference range was not used to interpret this result as normal/abnormal . RBC (test code = See_Comment L [Automated 379-8) message] The sy stem which generated this result transmitted reference range : 4.26 - 5.52 10*6/?L. The reference range was not used to interpret this result as normal/abnormal . HGB (test code = 8.9 g/dL 12.2-16.4 L 718-7) HCT (test code = 26.1 % 38.4-49.3 L 4544-3) MCV (test code = 87.3 fL 81.7-95.6 787-2) MCH (test code = 29.8 pg 26.1-32.7 785-6) MCHC (test code = 34.1 g/dL 31.2-35 786-4) RDW-SD (test code = 46.1 fL 38.5-51.6 95939-6) RDW-CV (test code = 14.4 % 12.1-15.4 788-0) PLT (test code = See_Comment L [Automated 777-3) message] The sy stem which generated this result transmitted reference range : 150 - 328 10*3/ ?L. The reference r fili was not used to interpret this result as normal/abnormal . MPV (test code = 10.7 fL 9.8-13 11961-7) NRBC/100 WBC (test See_Comment [Automat ed code = 8871173978) message] The system which generated this result transmitted reference range : 0.0 - 10.0 /100 WBCs. The refer ence range was not u sed to interpret th is result as normal/abnormal . NRBC x10^3 (test code <0.01 See_Comment [Auto mated = 6218779013) message] The s ystem which generated this result transmitted reference range : 10*3/?L. The reference range was not used to interpret this result as normal/abnormal . GRAN MAT (NEUT) % 79.1 % (test code = 770-8) IMM GRAN % (test code 0.80 % = 5429199382) LYMPH % (test code = 9.5 % 736-9) MONO % (test code = 5.7 % 5905-5) EOS % (test code = 4.4 % 713-8) BASO % (test code = 0.5 % 706-2) GRAN MAT x10^3(ANC) 7.02 10*3/uL 1.99-6.95 H (test code = 3635844963) IMM GRAN x10^3 (test 0.07 10*3/uL 0-0.06 H code = 5630336142) LYMPH x10^3 (test code 0.84 10*3/uL 1.09-3.23 L = 731-0) MONO x10^3 (test code 0.51 10*3/uL 0.36-1.02 = 742-7) EOS x10^3 (test code = 0.39 10*3/uL 0.06-0.53 711-2) BASO x10^3 (test code 0.04 10*3/uL 0.01-0.09 = 704-7) Lab Interpretation Abnormal (test code = 87029-9) [facility] + LACTIC [id number] 11:05:00 Test Item Value Reference Range Interpretation Comments PH (test code = 2) 7.35-7.45 PCO2 (test code = See_Comment [Automat ed 5955067398) message] The sy stem which generated this result transmitted reference range : 35 - 45 mmHg. The reference range was not used to interpret this result as normal/abnormal . PO2 (test code = See_Comment [Automated 7264682813) message] The sy stem which generated this result transmitted reference range : 80 - 100 mmHg. The reference range was not used to interpret this result as normal/abnormal . HCO3 (test code = See_Comment L [Automate d 8275359931) message] The sy stem which generated this result transmitted reference range : 22 - 26 mEq/L. The reference range was not used to interpret this result as normal/abnormal . BE (test code = See_Comment L [Automated 5090298375) message] The sy stem which generated this result transmitted reference range : -3.0 - 3.0 mEq/ L. The reference r fili was not used to interpret this result as normal/abnormal . THB (test code = 8.8 g/dL 13.5-18 L 5971907871) %O2HB (test code = 96.8 % 94-99 3949556160) %COHB ART (test code = 0.8 % 0-1.5 5897286157) %METHB ART (test code = 0.0 % 0.4-1.5 L 2071620919) VOL%O2 ART (test code = 12.2 % 15-23 L 7287590476) NA (test code = 130 mmol/L 135-145 L 4063556918) K+ (test code = 3.6 mmol/L 3.5-5 0172720989) AC CA IONZ (test code = 4.50 mg/dL 4.5-5.3 6720202841) GLUCOSE (test code = 83 mg/dL 70-110 5382058225) LACTIC ACID (test code 0.53 mmol/L = 4336959633) Lab Interpretation Abnormal (test code = 07721-5) [facility] WITH [id number] 22:14:00 Test Item Value Reference Range Interpretation Comments WBC (test code = See_Comment H [Automated 6690-2) message] The sy stem which generated this result transmitted reference range : 4.20 - 10.70 10*3/?L. The reference range was not used to interpret this result as normal/abnormal . RBC (test code = See_Comment L [Automated 789-8) message] The sy stem which generated this result transmitted reference range : 4.26 - 5.52 10*6/?L. The reference range was not used to interpret this result as normal/abnormal . HGB (test code = 8.5 g/dL 12.2-16.4 L 718-7) HCT (test code = 24.6 % 38.4-49.3 L 4544-3) MCV (test code = 87.2 fL 81.7-95.6 787-2) MCH (test code = 30.1 pg 26.1-32.7 785-6) MCHC (test code = 34.6 g/dL 31.2-35 786-4) RDW-SD (test code = 46.1 fL 38.5-51.6 32250-0) RDW-CV (test code = 14.5 % 12.1-15.4 788-0) PLT (test code = See_Comment L [Automated 777-3) message] The sy stem which generated this result transmitted reference range : 150 - 328 10*3/ ?L. The reference r fili was not used to interpret this result as normal/abnormal . MPV (test code = 10.5 fL 9.8-13 71309-1) NRBC/100 WBC (test See_Comment [Automat ed code = 0392410041) message] The system which generated this result transmitted reference range : 0.0 - 10.0 /100 WBCs. The refer ence range was not u sed to interpret th is result as normal/abnormal . NRBC x10^3 (test code <0.01 See_Comment [Auto mated = 4268796588) message] The s ystem which generated this result transmitted reference range : 10*3/?L. The reference range was not used to interpret this result as normal/abnormal . GRAN MAT (NEUT) % 78.1 % (test code = 770-8) IMM GRAN % (test code 0.50 % = 9720209978) LYMPH % (test code = 10.9 % 736-9) MONO % (test code = 6.5 % 5905-5) EOS % (test code = 3.6 % 713-8) BASO % (test code = 0.4 % 706-2) GRAN MAT x10^3(ANC) 8.59 10*3/uL 1.99-6.95 H (test code = 8863339709) IMM GRAN x10^3 (test 0.06 10*3/uL 0-0.06 code = 8961025974) LYMPH x10^3 (test code 1.20 10*3/uL 1.09-3.23 = 731-0) MONO x10^3 (test code 0.71 10*3/uL 0.36-1.02 = 742-7) EOS x10^3 (test code = 0.40 10*3/uL 0.06-0.53 711-2) BASO x10^3 (test code 0.04 10*3/uL 0.01-0.09 = 704-7) Lab Interpretation Abnormal (test code = 65978-2) [facility] [id number] 19:59:26CHEST ONE VIEW HISTORY: ?Intubated TECHNIQUE: ?AP view of the chest is obtained. COMPARISON: 03/27/2020 FINDINGS: The endotracheal tube is unchanged in position terminating at the level ofthe clavicles. Nasogastric tube is seen with its tip in the stomach.Another feeding tube is identified with its tip collimated out of field ofview. Increased central pulmonary vascularity and interstitial lung markings arenoted. Heart size is enlarged. Blunting of the left costophrenic angle isseen. CONCLUSIONS: 1.Mild pulmonary edema, basilar atelectasis and left pleural effusion [facility], Radiant Results Inft User - 03/28/2020 2:00 PM CSTCHEST ONE VIEWHISTORY: IntubatedTECHNIQUE: AP view of the chest is obtained .COMPARISON: 03/27/2020FINDINGS:The endotracheal tube is unchanged in position terminating at the level ofthe clavicles. Nasogastric tube is seen with its tip in the stomach.Another feeding tube is identified with its tip collimated out of field ofview.Increased central pulmonary vascularity and interstitial lung markings arenoted. Heart size is enlarged. Blunting of the left costophrenic angle isseen.CONCLUSIONS: 1. Mild pulmonary edema, basilar atelectasis and left pleural effusionUnTexas Health DentonPrepare Packed RBC (in units), 1 [id number] 19:32:04 Test Item Value Reference Range Interpretation Comments Cross Match Result Compatible (test code = 4409) ISBT Blood Type Code (test code = 646210) Unit Blood Type (test A Pos code = 4410) Unit Number (test [id number] code = 4411) Blood Expiration Date & Time (test code = 138170) Status Information Issued (test code = 4412) Product Red Blood Cells Identification (test code = 4413) Product Code (test [id number] Performed at [facility] code = 4414) Laboratory Services - [facility] Blood [address] [place] [address]Hbah Free: [phone] A No. [id number] [facility] + LACTIC [id number] 18:50:00 Test Item Value Reference Range Interpretation Comments PH (test code = 2) 7.35-7.45 PCO2 (test code = See_Comment [Automat ed 6539594848) message] The sy stem which generated this result transmitted reference range : 35 - 45 mmHg. The reference range was not used to interpret this result as normal/abnormal . PO2 (test code = See_Comment H [Automated 6087703005) message] The sy stem which generated this result transmitted reference range : 80 - 100 mmHg. The reference range was not used to interpret this result as normal/abnormal . HCO3 (test code = See_Comment [Automate d 5237945169) message] The sy stem which generated this result transmitted reference range : 22 - 26 mEq/L. The reference range was not used to interpret this result as normal/abnormal . BE (test code = See_Comment [Automated 5426136301) message] The sy stem which generated this result transmitted reference range : -3.0 - 3.0 mEq/ L. The reference r fili was not used to interpret this result as normal/abnormal . THB (test code = 6.6 g/dL 13.5-18 LL 1976914702) %O2HB (test code = 96.9 % 94-99 0282734011) %COHB ART (test code = 1.5 % 0-1.5 3941924400) %METHB ART (test code = 0.4 % 0.4-1.5 5985493553) VOL%O2 ART (test code = 9.3 % 15-23 L 1334843473) NA (test code = 131 mmol/L 135-145 L 2985821582) K+ (test code = 3.4 mmol/L 3.5-5 L 5391075577) AC CA IONZ (test code = 4.50 mg/dL 4.5-5.3 3414429598) GLUCOSE (test code = 99 mg/dL 70-110 2475120794) LACTIC ACID (test code 0.50 mmol/L = 1943178565) Lab Interpretation Abnormal (test code = 23320-9) [facility] WITH [id number] 17:03:00 Test Item Value Reference Range Interpretation Comments WBC (test code = See_Comment [Automated 2890-2) message] The sy stem which generated this result transmitted reference range : 4.20 - 10.70 10*3/?L. The reference range was not used to interpret this result as normal/abnormal . RBC (test code = See_Comment L [Automated 889-8) message] The sy stem which generated this result transmitted reference range : 4.26 - 5.52 10*6/?L. The reference range was not used to interpret this result as normal/abnormal . HGB (test code = 7.8 g/dL 12.2-16.4 L 718-7) HCT (test code = 22.4 % 38.4-49.3 L 4544-3) MCV (test code = 85.8 fL 81.7-95.6 787-2) MCH (test code = 29.9 pg 26.1-32.7 785-6) MCHC (test code = 34.8 g/dL 31.2-35 786-4) RDW-SD (test code = 45.4 fL 38.5-51.6 59967-4) RDW-CV (test code = 14.7 % 12.1-15.4 788-0) PLT (test code = See_Comment L [Automated 777-3) message] The sy stem which generated this result transmitted reference range : 150 - 328 10*3/ ?L. The reference r fili was not used to interpret this result as normal/abnormal . MPV (test code = 10.7 fL 9.8-13 36755-0) IPF % (test code = 3.4 % 1.2-10.7 Platelet count 7520884769) measured by fluorescence method. NRBC/100 WBC (test See_Comment [Automat ed code = 1002565913) message] The system which generated this result transmitted reference range : 0.0 - 10.0 /100 WBCs. The refer ence range was not u sed to interpret th is result as normal/abnormal . NRBC x10^3 (test code <0.01 See_Comment [Auto mated = 8600703756) message] The s ystem which generated this result transmitted reference range : 10*3/?L. The reference range was not used to interpret this result as normal/abnormal . GRAN MAT (NEUT) % 81.0 % (test code = 770-8) IMM GRAN % (test code 0.60 % = 7302250244) LYMPH % (test code = 9.4 % 736-9) MONO % (test code = 5.9 % 5905-5) EOS % (test code = 2.6 % 713-8) BASO % (test code = 0.5 % 706-2) GRAN MAT x10^3(ANC) 8.49 10*3/uL 1.99-6.95 H (test code = 7612509470) IMM GRAN x10^3 (test 0.06 10*3/uL 0-0.06 code = 6990981280) LYMPH x10^3 (test code 0.98 10*3/uL 1.09-3.23 L = 731-0) MONO x10^3 (test code 0.62 10*3/uL 0.36-1.02 = 742-7) EOS x10^3 (test code = 0.27 10*3/uL 0.06-0.53 711-2) BASO x10^3 (test code 0.05 10*3/uL 0.01-0.09 = 704-7) Lab Interpretation Abnormal (test code = 90877-6) [facility] METABOLIC PANEL (NA, K, CL, CO2, GLUCOSE, BUN, CREATININE, CA)2020-03-28 16:51:00 Test Item Value Reference Range Interpretation Comments NA (test code = 136 mmol/L 135-145 2563064358) K (test code = 3.5 mmol/L 3.5-5 4049379775) CL (test code = 108 mmol/L 98-108 6273267124) CO2 TOTAL (test code = 22 mmol/L 23-31 L 1804188472) AGAP (test code = 2-16 6969795848) BUN (test code = 10 mg/dL 7-23 0811029195) GLUCOSE (test code = 98 mg/dL 70-110 3736717552) CREATININE (test code = 0.94 mg/dL 0.6-1.25 3466719104) CALCIUM (test code = 7.3 mg/dL 8.6-10.6 L 8090400600) eGFR Calculation mL/min/1.73m2 (Non-) (test code = 8791075093) eGFR Calculation mL/min/1.73m2 () (test code = 2431099449) YENI (test code = YENI) Association of Glomerular Filtration Rate (GFR) and Staging of Kidney Disease* + --+ --+ ------+| GFR (mL/min/1.73 m2) ?| With Kidney Damage ?| ?Without Kidney Damage+ --------+ --------+ +| ?>90 ?| ?Stage one ?| ? Normal ?+ ---+ ---+ -------+| ?60-89 ?| ?Stage two ?| ? Decreased GFR ? + --+ --+ ------+| ?30-59 ?| ?Stage three ?| ? Stage three ? + --+ --+ ------+| ?15-29 ?| ?Stage four ? | ? Stage four ?+ ---+ ---+ -------+| ?<15 (or dialysis) ? ?| ?Stage five ? | ? Stage five ?+ ---+ ---+ -------+ *Each stage assumes the associated GFR level has been in effect for at least three months. ?Stages 1 to 5, with or without kidney disease, indicate chronic kidney disease. Notes: Determination of stages one and two (with eGFR >59mL/min/1.73 m2) requires estimation of kidney damage for at least three months as defined by structural or functional abnormalities of the kidney, manifested by either:Pathological abnormalities or Markers of kidney damage (including abnormalities in the composition of the blood or urine or abnormalities in imaging tests). Lab Interpretation Abnormal (test code = 13117-6) [facility] WITH [id number] 15:08:00 Test Item Value Reference Range Interpretation Comments WBC (test code = See_Comment [Automated 2590-2) message] The sy stem which generated this result transmitted reference range : 4.20 - 10.70 10*3/?L. The reference range was not used to interpret this result as normal/abnormal . RBC (test code = See_Comment L [Automated 789-8) message] The sy stem which generated this result transmitted reference range : 4.26 - 5.52 10*6/?L. The reference range was not used to interpret this result as normal/abnormal . HGB (test code = 8.3 g/dL 12.2-16.4 L 718-7) HCT (test code = 23.8 % 38.4-49.3 L 4544-3) MCV (test code = 86.9 fL 81.7-95.6 787-2) MCH (test code = 30.3 pg 26.1-32.7 785-6) MCHC (test code = 34.9 g/dL 31.2-35 786-4) RDW-SD (test code = 46.0 fL 38.5-51.6 38034-0) RDW-CV (test code = 14.6 % 12.1-15.4 788-0) PLT (test code = See_Comment L [Automated 777-3) message] The sy stem which generated this result transmitted reference range : 150 - 328 10*3/ ?L. The reference r fili was not used to interpret this result as normal/abnormal . MPV (test code = 10.8 fL 9.8-13 54914-7) IPF % (test code = 3.9 % 1.2-10.7 Platelet count 5428545699) measured by fluorescence method. NRBC/100 WBC (test See_Comment [Automat ed code = 5895400618) message] The system which generated this result transmitted reference range : 0.0 - 10.0 /100 WBCs. The refer ence range was not u sed to interpret th is result as normal/abnormal . NRBC x10^3 (test code <0.01 See_Comment [Auto mated = 7351648051) message] The s ystem which generated this result transmitted reference range : 10*3/?L. The reference range was not used to interpret this result as normal/abnormal . GRAN MAT (NEUT) % 82.7 % (test code = 770-8) IMM GRAN % (test code 0.60 % = 1811303385) LYMPH % (test code = 7.3 % 736-9) MONO % (test code = 6.3 % 5905-5) EOS % (test code = 2.7 % 713-8) BASO % (test code = 0.4 % 706-2) GRAN MAT x10^3(ANC) 8.75 10*3/uL 1.99-6.95 H (test code = 8861351529) IMM GRAN x10^3 (test 0.06 10*3/uL 0-0.06 code = 9724646776) LYMPH x10^3 (test code 0.77 10*3/uL 1.09-3.23 L = 731-0) MONO x10^3 (test code 0.66 10*3/uL 0.36-1.02 = 742-7) EOS x10^3 (test code = 0.28 10*3/uL 0.06-0.53 711-2) BASO x10^3 (test code 0.04 10*3/uL 0.01-0.09 = 704-7) Lab Interpretation Abnormal (test code = 38979-3) [facility] L[facility]IC [id number] 12:30:00 Test Item Value Reference Range Interpretation Comments PH (test code = 2) 7.35-7.45 PCO2 (test code = See_Comment L [Automat ed 7404853495) message] The sy stem which generated this result transmitted reference range : 35 - 45 mmHg. The reference range was not used to interpret this result as normal/abnormal . PO2 (test code = See_Comment H [Automated 2237682489) message] The sy stem which generated this result transmitted reference range : 80 - 100 mmHg. The reference range was not used to interpret this result as normal/abnormal . HCO3 (test code = See_Comment L [Automate d 2794237730) message] The sy stem which generated this result transmitted reference range : 22 - 26 mEq/L. The reference range was not used to interpret this result as normal/abnormal . BE (test code = See_Comment L [Automated 5471008432) message] The sy stem which generated this result transmitted reference range : -3.0 - 3.0 mEq/ L. The reference r fili was not used to interpret this result as normal/abnormal . THB (test code = 8.6 g/dL 13.5-18 L 2121190286) %O2HB (test code = 98.2 % 94-99 8946894476) %COHB ART (test code = 0.9 % 0-1.5 7918995423) %METHB ART (test code = 0.3 % 0.4-1.5 L 2563981963) VOL%O2 ART (test code = 12.4 % 15-23 L 9100167069) NA (test code = 132 mmol/L 135-145 L 1168575673) K+ (test code = 3.9 mmol/L 3.5-5 2695723623) AC CA IONZ (test code = 4.40 mg/dL 4.5-5.3 L 7459268390) GLUCOSE (test code = 94 mg/dL 70-110 0784623009) LACTIC ACID (test code 0.50 mmol/L = 2200539538) Lab Interpretation Abnormal (test code = 68911-9) [facility] WITHOUT [id number] 11:20:00 Test Item Value Reference Range Interpretation Comments WBC (test code = See_Comment [Automated message] 6690-2) The system whic h generated this result transmitted ref erence range: 4.20 - 1 0.70 10*3/?L. The reference range was not used to int erpret this result as normal/abnormal . RBC (test code = 789-8) See_Comment L [Au tomated message] The system [employer] generated this result transmitted ref erence range: 4.26 - 5 .52 10*6/?L. The reference range was not used to int erpret this result as normal/abnormal . HGB (test code = 718-7) 7.0 g/dL 12.2-16.4 L HCT (test code = 20.1 % 38.4-49.3 L 4544-3) MCH (test code = 785-6) 30.4 pg 26.1-32.7 MCV (test code = 787-2) 87.4 fL 81.7-95.6 MCHC (test code = 34.8 g/dL 31.2-35 786-4) PLT (test code = 777-3) See_Comment L [Au tomated message] The system [facility] generated this result transmitted ref erence range: 150 - 32 8 10*3/?L. The reference range was not used to int erpret this result as normal/abnormal . MPV (test code = 11.5 fL 9.8-13 29589-1) RDW-CV (test code = 14.8 % 12.1-15.4 788-0) RDW-SD (test code = 47.2 fL 38.5-51.6 90637-6) NRBC x10^3 (test code = <0.01 See_Comment [Au tomated message] 6640906005) The system [employer] generated this result transmitted ref erence range: 10*3/?L. The reference range was not used to int erpret this result as normal/abnormal . NRBC/100 WBC (test code See_Comment [Au tomated message] = 7115938272) The system [facility] generated this result transmitted ref erence range: 0.0 - 10 .0 /100 WBCs. The reference range was not used to int erpret this result as normal/abnormal . IPF % (test code = 3.1 % 1.2-10.7 Platelet count 6538099143) measured by fluorescence me thod. Lab Interpretation Abnormal (test code = 83717-7) [facility] METABOLIC PANEL (NA, K, CL, CO2, GLUCOSE, BUN, CREATININE, CA)2020-03-28 11:16:00 Test Item Value Reference Range Interpretation Comments NA (test code = 138 mmol/L 135-145 4385049214) K (test code = 2.8 mmol/L 3.5-5 LL 1173871415) CL (test code = 117 mmol/L 98-108 H 7509374049) CO2 TOTAL (test code = 18 mmol/L 23-31 L 4931373971) AGAP (test code = 2-16 2485924635) BUN (test code = 10 mg/dL 7-23 5386425335) GLUCOSE (test code = 77 mg/dL 70-110 2031619632) CREATININE (test code = 0.72 mg/dL 0.6-1.25 5558514110) CALCIUM (test code = 5.6 mg/dL 8.6-10.6 LL 1662418254) eGFR Calculation mL/min/1.73m2 (Non-) (test code = 9192763190) eGFR Calculation mL/min/1.73m2 () (test code = 1804511058) YENI (test code = YENI) Association of Glomerular Filtration Rate (GFR) and Staging of Kidney Disease* + --+ --+ ------+| GFR (mL/min/1.73 m2) ?| With Kidney Damage ?| ?Without Kidney Damage+ --------+ --------+ +| ?>90 ?| ?Stage one ?| ? Normal ?+ ---+ ---+ -------+| ?60-89 ?| ?Stage two ?| ? Decreased GFR ? + --+ --+ ------+| ?30-59 ?| ?Stage three ?| ? Stage three ? + --+ --+ ------+| ?15-29 ?| ?Stage four ? | ? Stage four ?+ ---+ ---+ -------+| ?<15 (or dialysis) ? ?| ?Stage five ? | ? Stage five ?+ ---+ ---+ -------+ *Each stage assumes the associated GFR level has been in effect for at least three months. ?Stages 1 to 5, with or without kidney disease, indicate chronic kidney disease. Notes: Determination of stages one and two (with eGFR >59mL/min/1.73 m2) requires estimation of kidney damage for at least three months as defined by structural or functional abnormalities of the kidney, manifested by either:Pathological abnormalities or Markers of kidney damage (including abnormalities in the composition of the blood or urine or abnormalities in imaging tests). Lab Interpretation Abnormal (test code = 83631-3) [facility] [id number] 09:18:00 Test Item Value Reference Range Interpretation Comments PH (test code = 2) 7.35-7.45 PCO2 (test code = See_Comment L [Automat ed 7192888892) message] The sy stem which generated this result transmitted reference range : 35 - 45 mmHg. The reference range was not used to interpret this result as normal/abnormal . PO2 (test code = See_Comment H [Automated 4448091094) message] The sy stem which generated this result transmitted reference range : 80 - 100 mmHg. The reference range was not used to interpret this result as normal/abnormal . HCO3 (test code = See_Comment L [Automate d 8671735790) message] The sy stem which generated this result transmitted reference range : 22 - 26 mEq/L. The reference range was not used to interpret this result as normal/abnormal . BE (test code = See_Comment L [Automated 3939793276) message] The sy stem which generated this result transmitted reference range : -3.0 - 3.0 mEq/ L. The reference r fili was not used to interpret this result as normal/abnormal . THB (test code = 7.3 g/dL 13.5-18 LL 4185679819) %O2HB (test code = 96.3 % 94-99 0050780058) %COHB ART (test code = 1.2 % 0-1.5 9361259842) %METHB ART (test code = 0.6 % 0.4-1.5 7346483230) VOL%O2 ART (test code = 10.1 % 15-23 L 2438892471) NA (test code = 135 mmol/L 135-145 9904741415) K+ (test code = 2.7 mmol/L 3.5-5 LL 0449499439) AC CA IONZ (test code = 3.80 mg/dL 4.5-5.3 L 0668255227) GLUCOSE (test code = 77 mg/dL 70-110 8235582568) LACTIC ACID (test code 0.43 mmol/L = 5662089081) Lab Interpretation Abnormal (test code = 08041-7) [facility] WITHOUT [id number] 05:03:00 Test Item Value Reference Range Interpretation Comments WBC (test code = See_Comment [Automated message] 6690-2) The system [employer] generated this result transmitted ref erence range: 4.20 - 1 0.70 10*3/?L. The reference range was not used to int erpret this result as normal/abnormal . RBC (test code = 789-8) See_Comment L [Au tomated message] The system [employer] generated this result transmitted ref erence range: 4.26 - 5 .52 10*6/?L. The reference range was not used to int erpret this result as normal/abnormal . HGB (test code = 718-7) 8.2 g/dL 12.2-16.4 L HCT (test code = 23.4 % 38.4-49.3 L 4544-3) MCH (test code = 785-6) 30.0 pg 26.1-32.7 MCV (test code = 787-2) 85.7 fL 81.7-95.6 MCHC (test code = 35.0 g/dL 31.2-35 786-4) PLT (test code = 777-3) See_Comment L [Au tomated message] The system [employer] generated this result transmitted ref erence range: 150 - 32 8 10*3/?L. The reference range was not used to int erpret this result as normal/abnormal . MPV (test code = 10.8 fL 9.8-13 35028-2) RDW-CV (test code = 14.5 % 12.1-15.4 788-0) RDW-SD (test code = 44.9 fL 38.5-51.6 08482-4) NRBC x10^3 (test code = <0.01 See_Comment [Au tomated message] 3868021116) The system [facility] h generated this result transmitted ref erence range: 10*3/?L. The reference range was not used to int erpret this result as normal/abnormal . NRBC/100 WBC (test code See_Comment [Au tomated message] = 6435926305) The system [facility] generated this result transmitted ref erence range: 0.0 - 10 .0 /100 WBCs. The reference range was not used to int erpret this result as normal/abnormal . IPF % (test code = 3.4 % 1.2-10.7 Platelet count 6354162401) measured by fluorescence me thod. Lab Interpretation Abnormal (test code = 48037-4) [facility] L[facility]IC [id number] 04:39:00 Test Item Value Reference Range Interpretation Comments PH (test code = 2) 7.35-7.45 PCO2 (test code = See_Comment L [Automat ed 3846435254) message] The sy stem which generated this result transmitted reference range : 35 - 45 mmHg. The reference range was not used to interpret this result as normal/abnormal . PO2 (test code = See_Comment H [Automated 7581334789) message] The sy stem which generated this result transmitted reference range : 80 - 100 mmHg. The reference range was not used to interpret this result as normal/abnormal . HCO3 (test code = See_Comment L [Automate d 1303622977) message] The sy stem which generated this result transmitted reference range : 22 - 26 mEq/L. The reference range was not used to interpret this result as normal/abnormal . BE (test code = See_Comment L [Automated 0866755203) message] The sy stem which generated this result transmitted reference range : -3.0 - 3.0 mEq/ L. The reference r fili was not used to interpret this result as normal/abnormal . THB (test code = 11.8 g/dL 13.5-18 L 4035058288) %O2HB (test code = 98.5 % 94-99 0027372666) %COHB ART (test code = 0.8 % 0-1.5 1683746468) %METHB ART (test code = 0.1 % 0.4-1.5 L 7311092660) VOL%O2 ART (test code = 17.0 % 15-23 0113209749) NA (test code = 134 mmol/L 135-145 L 6492026181) K+ (test code = 3.5 mmol/L 3.5-5 2241251797) AC CA IONZ (test code = 4.40 mg/dL 4.5-5.3 L 6641470224) GLUCOSE (test code = 99 mg/dL 70-110 0004586977) LACTIC ACID (test code 0.64 mmol/L = 5966123471) Lab Interpretation Abnormal (test code = 24838-9) [facility] WITHOUT [id number] 23:30:00 Test Item Value Reference Range Interpretation Comments WBC (test code = See_Comment [Automated message] 6690-2) The system [employer] generated this result transmitted ref erence range: 4.20 - 1 0.70 10*3/?L. The reference range was not used to int erpret this result as normal/abnormal . RBC (test code = 789-8) See_Comment L [Au tomated message] The system [employer] generated this result transmitted ref erence range: 4.26 - 5 .52 10*6/?L. The reference range was not used to int erpret this result as normal/abnormal . HGB (test code = 718-7) 8.8 g/dL 12.2-16.4 L HCT (test code = 24.6 % 38.4-49.3 L 4544-3) MCH (test code = 785-6) 30.4 pg 26.1-32.7 MCV (test code = 787-2) 85.1 fL 81.7-95.6 MCHC (test code = 35.8 g/dL 31.2-35 H 786-4) PLT (test code = 777-3) See_Comment L [Au tomated message] The system [employer] generated this result transmitted ref erence range: 150 - 32 8 10*3/?L. The reference range was not used to int erpret this result as normal/abnormal . MPV (test code = 10.8 fL 9.8-13 78388-3) RDW-CV (test code = 14.3 % 12.1-15.4 788-0) RDW-SD (test code = 44.7 fL 38.5-51.6 47523-0) NRBC x10^3 (test code = <0.01 See_Comment [Au tomated message] 4336093538) The system ic h generated this result transmitted ref erence range: 10*3/?L. The reference range was not used to int erpret this result as normal/abnormal . NRBC/100 WBC (test code See_Comment [Au tomated message] = 6497921945) The system i ch generated this result transmitted ref erence range: 0.0 - 10 .0 /100 WBCs. The reference range was not used to int erpret this result as normal/abnormal . IPF % (test code = 2.9 % 1.2-10.7 Platelet count 7053660304) measured by fluorescence me thod. Lab Interpretation Abnormal (test code = 65265-0) [facility] LACTIC [id number] 23:24:00 Test Item Value Reference Range Interpretation Comments PH (test code = 2) 7.35-7.45 PCO2 (test code = See_Comment [Automat ed 8017254119) message] The sy stem which generated this result transmitted reference range : 35 - 45 mmHg. The reference range was not used to interpret this result as normal/abnormal . PO2 (test code = See_Comment H [Automated 7707690967) message] The sy stem which generated this result transmitted reference range : 80 - 100 mmHg. The reference range was not used to interpret this result as normal/abnormal . HCO3 (test code = See_Comment L [Automate d 1080637198) message] The sy stem which generated this result transmitted reference range : 22 - 26 mEq/L. The reference range was not used to interpret this result as normal/abnormal . BE (test code = See_Comment L [Automated 8256987435) message] The sy stem which generated this result transmitted reference range : -3.0 - 3.0 mEq/ L. The reference r fili was not used to interpret this result as normal/abnormal . THB (test code = 11.9 g/dL 13.5-18 L 7179375126) %O2HB (test code = 97.7 % 94-99 5816483681) %COHB ART (test code = 0.2 % 0-1.5 6473745287) %METHB ART (test code = 0.0 % 0.4-1.5 L 6744934689) VOL%O2 ART (test code = 16.5 % 15-23 2968483237) NA (test code = 134 mmol/L 135-145 L 1309914570) K+ (test code = 3.6 mmol/L 3.5-5 1081065985) AC CA IONZ (test code = 4.60 mg/dL 4.5-5.3 6302504720) GLUCOSE (test code = 109 mg/dL 70-110 0840492439) LACTIC ACID (test code 0.65 mmol/L = 7472160224) Lab Interpretation Abnormal (test code = 06809-7) [facility] [id number] 22:42:25Impression: Stable findings with no new changes.Exam: XR CHEST 1 VW Clinical History: respiratory distress Comparison: March 27, 2020 Findings: Frontal views of the chest are compared to the priorstudy. 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 Nonew infiltrate or pneumothorax is seen. Bones and upper abdomen areunchanged. [facility], Radiant Results Inft User - 03/27/2020 5:43 PM CDTExam: XR CHEST 1 VWClinical History: respiratory distress Comparison: March 27, 2020Findings: Frontal views of the chest are compared to the prior study. 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 Nonew infiltrate or pneumothorax is seen. Bones and upper abdomen areunchanged.IMPRESSIONImpression: Stable findings with no new changes. [facility] + LACTIC [id number] 21:53:00 Test Item Value Reference Range Interpretation Comments PH (test code = 2) 7.35-7.45 PCO2 (test code = See_Comment L [Automat ed 9846505833) message] The sy stem which generated this result transmitted reference range : 35 - 45 mmHg. The reference range was not used to interpret this result as normal/abnormal . PO2 (test code = See_Comment H [Automated 1043263506) message] The sy stem which generated this result transmitted reference range : 80 - 100 mmHg. The reference range was not used to interpret this result as normal/abnormal . HCO3 (test code = See_Comment [Automate d 6527781986) message] The sy stem which generated this result transmitted reference range : 22 - 26 mEq/L. The reference range was not used to interpret this result as normal/abnormal . BE (test code = See_Comment [Automated 6981511098) message] The sy stem which generated this result transmitted reference range : -3.0 - 3.0 mEq/ L. The reference r fili was not used to interpret this result as normal/abnormal . THB (test code = 11.0 g/dL 13.5-18 L 0357066834) %O2HB (test code = 97.9 % 94-99 1289121099) %COHB ART (test code = 0.3 % 0-1.5 6601732723) %METHB ART (test code = 0.0 % 0.4-1.5 L 5025266439) VOL%O2 ART (test code = 15.3 % 15-23 1075593752) NA (test code = 134 mmol/L 135-145 L 8411780520) K+ (test code = 3.6 mmol/L 3.5-5 2290881986) AC CA IONZ (test code = 4.50 mg/dL 4.5-5.3 1919344609) GLUCOSE (test code = 104 mg/dL 70-110 4649118009) LACTIC ACID (test code 0.90 mmol/L = 0797814248) Lab Interpretation Abnormal (test code = 79213-9) [facility] WITHOUT [id number] 17:07:00 Test Item Value Reference Range Interpretation Comments WBC (test code = 6690-2) See_Comment [A utomated message] The system [employer] h generated this result transmit arsalan reference range : 4.20 - 10.70 10*3/?L. The reference range was not used to interpret this result as normal/abnormal . RBC (test code = 789-8) See_Comment L [Au tomated message] The system [employer] generated this result transmit arsalan reference range : 4.26 - 5.52 10* 6/?L. The reference r fili was not used to interpret this result as normal/abnormal . HGB (test code = 718-7) 9.6 g/dL 12.2-16.4 L HCT (test code = 4544-3) 27.3 % 38.4-49.3 L MCH (test code = 785-6) 29.4 pg 26.1-32.7 MCV (test code = 787-2) 83.5 fL 81.7-95.6 MCHC (test code = 786-4) 35.2 g/dL 31.2-35 H PLT (test code = 777-3) See_Comment L [Au tomated message] The system [employer] generated this result transmit arsalan reference range : 150 - 328 10*3/?L. The reference range was not used to interpret this result as normal/abnormal . MPV (test code = 10.5 fL 9.8-13 80418-9) RDW-CV (test code = 14.1 % 12.1-15.4 788-0) RDW-SD (test code = 42.6 fL 38.5-51.6 73834-7) NRBC x10^3 (test code = <0.01 See_Comment [Au tomated message] 2174932055) The system [employer] generated this result transmit arsalan reference range : 10*3/?L. The reference range was not used to interpret this result as normal/abnormal . NRBC/100 WBC (test code See_Comment [Au tomated message] = 2867747088) The system [facility] generated this result transmit arsalan reference range : 0.0 - 10.0 /100 WBC s. The reference r fili was not used to interpret this result as normal/abnormal . IPF % (test code = 8099229472) Lab Interpretation (test Abnormal code = 10305-5) [facility] + LACTIC [id number] 16:52:00 Test Item Value Reference Range Interpretation Comments PH (test code = 2) 7.35-7.45 PCO2 (test code = See_Comment L [Automat ed 4109568210) message] The sy stem which generated this result transmitted reference range : 35 - 45 mmHg. The reference range was not used to interpret this result as normal/abnormal . PO2 (test code = See_Comment H [Automated 1579422866) message] The sy stem which generated this result transmitted reference range : 80 - 100 mmHg. The reference range was not used to interpret this result as normal/abnormal . HCO3 (test code = See_Comment L [Automate d 2552816516) message] The sy stem which generated this result transmitted reference range : 22 - 26 mEq/L. The reference range was not used to interpret this result as normal/abnormal . BE (test code = See_Comment L [Automated 7010741937) message] The sy stem which generated this result transmitted reference range : -3.0 - 3.0 mEq/ L. The reference r fili was not used to interpret this result as normal/abnormal . THB (test code = 10.1 g/dL 13.5-18 L 5798188817) %O2HB (test code = 98.5 % 94-99 7998536594) %COHB ART (test code = 0.5 % 0-1.5 5423392231) %METHB ART (test code = 0.2 % 0.4-1.5 L 8443066832) VOL%O2 ART (test code = 14.7 % 15-23 L 7263184666) NA (test code = 135 mmol/L 135-145 4890045460) K+ (test code = 3.7 mmol/L 3.5-5 0622570546) AC CA IONZ (test code = 4.50 mg/dL 4.5-5.3 1561313857) GLUCOSE (test code = 104 mg/dL 70-110 4318452806) LACTIC ACID (test code 0.77 mmol/L = 5602604154) Lab Interpretation Abnormal (test code = 01213-0) [facility] [id number] 13:32:33 Interval placement of endotracheal tube terminating approximately 8 cmabove the jumana Dobbhoff tube extends to proximal jejunum.. Preliminary Report Dictated by Resident: Godfrey Rodriguez MD., have reviewed this study and agree withthe above report.XR CHEST 1 VW, XR KUB HISTORY: 69 years- old; Male; intubation COMPARISON: 03/26/2020 TECHNIQUE: SINGLE VIEW CHEST RADIOGRAPH.FINDINGS: Endotracheal tube terminates approximately 8 cm above the jumana at thelevel of superior margin of interclavicular region. Esophagogastric tubesenter the stomach, continued duodenum and the tip of the enteric tube is inthe proximal jejunum. An NG tube terminates in the stomach.A right IJ central line terminates at the cavoatrial junction. Linear opacities are noted along the left paramediastinal region and theleft midlung, new from prior study and likely representing subsegmentalatelectasis in the left upper lobe and lingula. There is no pleuraleffusion or pneumothorax. The heart is normal in size. In the abdomen bowel gas distribution is nonobstructed and nonspecific. Avertical left paramedian staple line noted. Multiple surgical clips projectover the epigastrium midline. There is no acute osseous abnormality. [facility], Radiant Results Inft User - 03/27/2020 8:33 AM CDTXR CHEST 1 VW, XR KUBHISTORY: 69 years-old; Male; intubation COMPARISON: 03/26/2020TECHNIQUE: SINGLE VIEW CHEST RADIOGRAPH.FINDINGS:Endotracheal tube terminates approximately 8 cm above the jumana at thelevel of superiormargin of interclavicular region. Esophagogastric tubesenter the stomach, continued duodenum and thetip of the enteric tube is inthe proximal jejunum. An NG tube terminates in the stomach.A right IJ central line terminates at the cavoatrial junction.Linear opacities are noted along the left paramediastinal region and theleft midlung, new from prior study and likely representing subsegmentalatelectasis in the left upper lobe and lingula. There is no pleuraleffusion or pneumothorax.The heart is normal in size.In the abdomen bowel gas distribution is nonobstructed and nonspecific. Avertical left noy edian staple line noted. Multiple surgical clips projectover the epigastrium midline.There is no acute osseous abnormality.IMPRESSIONInterval placement of endotracheal tube terminating approximately 8 cmabove the carinaDobbhoff tube extends to proximal jejunum..Preliminary Report Dictated by Resident:Godfrey Kemp MD., have reviewed this study and agree withthe above report.[facility] [id number] 13:32:33 Interval placement of endotracheal tube terminating approximately 8 cmabove the jumana Dobbhoff tube extends to proximal jejunum.. Preliminary Report Dictated by Resident: Godfrey Rodriguez MD., have reviewed this study and agree withthe above report.XR CHEST 1 VW, XR KUB HISTORY: 69 years- old; Male; intubation COMPARISON: 03/26/2020 TECHNIQUE: SINGLE VIEW CHEST RADIOGRAPH.FINDINGS: Endotracheal tube terminates approximately 8 cm above the jumana at thelevel of superior margin of interclavicular region. Esophagogastric tubesenter the stomach, continued duodenum and the tip of the enteric tube is inthe proximal jejunum. An NG tube terminates in the stomach.A right IJ central line terminates at the cavoatrial junction. Linear opacities are noted along the left paramediastinal region and theleft midlung, new from prior study and likely representing subsegmentalatelectasis in the left upper lobe and lingula. There is no pleuraleffusion or pneumothorax. The heart is normal in size. In the abdomen bowel gas distribution is nonobstructed and nonspecific. Avertical left paramedian staple line noted. Multiple surgical clips projectover the epigastrium midline. There is no acute osseous abnormality. [facility], Radiant Results Inft User - 03/27/2020 8:33 AM CDTXR CHEST 1 VW, XR KUBHISTORY: 69 years-old; Male; intubation COMPARISON: 03/26/2020TECHNIQUE: SINGLE VIEW CHEST RADIOGRAPH.FINDINGS:Endotracheal tube terminates approximately 8 cm above the jumana at thelevel of superiormargin of interclavicular region. Esophagogastric tubesenter the stomach, continued duodenum and thetip of the enteric tube is inthe proximal jejunum. An NG tube terminates in the stomach.A right IJ central line terminates at the cavoatrial junction.Linear opacities are noted along the left paramediastinal region and theleft midlung, new from prior study and likely representing subsegmentalatelectasis in the left upper lobe and lingula. There is no pleuraleffusion or pneumothorax.The heart is normal in size.In the abdomen bowel gas distribution is nonobstructed and nonspecific. Avertical left noy edian staple line noted. Multiple surgical clips projectover the epigastrium midline.There is no acute osseous abnormality.IMPRESSIONInterval placement of endotracheal tube terminating approximately 8 cmabove the carinaDobbhoff tube extends to proximal jejunum..Preliminary Report Dictated by Resident:Godfrey Kemp MD., have reviewed this study and agree withthe above report.[facility] + LACTIC ACID 2020-03-27 13:06:00 Test Item Value Reference Range Interpretation Comments PH (test code = 2) 7.35-7.45 PCO2 (test code = See_Comment L [Automat ed 4776679643) message] The sy stem which generated this result transmitted reference range : 35 - 45 mmHg. The reference range was not used to interpret this result as normal/abnormal . PO2 (test code = See_Comment H [Automated 9610396635) message] The sy stem which generated this result transmitted reference range : 80 - 100 mmHg. The reference range was not used to interpret this result as normal/abnormal . HCO3 (test code = See_Comment L [Automate d 0504018481) message] The sy stem which generated this result transmitted reference range : 22 - 26 mEq/L. The reference range was not used to interpret this result as normal/abnormal . BE (test code = See_Comment L [Automated 4579886297) message] The sy stem which generated this result transmitted reference range : -3.0 - 3.0 mEq/ L. The reference r fili was not used to interpret this result as normal/abnormal . THB (test code = 10.8 g/dL 13.5-18 L 2601810517) %O2HB (test code = 97.9 % 94-99 0940181632) %COHB ART (test code = 1.0 % 0-1.5 8802680325) %METHB ART (test code = 0.3 % 0.4-1.5 L 1984099850) VOL%O2 ART (test code = 15.5 % 15-23 9591575032) NA (test code = 135 mmol/L 135-145 7273288614) K+ (test code = 4.0 mmol/L 3.5-5 5502587930) AC CA IONZ (test code = 4.70 mg/dL 4.5-5.3 6015020173) GLUCOSE (test code = 103 mg/dL 70-110 8471987937) LACTIC ACID (test code 1.02 mmol/L = 1908301328) Lab Interpretation Abnormal (test code = 46430-3) [facility]2020-10-31 10:32:00 Test Item Value Reference Range Interpretation Comments MAGNESIUM (test code = 9220730658) 2.3 mg/dL 1.7-2.4 Lab Interpretation (test code = Normal 98745-5) [facility]2020-10-31 10:32:00 Test Item Value Reference Range Interpretation Comments PHOSPHORUS (test code = 6839324484) 4.2 mg/dL 2.5-5 Lab Interpretation (test code = Normal 78964-9) [facility] (NA, K, CL, CO2, GLUCOSE, BUN, CREATININE, CA)2020-03-27 10:32:00 Test Item Value Reference Range Interpretation Comments NA (test code = 137 mmol/L 135-145 1840528125) K (test code = 4.2 mmol/L 3.5-5 1729751937) CL (test code = 112 mmol/L 98-108 H 0825573553) CO2 TOTAL (test code = 20 mmol/L 23-31 L 4730350044) AGAP (test code = 2-16 5746695261) BUN (test code = 20 mg/dL 7-23 7898368462) GLUCOSE (test code = 109 mg/dL 70-110 0954172961) CREATININE (test code = 0.87 mg/dL 0.6-1.25 5975867563) CALCIUM (test code = 8.1 mg/dL 8.6-10.6 L 1461314506) eGFR Calculation mL/min/1.73m2 (Non-) (test code = 3961213798) eGFR Calculation mL/min/1.73m2 () (test code = 1529976985) YENI (test code = YENI) Association of Glomerular Filtration Rate (GFR) and Staging of Kidney Disease* + --+ --+ ------+| GFR (mL/min/1.73 m2) ?| With Kidney Damage ?| ?Without Kidney Damage+ --------+ --------+ +| ?>90 ?| ?Stage one ?| ? Normal ?+ ---+ ---+ -------+| ?60-89 ?| ?Stage two ?| ? Decreased GFR ? + --+ --+ ------+| ?30-59 ?| ?Stage three ?| ? Stage three ? + --+ --+ ------+| ?15-29 ?| ?Stage four ? | ? Stage four ?+ ---+ ---+ -------+| ?<15 (or dialysis) ? ?| ?Stage five ? | ? Stage five ?+ ---+ ---+ -------+ *Each stage assumes the associated GFR level has been in effect for at least three months. ?Stages 1 to 5, with or without kidney disease, indicate chronic kidney disease. Notes: Determination of stages one and two (with eGFR >59mL/min/1.73 m2) requires estimation of kidney damage for at least three months as defined by structural or functional abnormalities of the kidney, manifested by either:Pathological abnormalities or Markers of kidney damage (including abnormalities in the composition of the blood or urine or abnormalities in imaging tests). Lab Interpretation Abnormal (test code = 83456-0) [facility] LACT[facility] [id number] 10:09:00 Test Item Value Reference Range Interpretation Comments PH (test code = 2) 7.35-7.45 PCO2 (test code = See_Comment L [Automat ed 3391414507) message] The sy stem which generated this result transmitted reference range : 35 - 45 mmHg. The reference range was not used to interpret this result as normal/abnormal . PO2 (test code = See_Comment H [Automated 8044467420) message] The sy stem which generated this result transmitted reference range : 80 - 100 mmHg. The reference range was not used to interpret this result as normal/abnormal . HCO3 (test code = See_Comment L [Automate d 1068739094) message] The sy stem which generated this result transmitted reference range : 22 - 26 mEq/L. The reference range was not used to interpret this result as normal/abnormal . BE (test code = See_Comment L [Automated 2196348449) message] The sy stem which generated this result transmitted reference range : -3.0 - 3.0 mEq/ L. The reference r fili was not used to interpret this result as normal/abnormal . THB (test code = 11.5 g/dL 13.5-18 L 7653649987) %O2HB (test code = 98.3 % 94-99 7232401668) %COHB ART (test code = 0.8 % 0-1.5 1571026767) %METHB ART (test code = 0.1 % 0.4-1.5 L 4505075261) VOL%O2 ART (test code = 16.3 % 15-23 5845238107) NA (test code = 136 mmol/L 135-145 9875501495) K+ (test code = 4.2 mmol/L 3.5-5 1009211497) AC CA IONZ (test code = 4.80 mg/dL 4.5-5.3 8049147870) GLUCOSE (test code = 101 mg/dL 70-110 2684142445) LACTIC ACID (test code 1.19 mmol/L = 1292687093) Lab Interpretation Abnormal (test code = 89888-4) [facility] + LACTIC [id number] 07:58:00 Test Item Value Reference Range Interpretation Comments PH (test code = 2) 7.35-7.45 PCO2 (test code = See_Comment L [Automat ed 7463468788) message] The sy stem which generated this result transmitted reference range : 35 - 45 mmHg. The reference range was not used to interpret this result as normal/abnormal . PO2 (test code = See_Comment H [Automated 8039629997) message] The sy stem which generated this result transmitted reference range : 80 - 100 mmHg. The reference range was not used to interpret this result as normal/abnormal . HCO3 (test code = See_Comment L [Automate d 9500699412) message] The sy stem which generated this result transmitted reference range : 22 - 26 mEq/L. The reference range was not used to interpret this result as normal/abnormal . BE (test code = See_Comment L [Automated 1162556047) message] The sy stem which generated this result transmitted reference range : -3.0 - 3.0 mEq/ L. The reference r fili was not used to interpret this result as normal/abnormal . THB (test code = 10.5 g/dL 13.5-18 L 0813134356) %O2HB (test code = 98.4 % 94-99 1027578981) %COHB ART (test code = 0.8 % 0-1.5 1270545608) %METHB ART (test code = 0.0 % 0.4-1.5 L 1626163778) VOL%O2 ART (test code = 15.0 % 15-23 8797267747) NA (test code = 135 mmol/L 135-145 4796481684) K+ (test code = 4.0 mmol/L 3.5-5 9195983531) AC CA IONZ (test code = 4.70 mg/dL 4.5-5.3 5905863388) GLUCOSE (test code = 109 mg/dL 70-110 6783906150) LACTIC ACID (test code 0.94 mmol/L = 7268532555) Lab Interpretation Abnormal (test code = 78913-8) [facility] METABOLIC PANEL (NA, K, CL, CO2, GLUCOSE, BUN, CREATININE, CA)2020-03-27 05:41:00 Test Item Value Reference Range Interpretation Comments NA (test code = 137 mmol/L 135-145 7038675613) K (test code = 3.8 mmol/L 3.5-5 6292891281) CL (test code = 110 mmol/L 98-108 H 6124639867) CO2 TOTAL (test code = 21 mmol/L 23-31 L 6759610294) AGAP (test code = 2-16 3355072183) BUN (test code = 23 mg/dL 7-23 9075269505) GLUCOSE (test code = 193 mg/dL 70-110 H 7103166943) CREATININE (test code = 0.88 mg/dL 0.6-1.25 7473761096) CALCIUM (test code = 8.4 mg/dL 8.6-10.6 L 9089744345) eGFR Calculation mL/min/1.73m2 (Non-) (test code = 3224273857) eGFR Calculation mL/min/1.73m2 () (test code = 5072356616) YENI (test code = YENI) Association of Glomerular Filtration Rate (GFR) and Staging of Kidney Disease* + --+ --+ ------+| GFR (mL/min/1.73 m2) ?| With Kidney Damage ?| ?Without Kidney Damage+ --------+ --------+ +| ?>90 ?| ?Stage one ?| ? Normal ?+ ---+ ---+ -------+| ?60-89 ?| ?Stage two ?| ? Decreased GFR ? + --+ --+ ------+| ?30-59 ?| ?Stage three ?| ? Stage three ? + --+ --+ ------+| ?15-29 ?| ?Stage four ? | ? Stage four ?+ ---+ ---+ -------+| ?<15 (or dialysis) ? ?| ?Stage five ? | ? Stage five ?+ ---+ ---+ -------+ *Each stage assumes the associated GFR level has been in effect for at least three months. ?Stages 1 to 5, with or without kidney disease, indicate chronic kidney disease. Notes: Determination of stages one and two (with eGFR >59mL/min/1.73 m2) requires estimation of kidney damage for at least three months as defined by structural or functional abnormalities of the kidney, manifested by either:Pathological abnormalities or Markers of kidney damage (including abnormalities in the composition of the blood or urine or abnormalities in imaging tests). Lab Interpretation Abnormal (test code = 90896-1) [facility]2020-10-[facility] 05:41:00 Test Item Value Reference Range Interpretation Comments MAGNESIUM (test code = 7440922130) 1.2 mg/dL 1.7-2.4 L Lab Interpretation (test code = Abnormal 00335-4) [facility]2020-10-31 05:41:00 Test Item Value Reference Range Interpretation Comments PHOSPHORUS (test code = 0580230211) 4.5 mg/dL 2.5-5 Lab Interpretation (test code = Normal 85923-6) [facility]2020-10-31 05:31:00 Test Item Value Reference Range Interpretation Comments Fibrinogen (test code = 1224115171) 227 mg/dL 167-453 Lab Interpretation (test code = Normal 70329-4) [facility] / [id number] 05:25:00 Test Item Value Reference Range Interpretation Comments PROTIME PATIENT (test See_Comment H [Auto mated message] code = 5964-2) The system Luxim generated this result transmitted ref erence range: 10.1 - 1 2.6 Seconds. The reference range was not used to int erpret this result as normal/abnormal . INR (test code = 6301-6) Nor mal INR <1.1; Warfarin Therap eutic range 2.0 to 3. 0 or 2.5 to 3.5, dep ending upon the indica tions. Lab Interpretation (test Abnormal code = 72172-6) [facility] Packed RBC (in units)2020-03-27 05:25:00 Test Item Value Reference Range Interpretation Comments Cross Match Result Compatible (test code = 4409) ISBT Blood Type Code (test code = 454885) Unit Blood Type (test A Pos code = 4410) Unit Number (test [id number] code = 4411) Blood Expiration Date & Time (test code = 544084) Status Information Issued (test code = 4412) Product Red Blood Cells Identification (test code = 4413) Product Code (test C1316Z74 Performed at [facility] code = 4414) Laboratory Services - [facility] Blood [address] [place] [address]Yyrr Free: [phone] A No. [id number] [facility] WITHOUT [id number] 05:13:00 Test Item Value Reference Range Interpretation Comments WBC (test code = 6690-2) See_Comment [A utomated message] The system Myrio generated this result transmit arsalan reference range : 4.20 - 10.70 10*3/?L. The reference range was not used to interpret this result as normal/abnormal . RBC (test code = 789-8) See_Comment L [Au tomated message] The system Myrio generated this result transmit arsalan reference range : 4.26 - 5.52 10* 6/?L. The reference r fili was not used to interpret this result as normal/abnormal . HGB (test code = 718-7) 10.1 g/dL 12.2-16.4 L HCT (test code = 4544-3) 29.4 % 38.4-49.3 L MCH (test code = 785-6) 30.4 pg 26.1-32.7 MCV (test code = 787-2) 88.6 fL 81.7-95.6 MCHC (test code = 786-4) 34.4 g/dL 31.2-35 PLT (test code = 777-3) See_Comment L [Au tomated message] The system Myrio generated this result transmit arsalan reference range : 150 - 328 10*3/?L. The reference range was not used to interpret this result as normal/abnormal . MPV (test code = 10.4 fL 9.8-13 16722-9) RDW-CV (test code = 13.8 % 12.1-15.4 788-0) RDW-SD (test code = 44.2 fL 38.5-51.6 94871-8) NRBC x10^3 (test code = <0.01 See_Comment [Au tomated message] 3452747466) The system Myrio generated this result transmit arsalan reference range : 10*3/?L. The reference range was not used to interpret this result as normal/abnormal . NRBC/100 WBC (test code See_Comment [Au tomated message] = 0651581870) The system [employer] generated this result transmit arsalan reference range : 0.0 - 10.0 /100 WBC s. The reference r fili was not used to interpret this result as normal/abnormal . IPF % (test code = 9741471134) Lab Interpretation (test Abnormal code = 80737-6) [facility] + LACTIC [id number] 05:12:00 Test Item Value Reference Range Interpretation Comments PH (test code = 2) 7.35-7.45 L PCO2 (test code = See_Comment H [Automat ed 1431780177) message] The sy stem which generated this result transmitted reference range : 35 - 45 mmHg. The reference range was not used to interpret this result as normal/abnormal . PO2 (test code = See_Comment H [Automated 4112341226) message] The sy stem which generated this result transmitted reference range : 80 - 100 mmHg. The reference range was not used to interpret this result as normal/abnormal . HCO3 (test code = See_Comment L [Automate d 8906934164) message] The sy stem which generated this result transmitted reference range : 22 - 26 mEq/L. The reference range was not used to interpret this result as normal/abnormal . BE (test code = See_Comment L [Automated 6111631382) message] The sy stem which generated this result transmitted reference range : -3.0 - 3.0 mEq/ L. The reference r fili was not used to interpret this result as normal/abnormal . THB (test code = 9.1 g/dL 13.5-18 L 0170670085) %O2HB (test code = 97.0 % 94-99 9325662492) %COHB ART (test code = 1.7 % 0-1.5 H 8823596316) %METHB ART (test code = 0.3 % 0.4-1.5 L 3757295986) VOL%O2 ART (test code = 12.8 % 15-23 L 8478146713) NA (test code = 135 mmol/L 135-145 6522601368) K+ (test code = 3.8 mmol/L 3.5-5 3672624587) AC CA IONZ (test code = 5.10 mg/dL 4.5-5.3 5015970143) GLUCOSE (test code = 190 mg/dL 70-110 H 4657089234) LACTIC ACID (test code 1.50 mmol/L = 7491250216) Lab Interpretation Abnormal (test code = 76228-5) [facility] Plasma (in units): 5 Units~Indication: Active [id number] 05:09:59 Test Item Value Reference Range Interpretation Comments Unit Blood Type (test AB Neg code = 4410) ISBT Blood Type Code (test code = 174927) Unit Number (test code [id number] = 4411) Blood Expiration Date & Time (test code = 928292) Status Information Issued (test code = 4412) Product Identification FFP (test code = 4413) Product Code (test S3482C19 Performed at [facility] code = 4414) Laboratory Services - [facility] Blood [address] [place] [address]Iuqr Free: [phone] A No. [id number] [facility] CHEST 1 [id number] 04:56:35Impression: Right IJ central venous catheter at the right atrium.Exam: XR CHEST 1 03/26/2020 7:19PM Clinical History: line clearance Comparison: Radiograph of 02/16/2020 Technique: frontal view of the chest Findings: A right large bore IJ central venous catheter terminates in the rightatrium. Prominence of hilar vessels.The lungs are clear. ?The leftcostophrenic angle is off the view. No right pleural effusion. ?Nopneumothorax. The cardiomediastinal silhouette appears enlargedNo acute osseous abnormality. [facility], Radiant Results Inft User - 03/26/2020 11:57 PM CDTExam: XR CHEST 1 03/26/2020 7:19 PMClinical History: line clearance Comparison: Radiograph of 02/16/2020Technique: frontal view of the chestFindings: A right large bore IJ central venous catheter terminates in the rightatrium. Prominence of hilar vessels.The lungs are clear. The leftcostophrenic angle is off the view. No right pleural effusion. Nopneumothorax. The cardiomediastinal silhouette appears enlargedNo acute osseous abnormality. IMPRESSIONImpression: Right IJ central venous catheter at the right atrium.[facility] Platelets (in units): 1 Units~Indication: 6) Other - (specify in comments) (active bleeding,low platelets)2020-03-27 03:37:21 Test Item Value Reference Range Interpretation Comments Unit Blood Type (test A Pos code = 4410) ISBT Blood Type Code (test code = 429203) Unit Number (test code [id number] = 4411) Blood Expiration Date & Time (test code = 327706) Status Information Issued (test code = 4412) Product Identification Platelets (test code = 4413) Product Code (test S6840Z90 Performed at [facility] code = 4414) Laboratory Services - [facility] Blood [address] [place] [address]Jhnp Free: [phone] A No. [id number] [facility] Cryoprecipitate (in units)~2020-03-27 03:09:34 Test Item Value Reference Range Interpretation Comments Unit Blood Type (test O Pos code = 4410) ISBT Blood Type Code (test code = 426121) Unit Number (test [id number] code = 4411) Blood Expiration Date & Time (test code = 541209) Status Information Issued (test code = 4412) Product Cryoprecipitate Identification (test code = 4413) Product Code (test O6803T52 Performed at [facility] code = 4414) Laboratory Services - [facility] Blood [address] [address]Jehq Free: [phone] A No. [id number] [facility] WITH [id number] 03:01:00 Test Item Value Reference Range Interpretation Comments WBC (test code = See_Comment H [Automated 5690-2) message] The system which generated this result transmit arsalan reference range : 4.20 - 10.70 10*3/?L. The reference range was not used to interpret this result as normal/abnormal . RBC (test code = See_Comment L [Automated 739-8) message] The system which generated this result transmit arsalan reference range : 4.26 - 5.52 10*6/?L. The reference range was not used to interpret this result as normal/abnormal . HGB (test code = 11.0 g/dL 12.2-16.4 L 718-7) HCT (test code = 33.3 % 38.4-49.3 L 4544-3) MCV (test code = 91.2 fL 81.7-95.6 787-2) MCH (test code = 30.1 pg 26.1-32.7 785-6) MCHC (test code = 33.0 g/dL 31.2-35 786-4) RDW-SD (test code = 47.4 fL 38.5-51.6 92033-2) RDW-CV (test code = 14.2 % 12.1-15.4 788-0) PLT (test code = See_Comment L [Automated 777-3) message] The system which generated this result transmit arsalan reference range : 150 - 328 10*3/ ?L. The reference range was not u sed to interpret th is result as normal/abnormal . MPV (test code = 10.9 fL 9.8-13 27934-6) NRBC/100 WBC (test See_Comment [Automat ed code = 5472359811) message] The system which generated this result transmit arsalan reference range : 0.0 - 10.0 /100 WBCs. The reference range was not used to interpret this result as normal/abnormal . NRBC x10^3 (test code <0.01 See_Comment [Auto mated = 2949542898) message] The system which generated this result transmit arsalan reference range : 10*3/?L. The reference range was not used to interpret this result as normal/abnormal . GRAN MAT (NEUT) % 79.2 % (test code = 770-8) IMM GRAN % (test code 1.90 % = 5138869843) LYMPH % (test code = 13.4 % 736-9) MONO % (test code = 4.9 % 5905-5) EOS % (test code = 0.2 % 713-8) BASO % (test code = 0.4 % 706-2) GRAN MAT x10^3(ANC) 13.43 10*3/uL 1.99-6.95 H (test code = 9203398464) IMM GRAN x10^3 (test 0.33 10*3/uL 0-0.06 H code = 6600444968) LYMPH x10^3 (test code 2.27 10*3/uL 1.09-3.23 = 731-0) MONO x10^3 (test code 0.84 10*3/uL 0.36-1.02 = 742-7) EOS x10^3 (test code = 0.04 10*3/uL 0.06-0.53 L 711-2) BASO x10^3 (test code 0.06 10*3/uL 0.01-0.09 = 704-7) Lab Interpretation Abnormal (test code = 19814-3) [facility]ham[facility]OM[facility] / [id number] 02:59:00 Test Item Value Reference Range Interpretation Comments PROTIME PATIENT (test See_Comment H [Auto mated message] code = 5964-2) The system wh ich generated this result transmitted ref erence range: 10.1 - 1 2.6 Seconds. The reference range was not used to int erpret this result as normal/abnormal . INR (test code = 6301-6) Nor mal INR <1.1; Warfarin Therap eutic range 2.0 to 3. 0 or 2.5 to 3.5, dep ending upon the indica tions. Lab Interpretation (test Abnormal code = 41340-5) [facility] THRMPLAS [id number] 02:59:00 Test Item Value Reference Range Interpretation Comments APTT Patient (test code See_Comment L [Au tomated message] = 3173-2) The system Myrio generated this result transmitted ref erence range: 26 - 36 Seconds. The reference range was not used to int erpret this result as normal/abnormal . Lab Interpretation (test Abnormal code = 07187-5) [facility] Cryoprecipitate (in units): 2 Units~Indication: 1) Fibrinogen < 100 mg/dL with bleeding or potential for bleeding associated with invasive procedure (on hold fo rsurgery)2020-03-27 01:52:48 Test Item Value Reference Range Interpretation Comments Unit Blood Type (test B Pos code = 4410) ISBT Blood Type Code (test code = 277221) Unit Number (test [id number] code = 4411) Blood Expiration Date & Time (test code = 215427) Status Information Issued (test code = 4412) Product Cryoprecipitate Identification (test code = 4413) Product Code (test E1099E03 Performed at [facility] code = 4414) Laboratory Services - [facility] Blood [address] [place] [address]Xbmm Free: [phone] A No. [id number] [facility]IB[facility]IN[facility]EN2020-10-31 01:40:00 Test Item Value Reference Range Interpretation Comments Fibrinogen (test code = 5986801947) 137 mg/dL 167-453 L Lab Interpretation (test code = Abnormal 84806-1) [facility]hamPROTHROMBIN [facility] / [id number] 01:37:00 Test Item Value Reference Range Interpretation Comments PROTIME PATIENT (test See_Comment H [Auto mated message] code = 5964-2) The system Luxim generated this result transmitted ref erence range: 10.1 - 1 2.6 Seconds. The reference range was not used to int erpret this result as normal/abnormal . INR (test code = 6301-6) Nor mal INR <1.1; Warfarin Therap eutic range 2.0 to 3. 0 or 2.5 to 3.5, dep ending upon the indica tions. Lab Interpretation (test Abnormal code = 32135-4) [facility] TH[facility] [id number] 01:37:00 Test Item Value Reference Range Interpretation Comments APTT Patient (test code See_Comment L [Au tomated message] = 3173-2) The system Myrio generated this result transmitted ref erence range: 26 - 36 Seconds. The reference range was not used to int erpret this result as normal/abnormal . Lab Interpretation (test Abnormal code = 48994-6) [facility]2020-03-27 01:26:25 Test Item Value Reference Range Interpretation Comments Cross Match Result Compatible (test code = 4409) ISBT Blood Type Code (test code = 790366) Unit Blood Type (test A Pos code = 4410) Unit Number (test [id number] code = 4411) Blood Expiration Date & Time (test code = 580911) Status Information Issued (test code = 4412) Product Red Blood Cells Identification (test code = 4413) Product Code (test A3456U76 Performed at [facility] code = 4414) Laboratory Services - [facility] Blood [address] [address]Ywrf Free: [phone] A No. [id number] [facility] Plasma (in units)~2020-03-27 01:26:25 Test Item Value Reference Range Interpretation Comments Unit Blood Type (test AB Pos code = 4410) ISBT Blood Type Code (test code = 598397) Unit Number (test code [id number] = 4411) Blood Expiration Date & Time (test code = 808275) Status Information Issued (test code = 4412) Product Identification FFP (test code = 4413) Product Code (test E4761S13 Performed at [facility] code = 4414) Laboratory Services - [facility] Blood [address] s [address]Iflt Free: [phone] A No. [id number] [facility] Packed RBC (in units), 5 Units 2020-03-27 01:26:20 Test Item Value Reference Range Interpretation Comments Cross Match Result Compatible (test code = 4409) ISBT Blood Type Code (test code = 084966) Unit Blood Type (test A Pos code = 4410) Unit Number (test [id number] code = 4411) Blood Expiration Date & Time (test code = 246991) Status Information Issued (test code = 4412) Product Red Blood Cells Identification (test code = 4413) Product Code (test O6667D31 Performed at [facility] code = 4414) Laboratory Services - [facility] Blood [address] [place] [address]Dbxq Free: [phone] A No. [id number] [facility] 20 + LACTIC [id number] 01:10:00 Test Item Value Reference Range Interpretation Comments PH (test code = 2) 7.35-7.45 PCO2 (test code = See_Comment L [Automat ed 8407302009) message] The sy stem which generated this result transmitted reference range : 35 - 45 mmHg. The reference range was not used to interpret this result as normal/abnormal . PO2 (test code = See_Comment H [Automated 4289732027) message] The sy stem which generated this result transmitted reference range : 80 - 100 mmHg. The reference range was not used to interpret this result as normal/abnormal . HCO3 (test code = See_Comment L [Automate d 7059833793) message] The sy stem which generated this result transmitted reference range : 22 - 26 mEq/L. The reference range was not used to interpret this result as normal/abnormal . BE (test code = See_Comment L [Automated 2468436954) message] The sy stem which generated this result transmitted reference range : -3.0 - 3.0 mEq/ L. The reference r fili was not used to interpret this result as normal/abnormal . THB (test code = 7.2 g/dL 13.5-18 LL 5935557640) %O2HB (test code = 97.5 % 94-99 2592953665) %COHB ART (test code = 0.3 % 0-1.5 5198669643) %METHB ART (test code = 0.3 % 0.4-1.5 L 2076900888) VOL%O2 ART (test code = 10.1 % 15-23 L 7453167178) NA (test code = 134 mmol/L 135-145 L 1270574223) K+ (test code = 3.3 mmol/L 3.5-5 L 1946010127) AC CA IONZ (test code = 4.40 mg/dL 4.5-5.3 L 5169850570) GLUCOSE (test code = 181 mg/dL 70-110 H 4527335136) LACTIC ACID (test code 4.03 mmol/L = 1184580316) Lab Interpretation Abnormal (test code = 80738-0) [facility] Packed RBC (in units), 1 Units 2020-03-27 00:15:25 Test Item Value Reference Range Interpretation Comments Cross Match Result Compatible (test code = 4409) ISBT Blood Type Code (test code = 543588) Unit Blood Type (test AB Pos code = 4410) Unit Number (test [id number] code = 4411) Blood Expiration Date & Time (test code = 316707) Status Information Issued (test code = 4412) Product Red Blood Cells Identification (test code = 4413) Product Code (test C1923X65 Performed at [facility] code = 4414) Laboratory Services - [facility] Blood [address] [address]Jehw Free: [phone] A No. [id number] [facility] Packed RBC (in units), 1 Units 2020-03-26 23:13:02 Test Item Value Reference Range Interpretation Comments Cross Match Result Compatible (test code = 4409) ISBT Blood Type Code (test code = 580295) Unit Blood Type (test AB Pos code = 4410) Unit Number (test [id number] code = 4411) Blood Expiration Date & Time (test code = 785104) Status Information Issued (test code = 4412) Product Red Blood Cells Identification (test code = 4413) Product Code (test W6713P69 Performed at [facility] code = 4414) Laboratory Services - [facility] Blood [address] dolan [address]Qecg Free: [phone] A No. [id number] [facility] WITHOUT [id number] 22:45:00 Test Item Value Reference Range Interpretation Comments WBC (test code = 6690-2) See_Comment [A utomated message] The system [employer] generated this result transmit arsalan reference range : 4.20 - 10.70 10*3/?L. The reference range was not used to interpret this result as normal/abnormal . RBC (test code = 789-8) See_Comment L [Au tomated message] The system [employer] generated this result transmit arsalan reference range : 4.26 - 5.52 10* 6/?L. The reference r fili was not used to interpret this result as normal/abnormal . HGB (test code = 718-7) 6.7 g/dL 12.2-16.4 L HCT (test code = 4544-3) 20.2 % 38.4-49.3 L MCH (test code = 785-6) 28.6 pg 26.1-32.7 MCV (test code = 787-2) 86.3 fL 81.7-95.6 MCHC (test code = 786-4) 33.2 g/dL 31.2-35 PLT (test code = 777-3) See_Comment [Au tomated message] The system [employer] generated this result transmit arsalan reference range : 150 - 328 10*3/?L. The reference range was not used to interpret this result as normal/abnormal . MPV (test code = 10.8 fL 9.8-13 26274-6) RDW-CV (test code = 13.8 % 12.1-15.4 788-0) RDW-SD (test code = 42.7 fL 38.5-51.6 64543-5) NRBC x10^3 (test code = <0.01 See_Comment [Au tomated message] [id number]) The system [employer] generated this result transmit arsalan reference range : 10*3/?L. The reference range was not used to interpret this result as normal/abnormal . NRBC/100 WBC (test code See_Comment [Au tomated message] = 7134247378) The system [employer] generated this result transmit arsalan reference range : 0.0 - 10.0 /100 WBC s. The reference r fili was not used to interpret this result as normal/abnormal . IPF % (test code = 0856513325) Lab Interpretation (test Abnormal code = 94621-6) [facility]2020-03-26 22:44:00 Test Item Value Reference Range Interpretation Comments POCT GLU (test code = 8275818937) 89 mg/dL 70-110 Lab Interpretation (test code = Normal 95862-6) [facility] WITHOUT [id number] 19:41:00 Test Item Value Reference Range Interpretation Comments WBC (test code = 6690-2) See_Comment [A utomated message] The system [employer] generated this result transmit arsalan reference range : 4.20 - 10.70 10*3/?L. The reference range was not used to interpret this result as normal/abnormal . RBC (test code = 789-8) See_Comment L [Au tomated message] The system [employer] generated this result transmit arsalan reference range : 4.26 - 5.52 10* 6/?L. The reference r fili was not used to interpret this result as normal/abnormal . HGB (test code = 718-7) 7.5 g/dL 12.2-16.4 L HCT (test code = 4544-3) 22.9 % 38.4-49.3 L MCH (test code = 785-6) 27.9 pg 26.1-32.7 MCV (test code = 787-2) 85.1 fL 81.7-95.6 MCHC (test code = 786-4) 32.8 g/dL 31.2-35 PLT (test code = 777-3) See_Comment [Au tomated message] The system [employer] generated this result transmit arsalan reference range : 150 - 328 10*3/?L. The reference range was not used to interpret this result as normal/abnormal . MPV (test code = 10.9 fL 9.8-13 77040-7) RDW-CV (test code = 13.6 % 12.1-15.4 788-0) RDW-SD (test code = 42.8 fL 38.5-51.6 22013-6) NRBC x10^3 (test code = <0.01 See_Comment [Au tomated message] 2303323817) The system [employer] generated this result transmit arsalan reference range : 10*3/?L. The reference range was not used to interpret this result as normal/abnormal . NRBC/100 WBC (test code See_Comment [Au tomated message] = 4423079181) The system [facility] generated this result transmit arsalan reference range : 0.0 - 10.0 /100 WBC s. The reference r fili was not used to interpret this result as normal/abnormal . IPF % (test code = 1383351367) Lab Interpretation (test Abnormal code = 07057-9) [facility] WITHOUT [id number] 15:14:00 Test Item Value Reference Range Interpretation Comments WBC (test code = 6690-2) See_Comment [A utomated message] The system [employer] generated this result transmit arsalan reference range : 4.20 - 10.70 10*3/?L. The reference range was not used to interpret this result as normal/abnormal . RBC (test code = 789-8) See_Comment L [Au tomated message] The system [employer] generated this result transmit arsalan reference range : 4.26 - 5.52 10* 6/?L. The reference r fili was not used to interpret this result as normal/abnormal . HGB (test code = 718-7) 7.2 g/dL 12.2-16.4 L HCT (test code = 4544-3) 21.5 % 38.4-49.3 L MCH (test code = 785-6) 28.8 pg 26.1-32.7 MCV (test code = 787-2) 86.0 fL 81.7-95.6 MCHC (test code = 786-4) 33.5 g/dL 31.2-35 PLT (test code = 777-3) See_Comment L [Au tomated message] The system [employer] generated this result transmit arsalan reference range : 150 - 328 10*3/?L. The reference range was not used to interpret this result as normal/abnormal . MPV (test code = 10.7 fL 9.8-13 24344-1) RDW-CV (test code = 13.6 % 12.1-15.4 788-0) RDW-SD (test code = 42.5 fL 38.5-51.6 82592-5) NRBC x10^3 (test code = <0.01 See_Comment [Au tomated message] 4923083748) The system [employer] generated this result transmit arsalan reference range : 10*3/?L. The reference range was not used to interpret this result as normal/abnormal . NRBC/100 WBC (test code See_Comment [Au tomated message] = 4043156600) The system [employer] generated this result transmit arsalan reference range : 0.0 - 10.0 /100 WBC s. The reference r fili was not used to interpret this result as normal/abnormal . IPF % (test code = 8876103591) Lab Interpretation (test Abnormal code = 06827-7) [facility] Packed RBC (in units), 1 Units 2020-03-26 11:33:08 Test Item Value Reference Range Interpretation Comments Cross Match Result Compatible (test code = 4409) ISBT Blood Type Code (test code = 520955) Unit Blood Type (test A Pos code = 4410) Unit Number (test [id number] code = 4411) Blood Expiration Date & Time (test code = 239720) Status Information Issued (test code = 4412) Product Red Blood Cells Identification (test code = 4413) Product Code (test G6740V06 Performed at [facility] code = 4414) Laboratory Services - [facility] Blood [address] [facility] s [address]Ziis Free: [phone] A No. [id number] [facility]hamType and Screen - ONCE [id number] 11:18:57 Test Item Value Reference Range Interpretation Comments IAT (test code = Negative Performed a t [facility] 1185) Laboratory Serv ice - [facility] Blood Bank3 [address] [facility] s [address]Zlzz Free: [phone] A No. [id number] ABO & RH (test AB POSITIVE Patient recei francine Apos code = 20) units on 0; 02/16/20; 02/17/20.Perform ed at [facility] Laboratory Services - [address] [place]ie [place]seco [address]Bdyn Free: [phone] A No. [id number] [facility] (NA, K, CL, CO2, GLUCOSE, BUN, CREATININE, CA)2020-03-26 10:37:00 Test Item Value Reference Range Interpretation Comments NA (test code = 136 mmol/L 135-145 9614517779) K (test code = 3.7 mmol/L 3.5-5 6353730077) CL (test code = 107 mmol/L 98-108 1811078772) CO2 TOTAL (test code = 24 mmol/L 23-31 0286515934) AGAP (test code = 2-16 2217710996) BUN (test code = 23 mg/dL 7-23 0180794829) GLUCOSE (test code = 97 mg/dL 70-110 7543168466) CREATININE (test code = 0.90 mg/dL 0.6-1.25 8229085586) CALCIUM (test code = 8.0 mg/dL 8.6-10.6 L 0639683692) eGFR Calculation mL/min/1.73m2 (Non-) (test code = 6514422720) eGFR Calculation mL/min/1.73m2 () (test code = 1125143781) YENI (test code = YENI) Association of Glomerular Filtration Rate (GFR) and Staging of Kidney Disease* + --+ --+ ------+| GFR (mL/min/1.73 m2) ?| With Kidney Damage ?| ?Without Kidney Damage+ --------+ --------+ +| ?>90 ?| ?Stage one ?| ? Normal ?+ ---+ ---+ -------+| ?60-89 ?| ?Stage two ?| ? Decreased GFR ? + --+ --+ ------+| ?30-59 ?| ?Stage three ?| ? Stage three ? + --+ --+ ------+| ?15-29 ?| ?Stage four ? | ? Stage four ?+ ---+ ---+ -------+| ?<15 (or dialysis) ? ?| ?Stage five ? | ? Stage five ?+ ---+ ---+ -------+ *Each stage assumes the associated GFR level has been in effect for at least three months. ?Stages 1 to 5, with or without kidney disease, indicate chronic kidney disease. Notes: Determination of stages one and two (with eGFR >59mL/min/1.73 m2) requires estimation of kidney damage for at least three months as defined by structural or functional abnormalities of the kidney, manifested by either:Pathological abnormalities or Markers of kidney damage (including abnormalities in the composition of the blood or urine or abnormalities in imaging tests). Lab Interpretation Abnormal (test code = 08302-9) [facility] WITHOUT [id number] 10:19:00 Test Item Value Reference Range Interpretation Comments WBC (test code = 6690-2) See_Comment [A utomated message] The system [employer] generated this result transmit arsalan reference range : 4.20 - 10.70 10*3/?L. The reference range was not used to interpret this result as normal/abnormal . RBC (test code = 789-8) See_Comment L [Au tomated message] The system [employer] generated this result transmit arsalan reference range : 4.26 - 5.52 10* 6/?L. The reference r fili was not used to interpret this result as normal/abnormal . HGB (test code = 718-7) 6.8 g/dL 12.2-16.4 L HCT (test code = 4544-3) 21.1 % 38.4-49.3 L MCH (test code = 785-6) 27.6 pg 26.1-32.7 MCV (test code = 787-2) 85.8 fL 81.7-95.6 MCHC (test code = 786-4) 32.2 g/dL 31.2-35 PLT (test code = 777-3) See_Comment [Au tomated message] The system [employer] generated this result transmit arsalan reference range : 150 - 328 10*3/?L. The reference range was not used to interpret this result as normal/abnormal . MPV (test code = 10.7 fL 9.8-13 91082-2) RDW-CV (test code = 13.8 % 12.1-15.4 788-0) RDW-SD (test code = 43.4 fL 38.5-51.6 39717-6) NRBC x10^3 (test code = <0.01 See_Comment [Au tomated message] 4921443948) The system [employer] generated this result transmit arsalan reference range : 10*3/?L. The reference range was not used to interpret this result as normal/abnormal . NRBC/100 WBC (test code See_Comment [Au tomated message] = 8537107868) The system [employer] generated this result transmit arsalan reference range : 0.0 - 10.0 /100 WBC s. The reference r fili was not used to interpret this result as normal/abnormal . IPF % (test code = 0906953072) Lab Interpretation (test Abnormal code = 05093-5) [facility] WITHOUT [id number] 05:43:00 Test Item Value Reference Range Interpretation Comments WBC (test code = 6690-2) See_Comment [A utomated message] The system [employer] generated this result transmit arsalan reference range : 4.20 - 10.70 10*3/?L. The reference range was not used to interpret this result as normal/abnormal . RBC (test code = 789-8) See_Comment L [Au tomated message] The system [employer] generated this result transmit arsalan reference range : 4.26 - 5.52 10* 6/?L. The reference r fili was not used to interpret this result as normal/abnormal . HGB (test code = 718-7) 7.1 g/dL 12.2-16.4 L HCT (test code = 4544-3) 21.8 % 38.4-49.3 L MCH (test code = 785-6) 28.3 pg 26.1-32.7 MCV (test code = 787-2) 86.9 fL 81.7-95.6 MCHC (test code = 786-4) 32.6 g/dL 31.2-35 PLT (test code = 777-3) See_Comment [Au tomated message] The system [employer] generated this result transmit arsalan reference range : 150 - 328 10*3/?L. The reference range was not used to interpret this result as normal/abnormal . MPV (test code = 10.2 fL 9.8-13 58864-0) RDW-CV (test code = 13.9 % 12.1-15.4 788-0) RDW-SD (test code = 43.7 fL 38.5-51.6 19590-9) NRBC x10^3 (test code = <0.01 See_Comment [Au tomated message] 5999719768) The system [employer] generated this result transmit arsalan reference range : 10*3/?L. The reference range was not used to interpret this result as normal/abnormal . NRBC/100 WBC (test code See_Comment [Au tomated message] = 2331710275) The system [employer] generated this result transmit arsalan reference range : 0.0 - 10.0 /100 WBC s. The reference r flii was not used to interpret this result as normal/abnormal . IPF % (test code = 4678038323) Lab Interpretation (test Abnormal code = 83796-9) [facility]OMEN/[id number] 04:08:16 Pulmonary emboli to bilateral lower lobes arteries. No active extravasation of contrast to suggest active GI bleeding. Colonic diverticulosis. Findings regarding pulmonary emboli was discussed with Dr. Butterfield on03/25/2020 10:55 PM with read back. CT ANGIOGRAM ABDOMEN/PELVIS 03/25/2020 9:28 PM HISTORY: Vomiting dark red blood. GI bleed COMPARISON: CT abdomen pelvis 03/16/2020 TECHNIQUE: Axial images of the abdomen and pelvis were obtained withoutintravenous contrast followed by contrast-enhanced CT angiogram in thearterial and venous phases of the abdomen and pelvis. FINDINGS: LOWER CHEST: Pulmonary emboli to the segmental and subsegmental branches tothe right lower and left lower lobe. HEPATOBILIARY: No hepatomegaly. . No biliary ductal dilatation. Nohyperdense stone. SPLEEN: No splenomegaly. PANCREAS: No ductal dilation, or solid masses. ADRENAL GLANDS: No adrenal nodules. KIDNEYS: No hy dronephrosis or stone. No solid mass. Subcentimeter withdensity in right kidney, too small to characterize but likely cyst. GI TRACT:Embolization material within the gastric body along the lessersac. Hyperdense material within the stomach likely represent blood clot relatedto recent bleeding. No active extravasation of contrast. Colonicdiverticula. Normal appendix. No dilation or wall thickening. PERITONEUM AND RETROPERITONEUM: No free air or free fluid. Haziness ofmesenteric root and prominent mesenteric nodes measuring up to 0.9 cmsuggestive of mesenteric panniculitis. LYMPH NODES: No retroperitoneal lymphadenopathy is seen. Prominentmesenteric nodes. PELVIS/BLADDER: Unremarkable. VESSELS: Mild to moderate calcified and noncalcified atherosclerotic plaqueabdominal aorta and iliac vessels. No aortic aneurysm or critical stenosis.Embolization material is noted in the gastroduodenal artery and rightgastroepiploic. Mildly prominent left gastric artery. BONES AND SOFT TISSUES: No aggressive osseous lesion. Chronic fracture ofthe left seventh rib. Moderate to marked disc and facet arthropathy. Grade1 retrolisthesis of L4 on L5. [facility], Radiant Results Inft User - 03/25/2020 11:09 PM CDTCT ANGIOGRAM ABDOMEN/PELVIS 03/25/2020 9:28 PMHISTORY: Vomiting dark red blood. GI bleed COMPARISON: CT abdomen pelvis 03/16/2020TECHNIQUE: Axial images of the abdomen and pelvis were obtained withoutintravenouscontrast followed by contrast- enhanced CT angiogram in thearterial and venous phases of the abdomen and pelvis.FINDINGS:LOWER CHEST: Pulmonary emboli to the segmental and subsegmental branches tothe right lower and left lower lobe.HEPATOBILIARY: No hepatomegaly. . No biliary ductal dilatation. Nohyperdense stone.SPLEEN: No splenomegaly.PANCREAS: No ductal dilation, or solid masses.ADRENAL GLANDS: No a drenal nodules.KIDNEYS: No hydronephrosis or stone. No solid mass. Subcentimeter withdensity in right kidney, too small to characterize but likely cyst.GI TRACT:Embolization material within the gastricbody along the lessersac. Hyperdense material within the stomach likely represent blood clot relatedto recent bleeding. No active extravasation of contrast. Colonicdiverticula. Normal appendix. No dilation or wall thickening. PERITONEUM AND RETROPERITONEUM: No free air or free fluid. Haziness ofmesenteric root and prominent mesenteric nodes measuring up to 0.9 cmsuggestive of mesenteric panniculitis.LYMPH NODES: No retroperitoneal lymphadenopathy is seen. Prominentmesenteric nodes.PELVIS/BLADDER: Unremarkable.VESSELS: Mild to moderate calcified and noncalcified atherosclerotic plaqueabdominal aortaand iliac vessels. No aortic aneurysm or critical stenosis.Embolization material is noted in the yoav roduodenal artery and rightgastroepiploic. Mildly prominent left gastric artery.BONES AND SOFT TISSUES: No aggressive osseous lesion. Chronic fracture ofthe left seventh rib. Moderate to marked disc and facet arthropathy. Grade1 retrolisthesis of L4 on L5.IMPRESSIONPulmonary emboli to bilateral lower lobes arteries.No active extravasation of contrast to suggest active GI bleeding.Colonic diverticulosis.Findings regarding pulmonary emboli was discussed with Dr. Butterfield on03/25/2020 10:55 PM with read back.[facility]ITAMIN B1 (THIAMINE), WHOLE [id number] 01:34:00 Test Item Value Reference Range Interpretation Comments Vitamin B1, Whole 121 nmol/L 70-180 INTERPRETI VE INFORMATION: Blood (test code = Vitamin B 1, Whole Blood 79996-9) This assay amanda ures the concentration o f thiamine diphosphate (TD P), the primary active form of vitamin B1. Kelley roximately 90 percent of v itamin B1 present in whol e blood is TDP. Thiamine a nd thiamine monoph osphate, which comprise the remaining 10 pe rcent, are not measured. T est developed and characteristics determined by [facility]. S ee Compliance Stat ement B: Luxim/CSP erformed By: CHAPARRO lawrence[address] [place] [id number] aboratory Director: Ghazal Dickinson MD [facility] BrenhamLactic Acid Whole [id number] 23:49:00 Test Item Value Reference Range Interpretation Comments LACTIC ACID (test code = 1.56 mmol/L 1099426972) [facility]AUT[facility]ATED[facility]2020-03-25 23:23:00 Test Item Value Reference Range Interpretation Comments POCT GLU (test code = 9292917758) 124 mg/dL 70-110 H Lab Interpretation (test code = Abnormal 88175-0) [facility] WITH [id number] 23:19:00 Test Item Value Reference Range Interpretation Comments WBC (test code = See_Comment [Automated 6690-2) message] The sy stem which generated this result transmitted reference range : 4.20 - 10.70 10*3/?L. The reference range was not used to interpret this result as normal/abnormal . RBC (test code = See_Comment L [Automated 789-8) message] The sy stem which generated this result transmitted reference range : 4.26 - 5.52 10*6/?L. The reference range was not used to interpret this result as normal/abnormal . HGB (test code = 8.0 g/dL 12.2-16.4 L 718-7) HCT (test code = 25.4 % 38.4-49.3 L 4544-3) MCV (test code = 89.1 fL 81.7-95.6 787-2) MCH (test code = 28.1 pg 26.1-32.7 785-6) MCHC (test code = 31.5 g/dL 31.2-35 786-4) RDW-SD (test code = 45.4 fL 38.5-51.6 97157-3) RDW-CV (test code = 13.9 % 12.1-15.4 788-0) PLT (test code = See_Comment [Automated 777-3) message] The sy stem which generated this result transmitted reference range : 150 - 328 10*3/ ?L. The reference r fili was not used to interpret this result as normal/abnormal . MPV (test code = 10.6 fL 9.8-13 73912-1) NRBC/100 WBC (test See_Comment [Automat ed code = 5058225740) message] The system which generated this result transmitted reference range : 0.0 - 10.0 /100 WBCs. The refer ence range was not u sed to interpret th is result as normal/abnormal . NRBC x10^3 (test code <0.01 See_Comment [Auto mated = 4535639284) message] The s ystem which generated this result transmitted reference range : 10*3/?L. The reference range was not used to interpret this result as normal/abnormal . GRAN MAT (NEUT) % 68.1 % (test code = 770-8) IMM GRAN % (test code 0.30 % = 3250441022) LYMPH % (test code = 21.8 % 736-9) MONO % (test code = 6.8 % 5905-5) EOS % (test code = 2.4 % 713-8) BASO % (test code = 0.6 % 706-2) GRAN MAT x10^3(ANC) 6.95 10*3/uL 1.99-6.95 (test code = 5446160747) IMM GRAN x10^3 (test 0.03 10*3/uL 0-0.06 code = 4238105908) LYMPH x10^3 (test code 2.23 10*3/uL 1.09-3.23 = 731-0) MONO x10^3 (test code 0.69 10*3/uL 0.36-1.02 = 742-7) EOS x10^3 (test code = 0.25 10*3/uL 0.06-0.53 711-2) BASO x10^3 (test code 0.06 10*3/uL 0.01-0.09 = 704-7) Lab Interpretation Abnormal (test code = 35564-7) [facility] WITH [id number] 18:37:00 Test Item Value Reference Range Interpretation Comments WBC (test code = See_Comment [Automated 6690-2) message] The sy stem which generated this result transmitted reference range : 4.20 - 10.70 10*3/?L. The reference range was not used to interpret this result as normal/abnormal . RBC (test code = See_Comment L [Automated 789-8) message] The sy stem which generated this result transmitted reference range : 4.26 - 5.52 10*6/?L. The reference range was not used to interpret this result as normal/abnormal . HGB (test code = 9.6 g/dL 12.2-16.4 L 718-7) HCT (test code = 29.8 % 38.4-49.3 L 4544-3) MCV (test code = 87.6 fL 81.7-95.6 787-2) MCH (test code = 28.2 pg 26.1-32.7 785-6) MCHC (test code = 32.2 g/dL 31.2-35 786-4) RDW-SD (test code = 45.0 fL 38.5-51.6 00128-3) RDW-CV (test code = 13.9 % 12.1-15.4 788-0) PLT (test code = See_Comment [Automated 777-3) message] The sy stem which generated this result transmitted reference range : 150 - 328 10*3/ ?L. The reference r fili was not used to interpret this result as normal/abnormal . MPV (test code = 10.5 fL 9.8-13 35020-3) NRBC/100 WBC (test See_Comment [Automat ed code = 2775894916) message] The system which generated this result transmitted reference range : 0.0 - 10.0 /100 WBCs. The refer ence range was not u sed to interpret th is result as normal/abnormal . NRBC x10^3 (test code <0.01 See_Comment [Auto mated = 2833895724) message] The s ystem which generated this result transmitted reference range : 10*3/?L. The reference range was not used to interpret this result as normal/abnormal . GRAN MAT (NEUT) % 67.2 % (test code = 770-8) IMM GRAN % (test code 1.40 % = 6509386813) LYMPH % (test code = 20.5 % 736-9) MONO % (test code = 7.1 % 5905-5) EOS % (test code = 3.3 % 713-8) BASO % (test code = 0.5 % 706-2) GRAN MAT x10^3(ANC) 3.71 10*3/uL 1.99-6.95 (test code = 1320278337) IMM GRAN x10^3 (test 0.08 10*3/uL 0-0.06 H code = 0436934366) LYMPH x10^3 (test code 1.13 10*3/uL 1.09-3.23 = 731-0) MONO x10^3 (test code 0.39 10*3/uL 0.36-1.02 = 742-7) EOS x10^3 (test code = 0.18 10*3/uL 0.06-0.53 711-2) BASO x10^3 (test code 0.03 10*3/uL 0.01-0.09 = 704-7) Lab Interpretation Abnormal (test code = 91504-0) [facility] METABOLIC PANEL (NA, K, CL, CO2, GLUCOSE, BUN, CREATININE, CA)2020-03-25 11:45:00 Test Item Value Reference Range Interpretation Comments NA (test code = 137 mmol/L 135-145 8086441548) K (test code = 3.5 mmol/L 3.5-5 5879828166) CL (test code = 107 mmol/L 98-108 9631539739) CO2 TOTAL (test code = 23 mmol/L 23-31 4997935577) AGAP (test code = 2-16 5645273789) BUN (test code = 11 mg/dL 7-23 7897319561) GLUCOSE (test code = 89 mg/dL 70-110 7210899398) CREATININE (test code = 0.93 mg/dL 0.6-1.25 5687362344) CALCIUM (test code = 8.2 mg/dL 8.6-10.6 L 7097371902) eGFR Calculation mL/min/1.73m2 (Non-) (test code = 3347317063) eGFR Calculation mL/min/1.73m2 () (test code = 0264461455) YENI (test code = YENI) Association of Glomerular Filtration Rate (GFR) and Staging of Kidney Disease* + --+ --+ ------+| GFR (mL/min/1.73 m2) ?| With Kidney Damage ?| ?Without Kidney Damage+ --------+ --------+ +| ?>90 ?| ?Stage one ?| ? Normal ?+ ---+ ---+ -------+| ?60-89 ?| ?Stage two ?| ? Decreased GFR ? + --+ --+ ------+| ?30-59 ?| ?Stage three ?| ? Stage three ? + --+ --+ ------+| ?15-29 ?| ?Stage four ? | ? Stage four ?+ ---+ ---+ -------+| ?<15 (or dialysis) ? ?| ?Stage five ? | ? Stage five ?+ ---+ ---+ -------+ *Each stage assumes the associated GFR level has been in effect for at least three months. ?Stages 1 to 5, with or without kidney disease, indicate chronic kidney disease. Notes: Determination of stages one and two (with eGFR >59mL/min/1.73 m2) requires estimation of kidney damage for at least three months as defined by structural or functional abnormalities of the kidney, manifested by either:Pathological abnormalities or Markers of kidney damage (including abnormalities in the composition of the blood or urine or abnormalities in imaging tests). Lab Interpretation Abnormal (test code = 37858-7) [facility] WITH [id number] 11:14:00 Test Item Value Reference Range Interpretation Comments WBC (test code = See_Comment [Automated 6690-2) message] The sy stem which generated this result transmitted reference range : 4.20 - 10.70 10*3/?L. The reference range was not used to interpret this result as normal/abnormal . RBC (test code = See_Comment L [Automated 789-8) message] The sy stem which generated this result transmitted reference range : 4.26 - 5.52 10*6/?L. The reference range was not used to interpret this result as normal/abnormal . HGB (test code = 8.0 g/dL 12.2-16.4 L 718-7) HCT (test code = 24.5 % 38.4-49.3 L 4544-3) MCV (test code = 86.3 fL 81.7-95.6 787-2) MCH (test code = 28.2 pg 26.1-32.7 785-6) MCHC (test code = 32.7 g/dL 31.2-35 786-4) RDW-SD (test code = 44.8 fL 38.5-51.6 74366-7) RDW-CV (test code = 14.1 % 12.1-15.4 788-0) PLT (test code = See_Comment [Automated 777-3) message] The sy stem which generated this result transmitted reference range : 150 - 328 10*3/ ?L. The reference r fili was not used to interpret this result as normal/abnormal . MPV (test code = 10.6 fL 9.8-13 00102-9) NRBC/100 WBC (test See_Comment [Automat ed code = 6316199980) message] The system which generated this result transmitted reference range : 0.0 - 10.0 /100 WBCs. The refer ence range was not u sed to interpret th is result as normal/abnormal . NRBC x10^3 (test code <0.01 See_Comment [Auto mated = [id number]) message] The s ystem which generated this result transmitted reference range : 10*3/?L. The reference range was not used to interpret this result as normal/abnormal . GRAN MAT (NEUT) % 66.1 % (test code = 770-8) IMM GRAN % (test code 0.40 % = 8381667323) LYMPH % (test code = 22.4 % 736-9) MONO % (test code = 6.8 % 5905-5) EOS % (test code = 3.7 % 713-8) BASO % (test code = 0.6 % 706-2) GRAN MAT x10^3(ANC) 3.58 10*3/uL 1.99-6.95 (test code = 8684125282) IMM GRAN x10^3 (test <0.03 0-0.06 code = 8880549973) LYMPH x10^3 (test code 1.21 10*3/uL 1.09-3.23 = 731-0) MONO x10^3 (test code 0.37 10*3/uL 0.36-1.02 = 742-7) EOS x10^3 (test code = 0.20 10*3/uL 0.06-0.53 711-2) BASO x10^3 (test code 0.03 10*3/uL 0.01-0.09 = 704-7) Lab Interpretation Abnormal (test code = 98445-5) [facility] WITH [id number] 05:08:00 Test Item Value Reference Range Interpretation Comments WBC (test code = See_Comment [Automated 9090-2) message] The sy stem which generated this result transmitted reference range : 4.20 - 10.70 10*3/?L. The reference range was not used to interpret this result as normal/abnormal . RBC (test code = See_Comment L [Automated 419-8) message] The sy stem which generated this result transmitted reference range : 4.26 - 5.52 10*6/?L. The reference range was not used to interpret this result as normal/abnormal . HGB (test code = 7.9 g/dL 12.2-16.4 L 718-7) HCT (test code = 24.3 % 38.4-49.3 L 4544-3) MCV (test code = 86.2 fL 81.7-95.6 787-2) MCH (test code = 28.0 pg 26.1-32.7 785-6) MCHC (test code = 32.5 g/dL 31.2-35 786-4) RDW-SD (test code = 44.3 fL 38.5-51.6 57546-8) RDW-CV (test code = 14.2 % 12.1-15.4 788-0) PLT (test code = See_Comment [Automated 777-3) message] The sy stem which generated this result transmitted reference range : 150 - 328 10*3/ ?L. The reference r fili was not used to interpret this result as normal/abnormal . MPV (test code = 10.5 fL 9.8-13 82423-5) NRBC/100 WBC (test See_Comment [Automat ed code = 5393015852) message] The system which generated this result transmitted reference range : 0.0 - 10.0 /100 WBCs. The refer ence range was not u sed to interpret th is result as normal/abnormal . NRBC x10^3 (test code <0.01 See_Comment [Auto mated = 5502999889) message] The s ystem which generated this result transmitted reference range : 10*3/?L. The reference range was not used to interpret this result as normal/abnormal . GRAN MAT (NEUT) % 65.5 % (test code = 770-8) IMM GRAN % (test code 0.30 % = 8350240857) LYMPH % (test code = 23.3 % 736-9) MONO % (test code = 7.1 % 5905-5) EOS % (test code = 3.2 % 713-8) BASO % (test code = 0.6 % 706-2) GRAN MAT x10^3(ANC) 4.43 10*3/uL 1.99-6.95 (test code = 6097328087) IMM GRAN x10^3 (test <0.03 0-0.06 code = 7027523567) LYMPH x10^3 (test code 1.58 10*3/uL 1.09-3.23 = 731-0) MONO x10^3 (test code 0.48 10*3/uL 0.36-1.02 = 742-7) EOS x10^3 (test code = 0.22 10*3/uL 0.06-0.53 711-2) BASO x10^3 (test code 0.04 10*3/uL 0.01-0.09 = 704-7) Lab Interpretation Abnormal (test code = 82196-3) [facility] WITHOUT [id number] 23:01:00 Test Item Value Reference Range Interpretation Comments WBC (test code = 6690-2) See_Comment [A utomated message] The system [employer] generated this result transmit arsalan reference range : 4.20 - 10.70 10*3/?L. The reference range was not used to interpret this result as normal/abnormal . RBC (test code = 789-8) See_Comment L [Au tomated message] The system [employer] generated this result transmit arsalan reference range : 4.26 - 5.52 10* 6/?L. The reference r fili was not used to interpret this result as normal/abnormal . HGB (test code = 718-7) 9.3 g/dL 12.2-16.4 L HCT (test code = 4544-3) 29.2 % 38.4-49.3 L MCH (test code = 785-6) 27.7 pg 26.1-32.7 MCV (test code = 787-2) 86.9 fL 81.7-95.6 MCHC (test code = 786-4) 31.8 g/dL 31.2-35 PLT (test code = 777-3) See_Comment [Au tomated message] The system [employer] generated this result transmit arsalan reference range : 150 - 328 10*3/?L. The reference range was not used to interpret this result as normal/abnormal . MPV (test code = 10.2 fL 9.8-13 51001-3) RDW-CV (test code = 14.3 % 12.1-15.4 788-0) RDW-SD (test code = 45.2 fL 38.5-51.6 61135-8) NRBC x10^3 (test code = <0.01 See_Comment [Au tomated message] [id number]) The system [employer] h generated this result transmit arsalan reference range : 10*3/?L. The reference range was not used to interpret this result as normal/abnormal . NRBC/100 WBC (test code See_Comment [Au tomated message] = 4670989522) The system [employer] generated this result transmit arsalan reference range : 0.0 - 10.0 /100 WBC s. The reference r fili was not used to interpret this result as normal/abnormal . IPF % (test code = 8408952681) Lab Interpretation (test Abnormal code = 37380-2) [facility]/[id number] 22:36:37 Addendum by Angela Galvez MD on 03/24/2020 6:10 PM* * * * * * * * ADDENDUM: * * * * * * * *The findings concerning the bilateral lower lobe subsegmental and segmentalpulmonary emboli were relayed to acknowledged by Dr. Leger at 1755 on03/24/2020. Preliminary Report Dictated by Resident: Angela Thompson MD., have reviewed this study and agree with theabove report. No acute GI bleed identified. Multiple right upper quadrant embolization coils as above. Central mesenteric haziness with a few scattered lymph nodes may representmesenteric panniculitis. Acute filling defectswithin segmental subsegmental artery supplying thebilateral lower lobes concerning for acute pulmonary embolisms. Solid enhancing 8 mm subpleural left lower lobe nodule. Follow-up in 6-12months to document stability. Additional findings and incidentals as above. Angela Hernandez MD., have reviewed this study and agree with theabove report.EXAM: CT ABDOMEN AND PELVIS WITH AND WITHOUT CONTRAST HISTORY: GI bleed. Per chart review: Hematemesis with history of gastriculcers. COMPARISON: 03/22/2020. DOSE: Total exam DLP [433] mGy-cm TECHNIQUE AND FINDINGS: Contiguous axial imaging from the level of the lungbases through the proximal thighs was performed before and after theadministration of 120 cc of intravenous Omnipaque contrast. Abdomen andpelvis were scanned in precontrast, arterial, portal venous and delayedphases per GI bleed protocol. ?Coronal and sagittal reconstructions wereobtained. 1Auto mA and/or iterative reconstruction were used to reduceradiation dose. FINDINGS: LOWER THORAX: Partially visualized acute pulmonary embolisms in segmentaland subsegmental arteries supplying the bilateral lower lobes (302:1 and22). 8mm subpleural nodule within the left lower lobe (302:46). Smallpneumatocele within the lingula. LIVER: No focal hepatic lesions. Mild perfusional abnormality seen alongthe inferior right hepatic lobe. Normal liver contour. GALLBLADDER AND BILIARY TREE: No biliary ductal dilation. No radiopaquecholelithiasis. No gallbladder wall thickening. SPLEEN: No splenomegaly. Tiny splenule along the anterior margin of thespleen. PANCREAS: No ductal dilation or masses. ADRENAL GLANDS: No adrenal nodules. Mild unchanged nonspecific hazinesssurrounding bilateral adrenal glands. KIDNEYS: No hydronephrosis, stones, or masses. PERITONEUM AND RETROPERITONEUM: No free air or fluid. Unchanged centralmesenteric haziness with few scattered subcentimeter lymph nodes. LYMPH NODES: No lymphadenopathy. GI TRACT: No dilation or abnormal wall thickening. Small sliding-typehiatal hernia withmild distal esophageal thickening and periesophageallymph nodes measuring up to 8 mm in short axis (3 02:37). PELVIS/BLADDER: Urinary bladder is normal for the degree of distention.Enlarged prostate measures 5.2 cm in transverse dimension. VESSELS: Mild atherosclerotic calcifications throughout the abdominal aortaand its branches. Multiple embolization coils and GDA, gastric,pancreaticoduodenal and gastroepiploic artery territories. BONES AND SOFT TISSUES: No suspicious lytic or sclerotic bony lesions.Advanced multilevel degenerative changes scattered throughout thevisualized spine. 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 Partial ankylosis of bilateral superior SIjoints. Subacute fracture through left anterolateral seventh rib. [facility], Radiant Results Inft User - 03/24/2020 5:37 PM CDTEXAM: CT ABDOMEN AND PELVIS WITH AND WITHOUT CONTRASTHISTORY: GI bleed. Per chart review: Hematemesis with history of gastriculcers.COMPARISON: 03/22/2020.DOSE: Total exam DLP [433] mGy-cmTECHNIQUE AND FINDINGS: Contiguous axial imaging from the level of the lungbases through the proximal thighs was performed before and after theadministration of 120 cc of intravenous Omnipaque contrast. Abdomen andpelvis were scanned in precontrast, arterial, portal venous and delayedphases perGI bleed protocol. Coronal and sagittal reconstructions wereobtained. 1Auto mA and/or iterative reconstruction were used to reduceradiation dose.FINDINGS:LOWER THORAX: Partially visualized acute pulmonary embolisms in segmentaland subsegmental arteries supplying the bilateral lower lobes (302:1 and22). 8mm subpleural nodule within the left lower lobe (302:46). Smallpneumatocele within the lingula.LIVER: No focal hepatic lesions. Mild perfusional abnormality seen alongthe inferior right hepatic lobe. Normal liver contour.GALLBLADDER AND BILIARY TREE: No biliary ductal dilation. No radiopaquecholelithiasis. No gallbladder wall thickening.SPLEEN: No splenomegaly. Tiny splenule along the anterior margin of thespleen.PANCREAS: No ductal dilation or masses.ADRENAL GLANDS: No adrenal nodules. Mild unchanged nonspecific hazinesssurrounding bilateral adrenal glands.KIDNEYS: No hydronephrosis, stones, ormasses.PERITONEUM AND RETROPERITONEUM: No free air or fluid. Unchanged centralmesenteric haziness with few scattered subcentimeter lymph nodes.LYMPH NODES: No lymphadenopathy.GI TRACT: No dilation or abnormal wall thickening. Small sliding-typehiatal hernia with mild distal esophageal thickening and periesophageallymph nodes measuring up to 8 mm in short axis (302:37).PELVIS/BLADDER: Urinary bladder is normal for the degree of distention.Enlarged prostate measures 5.2 cm in transverse dimension.VESSELS: Mild atherosclerotic calcifications throughout the abdominal aortaand its branches. Multiple embolization coils and GDA, gastric,pancreaticoduodenal and gastroepiploic artery territories.BONES AND SOFT TISSUES: No suspicious lytic or sclerotic bony lesions.Advanced multilevel degenerative changes scattered throughout thevisualized spine. 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 Partial ankylosis of bilateral superior SIjoints.Subacute fracture through left anterolateral seventh rib.IMPRESSIONNo acute GI bleed identified.Multiple right upper quadrant embolization coils as above.Central mesenteric haziness with a few scattered lymph nodes may representmesentericpanniculitis.Acute filling defects within segmental subsegmental artery supplying thebilateral lowerlobes concerning for acute pulmonary embolisms.Solid enhancing 8 mm subpleural left lower lobe nodule . Follow-up in 6-12months to document stability.Additional findings and incidentals as above.I, Angela Galvez MD., have reviewed this study and agree with theabove report.[facility] WITHOUT DIFF 2020-03-24 19:33:00 Test Item Value Reference Range Interpretation Comments WBC (test code = 6690-2) See_Comment [A utomated message] The system [employer] generated this result transmit arsalan reference range : 4.20 - 10.70 10*3/?L. The reference range was not used to interpret this result as normal/abnormal . RBC (test code = 789-8) See_Comment L [Au tomated message] The system [employer] generated this result transmit arsalan reference range : 4.26 - 5.52 10* 6/?L. The reference r fili was not used to interpret this result as normal/abnormal . HGB (test code = 718-7) 7.6 g/dL 12.2-16.4 L HCT (test code = 4544-3) 24.1 % 38.4-49.3 L MCH (test code = 785-6) 27.6 pg 26.1-32.7 MCV (test code = 787-2) 87.6 fL 81.7-95.6 MCHC (test code = 786-4) 31.5 g/dL 31.2-35 PLT (test code = 777-3) See_Comment [Au tomated message] The system [employer] generated this result transmit arsalan reference range : 150 - 328 10*3/?L. The reference range was not used to interpret this result as normal/abnormal . MPV (test code = 11.2 fL 9.8-13 32202-3) RDW-CV (test code = 14.3 % 12.1-15.4 788-0) RDW-SD (test code = 46.2 fL 38.5-51.6 74013-0) NRBC x10^3 (test code = <0.01 See_Comment [Au tomated message] [id number]) The system [employer] generated this result transmit arsalan reference range : 10*3/?L. The reference range was not used to interpret this result as normal/abnormal . NRBC/100 WBC (test code See_Comment [Au tomated message] = 6617441383) The system [employer] [facility] generated this result transmit arsalan reference range : 0.0 - 10.0 /100 WBC s. The reference r fili was not used to interpret this result as normal/abnormal . IPF % (test code = 5445694938) Lab Interpretation (test Abnormal code = 49111-2) [facility] WITHOUT [id number] 13:23:00 Test Item Value Reference Range Interpretation Comments WBC (test code = 6690-2) See_Comment [A utomated message] The system [employer] generated this result transmit arsalan reference range : 4.20 - 10.70 10*3/?L. The reference range was not used to interpret this result as normal/abnormal . RBC (test code = 789-8) See_Comment L [Au tomated message] The system [employer] generated this result transmit arsalan reference range : 4.26 - 5.52 10* 6/?L. The reference r fili was not used to interpret this result as normal/abnormal . HGB (test code = 718-7) 9.5 g/dL 12.2-16.4 L HCT (test code = 4544-3) 31.6 % 38.4-49.3 L MCH (test code = 785-6) 27.5 pg 26.1-32.7 MCV (test code = 787-2) 91.3 fL 81.7-95.6 MCHC (test code = 786-4) 30.1 g/dL 31.2-35 L PLT (test code = 777-3) See_Comment L [Au tomated message] The system [employer] generated this result transmit arsalan reference range : 150 - 328 10*3/?L. The reference range was not used to interpret this result as normal/abnormal . MPV (test code = 10.9 fL 9.8-13 31354-2) RDW-CV (test code = 14.6 % 12.1-15.4 788-0) RDW-SD (test code = 48.9 fL 38.5-51.6 83856-3) NRBC x10^3 (test code = <0.01 See_Comment [Au tomated message] [id number]) The system [employer] generated this result transmit arsalan reference range : 10*3/?L. The reference range was not used to interpret this result as normal/abnormal . NRBC/100 WBC (test code See_Comment [Au tomated message] = 8827655240) The system [facility] generated this result transmit arsalan reference range : 0.0 - 10.0 /100 WBC s. The reference r fili was not used to interpret this result as normal/abnormal . IPF % (test code = 7026854825) Lab Interpretation (test Abnormal code = 94448-0) [facility] UR[facility] [id number] 11:43:00 Test Item Value Reference Range Interpretation Comments NA URINE (test code = 8124597270) 107 mmol/L [facility]ham[facility]AT[facility], URINE [id number] 11:43:00 Test Item Value Reference Range Interpretation Comments CREAT U (test code = 6486052273) 247.8 mg/dL [facility]ham[facility] WITHOUT [id number] 11:38:00 Test Item Value Reference Range Interpretation Comments WBC (test code = 6690-2) See_Comment [A utomated message] The system [employer] generated this result transmit arsalan reference range : 4.20 - 10.70 10*3/?L. The reference range was not used to interpret this result as normal/abnormal . RBC (test code = 789-8) See_Comment L [Au tomated message] The system [employer] generated this result transmit arsalan reference range : 4.26 - 5.52 10* 6/?L. The reference r fili was not used to interpret this result as normal/abnormal . HGB (test code = 718-7) 10.1 g/dL 12.2-16.4 L HCT (test code = 4544-3) 32.6 % 38.4-49.3 L MCH (test code = 785-6) 27.8 pg 26.1-32.7 MCV (test code = 787-2) 89.8 fL 81.7-95.6 MCHC (test code = 786-4) 31.0 g/dL 31.2-35 L PLT (test code = 777-3) See_Comment [Au tomated message] The system [employer] generated this result transmit arsalan reference range : 150 - 328 10*3/?L. The reference range was not used to interpret this result as normal/abnormal . MPV (test code = 11.0 fL 9.8-13 66162-8) RDW-CV (test code = 14.4 % 12.1-15.4 788-0) RDW-SD (test code = 47.3 fL 38.5-51.6 09085-7) NRBC x10^3 (test code = <0.01 See_Comment [Au tomated message] [id number]) The system [employer] generated this result transmit arsalan reference range : 10*3/?L. The reference range was not used to interpret this result as normal/abnormal . NRBC/100 WBC (test code See_Comment [Au tomated message] = 1296984970) The system [employer] generated this result transmit arsalan reference range : 0.0 - 10.0 /100 WBC s. The reference r fili was not used to interpret this result as normal/abnormal . IPF % (test code = 5436211036) Lab Interpretation (test Abnormal code = 26503-1) [facility] METABOLIC PANEL (NA, K, CL, CO2, GLUCOSE, BUN, CREATININE, CA)2020-03-24 07:23:00 Test Item Value Reference Range Interpretation Comments NA (test code = 136 mmol/L 135-145 7126578683) K (test code = 3.6 mmol/L 3.5-5 0633008256) CL (test code = 108 mmol/L 98-108 6182858362) CO2 TOTAL (test code = 23 mmol/L 23-31 3733468701) AGAP (test code = 2-16 3238862807) BUN (test code = 25 mg/dL 7-23 H 8834952492) GLUCOSE (test code = 98 mg/dL 70-110 8995616806) CREATININE (test code = 1.45 mg/dL 0.6-1.25 H 0920195476) CALCIUM (test code = 7.9 mg/dL 8.6-10.6 L 5375641860) eGFR Calculation mL/min/1.73m2 (Non-) (test code = 8270252627) eGFR Calculation mL/min/1.73m2 () (test code = 6584458901) YENI (test code = YENI) Association of Glomerular Filtration Rate (GFR) and Staging of Kidney Disease* + --+ --+ ------+| GFR (mL/min/1.73 m2) ?| With Kidney Damage ?| ?Without Kidney Damage+ --------+ --------+ +| ?>90 ?| ?Stage one ?| ? Normal ?+ ---+ ---+ -------+| ?60-89 ?| ?Stage two ?| ? Decreased GFR ? + --+ --+ ------+| ?30-59 ?| ?Stage three ?| ? Stage three ? + --+ --+ ------+| ?15-29 ?| ?Stage four ? | ? Stage four ?+ ---+ ---+ -------+| ?<15 (or dialysis) ? ?| ?Stage five ? | ? Stage five ?+ ---+ ---+ -------+ *Each stage assumes the associated GFR level has been in effect for at least three months. ?Stages 1 to 5, with or without kidney disease, indicate chronic kidney disease. Notes: Determination of stages one and two (with eGFR >59mL/min/1.73 m2) requires estimation of kidney damage for at least three months as defined by structural or functional abnormalities of the kidney, manifested by either:Pathological abnormalities or Markers of kidney damage (including abnormalities in the composition of the blood or urine or abnormalities in imaging tests). Lab Interpretation Abnormal (test code = 91280-8) [facility] WITHOUT [id number] 07:16:00 Test Item Value Reference Range Interpretation Comments WBC (test code = 6690-2) See_Comment [A utomated message] The system [employer] generated this result transmit arsalan reference range : 4.20 - 10.70 10*3/?L. The reference range was not used to interpret this result as normal/abnormal . RBC (test code = 789-8) See_Comment L [Au tomated message] The system [employer] generated this result transmit arsalan reference range : 4.26 - 5.52 10* 6/?L. The reference r fili was not used to interpret this result as normal/abnormal . HGB (test code = 718-7) 8.5 g/dL 12.2-16.4 L HCT (test code = 4544-3) 26.3 % 38.4-49.3 L MCH (test code = 785-6) 28.7 pg 26.1-32.7 MCV (test code = 787-2) 88.9 fL 81.7-95.6 MCHC (test code = 786-4) 32.3 g/dL 31.2-35 PLT (test code = 777-3) See_Comment [Au tomated message] The system [facility] generated this result transmit arsalan reference range : 150 - 328 10*3/?L. The reference range was not used to interpret this result as normal/abnormal . MPV (test code = 10.7 fL 9.8-13 50124-4) RDW-CV (test code = 14.5 % 12.1-15.4 788-0) RDW-SD (test code = 46.7 fL 38.5-51.6 75967-8) NRBC x10^3 (test code = <0.01 See_Comment [Au tomated message] 9662657037) The system [employer] generated this result transmit arsalan reference range : 10*3/?L. The reference range was not used to interpret this result as normal/abnormal . NRBC/100 WBC (test code See_Comment [Au tomated message] = 4681666991) The system [facility] generated this result transmit arsalan reference range : 0.0 - 10.0 /100 WBC s. The reference r fili was not used to interpret this result as normal/abnormal . IPF % (test code = 2866768322) Lab Interpretation (test Abnormal code = 12780-0) [facility] WITHOUT [id number] 01:53:00 Test Item Value Reference Range Interpretation Comments WBC (test code = 6690-2) See_Comment [A utomated message] The system [employer] generated this result transmit arsalan reference range : 4.20 - 10.70 10*3/?L. The reference range was not used to interpret this result as normal/abnormal . RBC (test code = 789-8) See_Comment L [Au tomated message] The system [employer] generated this result transmit arsalan reference range : 4.26 - 5.52 10* 6/?L. The reference r fili was not used to interpret this result as normal/abnormal . HGB (test code = 718-7) 8.1 g/dL 12.2-16.4 L HCT (test code = 4544-3) 25.2 % 38.4-49.3 L MCH (test code = 785-6) 28.4 pg 26.1-32.7 MCV (test code = 787-2) 88.4 fL 81.7-95.6 MCHC (test code = 786-4) 32.1 g/dL 31.2-35 PLT (test code = 777-3) See_Comment [Au tomated message] The system [employer] generated this result transmit arsalan reference range : 150 - 328 10*3/?L. The reference range was not used to interpret this result as normal/abnormal . MPV (test code = 10.3 fL 9.8-13 35085-6) RDW-CV (test code = 14.5 % 12.1-15.4 788-0) RDW-SD (test code = 47.2 fL 38.5-51.6 93105-3) NRBC x10^3 (test code = <0.01 See_Comment [Au tomated message] [id number]) The system [employer] generated this result transmit arsalan reference range : 10*3/?L. The reference range was not used to interpret this result as normal/abnormal . NRBC/100 WBC (test code See_Comment [Au tomated message] = 0137559870) The system [employer] generated this result transmit arsalan reference range : 0.0 - 10.0 /100 WBC s. The reference r fili was not used to interpret this result as normal/abnormal . IPF % (test code = 8039789732) Lab Interpretation (test Abnormal code = 88366-3) [facility] / [id number] 23:58:00 Test Item Value Reference Range Interpretation Comments PROTIME PATIENT (test See_Comment H [Auto mated message] code = 5964-2) The system [employer] generated this result transmitted ref erence range: 10.1 - 1 2.6 Seconds. The reference range was not used to int erpret this result as normal/abnormal . INR (test code = 6301-6) Nor mal INR <1.1; Warfarin Therap eutic range 2.0 to 3. 0 or 2.5 to 3.5, dep ending upon the indica tions. Lab Interpretation (test Abnormal code = 37798-1) [facility] WITHOUT [id number] 18:09:00 Test Item Value Reference Range Interpretation Comments WBC (test code = 6690-2) See_Comment [A utomated message] The system [employer] generated this result transmit arsalan reference range : 4.20 - 10.70 10*3/?L. The reference range was not used to interpret this result as normal/abnormal . RBC (test code = 789-8) See_Comment L [Au tomated message] The system [employer] generated this result transmit arsalan reference range : 4.26 - 5.52 10* 6/?L. The reference r fili was not used to interpret this result as normal/abnormal . HGB (test code = 718-7) 9.7 g/dL 12.2-16.4 L HCT (test code = 4544-3) 30.5 % 38.4-49.3 L MCH (test code = 785-6) 28.0 pg 26.1-32.7 MCV (test code = 787-2) 87.9 fL 81.7-95.6 MCHC (test code = 786-4) 31.8 g/dL 31.2-35 PLT (test code = 777-3) See_Comment [Au tomated message] The system [employer] generated this result transmit arsalan reference range : 150 - 328 10*3/?L. The reference range was not used to interpret this result as normal/abnormal . MPV (test code = 10.8 fL 9.8-13 89207-1) RDW-CV (test code = 14.6 % 12.1-15.4 788-0) RDW-SD (test code = 47.1 fL 38.5-51.6 44172-8) NRBC x10^3 (test code = <0.01 See_Comment [Au tomated message] [id number]) The system [employer] h generated this result transmit arsalan reference range : 10*3/?L. The reference range was not used to interpret this result as normal/abnormal . NRBC/100 WBC (test code See_Comment [Au tomated message] = 5442248939) The system [employer] ch generated this result transmit arsalan reference range : 0.0 - 10.0 /100 WBC s. The reference r fili was not used to interpret this result as normal/abnormal . IPF % (test code = 1823113639) Lab Interpretation (test Abnormal code = 81709-6) [facility]MRSA / MSSA Screen by Jason [id number] 15:38:00 Test Item Value Reference Range Interpretation Comments MSSA Screen by Jason JARVIS (test code Negative Negative = 97770-0) MRSA/MSSA Positive? (test code = No No [id number]) Lab Interpretation (test code = Normal 54853-7) [facility]hamUS RETROPERITONEAL [id number] 13:08:30 Unremarkable renal ultrasound with no stone or hydronephrosis. IDirk MD., have reviewed this study and agree with the abovereport.US RETROPERITONEAL COMPLETE HISTORY: 69 years-old; Male; BERTHA COMPARISON: Abdominopelvic CT 03/22/2020 FINDINGS: The kidneys are normal in size, contour, and echotexture. The right kidneymeasures 11.2 x 5.1 x 5.6 cm (172 mL). The left kidney measures 10.2 x 5.6x 4.3 cm (131 mL). No hydronephrosis or stone. BLADDER: Poorly distended, limiting evaluation. Appears unremarkable. [facility], Radiant Results Inft User - 03/23/2020 8:09 AM CDTUS RETROPERITONEAL COMPL ETEHISTORY: 69 years-old; Male; BERTHA COMPARISON: Abdominopelvic CT 03/22/2020FINDINGS: The kidneys are normal in size, contour, and echotexture. The right kidneymeasures 11.2 x 5.1 x 5.6 cm (172 mL). The left kidney measures 10.2 x 5.6x 4.3 cm (131 mL). No hydronephrosis or stone.BLADDER: Poorly distend ed, limiting evaluation. Appears unremarkable.IMPRESSIONUnremarkable renal ultrasound with no stone or hydronephrosis.I, Dirk Rush MD., have reviewed this study and agree with the abovereport.[facility] METABOLIC PANEL (NA, K, CL, CO2, GLUCOSE, BUN, CREATININE, CA) 2020-03-23 11:07:00 Test Item Value Reference Range Interpretation Comments NA (test code = 140 mmol/L 135-145 3927687537) K (test code = 4.3 mmol/L 3.5-5 5161881229) CL (test code = 108 mmol/L 98-108 4841556557) CO2 TOTAL (test code = 25 mmol/L 23-31 6172390743) AGAP (test code = 2-16 6432773428) BUN (test code = 23 mg/dL 7-23 5148268735) GLUCOSE (test code = 124 mg/dL 70-110 H 1000716123) CREATININE (test code = 2.80 mg/dL 0.6-1.25 H 0160453589) CALCIUM (test code = 8.3 mg/dL 8.6-10.6 L 2934876462) eGFR Calculation mL/min/1.73m2 (Non-) (test code = 4770309787) eGFR Calculation mL/min/1.73m2 () (test code = 1220574008) YENI (test code = YENI) Association of Glomerular Filtration Rate (GFR) and Staging of Kidney Disease* + --+ --+ ------+| GFR (mL/min/1.73 m2) ?| With Kidney Damage ?| ?Without Kidney Damage+ --------+ --------+ +| ?>90 ?| ?Stage one ?| ? Normal ?+ ---+ ---+ -------+| ?60-89 ?| ?Stage two ?| ? Decreased GFR ? + --+ --+ ------+| ?30-59 ?| ?Stage three ?| ? Stage three ? + --+ --+ ------+| ?15-29 ?| ?Stage four ? | ? Stage four ?+ ---+ ---+ -------+| ?<15 (or dialysis) ? ?| ?Stage five ? | ? Stage five ?+ ---+ ---+ -------+ *Each stage assumes the associated GFR level has been in effect for at least three months. ?Stages 1 to 5, with or without kidney disease, indicate chronic kidney disease. Notes: Determination of stages one and two (with eGFR >59mL/min/1.73 m2) requires estimation of kidney damage for at least three months as defined by structural or functional abnormalities of the kidney, manifested by either:Pathological abnormalities or Markers of kidney damage (including abnormalities in the composition of the blood or urine or abnormalities in imaging tests). Lab Interpretation Abnormal (test code = 03362-0) [facility] WITHOUT [id number] 10:56:00 Test Item Value Reference Range Interpretation Comments WBC (test code = 6690-2) See_Comment H [A utomated message] The system [employer] generated this result transmit arsalan reference range : 4.20 - 10.70 10*3/?L. The reference range was not used to interpret this result as normal/abnormal . RBC (test code = 789-8) See_Comment L [Au tomated message] The system [employer] generated this result transmit arsalan reference range : 4.26 - 5.52 10* 6/?L. The reference r fili was not used to interpret this result as normal/abnormal . HGB (test code = 718-7) 10.6 g/dL 12.2-16.4 L HCT (test code = 4544-3) 33.2 % 38.4-49.3 L MCH (test code = 785-6) 27.7 pg 26.1-32.7 MCV (test code = 787-2) 86.9 fL 81.7-95.6 MCHC (test code = 786-4) 31.9 g/dL 31.2-35 PLT (test code = 777-3) See_Comment [Au tomated message] The system [employer] generated this result transmit arsalan reference range : 150 - 328 10*3/?L. The reference range was not used to interpret this result as normal/abnormal . MPV (test code = 10.5 fL 9.8-13 08033-7) RDW-CV (test code = 14.5 % 12.1-15.4 788-0) RDW-SD (test code = 46.2 fL 38.5-51.6 34280-3) NRBC x10^3 (test code = <0.01 See_Comment [Au tomated message] 8411576603) The system [employer] generated this result transmit arsalan reference range : 10*3/?L. The reference range was not used to interpret this result as normal/abnormal . NRBC/100 WBC (test code See_Comment [Au tomated message] = 3002064722) The system [facility] generated this result transmit arsalan reference range : 0.0 - 10.0 /100 WBC s. The reference r fili was not used to interpret this result as normal/abnormal . IPF % (test code = 8473311646) Lab Interpretation (test Abnormal code = 60788-2) [facility] WITHOUT [id number] 06:44:00 Test Item Value Reference Range Interpretation Comments WBC (test code = 6690-2) See_Comment H [A utomated message] The system [facility] generated this result transmit arsalan reference range : 4.20 - 10.70 10*3/?L. The reference range was not used to interpret this result as normal/abnormal . RBC (test code = 789-8) See_Comment [Au tomated message] The system [facility] generated this result transmit arsalan reference range : 4.26 - 5.52 10* 6/?L. The reference r fili was not used to interpret this result as normal/abnormal . HGB (test code = 718-7) 12.2 g/dL 12.2-16.4 HCT (test code = 4544-3) 37.6 % 38.4-49.3 L MCH (test code = 785-6) 27.9 pg 26.1-32.7 MCV (test code = 787-2) 85.8 fL 81.7-95.6 MCHC (test code = 786-4) 32.4 g/dL 31.2-35 PLT (test code = 777-3) See_Comment H [Au tomated message] The system [facility] [employer] generated this result transmit arsalan reference range : 150 - 328 10*3/?L. The reference range was not used to interpret this result as normal/abnormal . MPV (test code = 10.6 fL 9.8-13 36073-0) RDW-CV (test code = 14.5 % 12.1-15.4 788-0) RDW-SD (test code = 45.8 fL 38.5-51.6 28678-5) NRBC x10^3 (test code = <0.01 See_Comment [Au tomated message] 2554795526) The system [employer] generated this result transmit arsalan reference range : 10*3/?L. The reference range was not used to interpret this result as normal/abnormal . NRBC/100 WBC (test code See_Comment [Au tomated message] = 1515489774) The system [employer] ch generated this result transmit arsalan reference range : 0.0 - 10.0 /100 WBC s. The reference r fili was not used to interpret this result as normal/abnormal . IPF % (test code = 0611228117) Lab Interpretation (test Abnormal code = 03289-9) [facility] METABOLIC PANEL (NA, K, CL, CO2, GLUCOSE, BUN, CREATININE, CA)2020-03-23 01:46:00 Test Item Value Reference Range Interpretation Comments NA (test code = 139 mmol/L 135-145 7580705685) K (test code = 4.7 mmol/L 3.5-5 2699047431) CL (test code = 100 mmol/L 98-108 7341516050) CO2 TOTAL (test code = 28 mmol/L 23-31 5071757882) AGAP (test code = 2-16 4567074337) BUN (test code = 18 mg/dL 7-23 2146866733) GLUCOSE (test code = 174 mg/dL 70-110 H 8447922971) CREATININE (test code = 3.14 mg/dL 0.6-1.25 H 2848125732) CALCIUM (test code = 9.0 mg/dL 8.6-10.6 5808055125) eGFR Calculation mL/min/1.73m2 (Non-) (test code = 9741053730) eGFR Calculation mL/min/1.73m2 () (test code = 1871984192) YENI (test code = YENI) Association of Glomerular Filtration Rate (GFR) and Staging of Kidney Disease* + --+ --+ ------+| GFR (mL/min/1.73 m2) ?| With Kidney Damage ?| ?Without Kidney Damage+ --------+ --------+ +| ?>90 ?| ?Stage one ?| ? Normal ?+ ---+ ---+ -------+| ?60-89 ?| ?Stage two ?| ? Decreased GFR ? + --+ --+ ------+| ?30-59 ?| ?Stage three ?| ? Stage three ? + --+ --+ ------+| ?15-29 ?| ?Stage four ? | ? Stage four ?+ ---+ ---+ -------+| ?<15 (or dialysis) ? ?| ?Stage five ? | ? Stage five ?+ ---+ ---+ -------+ *Each stage assumes the associated GFR level has been in effect for at least three months. ?Stages 1 to 5, with or without kidney disease, indicate chronic kidney disease. Notes: Determination of stages one and two (with eGFR >59mL/min/1.73 m2) requires estimation of kidney damage for at least three months as defined by structural or functional abnormalities of the kidney, manifested by either:Pathological abnormalities or Markers of kidney damage (including abnormalities in the composition of the blood or urine or abnormalities in imaging tests). Lab Interpretation Abnormal (test code = 30594-2) [facility] WITHOUT [id number] 01:44:00 Test Item Value Reference Range Interpretation Comments WBC (test code = 6690-2) See_Comment H [A utomated message] The system [employer] generated this result transmit arsalan reference range : 4.20 - 10.70 10*3/?L. The reference range was not used to interpret this result as normal/abnormal . RBC (test code = 789-8) See_Comment [Au tomated message] The system [employer] generated this result transmit arsalan reference range : 4.26 - 5.52 10* 6/?L. The reference r fili was not used to interpret this result as normal/abnormal . HGB (test code = 718-7) 12.8 g/dL 12.2-16.4 HCT (test code = 4544-3) 40.0 % 38.4-49.3 MCH (test code = 785-6) 28.0 pg 26.1-32.7 MCV (test code = 787-2) 87.5 fL 81.7-95.6 MCHC (test code = 786-4) 32.0 g/dL 31.2-35 PLT (test code = 777-3) See_Comment H [Au tomated message] The system [facility] [employer] generated this result transmit arsalan reference range : 150 - 328 10*3/?L. The reference range was not used to interpret this result as normal/abnormal . MPV (test code = 10.5 fL 9.8-13 86994-2) RDW-CV (test code = 14.6 % 12.1-15.4 788-0) RDW-SD (test code = 46.8 fL 38.5-51.6 47461-6) NRBC x10^3 (test code = <0.01 See_Comment [Au tomated message] 5796084534) The system [facility] [employer] generated this result transmit arsalan reference range : 10*3/?L. The reference range was not used to interpret this result as normal/abnormal . NRBC/100 WBC (test code See_Comment [Au tomated message] = 0157211435) The system [facility] generated this result transmit arsalan reference range : 0.0 - 10.0 /100 WBC s. The reference r fili was not used to interpret this result as normal/abnormal . IPF % (test code = 3121890917) Lab Interpretation (test Abnormal code = 54614-8) [facility]hamPROTHROMBIN TIME / [id number] 01:41:00 Test Item Value Reference Range Interpretation Comments PROTIME PATIENT (test See_Comment [Auto mated message] code = 5964-2) The system [facility] generated this result transmitted ref erence range: 10.1 - 1 2.6 Seconds. The re ference range was not u sed to interpret this result as normal/abnor mal. INR (test code = 6301-6) Nor mal INR <1.1; Warfarin Therap eutic range 2.0 to 3. 0 or 2.5 to 3.5, dep ending upon the indica tions. Lab Interpretation (test Normal code = 80070-7) [facility]hamFIBRINOGEN2020-10-27 01:41:00 Test Item Value Reference Range Interpretation Comments Fibrinogen (test code = 0889230314) 432 mg/dL 167-453 Lab Interpretation (test code = Normal 83896-5) [facility]hamLAB ONLY COVID [id number] 00:09:00COVID DMT InterpretationInterpretation/Recommendations\\nTests (PCR) for Active Infection by COVID-19Virus: This patient has tested negative for the COVID-19 virus on two occasions. ?For approximatelytwo-thirds of patients with a negative test result who were tested only once, the patient is truly negative and has not been infected with the COVID-19 virus. However, for those tested using a nasopharyngeal sample, each time the PCR test is performed there is approximately a [id number] chance the patient had been infected and the result of the test is a false negative. This occurs because the virus is predominantly in the lung and out of reach of the nasopharyngeal swab. Importantly, this patient has tested negative twice. Especially if there were minimal or no symptoms of the infection, this makes a false negative result less likely for this patient, and much more likely that the patient has not been infected with the COVID-19 virus. Tests for IgM and/or IgG Antibodies to COVID- 19 Virus: A. ?A test for IgM antibody to the COVID-19 virus would be highly informative at this time. IgM antibodies to the COVID-19 virus identified in a high performing test, usually an SHI or chemiluminescence based assay, should appear in most patients who are truly infected within approximately one week from the onset of symptoms, and in nearly all patients by 2 to 3 weeks after symptoms begin. If the IgM test is positive, even if the PCR tests for active infection were negative, it is highly probable that the patient has been infected with the virus at some point. B. ?A test for IgG antibodies to the COVID-19 virus was not performed and ?would also be informative if the IgM antibody test is positive, when performed. The sample for the IgG antibody test should be collected 2 or more weeks post onset of symptoms. The test for IgM and IgG antibodies can be performed using a single blood sample. ?It is the IgG antibodies that can confer long-term immunity to infectious agents. However, at this time, it is not known if the production of IgG antibodies indicates whether the patient is immune to future infections with the COVID-19 virus. It is also not known how long IgG antibodies to the COVID-19 virus persist, and therefore the length of immunity to future COVID-19 infections. C. ?Although it is uncommon, some patients cannot ever mount an antibody response to infectious agents, such as COVID-19. If there are persistently negative results for IgM and IgG antibodies, this may be the explanation.[facility] LABORATORY SERVICESCOVID [id number] Rapid ID NOW (no units) ? ? Date ?Value ? 03/22/2020 ? Not Detected ? ? ? 02/15/2020 ? Not Detected ? [facility] LABORATORY SERVICESUnTexas Health DentonCT ABDOMEN PELVIS WO [id number] 22:31:15 Nondiagnostic examination for gastrointestinal bleed given the lackintravenous contrast. Distended stomach.. Left upper quadrant mesenteric inflammatory changes with increasedmesenteric nodes consistent with mesenteric panniculitis. Mild prostatomegaly. Preliminary Report Dictated by Resident: Terry Pandey I, Nelson Sanders MD., have reviewed this study and agree with theabove report.EXAM: CT ABDOMEN AND PELVIS WITHOUT CONTRAST HISTORY: GI bleed Duodenal ulcer COMPARISON: None. TECHNIQUE AND FINDINGS: Contiguous axial imaging from the level of the lungbases through the pubic symphysiswas performed without contrast. Coronaland sagittal reconstructions were obtained. ?Auto mA and/or it erativereconstruction were used to reduce radiation dose. FINDINGS: Subcentimeter cyst in the lingula.. No cardiomegaly. Scattered coronaryarterial calcifications. LIVER: No focal hepatic lesions. ?Normal liver contour. GALLBLADDER AND BILIARY TREE: No biliary ductal dilation. ?No gallbladderwall thickening. SPLEEN: No splenomegaly. PANCREAS: No ductal dilation or masses. ADRENAL GLANDS: No adrenal nodules. KIDNEYS: No hydronephrosis, stones, or masses. PERITONEUM AND RETROPERITONEUM: No free air orfluid. Left upper quadrant mesenteric haziness with increased subcentimetermesenteric ?lymph nodes galicia ggestive of mesenteric panniculitis. LYMPH NODES: No lymphadenopathy. GI TRACT: No bowel wall thickening. The stomach is distended with ingesteddebris. Mild diverticulosis. PELVIS/BLADDER: The prostateappears enlarged with hypertrophy of themedian lobe although this is difficult to delineate from theadjacenturinary bladder given lack of intravenous contrast. VESSELS: Numerous right upper quadrant embolization clips identified.Moderate atherosclerotic calcifications are identified. BONES AND SOFT TISSUES: No suspicious lytic or sclerotic bony lesions.Grade 1 retrolisthesis of L4-L5 and grade 1 anterolisthesis of L5 on S1.Moderate lumbar spondylosis with multiple prominent degenerative cyst andbulk y anterior osteophytes. Bilateral L5 pars defects. Remote leftanterolateral seventh rib fracture. [facility], Radiant Results Inft User - 03/22/2020 5:32 PM CDTEXAM: CT ABDOMEN AND PELVIS WITHOUT CONTRASTHISTORY: GI bleed Duodenal ulcer COMPARISON: None.TECHNIQUE AND FINDINGS: Contiguous axial imaging fromthe level of the lungbases through the pubic symphysis was performed without contrast. Coronaland sagittal reconstructions were obtained. Auto mA and/or iterativereconstruction were used to reduce radiation dose.FINDINGS:Subcentimeter cyst in the lingula.. No cardiomegaly. Scattered coronaryarterial calcifications.LIVER: No focal hepatic lesions. Normal liver contour.GALLBLADDER AND BILIARY TREE: No biliary ductal dilation. No gallbladderwall thickening.SPLEEN: No splenomegaly.PANCREAS: No ductaldilation or masses.ADRENAL GLANDS: No adrenal nodules.KIDNEYS: No hydronephrosis, stones, or masses.PERITONEUM AND RETROPERITONEUM: No free air or fluid.Left upper quadrant mesenteric haziness with increased subcentimetermesenteric lymph nodes suggestive of mesenteric panniculitis.LYMPH NODES: No lymphadenopathy.GI TRACT: No bowel wall thickening. The stomach is distended with ingesteddebris. Mild di verticulosis.PELVIS/BLADDER: The prostate appears enlarged with hypertrophy of themedian lobe although this is difficult to delineate from the adjacenturinary bladder given lack of intravenous contrast.VESSELS: Numerous right upper quadrant embolization clips identified.Moderate atherosclerotic calcifications are identified.BONES AND SOFT TISSUES: No suspicious lytic or sclerotic bony lesions.Grade 1retrolisthesis of L4-L5 and grade 1 anterolisthesis of L5 on S1.Moderate lumbar spondylosis with multiple prominent degenerative cyst andbulky anterior osteophytes. Bilateral L5 pars defects. Remote lef tanterolateral seventh rib fracture.IMPRESSIONNondiagnostic examination for gastrointestinal bleed given the lackintravenous contrast. Distended stomach.. Left upper quadrant mesenteric inflammatory changes with increasedmesenteric nodes consistent with mesenteric panniculitis.Mild prostatomegaly. Preliminary Report Dictated by Resident: Terry Moeller, Nelson Ambrose MD., have reviewed this study and agree with theabove report.[facility]hamCritical [id number] 21:35:03Tia Osei MD ? ? 03/22/2020 ?4:35 PMCritical CarePerformed by: Tia Osei MDAuthorized by: Tia Osei MD Critical care provider statement: ?Critical care time (minutes): ?45 ?Critical care was necessary to treat or prevent imminent or life-threatening deterioration of the following conditions: ?Shock ?Critical care was time spent personally by me on the following activities: ?Ordering and performing treatments and interventions, ordering and review of laboratory studies, discussions with consultants, development of treatment plan with patient or surrogate, blood draw for specimens and re-evaluation of patient's condition [facility] BrenhamType and Screen - ONCE [id number] 20:46:29 Test Item Value Reference Range Interpretation Comments ABO & RH (test AB Positive Performed at [facility] code = 20) Laboratory [facility] [place] [address] Free: [phone] A No. [id number] IAT (test code = Negative Performed a t [facility] 1185) Laboratory [facility] Bank[address] [place], [place] [address]Toll Free: [phone] A No. [id number] [facility]hamCOVID-19 (ID NOW RAPID TESTING)2020-03-22 20:44:00 Test Item Value Reference Range Interpretation Comments SARS-CoV-2 Rapid ID NOW Not Detected Not Detected (test code = 94153-7) YENI (test code = YENI) ID NOW COVID-19 Assay is an isothermal nucleic acid amplification test intended for the qualitative detection of nucleic acid from SARS-CoV-2 viral RNA in nasopharyngeal (COOLING T[employer] TECHNICIAN) specimens. It is used under Emergency Use Authorization (EUA) by FDA. The limit of detection (LOD) of the assay is 125 Genome Equivalents/mL. A positive result is indicative of the presence of SARS-CoV-2 RNA. ?Clinical correlation with patient history and other diagnostic information is necessary to determine patient infection status. A negative (Not Detected) result does not preclude SARS-CoV-2 infection. In patients with clinical symptoms and other tests that are consistent with SARS-CoV-2 infection, negative results should be treated as presumptive negative and a new specimen should be tested with alternative PCR molecular test. Invalid: Please collect a new specimen for repeat patient testing if clinically indicated. Lab Interpretation Normal (test code = 44450-4) [facility]rop[facility] [id number] 20:31:00 Test Item Value Reference Range Interpretation Comments TROPONIN I (test <0.012 See_Comment [Automated code = 5410578862) message] The system which generated this result transmitted reference range : <=0.034 ng/mL. The reference range was not used to interpr et this result as normal/abnormal . YENI (test code = Equal or Less than YENI) 0.034 ng/ml---Normal ?Note: Cardiac troponin begins to rise 3-4 hours after the onset of ischemia. Repeat in 4-6 hours if the sample was drawn within 3-4 hours of the onset of the symptom and found normal. Between 0.035 and 0.120 ng/mL--- Borderline. Questionable myocardial injury or necrosis ? ?Note: Serial measurement may be necessary to confirm or exclude the diagnosis of myocardial injury or necrosis; Clinical correlation (symptoms, EKGs, imaging studies, and others) required; Repeat in 4-6 hours if clinically indicated. ? Equal or Higher than 0.121 ng/mL---Abnormal. Myocardial Injury or Necrosis Likely ? Biotin has been reported to cause a negative bias, interpret results relative to patient's use of biotin. ? Lab Interpretation Normal (test code = 24524-9) [facility]hamN-TERMINAL [id number] 20:28:00 Test Item Value Reference Range Interpretation Comments NT-proBNP (test code 296 pg/mL See_Comment H [Autom ated = 1591960885) message] The system which generated this result transmitted reference range : <=125. The reference range was not used to interpret this result as normal/abnormal . YENI (test code = YENI) Biotin has been reported to cause a negative bias, interpret results relative to patient's use of biotin. Lab Interpretation Abnormal (test code = 52076-7) [facility]ham[facility] Function Panel (ALB, T.PRO, BILI T, BU/BC, ALT, AST, ALK PHOS)2020-03-22 20:18:00 Test Item Value Reference Range Interpretation Comments TOTAL BILI (test code = 0818955142) 0.9 mg/dL 0.1-1.1 BILI UNCON (test code = 9791598609) 0.6 mg/dL 0.1-1.1 BILI CONJ (test code = 1696018632) 0.0 mg/dL 0-0.3 T PROTEIN (test code = 4795713163) 9.7 g/dL 6.3-8.2 H ALBUMIN (test code = 9732691284) 4.7 g/dL 3.5-5 ALK PHOS (test code = 8293984489) 119 U/L 34-122 ALTv (test code = 1742-6) 13 U/L 5-50 AST(SGOT) (test code = 0598175830) 21 U/L 13-40 Lab Interpretation (test code = Abnormal 57834-6) [facility] (NA, K, CL, CO2, GLUCOSE, BUN, CREATININE, CA)2020-03-22 20:17:00 Test Item Value Reference Range Interpretation Comments NA (test code = 140 mmol/L 135-145 2777986756) K (test code = 3.3 mmol/L 3.5-5 L 9073252591) CL (test code = 96 mmol/L 98-108 L 9025781997) CO2 TOTAL (test code = 27 mmol/L 23-31 8151630693) AGAP (test code = 2-16 H 8525517731) BUN (test code = 16 mg/dL 7-23 3635263909) GLUCOSE (test code = 208 mg/dL 70-110 H 2224812382) CREATININE (test code = 2.55 mg/dL 0.6-1.25 H 3411888071) CALCIUM (test code = 10.5 mg/dL 8.6-10.6 6103011512) eGFR Calculation mL/min/1.73m2 (Non-) (test code = 9241497284) eGFR Calculation mL/min/1.73m2 () (test code = 8454172465) YENI (test code = YENI) Association of Glomerular Filtration Rate (GFR) and Staging of Kidney Disease* + --+ --+ ------+| GFR (mL/min/1.73 m2) ?| With Kidney Damage ?| ?Without Kidney Damage+ --------+ --------+ +| ?>90 ?| ?Stage one ?| ? Normal ?+ ---+ ---+ -------+| ?60-89 ?| ?Stage two ?| ? Decreased GFR ? + --+ --+ ------+| ?30-59 ?| ?Stage three ?| ? Stage three ? + --+ --+ ------+| ?15-29 ?| ?Stage four ? | ? Stage four ?+ ---+ ---+ -------+| ?<15 (or dialysis) ? ?| ?Stage five ? | ? Stage five ?+ ---+ ---+ -------+ *Each stage assumes the associated GFR level has been in effect for at least three months. ?Stages 1 to 5, with or without kidney disease, indicate chronic kidney disease. Notes: Determination of stages one and two (with eGFR >59mL/min/1.73 m2) requires estimation of kidney damage for at least three months as defined by structural or functional abnormalities of the kidney, manifested by either:Pathological abnormalities or Markers of kidney damage (including abnormalities in the composition of the blood or urine or abnormalities in imaging tests). Lab Interpretation Abnormal (test code = 83237-2) [facility]hamLipase [id number] 20:17:00 Test Item Value Reference Range Interpretation Comments LIPASE (test code = 4594791986) 126 U/L 0-220 Lab Interpretation (test code = Normal 11199-4) [facility]hamaPTT2020-10-26 20:17:00 Test Item Value Reference Range Interpretation Comments APTT Patient (test See_Comment [Automat ed code = 3173-2) message] The system which generated this result transmitted reference range : 23 - 38 Seconds . The reference range was not used to interpr et this result as normal/abnormal . YENI (test code = YENI) The [facility] patient population mean normal value for aPTT is 30 seconds. Lab Interpretation Normal (test code = 68478-5) [facility]hamProthrombin Time (PT) / [id number] 20:15:00 Test Item Value Reference Range Interpretation Comments PROTIME PATIENT (test See_Comment [Auto mated message] code = 5964-2) The system wh ich generated this result transmitted ref erence range: 12.0 - 1 4.7 Seconds. The re ference range was not u sed to interpret this result as normal/abnor mal. INR (test code = 6301-6) Nor mal INR <1.1; Warfarin Therap eutic range 2.0 to 3. 0 or 2.5 to 3.5, dep ending upon the indica tions. Lab Interpretation (test Normal code = 06370-6) [facility]CB with [id number] 20:04:00 Test Item Value Reference Range Interpretation Comments WBC (test code = See_Comment H [Automated 0590-2) message] The system which generated this result transmit arsalan reference range : 4.20 - 10.70 10*3/?L. The reference range was not used to interpret this result as normal/abnormal . RBC (test code = See_Comment [Automated 099-8) message] The system which generated this result transmit arsalan reference range : 4.26 - 5.52 10*6/?L. The reference range was not used to interpret this result as normal/abnormal . HGB (test code = 14.7 g/dL 12.2-16.4 718-7) HCT (test code = 44.9 % 38.4-49.3 4544-3) MCV (test code = 84.4 fL 81.7-95.6 787-2) MCH (test code = 27.6 pg 26.1-32.7 785-6) MCHC (test code = 32.7 g/dL 31.2-35 786-4) RDW-SD (test code = 43.8 fL 38.5-51.6 89312-3) RDW-CV (test code = 14.4 % 12.1-15.4 788-0) PLT (test code = See_Comment H [Automated 777-3) message] The system which generated this result transmit arsalan reference range : 150 - 328 10*3/ ?L. The reference range was not u sed to interpret th is result as normal/abnormal . MPV (test code = 10.1 fL 9.8-13 90310-3) NRBC/100 WBC (test See_Comment [Automat ed code = 7967033836) message] The system which generated this result transmit arsalan reference range : 0.0 - 10.0 /100 WBCs. The reference range was not used to interpret this result as normal/abnormal . NRBC x10^3 (test code <0.01 See_Comment [Auto mated = 8626544014) message] The system which generated this result transmit arsalan reference range : 10*3/?L. The reference range was not used to interpret this result as normal/abnormal . GRAN MAT (NEUT) % 84.4 % (test code = 770-8) IMM GRAN % (test code 0.80 % = 2681447695) LYMPH % (test code = 9.1 % 736-9) MONO % (test code = 5.0 % 5905-5) EOS % (test code = 0.3 % 713-8) BASO % (test code = 0.4 % 706-2) GRAN MAT x10^3(ANC) 13.21 10*3/uL 1.99-6.95 H (test code = 4878258775) IMM GRAN x10^3 (test 0.12 10*3/uL 0-0.06 H code = 3945145245) LYMPH x10^3 (test code 1.43 10*3/uL 1.09-3.23 = 731-0) MONO x10^3 (test code 0.79 10*3/uL 0.36-1.02 = 742-7) EOS x10^3 (test code = 0.04 10*3/uL 0.06-0.53 L 711-2) BASO x10^3 (test code 0.06 10*3/uL 0.01-0.09 = 704-7) Lab Interpretation Abnormal (test code = 00197-1) [facility]hamGASTRIN2020-09-24 06:40:00 Test Item Value Reference Range Interpretation Comments GASTRIN (test code = 55 pg/mL 0-100 Perform ed By: CHAPARRO Ortega3-3) [address] [place] [id number] Director: Ghazal Dickinson MD [facility] BrenhamXR [id number] 13:12:33FINDINGS/IMPRESSION: The bowel gas pattern is nonobstructive. Mild gaseous distention of whatappears to be redundant rectosigmoid and transverse colon. Small tomoderate amount of gas is seen projectingover the rectum. Multiple withembolization coils are seen in the upper abdomen. Contrast is seen in theurinary bladder obscuring evaluation of pelvic structures. Lower lumbar spine degenerative changes. Preliminary Report Dictated by Resident: Angela Tillman MD., have reviewed this study and agree with theabove report.EXAM: XR KUB HISTORY: Abdominal distention COMPARISON: None. Technique: AP views of the abdomen and pelvis. [facility], Radiant Results Inft User - 02/18/2020 8:13 AM CDTEXAM: XR KUBHISTORY: Abdominal distention COMPARISON: None.Technique: AP views of the abdomen and pelvis.IMPRESSIONFINDINGS/IMPRESSION:The bowel gas pattern is nonobstructive. Mild gaseous distention of whatappears to be redundant rectosigmoid and transverse colon. Small tomoderate amount of gas is seen projecting over the rectum. Multiple withembolization coils are seen in the upper abdomen. Contrast is seen in theurinary bladder obscuring evaluation of pelvic structures.Lower lumbar spine degenerative changes.Preliminary Report Dictated by Resident: Angela Tai MD., have reviewed this study and agree with theabove report.[facility] [id number] 08:28:00 Test Item Value Reference Range Interpretation Comments MAGNESIUM (test code = 5669038095) 1.8 mg/dL 1.7-2.4 Lab Interpretation (test code = Normal 40000-1) [facility] METABOLIC PANEL (NA, K, CL, CO2, GLUCOSE, BUN, CREATININE, CA)2020-02-18 07:40:00 Test Item Value Reference Range Interpretation Comments NA (test code = 136 mmol/L 135-145 6462143254) K (test code = 3.3 mmol/L 3.5-5 L 7705547888) CL (test code = 111 mmol/L 98-108 H 2360673317) CO2 TOTAL (test code = 21 mmol/L 23-31 L 7653286551) AGAP (test code = 2-16 0530040937) BUN (test code = 7 mg/dL 7-23 3132230070) GLUCOSE (test code = 94 mg/dL 70-110 2327703240) CREATININE (test code = 0.69 mg/dL 0.6-1.25 7782157561) CALCIUM (test code = 7.1 mg/dL 8.6-10.6 L 9022789681) eGFR Calculation mL/min/1.73m2 (Non-) (test code = 0386923961) eGFR Calculation mL/min/1.73m2 () (test code = 8539321421) YENI (test code = YENI) Association of Glomerular Filtration Rate (GFR) and Staging of Kidney Disease* + --+ --+ ------+| GFR (mL/min/1.73 m2) ?| With Kidney Damage ?| ?Without Kidney Damage+ --------+ --------+ +| ?>90 ?| ?Stage one ?| ? Normal ?+ ---+ ---+ -------+| ?60-89 ?| ?Stage two ?| ? Decreased GFR ? + --+ --+ ------+| ?30-59 ?| ?Stage three ?| ? Stage three ? + --+ --+ ------+| ?15-29 ?| ?Stage four ? | ? Stage four ?+ ---+ ---+ -------+| ?<15 (or dialysis) ? ?| ?Stage five ? | ? Stage five ?+ ---+ ---+ -------+ *Each stage assumes the associated GFR level has been in effect for at least three months. ?Stages 1 to 5, with or without kidney disease, indicate chronic kidney disease. Notes: Determination of stages one and two (with eGFR >59mL/min/1.73 m2) requires estimation of kidney damage for at least three months as defined by structural or functional abnormalities of the kidney, manifested by either:Pathological abnormalities or Markers of kidney damage (including abnormalities in the composition of the blood or urine or abnormalities in imaging tests). Lab Interpretation Abnormal (test code = 94888-1) [facility] WITHOUT [id number] 07:17:00 Test Item Value Reference Range Interpretation Comments WBC (test code = 6690-2) See_Comment H [A utomated message] The system [employer] generated this result transmit arsalan reference range : 4.20 - 10.70 10*3/?L. The reference range was not used to interpret this result as normal/abnormal . RBC (test code = 789-8) See_Comment L [Au tomated message] The system [employer] generated this result transmit arsalan reference range : 4.26 - 5.52 10* 6/?L. The reference r fili was not used to interpret this result as normal/abnormal . HGB (test code = 718-7) 7.5 g/dL 12.2-16.4 L HCT (test code = 4544-3) 22.4 % 38.4-49.3 L MCH (test code = 785-6) 28.7 pg 26.1-32.7 MCV (test code = 787-2) 85.8 fL 81.7-95.6 MCHC (test code = 786-4) 33.5 g/dL 31.2-35 PLT (test code = 777-3) See_Comment [Au tomated message] The system [employer] generated this result transmit arsalan reference range : 150 - 328 10*3/?L. The reference range was not used to interpret this result as normal/abnormal . MPV (test code = 10.3 fL 9.8-13 02759-0) RDW-CV (test code = 16.1 % 12.1-15.4 H 788-0) RDW-SD (test code = 48.6 fL 38.5-51.6 86057-0) NRBC x10^3 (test code = See_Comment [Au tomated message] 1271425517) The system whic h generated this result transmit arsalan reference range : 10*3/?L. The reference range was not used to interpret this result as normal/abnormal . NRBC/100 WBC (test code See_Comment [Au tomated message] = 1658363902) The system [facility] generated this result transmit arsalan reference range : 0.0 - 10.0 /100 WBC s. The reference r fili was not used to interpret this result as normal/abnormal . IPF % (test code = 7489528757) Lab Interpretation (test Abnormal code = 42835-7) [facility]hamVITAMIN B12, [id number] 22:31:00 Test Item Value Reference Range Interpretation Comments VIT B12 (test code = 248 pg/mL 240-930 2014180285) YENI (test code = YENI) Biotin has been reported to cause a positive bias, interpret results relative to patient's use of biotin. Lab Interpretation (test Normal code = 87301-4) [facility] BrenhamHAPTOGLOBIN, [id number] 17:15:00 Test Item Value Reference Range Interpretation Comments HAPTOGLOB (test code = 6019814353) 187 mg/dL 16-200 Lab Interpretation (test code = Normal 78899-6) [facility]hamMRSA / MSSA Screen by PCR, [id number] 15:47:00 Test Item Value Reference Range Interpretation Comments MSSA Screen by PCRJason (test code Negative Negative = 27141-4) MRSA/MSSA Positive? (test code = No No 2798556587) Lab Interpretation (test code = Normal 83496-6) [facility] BrenhamLACTATE [id number] 12:01:00 Test Item Value Reference Range Interpretation Comments LDH (test code = 7244170699) 526 U/L 300-600 Lab Interpretation (test code = Normal 23506-4) [facility] BrenhamPROTHROMBIN TIME / [id number] 11:25:00 Test Item Value Reference Range Interpretation Comments PROTIME PATIENT (test See_Comment [Auto mated message] code = 5964-2) The system [facility] generated this result transmitted ref erence range: 10.1 - 1 2.6 Seconds. The re ference range was not u sed to interpret this result as normal/abnor mal. INR (test code = 6301-6) Nor mal INR <1.1; Warfarin Therap eutic range 2.0 to 3. 0 or 2.5 to 3.5, dep ending upon the indica tions. Lab Interpretation (test Normal code = 36745-3) [facility] WITHOUT [id number] 11:24:00 Test Item Value Reference Range Interpretation Comments WBC (test code = 6690-2) See_Comment H [A utomated message] The system [employer] generated this result transmit arsalan reference range : 4.20 - 10.70 10*3/?L. The reference range was not used to interpret this result as normal/abnormal . RBC (test code = 789-8) See_Comment L [Au tomated message] The system [employer] generated this result transmit arsalan reference range : 4.26 - 5.52 10* 6/?L. The reference r fili was not used to interpret this result as normal/abnormal . HGB (test code = 718-7) 7.4 g/dL 12.2-16.4 L HCT (test code = 4544-3) 21.6 % 38.4-49.3 L MCH (test code = 785-6) 29.6 pg 26.1-32.7 MCV (test code = 787-2) 86.4 fL 81.7-95.6 MCHC (test code = 786-4) 34.3 g/dL 31.2-35 PLT (test code = 777-3) See_Comment [Au tomated message] The system [employer] generated this result transmit arsalan reference range : 150 - 328 10*3/?L. The reference range was not used to interpret this result as normal/abnormal . MPV (test code = 9.9 fL 9.8-13 22958-8) RDW-CV (test code = 15.8 % 12.1-15.4 H 788-0) RDW-SD (test code = 49.0 fL 38.5-51.6 82210-6) NRBC x10^3 (test code = See_Comment [Au tomated message] 5321225359) The system [employer] generated this result transmit arsalan reference range : 10*3/?L. The reference range was not used to interpret this result as normal/abnormal . NRBC/100 WBC (test code See_Comment [Au tomated message] = 4007735106) The system [employer] generated this result transmit arsalan reference range : 0.0 - 10.0 /100 WBC s. The reference r fili was not used to interpret this result as normal/abnormal . IPF % (test code = 1638930856) Lab Interpretation (test Abnormal code = 97243-6) [facility]hamHEPATIC FUNCTION PANEL (00542) (ALB,T.PRO,BILI T,BU/BC,ALT,AST,ALK PHOS)2020-02-17 08:58:00 Test Item Value Reference Range Interpretation Comments TOTAL BILI (test code = 7826974722) 0.3 mg/dL 0.1-1.1 BILI UNCON (test code = 7163298262) 0.4 mg/dL 0.1-1.1 BILI CONJ (test code = 7329365769) 0.0 mg/dL 0-0.3 T PROTEIN (test code = 1750623302) 4.6 g/dL 6.3-8.2 L ALBUMIN (test code = 8003003474) 2.1 g/dL 3.5-5 L ALK PHOS (test code = 7534523187) 35 U/L 34-122 ALTv (test code = 1742-6) 20 U/L 5-50 AST(SGOT) (test code = 4023282216) 89 U/L 13-40 H Lab Interpretation (test code = Abnormal 96997-1) [facility]hamPrepare Packed RBC (in units), 1 Units 2020-02-17 06:26:36 Test Item Value Reference Range Interpretation Comments Cross Match Result Compatible (test code = 4409) ISBT Blood Type Code (test code = 817925) Unit Blood Type (test A Pos code = 4410) Unit Number (test [id number] code = 4411) Blood Expiration Date & Time (test code = 545657) Status Information Issued (test code = 4412) Product Red Blood Cells Identification (test code = 4413) Product Code (test P0397P25 Performed at [facility] code = 4414) Laboratory Services - [facility] Blood [address] [place] [address] 119[address]Jsgq Free: [phone] A No. [id number] [facility] METABOLIC [facility] (NA, K, CL, CO2, GLUCOSE, BUN, CREATININE, CA)2020-02-17 05:15:00 Test Item Value Reference Range Interpretation Comments NA (test code = 140 mmol/L 135-145 0132823298) K (test code = 3.5 mmol/L 3.5-5 9760474568) CL (test code = 113 mmol/L 98-108 H 0026023280) CO2 TOTAL (test code = 24 mmol/L 23-31 1659888528) AGAP (test code = 2-16 3848329808) BUN (test code = 22 mg/dL 7-23 4838396924) GLUCOSE (test code = 112 mg/dL 70-110 H 6788989141) CREATININE (test code = 0.85 mg/dL 0.6-1.25 0716583272) CALCIUM (test code = 7.0 mg/dL 8.6-10.6 L 9489052867) eGFR Calculation mL/min/1.73m2 (Non-) (test code = 2456884976) eGFR Calculation mL/min/1.73m2 () (test code = 5519263213) YENI (test code = YENI) Association of Glomerular Filtration Rate (GFR) and Staging of Kidney Disease* + --+ --+ ------+| GFR (mL/min/1.73 m2) ?| With Kidney Damage ?| ?Without Kidney Damage+ --------+ --------+ +| ?>90 ?| ?Stage one ?| ? Normal ?+ ---+ ---+ -------+| ?60-89 ?| ?Stage two ?| ? Decreased GFR ? + --+ --+ ------+| ?30-59 ?| ?Stage three ?| ? Stage three ? + --+ --+ ------+| ?15-29 ?| ?Stage four ? | ? Stage four ?+ ---+ ---+ -------+| ?<15 (or dialysis) ? ?| ?Stage five ? | ? Stage five ?+ ---+ ---+ -------+ *Each stage assumes the associated GFR level has been in effect for at least three months. ?Stages 1 to 5, with or without kidney disease, indicate chronic kidney disease. Notes: Determination of stages one and two (with eGFR >59mL/min/1.73 m2) requires estimation of kidney damage for at least three months as defined by structural or functional abnormalities of the kidney, manifested by either:Pathological abnormalities or Markers of kidney damage (including abnormalities in the composition of the blood or urine or abnormalities in imaging tests). Lab Interpretation Abnormal (test code = 12467-9) [facility]hamMAGNESIUM2020-09-22 05:15:00 Test Item Value Reference Range Interpretation Comments MAGNESIUM (test code = 9229397576) 2.0 mg/dL 1.7-2.4 Lab Interpretation (test code = Normal 72512-6) [facility] BrenhamCB WITHOUT [id number] 04:55:00 Test Item Value Reference Range Interpretation Comments WBC (test code = 6690-2) See_Comment H [A utomated message] The system [employer] generated this result transmit arsalan reference range : 4.20 - 10.70 10*3/?L. The reference range was not used to interpret this result as normal/abnormal . RBC (test code = 789-8) See_Comment L [Au tomated message] The system [employer] generated this result transmit arsalan reference range : 4.26 - 5.52 10* 6/?L. The reference r fili was not used to interpret this result as normal/abnormal . HGB (test code = 718-7) 6.6 g/dL 12.2-16.4 L HCT (test code = 4544-3) 20.0 % 38.4-49.3 L MCH (test code = 785-6) 28.4 pg 26.1-32.7 MCV (test code = 787-2) 86.2 fL 81.7-95.6 MCHC (test code = 786-4) 33.0 g/dL 31.2-35 PLT (test code = 777-3) See_Comment [Au tomated message] The system [employer] generated this result transmit arsalan reference range : 150 - 328 10*3/?L. The reference range was not used to interpret this result as normal/abnormal . MPV (test code = 9.9 fL 9.8-13 56976-9) RDW-CV (test code = 15.9 % 12.1-15.4 H 788-0) RDW-SD (test code = 48.8 fL 38.5-51.6 18037-1) NRBC x10^3 (test code = See_Comment [Au tomated message] 8196484497) The system [employer] generated this result transmit arsalan reference range : 10*3/?L. The reference range was not used to interpret this result as normal/abnormal . NRBC/100 WBC (test code See_Comment [Au tomated message] = 7163433450) The system [employer] generated this result transmit arsalan reference range : 0.0 - 10.0 /100 WBC s. The reference r fili was not used to interpret this result as normal/abnormal . IPF % (test code = 3871712010) Lab Interpretation (test Abnormal code = 66573-9) [facility] BrenhamaPTT2020-09-21 17:57:00 Test Item Value Reference Range Interpretation Comments APTT Patient (test code See_Comment L [Au tomated message] = 3173-2) The system [employer] generated this result transmitted ref erence range: 26 - 36 Seconds. The reference range was not used to int erpret this result as normal/abnormal . Lab Interpretation (test Abnormal code = 59826-7) [facility]hamCB WITHOUT [id number] 17:48:00 Test Item Value Reference Range Interpretation Comments WBC (test code = 6690-2) See_Comment H [A utomated message] The system [employer] generated this result transmit arsalan reference range : 4.20 - 10.70 10*3/?L. The reference range was not used to interpret this result as normal/abnormal . RBC (test code = 789-8) See_Comment L [Au tomated message] The system [employer] generated this result transmit arsalan reference range : 4.26 - 5.52 10* 6/?L. The reference r fili was not used to interpret this result as normal/abnormal . HGB (test code = 718-7) 7.2 g/dL 12.2-16.4 L HCT (test code = 4544-3) 21.2 % 38.4-49.3 L MCH (test code = 785-6) 29.0 pg 26.1-32.7 MCV (test code = 787-2) 85.5 fL 81.7-95.6 MCHC (test code = 786-4) 34.0 g/dL 31.2-35 PLT (test code = 777-3) See_Comment [Au tomated message] The system [employer] generated this result transmit arsalan reference range : 150 - 328 10*3/?L. The reference range was not used to interpret this result as normal/abnormal . MPV (test code = 10.3 fL 9.8-13 11517-6) RDW-CV (test code = 15.6 % 12.1-15.4 H 788-0) RDW-SD (test code = 47.7 fL 38.5-51.6 22339-0) NRBC x10^3 (test code = See_Comment [Au tomated message] 6050892281) The system [employer] generated this result transmit arsalan reference range : 10*3/?L. The reference range was not used to interpret this result as normal/abnormal . NRBC/100 WBC (test code See_Comment [Au tomated message] = 5178600422) The system [employer] generated this result transmit arsalan reference range : 0.0 - 10.0 /100 WBC s. The reference r fili was not used to interpret this result as normal/abnormal . IPF % (test code = 4049382335) Lab Interpretation (test Abnormal code = 06439-5) [facility]IONIZ[facility] [id number] 15:23:00 Test Item Value Reference Range Interpretation Comments IONIZED CA (test code = 4.10 mg/dL 4.5-5.3 L 4042541858) PH SERUM (test code = 7692161311) 7.35-7.45 H Lab Interpretation (test code = Abnormal 65577-4) [facility]hamCREATINE [id number] 14:29:00 Test Item Value Reference Range Interpretation Comments CK (test code = 8113339514) 91 U/L 33-194 Lab Interpretation (test code = Normal 03553-2) [facility]hamPrepare Packed RBC (in units), 1 Units 2020-02-16 14:22:26 Test Item Value Reference Range Interpretation Comments Cross Match Result Compatible (test code = 4409) ISBT Blood Type Code (test code = 265784) Unit Blood Type (test A Pos code = 4410) Unit Number (test [id number] code = 4411) Blood Expiration Date & Time (test code = 808036) Status Information Issued (test code = 4412) Product Red Blood Cells Identification (test code = 4413) Product Code (test G4393U14 Performed at [facility] code = 4414) Laboratory Services - [facility] Blood [address] [address]Sdql Free: [phone] A No. [id number] [facility] WITHOUT [id number] 13:34:00 Test Item Value Reference Range Interpretation Comments WBC (test code = 6690-2) See_Comment H [A utomated message] The system [employer] generated this result transmit arsalan reference range : 4.20 - 10.70 10*3/?L. The reference range was not used to interpret this result as normal/abnormal . RBC (test code = 789-8) See_Comment L [Au tomated message] The system [employer] generated this result transmit arsalan reference range : 4.26 - 5.52 10* 6/?L. The reference r fili was not used to interpret this result as normal/abnormal . HGB (test code = 718-7) 6.8 g/dL 12.2-16.4 L HCT (test code = 4544-3) 21.3 % 38.4-49.3 L MCH (test code = 785-6) 27.3 pg 26.1-32.7 MCV (test code = 787-2) 85.5 fL 81.7-95.6 MCHC (test code = 786-4) 31.9 g/dL 31.2-35 PLT (test code = 777-3) See_Comment [Au tomated message] The system [employer] generated this result transmit arsalan reference range : 150 - 328 10*3/?L. The reference range was not used to interpret this result as normal/abnormal . MPV (test code = 10.8 fL 9.8-13 96074-8) RDW-CV (test code = 15.9 % 12.1-15.4 H 788-0) RDW-SD (test code = 48.6 fL 38.5-51.6 43576-0) NRBC x10^3 (test code = See_Comment [Au tomated message] 7430414386) The system [employer] h generated this result transmit arsalan reference range : 10*3/?L. The reference range was not used to interpret this result as normal/abnormal . NRBC/100 WBC (test code See_Comment [Au tomated message] = 5476910318) The system [employer] ch generated this result transmit arsalan reference range : 0.0 - 10.0 /100 WBC s. The reference r fili was not used to interpret this result as normal/abnormal . IPF % (test code = 5844692822) Lab Interpretation (test Abnormal code = 16919-4) [facility]hamXR CHEST 1 [id number] 12:26:24 No acute intrathoracic abnormality. Preliminary Report Dictated by Resident: Godfrey Tillman MD., have reviewed this study and agree withthe above report.PROCEDURE: XR CHEST 1 VW CLINICAL INDICATION: Cough COMPARISON: None FINDINGS: The lungs are hypoinflated resulting in accentuation of the bronchovascularmarkings. Left lower lobe retrocardiac atelectasis is seen. No pleuraleffusion or pneumothorax is seen. The heart is normal in size. No acute bony abnormality. [facility], Radiant Results Inft User - 02/16/2020 7:27 AM CDTPROCEDURE: XR CHEST 1 VWCLINICAL INDICATION: Cough COMPARISON: NoneFINDINGS:The lungs are hypoinflated resulting in accentuation of the bronchovascularmarkings. Left lower lobe retrocardiac atelectasis is seen. No pleuraleffusion or pneumothorax is seen. The heart is normal in size.No acute bony abnormality.IMPRESSIONNo acute intrathoracic abnormality.Preliminary Report Dictated by Resident: Godfrey Tai MD., have reviewed this study and agree withthe above report.[facility]hamPrepare Packed RBC (in units), 2 [id number] 10:07:25 Test Item Value Reference Range Interpretation Comments Cross Match Result Compatible (test code = 4409) ISBT Blood Type Code (test code = 426322) Unit Blood Type (test A Pos code = 4410) Unit Number (test [id number] code = 4411) Blood Expiration Date & Time (test code = 325340) Status Information Issued (test code = 4412) Product Red Blood Cells Identification (test code = 4413) Product Code (test U3064G94 Performed at [facility] code = 4414) Laboratory Services - [facility] Blood [address] [facility] s [address]Ovmt Free: [phone] A No. [id number] [facility] BrenhamFIBRINOGEN2020-09-21 07:41:00 Test Item Value Reference Range Interpretation Comments Fibrinogen (test code = 2081641089) 268 mg/dL 167-453 Lab Interpretation (test code = Normal 18181-7) [facility]hamType and Screen - ONCE [id number] 07:15:47 Test Item Value Reference Range Interpretation Comments IAT (test code = Negative Performed a t [facility] 1185) Laboratory Serv ices - [facility] Blood Bank3 [address] [facility] [address]Herc Free: [phone] A No. [id number] ABO & RH (test AB POSITIVE Patient trans fused with code = 20) 2 Apos units on 02/15/20.Perfor med at [facility] Laboratory Services - [facility] Blood Ban [address] [facility] s [address]Issm Free: [phone] A No. [id number] [facility] BrenhamCBC WITH [id number] 06:43:00 Test Item Value Reference Range Interpretation Comments WBC (test code = See_Comment H [Automated 0990-2) message] The system which generated this result transmit arsalan reference range : 4.20 - 10.70 10*3/?L. The reference range was not used to interpret this result as normal/abnormal . RBC (test code = See_Comment L [Automated 199-8) message] The system which generated this result transmit arsalan reference range : 4.26 - 5.52 10*6/?L. The reference range was not used to interpret this result as normal/abnormal . HGB (test code = 5.0 g/dL 12.2-16.4 LL 718-7) HCT (test code = 14.8 % 38.4-49.3 LL 4544-3) MCV (test code = 83.1 fL 81.7-95.6 787-2) MCH (test code = 28.1 pg 26.1-32.7 785-6) MCHC (test code = 33.8 g/dL 31.2-35 786-4) RDW-SD (test code = 49.1 fL 38.5-51.6 79098-7) RDW-CV (test code = 16.5 % 12.1-15.4 H 788-0) PLT (test code = See_Comment [Automated 777-3) message] The system which generated this result transmit arsalan reference range : 150 - 328 10*3/ ?L. The reference range was not u sed to interpret th is result as normal/abnormal . MPV (test code = 11.5 fL 9.8-13 25043-7) NRBC/100 WBC (test See_Comment [Automat ed code = 0107155796) message] The system which generated this result transmit arsalan reference range : 0.0 - 10.0 /100 WBCs. The reference range was not used to interpret this result as normal/abnormal . NRBC x10^3 (test code See_Comment [Auto mated = 2922851631) message] The system which generated this result transmit arsalan reference range : 10*3/?L. The reference range was not used to interpret this result as normal/abnormal . GRAN MAT (NEUT) % 79.1 % (test code = 770-8) IMM GRAN % (test code 2.90 % = 2274002001) LYMPH % (test code = 10.0 % 736-9) MONO % (test code = 7.8 % 5905-5) EOS % (test code = 0.1 % 713-8) BASO % (test code = 0.1 % 706-2) GRAN MAT x10^3(ANC) 14.36 10*3/uL 1.99-6.95 H (test code = 1008276324) IMM GRAN x10^3 (test 0.52 10*3/uL 0-0.06 H code = 8478907485) LYMPH x10^3 (test code 1.82 10*3/uL 1.09-3.23 = 731-0) MONO x10^3 (test code 1.41 10*3/uL 0.36-1.02 H = 742-7) EOS x10^3 (test code = <0.03 0.06-0.53 L 711-2) BASO x10^3 (test code <0.03 0.01-0.09 = 704-7) POLYCHROMASIA (test 2+ See_Comment [Automa arsalan code = 17535-5) message] The system which generated this result transmit arsalan reference range : 2+. The referen ce range was not u sed to interpret th is result as normal/abnormal . Lab Interpretation Abnormal (test code = 55264-2) [facility] BrenhamLactic Acid Whole [id number] 06:36:00 Test Item Value Reference Range Interpretation Comments LACTIC ACID (test code = 1.42 mmol/L 1416692108) [facility] METABOLIC PANEL (NA, K, CL, CO2, GLUCOSE, BUN, CREATININE, CA)2020-02-16 03:16:00 Test Item Value Reference Range Interpretation Comments NA (test code = 138 mmol/L 135-145 8095148205) K (test code = 3.9 mmol/L 3.5-5 6536789653) CL (test code = 105 mmol/L 98-108 7088566973) CO2 TOTAL (test code = 24 mmol/L 23-31 9556972892) AGAP (test code = 2-16 3567724373) BUN (test code = 54 mg/dL 7-23 H 0637940288) GLUCOSE (test code = 181 mg/dL 70-110 H 5435264579) CREATININE (test code = 1.29 mg/dL 0.6-1.25 H 2470302190) CALCIUM (test code = 7.9 mg/dL 8.6-10.6 L 3275257623) eGFR Calculation mL/min/1.73m2 (Non-) (test code = 3258927821) eGFR Calculation mL/min/1.73m2 () (test code = 4668031226) YENI (test code = YENI) Association of Glomerular Filtration Rate (GFR) and Staging of Kidney Disease* + --+ --+ ------+| GFR (mL/min/1.73 m2) ?| With Kidney Damage ?| ?Without Kidney Damage+ --------+ --------+ +| ?>90 ?| ?Stage one ?| ? Normal ?+ ---+ ---+ -------+| ?60-89 ?| ?Stage two ?| ? Decreased GFR ? + --+ --+ ------+| ?30-59 ?| ?Stage three ?| ? Stage three ? + --+ --+ ------+| ?15-29 ?| ?Stage four ? | ? Stage four ?+ ---+ ---+ -------+| ?<15 (or dialysis) ? ?| ?Stage five ? | ? Stage five ?+ ---+ ---+ -------+ *Each stage assumes the associated GFR level has been in effect for at least three months. ?Stages 1 to 5, with or without kidney disease, indicate chronic kidney disease. Notes: Determination of stages one and two (with eGFR >59mL/min/1.73 m2) requires estimation of kidney damage for at least three months as defined by structural or functional abnormalities of the kidney, manifested by either:Pathological abnormalities or Markers of kidney damage (including abnormalities in the composition of the blood or urine or abnormalities in imaging tests). Lab Interpretation Abnormal (test code = 34187-4) [facility]hamMAGNESIUM2020-09-21 03:16:00 Test Item Value Reference Range Interpretation Comments MAGNESIUM (test code = 2745307902) 1.5 mg/dL 1.7-2.4 L Lab Interpretation (test code = Abnormal 43667-8) [facility] BrenhamPROTHROMBIN TIME / [id number] 03:09:00 Test Item Value Reference Range Interpretation Comments PROTIME PATIENT (test See_Comment [Auto mated message] code = 5964-2) The system [employer] generated this result transmitted ref erence range: 12.0 - 1 4.7 Seconds. The re ference range was not u sed to interpret this result as normal/abnor mal. INR (test code = 6301-6) Nor mal INR <1.1; Warfarin Therap eutic range 2.0 to 3. 0 or 2.5 to 3.5, dep ending upon the indica tions. Lab Interpretation (test Normal code = 79714-9) [facility]hamHEMOGLOBIN2020-09-21 01:55:00 Test Item Value Reference Range Interpretation Comments HGB (test code = 718-7) 5.1 g/dL 12.2-16.4 L Lab Interpretation (test code = Abnormal 79311-7) [facility] BrenhamUrinalysis2020-09-21 01:40:00 Test Item Value Reference Range Interpretation Comments APPEARANCE (test code = Clear Clear 0641010728) COLOR (test code = Yellow Yellow 0009910221) PH (test code = 4.8-8.0 8516587869) SP GRAVITY (test code = 1.003-1.030 0103714196) GLU U QUAL (test code = Normal Normal 4622575673) BLOOD (test code = Negative Negative 2119237247) KETONES (test code = 5 mg/dL Negative A 5501710564) PROTEIN (test code = Negative Negative 2887-8) UROBILIN (test code = Normal Normal 8502758528) BILIRUBIN (test code = Negative Negative 1977975117) NITRITE (test code = Negative Negative 5317409170) LEUK BLAINE (test code = Negative Negative 7530129318) RBC/HPF (test code = <1 See_Comment [Autom ated message] 1307599108) The system [employer] generated this result transmitted ref erence range: 0 - 3 HP F. The reference range was not used to int erpret this result as normal/abnormal . WBC/HPF (test code = See_Comment [Autom ated message] 4733112958) The system [employer] generated this result transmitted ref erence range: 0 - 5 HP F. The reference range was not used to int erpret this result as normal/abnormal . BACTERIA (test code = Negative Negative 3708737344) SQ EPITH (test code = <1 HPF 4650627469) HYAL CAST (test code = See_Comment [Aut omated message] 8827790107) The system [employer] generated this result transmitted ref erence range: <=2 LPF. The reference range was not used to int erpret this result as normal/abnormal . Lab Interpretation (test Abnormal code = 27482-3) [facility] BrenhamLactic Acid Whole [id number] 23:38:00 Test Item Value Reference Range Interpretation Comments LACTIC ACID (test code = 4.70 mmol/L 8152410179) [facility]hamPrepare Packed RBC (in units), 2 Units 2020-02-15 22:29:34 Test Item Value Reference Range Interpretation Comments Cross Match Result Compatible (test code = 4409) ISBT Blood Type Code (test code = 345264) Unit Blood Type (test A Pos code = 4410) Unit Number (test [id number] code = 4411) Blood Expiration Date & Time (test code = 316184) Status Information Issued (test code = 4412) Product Red Blood Cells Identification (test code = 4413) Product Code (test X5564D05 Performed at [facility] code = 4414) Laboratory Services - [facility] Blood [address] [place], [place] [id number] Free: [phone] A No. [id number] [facility] BrenhamCB with [id number] 21:58:00 Test Item Value Reference Range Interpretation Comments WBC (test code = See_Comment H [Automated 6590-2) message] The system which generated this result transmit arsalan reference range : 4.20 - 10.70 10*3/?L. The reference range was not used to interpret this result as normal/abnormal . RBC (test code = See_Comment L [Automated 149-8) message] The system which generated this result transmit arsalan reference range : 4.26 - 5.52 10*6/?L. The reference range was not used to interpret this result as normal/abnormal . HGB (test code = 4.5 g/dL 12.2-16.4 LL 718-7) HCT (test code = 14.5 % 38.4-49.3 LL 4544-3) MCV (test code = 84.3 fL 81.7-95.6 787-2) MCH (test code = 26.2 pg 26.1-32.7 785-6) MCHC (test code = 31.0 g/dL 31.2-35 L 786-4) RDW-SD (test code = 51.0 fL 38.5-51.6 51028-8) RDW-CV (test code = 17.2 % 12.1-15.4 H 788-0) PLT (test code = See_Comment H [Automated 777-3) message] The system which generated this result transmit arsalan reference range : 150 - 328 10*3/ ?L. The reference range was not u sed to interpret th is result as normal/abnormal . MPV (test code = 11.2 fL 9.8-13 41197-5) NRBC/100 WBC (test See_Comment [Automat ed code = 0909976939) message] The system which generated this result transmit arsalan reference range : 0.0 - 10.0 /100 WBCs. The reference range was not used to interpret this result as normal/abnormal . NRBC x10^3 (test code See_Comment [Auto mated = 2211986530) message] The system which generated this result transmit arsalan reference range : 10*3/?L. The reference range was not used to interpret this result as normal/abnormal . SEG % (test code = 81 % 33-76 H 89220-0) BAND % (test code = 4 % 0-1 H 54613-7) LYMPH % (test code = 10 % 14-54 L 81156-0) MONO % (test code = 5 % 0-4 H 09440-3) ANC (test code = 22.43 10*3/uL 1.99-6.95 H 8604901451) Lab Interpretation Abnormal (test code = 98769-4) [facility] BrenhamABORH [id number] 21:24:39 Test Item Value Reference Range Interpretation Comments ABO & RH (test AB Positive Performed at [facility] code = 20) Laboratory Serv [facility] Blood Bank[address] [place] [phone] Free: [phone] A No. [id number] [facility]hamType and Screen - Type and Screen expires at midnight on the 3rd day after it was drawn. A current Type and Screen is required when RBCs are requested. For all other blood products, a Type and Screen performed during the current hospitalization i...2020-02-15 21:21:14 Test Item Value Reference Range Interpretation Comments ABO & RH (test AB Positive Performed at [facility] code = 20) Laboratory Serv [facility] Blood Bank[address] [place] [phone] Free: [phone] A No. [id number] IAT (test code = Negative Performed a t [facility] 1185) Laboratory [facility] Blood Bank[address] [place] [phone] Free: [phone] A No. [id number] [facility] BrenhamTroponin [id number] 21:19:00 Test Item Value Reference Range Interpretation Comments TROPONIN I (test 0.033 ng/mL See_Comment [Automated code = 3361726896) message] The system which generated this result transmitted reference range : <=0.034. The reference range was not used to interpret this result as normal/abnormal . YENI (test code = Equal or Less than YENI) 0.034 ng/ml---Normal ?Note: Cardiac troponin begins to rise 3-4 hours after the onset of ischemia. Repeat in 4-6 hours if the sample was drawn within 3-4 hours of the onset of the symptom and found normal. Between 0.035 and 0.120 ng/mL--- Borderline. Questionable myocardial injury or necrosis ? ?Note: Serial measurement may be necessary to confirm or exclude the diagnosis of myocardial injury or necrosis; Clinical correlation (symptoms, EKGs, imaging studies, and others) required; Repeat in 4-6 hours if clinically indicated. ? Equal or Higher than 0.121 ng/mL---Abnormal. Myocardial Injury or Necrosis Likely ? Biotin has been reported to cause a negative bias, interpret results relative to patient's use of biotin. ? Lab Interpretation Normal (test code = 52024-7) [facility]hamCOVID-19 (ID NOW RAPID TESTING)2020-02-15 21:15:00 Test Item Value Reference Range Interpretation Comments SARS-CoV-2 Rapid ID NOW Not Detected Not Detected (test code = 85786-8) YENI (test code = YENI) ID NOW COVID-19 Assay is an isothermal nucleic acid amplification test intended for the qualitative detection of nucleic acid from SARS-CoV-2 viral RNA in nasopharyngeal ([employer]ING [employer] TECHNICIAN) specimens. It is used under Emergency Use Authorization (EUA) by FDA. The limit of detection (LOD) of the assay is 125 Genome Equivalents/mL. A positive result is indicative of the presence of SARS-CoV-2 RNA. ?Clinical correlation with patient history and other diagnostic information is necessary to determine patient infection status. A negative (Not Detected) result does not preclude SARS-CoV-2 infection. In patients with clinical symptoms and other tests that are consistent with SARS-CoV-2 infection, negative results should be treated as presumptive negative and a new specimen should be tested with alternative PCR molecular test. Invalid: Please collect a new specimen for repeat patient testing if clinically indicated. Lab Interpretation Normal (test code = 92584-0) [facility]hamHepatic Function Panel (ALB, T.PRO, BILI T, BU/BC, ALT, AST, ALK PHOS)2020-02-15 21:15:00 Test Item Value Reference Range Interpretation Comments TOTAL BILI (test code = 3843540030) 0.1 mg/dL 0.1-1.1 BILI UNCON (test code = 3558151125) 0.4 mg/dL 0.1-1.1 BILI CONJ (test code = 7359675629) 0.0 mg/dL 0-0.3 T PROTEIN (test code = 7866473960) 5.1 g/dL 6.3-8.2 L ALBUMIN (test code = 2602225111) 2.5 g/dL 3.5-5 L ALK PHOS (test code = 7700876917) 36 U/L 34-122 ALTv (test code = 1742-6) 29 U/L 5-50 AST(SGOT) (test code = 4109514211) 36 U/L 13-40 Lab Interpretation (test code = Abnormal 15374-5) [facility] BrenhamBasi Metabolic Panel (NA, K, CL, CO2, GLUCOSE, BUN, CREATININE, CA)2020-02-15 21:08:00 Test Item Value Reference Range Interpretation Comments NA (test code = 138 mmol/L 135-145 0078908498) K (test code = 3.7 mmol/L 3.5-5 0162111888) CL (test code = 103 mmol/L 98-108 2690735660) CO2 TOTAL (test code = 14 mmol/L 23-31 L 3514069151) AGAP (test code = 2-16 H 9766839113) BUN (test code = 53 mg/dL 7-23 H 4069141638) GLUCOSE (test code = 151 mg/dL 70-110 H 6198497279) CREATININE (test code = 1.43 mg/dL 0.6-1.25 H 8163034163) CALCIUM (test code = 8.5 mg/dL 8.6-10.6 L 5666734766) eGFR Calculation mL/min/1.73m2 (Non-) (test code = 2318482747) eGFR Calculation mL/min/1.73m2 () (test code = 1292751477) YENI (test code = YENI) Association of Glomerular Filtration Rate (GFR) and Staging of Kidney Disease* + --+ --+ ------+| GFR (mL/min/1.73 m2) ?| With Kidney Damage ?| ?Without Kidney Damage+ --------+ --------+ +| ?>90 ?| ?Stage one ?| ? Normal ?+ ---+ ---+ -------+| ?60-89 ?| ?Stage two ?| ? Decreased GFR ? + --+ --+ ------+| ?30-59 ?| ?Stage three ?| ? Stage three ? + --+ --+ ------+| ?15-29 ?| ?Stage four ? | ? Stage four ?+ ---+ ---+ -------+| ?<15 (or dialysis) ? ?| ?Stage five ? | ? Stage five ?+ ---+ ---+ -------+ *Each stage assumes the associated GFR level has been in effect for at least three months. ?Stages 1 to 5, with or without kidney disease, indicate chronic kidney disease. Notes: Determination of stages one and two (with eGFR >59mL/min/1.73 m2) requires estimation of kidney damage for at least three months as defined by structural or functional abnormalities of the kidney, manifested by either:Pathological abnormalities or Markers of kidney damage (including abnormalities in the composition of the blood or urine or abnormalities in imaging tests). Lab Interpretation Abnormal (test code = 85089-3) [facility] BrenhamLipase [id number] 21:08:00 Test Item Value Reference Range Interpretation Comments LIPASE (test code = 5706402773) 140 U/L 0-220 Lab Interpretation (test code = Normal 46073-5) [facility] BrenhamProthrombin Time (PT) / [id number] 20:57:00 Test Item Value Reference Range Interpretation Comments PROTIME PATIENT (test See_Comment H [Auto mated message] code = 5964-2) The system [employer] generated this result transmitted ref erence range: 12.0 - 1 4.7 Seconds. The reference range was not used to int erpret this result as normal/abnormal . INR (test code = 6301-6) Nor mal INR <1.1; Warfarin Therap eutic range 2.0 to 3. 0 or 2.5 to 3.5, dep ending upon the indica tions. Lab Interpretation (test Abnormal code = 19638-1) [facility] BrenhamLactic Acid Whole [id number] 20:39:00 Test Item Value Reference Range Interpretation Comments LACTIC ACID (test code = 12.23 mmol/L 0992220054) [facility] BrenhamTISSUE [id number] 18:09:00Surgical Pathology Report Case: [id number] Authorizing Provider: Jed Red MD Collected: 02/12/2020 08:24 AM Ordering Location: [address] Received: 02/12/2020 01:18 PM Service Pathologist: Britney Adams MD Specimens: A) - Biopsy, Gastric, gastric ulcer B) -Biopsy, Gastric, random gastric bx A. GASTRIC ULCER BIOPSY- FIBRINOPURULENT EXUDATE, NECROSIS, INFLAMED GRANULATION TISSUE AND VERY SCANT FIBRO-MUSCULAR TISSUE - NO CARCINOMA IDENTIFIED- NO VIABLE GASTRIC EPITHELIUM SEEN (SEE COMMENT) - NO HELICOBACTER PYLORI LIKE ORGANISMS ON WARTHIN STARRY STAINB. STOMACH, BIOPSY - CHRONIC INACTIVE GASTRITIS, MODERATE- SEVERE, WITH FOCAL ACTIVITY- NO HELICOBACTER LIKE ORGANISMS IDENTIFIED ON WARTHIN STARRY AND IMMUNOHISTOCHEMICAL STAINS- NO INTESTINAL METAPLASIA, DYSPLASIA OR MALIGNANCY SEEN Signing Pathologist Direct Phone Line: [phone] signed by Britney Adams MD on 02/13/2020 at 6:09 PMNo intact or viable gastric epithelium is seen and the tissue appears to be mainly from ulcer base. Clinical correlation is recommended.46058 X 2, 88885 x 2, 31031Maektfdxiken and postoperative diagnoses: GI bleeding , Non-bleeding large gastric ulcers with a clean ulcer base. The largest ulcer is >2cm in antrum around the incisura, very deep and cratered, concerning for malignancy. Another pre-pyloric clean based ulcer biopsied as well.A. Gastric ulcer B. Random gastric biopsy A. Received in formalin labeled with the patient's name, medical record number and "gastric" are multiple pieces of su-white soft tissue ranging in size from less than 0.1 cm to 0.4 cm. The specimen is submitted in toto in cassette A1.B. Received in formalin labeled with the patient's name, medical record number and "biopsy, gastric" are multiple pieces of su-white soft tissue ranging in size from 0.1 x 0.1 x 0.1 cm to 0.4 x 0.3 x 0.3 cm. The specimen is submitted in toto in cassette B1. AA/Eulalia-B: Performed. Multiple levels examined on part A.The interpretation of this case included the use of immunohistochemistry or special stains on part B.Helicobacter: Control Slides Examined: In-house known positive controls were evaluated along with the test tissue. These control slides run alongside of the patients sample show appropriate staining. Internal positive and negative controls when available are evaluated Immunohistochemistry technical testing was performed at [facility], Pathology Laboratory where it was developed and its performance characteristics were determined. It hasnot been cleared or approved by the U.S. Food and Drug Administration. The FDA has determined that such clearance or approval is not necessary. The test is used for clinical purposes. It should not be regarded as investigational or for research. This laboratory is certified under the Clinical Laboratory Improvement Amendments of 1988 (CLIA-88) as qualified to perform high complexity clinical laboratory testing.[facility], Department of Pathology, [address] [place] [address], [facility], [address] [place] [address], [facility], [facility], [address] [place] [address], [place] [address], [id number] 08:27:00 Test Item Value Reference Range Interpretation Comments PHOSPHORUS (BEAKER) (test code = 2.9 mg/dL 2.3-4.7 604) Hammerer ID Jamin Elena ID - SOBIA FCOMPREHENSIVE METABOLIC PANEL 2020-02-13 07:55:00 Test Item Value Reference Range Interpretation Comments TOTAL PROTEIN 6.3 gm/dL 6.0-8.3 (BEAKER) (test code = 770) ALBUMIN (BEAKER) 3.1 g/dL 3.5-5.0 L (test code = 1145) ALKALINE PHOSPHATASE 50 U/L 40-150 (BEAKER) (test code = 346) BILIRUBIN TOTAL 0.2 mg/dL 0.2-1.2 (BEAKER) (test code = 377) SODIUM (BEAKER) (test 140 meq/L 136-145 code = 381) POTASSIUM (BEAKER) 3.8 meq/L 3.5-5.1 (test code = 379) CHLORIDE (BEAKER) 106 meq/L 98-107 (test code = 382) CO2 (BEAKER) (test 28 meq/L 22-29 code = 355) BLOOD UREA NITROGEN 8 mg/dL 7-21 (BEAKER) (test code = 354) CREATININE (BEAKER) 0.90 mg/dL 0.57-1.25 (test code = 358) GLUCOSE RANDOM 102 mg/dL 70-105 (BEAKER) (test code = 652) CALCIUM (BEAKER) 7.9 mg/dL 8.4-10.2 L (test code = 697) AST (SGOT) (BEAKER) 26 U/L 5-34 (test code = 353) ALT (SGPT) (BEAKER) 21 U/L 6-55 (test code = 347) EGFR (BEAKER) (test 102 ESTIMATE D GFR IS code = 1092) mL/min/1.73 sq NOT ACCURA TE m CREATININE CLEARANCE IN PREDICTING GLOMERULAR FILTRATION RATE . ESTIMATED GFR I S NOT APPLICABLE FOR DIALYSIS PATIEN TS. Hammerer ID - JOSELIN [id number] 07:52:00 Test Item Value Reference Range Interpretation Comments MAGNESIUM (BEAKER) (test code = 1.7 mg/dL 1.6-2.6 627) Hammerer ID - PIAYA LCBC (HEMOGRAM ONLY)2020-02-13 07:09:00 Test Item Value Reference Range Interpretation Comments WHITE BLOOD CELL COUNT (BEAKER) 8.6 K/ L 3.5-10.5 (test code = 775) RED BLOOD CELL COUNT (BEAKER) 3.20 M/ L 4.63-6.08 L (test code = 761) HEMOGLOBIN (BEAKER) (test code = 8.3 GM/DL 13.7-17.5 L 410) HEMATOCRIT (BEAKER) (test code = 26.8 % 40.1-51.0 L 411) MEAN CORPUSCULAR VOLUME (BEAKER) 83.8 fL 79.0-92.2 (test code = 753) MEAN CORPUSCULAR HEMOGLOBIN 25.9 pg 25.7-32.2 (BEAKER) (test code = 751) MEAN CORPUSCULAR HEMOGLOBIN CONC 31.0 GM/DL 32.3-36.5 L (BEAKER) (test code = 752) RED CELL DISTRIBUTION WIDTH 17.1 % 11.6-14.4 H (BEAKER) (test code = 412) PLATELET COUNT (BEAKER) (test 379 K/CU MM 150-450 code = 756) MEAN PLATELET VOLUME (BEAKER) 10.0 fL 9.4-12.4 (test code = 754) NUCLEATED RED BLOOD CELLS 0 /100 WBC 0-0 (BEAKER) (test code = 413) [id number] 15:44:00 Test Item Value Reference Range Interpretation Comments PHOSPHORUS (BEAKER) (test code = 2.7 mg/dL 2.3-4.7 604) Hammerer ID - [id number] 15:44:00 Test Item Value Reference Range Interpretation Comments MAGNESIUM (BEAKER) (test code = 1.8 mg/dL 1.6-2.6 627) Hammerer ID - BSBASIC METABOLIC [id number] 15:44:00 Test Item Value Reference Range Interpretation Comments SODIUM (BEAKER) 140 meq/L 136-145 (test code = 381) POTASSIUM (BEAKER) 3.6 meq/L 3.5-5.1 (test code = 379) CHLORIDE (BEAKER) 107 meq/L 98-107 (test code = 382) CO2 (BEAKER) (test 26 meq/L 22-29 code = 355) BLOOD UREA NITROGEN 9 mg/dL 7-21 (BEAKER) (test code = 354) CREATININE (BEAKER) 0.91 mg/dL 0.57-1.25 (test code = 358) GLUCOSE RANDOM 95 mg/dL 70-105 (BEAKER) (test code = 652) CALCIUM (BEAKER) 7.8 mg/dL 8.4-10.2 L (test code = 697) EGFR (BEAKER) (test 101 mL/min/1.73 ESTIM ATED GFR IS code = 1092) sq m NOT ACCURATE CREATININE CLEARANCE IN PREDICTING GLOMERULAR FILTRATION RATE . ESTIMATED GFR I S NOT APPLICABLE FOR DIALYSIS PATIEN TS. Hammerer ID - BSCBC (HEMOGRAM ONLY)2020-02-12 15:28:00 Test Item Value Reference Range Interpretation Comments WHITE BLOOD CELL COUNT (BEAKER) 9.3 K/ L 3.5-10.5 (test code = 775) RED BLOOD CELL COUNT (BEAKER) 3.14 M/ L 4.63-6.08 L (test code = 761) HEMOGLOBIN (BEAKER) (test code = 8.0 GM/DL 13.7-17.5 L 410) HEMATOCRIT (BEAKER) (test code = 26.2 % 40.1-51.0 L 411) MEAN CORPUSCULAR VOLUME (BEAKER) 83.4 fL 79.0-92.2 (test code = 753) MEAN CORPUSCULAR HEMOGLOBIN 25.5 pg 25.7-32.2 L (BEAKER) (test code = 751) MEAN CORPUSCULAR HEMOGLOBIN CONC 30.5 GM/DL 32.3-36.5 L (BEAKER) (test code = 752) RED CELL DISTRIBUTION WIDTH 17.3 % 11.6-14.4 H (BEAKER) (test code = 412) PLATELET COUNT (BEAKER) (test 366 K/CU MM 150-450 code = 756) MEAN PLATELET VOLUME (BEAKER) 9.6 fL 9.4-12.4 (test code = 754) NUCLEATED RED BLOOD CELLS 0 /100 WBC 0-0 (BEAKER) (test code = 413) COMPREHENSIVE METABOLIC [id number] 07:41:00 Test Item Value Reference Range Interpretation Comments TOTAL PROTEIN 5.6 gm/dL 6.0-8.3 L (BEAKER) (test code = 770) ALBUMIN (BEAKER) 2.8 g/dL 3.5-5.0 L (test code = 1145) ALKALINE PHOSPHATASE 43 U/L 40-150 (BEAKER) (test code = 346) BILIRUBIN TOTAL 0.3 mg/dL 0.2-1.2 (BEAKER) (test code = 377) SODIUM (BEAKER) (test 138 meq/L 136-145 code = 381) POTASSIUM (BEAKER) 3.6 meq/L 3.5-5.1 (test code = 379) CHLORIDE (BEAKER) 103 meq/L 98-107 (test code = 382) CO2 (BEAKER) (test 29 meq/L 22-29 code = 355) BLOOD UREA NITROGEN 12 mg/dL 7-21 (BEAKER) (test code = 354) CREATININE (BEAKER) 0.99 mg/dL 0.57-1.25 (test code = 358) GLUCOSE RANDOM 117 mg/dL 70-105 H (BEAKER) (test code = 652) CALCIUM (BEAKER) 7.5 mg/dL 8.4-10.2 L (test code = 697) AST (SGOT) (BEAKER) 14 U/L 5-34 (test code = 353) ALT (SGPT) (BEAKER) 12 U/L 6-55 (test code = 347) EGFR (BEAKER) (test 91 mL/min/1.73 ESTIMA ARSALAN GFR IS code = 1092) sq m NOT ACCURATE CREATININE CLEARANCE IN PREDICTING GLOMERULAR FILTRATION RATE . ESTIMATED GFR I S NOT APPLICABLE FOR DIALYSIS PATIEN TS. Hammerer ID - JOSELIN [id number] 07:36:00 Test Item Value Reference Range Interpretation Comments PHOSPHORUS (BEAKER) (test code = 3.1 mg/dL 2.3-4.7 604) Hammerer ID - JOSELIN [id number] 07:36:00 Test Item Value Reference Range Interpretation Comments MAGNESIUM (BEAKER) (test code = 1.8 mg/dL 1.6-2.6 627) Hammerer ID - JOSELIN LCBC (HEMOGRAM ONLY)2020-02-12 06:50:00 Test Item Value Reference Range Interpretation Comments WHITE BLOOD CELL COUNT (BEAKER) 8.1 K/ L 3.5-10.5 (test code = 775) RED BLOOD CELL COUNT (BEAKER) 2.76 M/ L 4.63-6.08 L (test code = 761) HEMOGLOBIN (BEAKER) (test code = 7.1 GM/DL 13.7-17.5 L 410) HEMATOCRIT (BEAKER) (test code = 22.9 % 40.1-51.0 L 411) MEAN CORPUSCULAR VOLUME (BEAKER) 83.0 fL 79.0-92.2 (test code = 753) MEAN CORPUSCULAR HEMOGLOBIN 25.7 pg 25.7-32.2 (BEAKER) (test code = 751) MEAN CORPUSCULAR HEMOGLOBIN CONC 31.0 GM/DL 32.3-36.5 L (BEAKER) (test code = 752) RED CELL DISTRIBUTION WIDTH 17.2 % 11.6-14.4 H (BEAKER) (test code = 412) PLATELET COUNT (BEAKER) (test 296 K/CU MM 150-450 code = 756) MEAN PLATELET VOLUME (BEAKER) 9.9 fL 9.4-12.4 (test code = 754) NUCLEATED RED BLOOD CELLS 0 /100 WBC 0-0 (BEAKER) (test code = 413) CBC (HEMOGRAM ONLY)2020-02-11 19:21:00 Test Item Value Reference Range Interpretation Comments WHITE BLOOD CELL COUNT (BEAKER) 9.3 K/ L 3.5-10.5 (test code = 775) RED BLOOD CELL COUNT (BEAKER) 3.25 M/ L 4.63-6.08 L (test code = 761) HEMOGLOBIN (BEAKER) (test code = 8.5 GM/DL 13.7-17.5 L 410) HEMATOCRIT (BEAKER) (test code = 26.5 % 40.1-51.0 L 411) MEAN CORPUSCULAR VOLUME (BEAKER) 81.5 fL 79.0-92.2 (test code = 753) MEAN CORPUSCULAR HEMOGLOBIN 26.2 pg 25.7-32.2 (BEAKER) (test code = 751) MEAN CORPUSCULAR HEMOGLOBIN CONC 32.1 GM/DL 32.3-36.5 L (BEAKER) (test code = 752) RED CELL DISTRIBUTION WIDTH 17.2 % 11.6-14.4 H (BEAKER) (test code = 412) PLATELET COUNT (BEAKER) (test 373 K/CU MM 150-450 code = 756) MEAN PLATELET VOLUME (BEAKER) 9.9 fL 9.4-12.4 (test code = 754) [id number] 18:56:00 Test Item Value Reference Range Interpretation Comments MAGNESIUM (BEAKER) 1.9 mg/dL 1.6-2.6 Specimen slightly (test code = 627) hemolyzed Hammerer ID - [id number] 18:56:00 Test Item Value Reference Range Interpretation Comments PHOSPHORUS (BEAKER) 2.8 mg/dL 2.3-4.7 Specimen slightly (test code = 604) hemolyzed Hammerer ID - BSBASIC METABOLIC [id number] 18:56:00 Test Item Value Reference Range Interpretation Comments SODIUM (BEAKER) 137 meq/L 136-145 (test code = 381) POTASSIUM (BEAKER) 3.5 meq/L 3.5-5.1 Specimen slightly (test code = 379) hemolyzed CHLORIDE (BEAKER) 100 meq/L 98-107 (test code = 382) CO2 (BEAKER) (test 27 meq/L 22-29 code = 355) BLOOD UREA NITROGEN 16 mg/dL 7-21 (BEAKER) (test code = 354) CREATININE (BEAKER) 1.10 mg/dL 0.57-1.25 Specimen slightly (test code = 358) hemolyzed GLUCOSE RANDOM 93 mg/dL 70-105 (BEAKER) (test code = 652) CALCIUM (BEAKER) 8.1 mg/dL 8.4-10.2 L (test code = 697) EGFR (BEAKER) (test 81 mL/min/1.73 ESTIMA ARSALAN GFR IS code = 1092) sq m NOT ACCURATE CREATININE CLEARANCE IN PREDICTING GLOMERULAR FILTRATION RATE . ESTIMATED GFR I S NOT APPLICABLE FOR DIALYSIS PATIEN TS. Hammerer ID - BSPOCT-GLUCOSE [id number] 17:41:00 Test Item Value Reference Range Interpretation Comments POC-GLUCOSE METER 105 mg/dL 70-110 : TESTED A T [facility] 6720 (BEAKER) (test code = [place], 1538) [address]: Hammerer/Techni valentine ID = [id number] for [place] POCT-GLUCOSE [id number] 11:32:00 Test Item Value Reference Range Interpretation Comments POC-GLUCOSE METER 101 mg/dL 70-110 : [facility] (BEAKER) (test code = JUNG Metzger [facility], 1538) [address]: Hammerer/Techni valentine ID = [id number] for LOI SCHULER U/S, RENAL, [id number] 09:43:00Reason for exam:->AKIFINAL REPORT TECHNIQUE: Grayscale ultrasound of the kidneys and bladder. INDICATION: BERTHA. COMPARISON: None. FINDINGS: RIGHT KIDNEY: The right kidney measures 10.6 cm. Cortical thickness measures 1.9 cm. No solid mass lesions. No hydronephrosis. Renal artery and vein are patent.LEFT KIDNEY: The left kidney measures 11.1 cm. Cortical thickness measures 1.8 cm. No solid mass lesions. No hydronephrosis. Renal artery and vein are patent. BLADDER: Unremarkable. IMPRESSION:Unremarkable renal ultrasound.. Signed: Cel[facility] Verified Date/Time: 02/11/2020 09:43:07 BASIC METABOLIC PANEL 2020-02-11 09:36:00 Test Item Value Reference Range Interpretation Comments SODIUM (BEAKER) 137 meq/L 136-145 (test code = 381) POTASSIUM (BEAKER) 3.6 meq/L 3.5-5.1 (test code = 379) CHLORIDE (BEAKER) 99 meq/L 98-107 (test code = 382) CO2 (BEAKER) (test 35 meq/L 22-29 H code = 355) BLOOD UREA NITROGEN 25 mg/dL 7-21 H (BEAKER) (test code = 354) CREATININE (BEAKER) 1.33 mg/dL 0.57-1.25 H (test code = 358) GLUCOSE RANDOM 112 mg/dL 70-105 H (BEAKER) (test code = 652) CALCIUM (BEAKER) 7.2 mg/dL 8.4-10.2 L (test code = 697) EGFR (BEAKER) (test 65 mL/min/1.73 ESTIMA ARSALAN GFR IS code = 1092) sq m NOT ACCURATE CREATININE CLEARANCE IN PREDICTING GLOMERULAR FILTRATION RATE . ESTIMATED GFR I S NOT APPLICABLE FOR DIALYSIS PATIEN TS. COMPREHENSIVE METABOLIC [id number] 09:36:00 Test Item Value Reference Range Interpretation Comments TOTAL PROTEIN 5.7 gm/dL 6.0-8.3 L (BEAKER) (test code = 770) ALBUMIN (BEAKER) 2.9 g/dL 3.5-5.0 L (test code = 1145) ALKALINE PHOSPHATASE 44 U/L 40-150 (BEAKER) (test code = 346) BILIRUBIN TOTAL 0.4 mg/dL 0.2-1.2 (BEAKER) (test code = 377) SODIUM (BEAKER) (test 137 meq/L 136-145 code = 381) POTASSIUM (BEAKER) 3.6 meq/L 3.5-5.1 (test code = 379) CHLORIDE (BEAKER) 99 meq/L 98-107 (test code = 382) CO2 (BEAKER) (test 35 meq/L 22-29 H code = 355) BLOOD UREA NITROGEN 25 mg/dL 7-21 H (BEAKER) (test code = 354) CREATININE (BEAKER) 1.33 mg/dL 0.57-1.25 H (test code = 358) GLUCOSE RANDOM 112 mg/dL 70-105 H (BEAKER) (test code = 652) CALCIUM (BEAKER) 7.2 mg/dL 8.4-10.2 L (test code = 697) AST (SGOT) (BEAKER) 10 U/L 5-34 (test code = 353) ALT (SGPT) (BEAKER) 11 U/L 6-55 (test code = 347) EGFR (BEAKER) (test 65 mL/min/1.73 ESTIMA ARSALAN GFR IS code = 1092) sq m NOT ACCURATE CREATININE CLEARANCE IN PREDICTING GLOMERULAR FILTRATION RATE . ESTIMATED GFR I S NOT APPLICABLE FOR DIALYSIS PATIEN TS. Hammerer ID - CESIA [id number] 09:34:00 Test Item Value Reference Range Interpretation Comments PHOSPHORUS (BEAKER) (test code = 2.8 mg/dL 2.3-4.7 604) Hammerer ID - CESIA [id number] 09:34:00 Test Item Value Reference Range Interpretation Comments MAGNESIUM (BEAKER) (test code = 1.7 mg/dL 1.6-2.6 627) Hammerer ID - CESIA [id number] 08:43:00 Test Item Value Reference Range Interpretation Comments PHOSPHORUS (BEAKER) (test code = 2.9 mg/dL 2.3-4.7 604) Hammerer ID - CESIA [id number] 08:43:00 Test Item Value Reference Range Interpretation Comments MAGNESIUM (BEAKER) (test code = 1.7 mg/dL 1.6-2.6 627) Hammerer ID - CESIA MPOCT-GLUCOSE [id number] 07:49:00 Test Item Value Reference Range Interpretation Comments POC-GLUCOSE METER 98 mg/dL 70-110 : TESTED A T [facility] 6720 (BEAKER) (test code = [place], 1538) [address]: Hammerer/Techni valentine ID = [id number] for LOI VALLEJO CBC W/PLT COUNT & AUTO [id number] 05:27:00 Test Item Value Reference Range Interpretation Comments WHITE BLOOD CELL COUNT (BEAKER) 10.0 K/ L 3.5-10.5 (test code = 775) RED BLOOD CELL COUNT (BEAKER) 2.97 M/ L 4.63-6.08 L (test code = 761) HEMOGLOBIN (BEAKER) (test code = 7.7 GM/DL 13.7-17.5 L 410) HEMATOCRIT (BEAKER) (test code = 24.3 % 40.1-51.0 L 411) MEAN CORPUSCULAR VOLUME (BEAKER) 81.8 fL 79.0-92.2 (test code = 753) MEAN CORPUSCULAR HEMOGLOBIN 25.9 pg 25.7-32.2 (BEAKER) (test code = 751) MEAN CORPUSCULAR HEMOGLOBIN CONC 31.7 GM/DL 32.3-36.5 L (BEAKER) (test code = 752) RED CELL DISTRIBUTION WIDTH 17.5 % 11.6-14.4 H (BEAKER) (test code = 412) PLATELET COUNT (BEAKER) (test 283 K/CU MM 150-450 code = 756) MEAN PLATELET VOLUME (BEAKER) 10.2 fL 9.4-12.4 (test code = 754) NUCLEATED RED BLOOD CELLS 0 /100 WBC 0-0 (BEAKER) (test code = 413) NEUTROPHILS RELATIVE PERCENT 77 % (BEAKER) (test code = 429) LYMPHOCYTES RELATIVE PERCENT 13 % (BEAKER) (test code = 430) MONOCYTES RELATIVE PERCENT 6 % (BEAKER) (test code = 431) EOSINOPHILS RELATIVE PERCENT 3 % (BEAKER) (test code = 432) BASOPHILS RELATIVE PERCENT 1 % (BEAKER) (test code = 437) NEUTROPHILS ABSOLUTE COUNT 7.74 K/ L 1.78-5.38 H (BEAKER) (test code = 670) LYMPHOCYTES ABSOLUTE COUNT 1.30 K/ L 1.32-3.57 L (BEAKER) (test code = 414) MONOCYTES ABSOLUTE COUNT (BEAKER) 0.62 K/ L 0.30-0.82 (test code = 415) EOSINOPHILS ABSOLUTE COUNT 0.25 K/ L 0.04-0.54 (BEAKER) (test code = 416) BASOPHILS ABSOLUTE COUNT (BEAKER) 0.05 K/ L 0.01-0.08 (test code = 417) IMMATURE GRANULOCYTES-RELATIVE 0 % 0-1 PERCENT (BEAKER) (test code = 2801) CBC (HEMOGRAM ONLY)2020-02-11 05:27:00 Test Item Value Reference Range Interpretation Comments WHITE BLOOD CELL COUNT (BEAKER) 10.0 K/ L 3.5-10.5 (test code = 775) RED BLOOD CELL COUNT (BEAKER) 2.97 M/ L 4.63-6.08 L (test code = 761) HEMOGLOBIN (BEAKER) (test code = 7.7 GM/DL 13.7-17.5 L 410) HEMATOCRIT (BEAKER) (test code = 24.3 % 40.1-51.0 L 411) MEAN CORPUSCULAR VOLUME (BEAKER) 81.8 fL 79.0-92.2 (test code = 753) MEAN CORPUSCULAR HEMOGLOBIN 25.9 pg 25.7-32.2 (BEAKER) (test code = 751) MEAN CORPUSCULAR HEMOGLOBIN CONC 31.7 GM/DL 32.3-36.5 L (BEAKER) (test code = 752) RED CELL DISTRIBUTION WIDTH 17.5 % 11.6-14.4 H (BEAKER) (test code = 412) PLATELET COUNT (BEAKER) (test 283 K/CU MM 150-450 code = 756) MEAN PLATELET VOLUME (BEAKER) 10.2 fL 9.4-12.4 (test code = 754) NUCLEATED RED BLOOD CELLS 0 /100 WBC 0-0 (BEAKER) (test code = 413) CALCIUM, [id number] 04:53:00 Test Item Value Reference Range Interpretation Comments CALCIUM IONIZED (BEAKER) (test 0.98 mmol/L 1.12-1.27 L code = 698) PH, BLOOD (BEAKER) (test code = 7.41 1810) POCT-GLUCOSE [id number] 17:34:00 Test Item Value Reference Range Interpretation Comments POC-GLUCOSE METER 147 mg/dL 70-110 H : Notified RN/MD: (BEAKER) (test code = TESTED AT [facility] 6720 1538) [place] [facility], [address]: Hammerer/Techni valentine ID = [id number] for Matilda pichardodorianPhoebeny SARS-COV2/RT-PCR ([facility])2020-02-10 13:42:00 Test Item Value Reference Range Interpretation Comments SARS-COV2/RT-PCR (test Negative Not Detected, Negative, code = 3815462) See external report for linked test SARS-COV-2 PERFORMING LAB [facility] (test code = 5960177) Negative result for this test determines that SARS-CoV-2 RNA was not present in the specimen above the Limit of Detection (LOD). However, Negative results do not preclude SARS-CoV-2 infection and should not be used as the sole basis for treatment or patient management decisions. Negative results mustbe combined with clinical observations, patient history, and epidemiological information. A false negative result may occur if a specimen is improperly collected, transported or handled. A false negative result should be considered if patient's recent exposures or clinical presentation indicate that COVID-19 (SARS-CoV-2) is likely and diagnostic tests for other causes of illness are negative. Re-testing should be considered in cases of suspected false negatives.The limit of detection for this assay is 800 copies/mL.This SARS CoV-2 test is a real-time RT-PCR test intended for the qualitative detection of nucleic acid from SARS-CoV-2 in a nasopharyngeal swab specimen collected from individuals susp ected of COVID-19 by their healthcare provider.This test has not been Food and Drug Administration (FDA) cleared or approved. This is a modified version of an approved Emergency Use Authorization (EUA) and is in the process of review by the FDA. Once authorized by the FDA, the issued EUA will be effective until the declaration that circumstances exist justifying the authorization of the emergency use of in vitro diagnostic tests for detection and/or diagnosis of COVID-19 is terminated under Section 564(b)(2) of the Act or the EUA is revoked under Section 564(g) of the Act.Fact Sheet for Healthcare Providers:https://www.[employer]/sites/default/files/product/documents/Fact_Shee x_CA_Hhhwmcsfb_Lsaq_UDMQ-BoR-3.pdfFact Sheet for Healthcare Patients:https://www.[employer]/sites/default/files/product/ documents/Cxut_Igzkd_Hjoqferv_Diew_XKAE-ZuN-3.pdfPerforming Laboratory:[address], [place] [address]YPIA, TIBC, % SAT. (WITHOUT FERRITIN)2020-02-10 12:21:00 Test Item Value Reference Range Interpretation Comments IRON (BEAKER) (test code = 547) 216.0 ug/dL 40.0-160.0 H TOTAL IRON BINDING CAPACITY 211 ug/dL 250-450 L (BEAKER) (test code = 769) IRON % SATURATION (2) (BEAKER) 102 % 20-55 H (test code = 2590) Hammerer ID - [id number] (HEMOGRAM ONLY)2020-02-10 10:48:00 Test Item Value Reference Range Interpretation Comments WHITE BLOOD CELL COUNT (BEAKER) 10.6 K/ L 3.5-10.5 H (test code = 775) RED BLOOD CELL COUNT (BEAKER) 2.76 M/ L 4.63-6.08 L (test code = 761) HEMOGLOBIN (BEAKER) (test code = 7.2 GM/DL 13.7-17.5 L 410) HEMATOCRIT (BEAKER) (test code = 22.2 % 40.1-51.0 L 411) MEAN CORPUSCULAR VOLUME (BEAKER) 80.4 fL 79.0-92.2 (test code = 753) MEAN CORPUSCULAR HEMOGLOBIN 26.1 pg 25.7-32.2 (BEAKER) (test code = 751) MEAN CORPUSCULAR HEMOGLOBIN CONC 32.4 GM/DL 32.3-36.5 (BEAKER) (test code = 752) RED CELL DISTRIBUTION WIDTH 17.2 % 11.6-14.4 H (BEAKER) (test code = 412) PLATELET COUNT (BEAKER) (test 243 K/CU MM 150-450 code = 756) MEAN PLATELET VOLUME (BEAKER) 10.2 fL 9.4-12.4 (test code = 754) NUCLEATED RED BLOOD CELLS 0 /100 WBC 0-0 (BEAKER) (test code = 413) [id number] 09:55:00 Test Item Value Reference Range Interpretation Comments FERRITIN (BEAKER) (test code = 99.56 ng/mL 5.00-275.00 361) Hammerer ID - EDASIVITAMIN B12 AND [id number] 09:55:00 Test Item Value Reference Range Interpretation Comments VITAMIN B12 (BEAKER) (test code = 317 pg/mL 213-816 774) FOLATE (BEAKER) (test code = 362) 18.20 ng/mL >=7.00 Hammerer ID - EDASICBC W/PLT COUNT & AUTO [id number] 09:11:00 Test Item Value Reference Range Interpretation Comments WHITE BLOOD CELL COUNT (BEAKER) 12.1 K/ L 3.5-10.5 H (test code = 775) RED BLOOD CELL COUNT (BEAKER) 3.10 M/ L 4.63-6.08 L (test code = 761) HEMOGLOBIN (BEAKER) (test code = 8.1 GM/DL 13.7-17.5 L 410) HEMATOCRIT (BEAKER) (test code = 24.8 % 40.1-51.0 L 411) MEAN CORPUSCULAR VOLUME (BEAKER) 80.0 fL 79.0-92.2 (test code = 753) MEAN CORPUSCULAR HEMOGLOBIN 26.1 pg 25.7-32.2 (BEAKER) (test code = 751) MEAN CORPUSCULAR HEMOGLOBIN CONC 32.7 GM/DL 32.3-36.5 (BEAKER) (test code = 752) RED CELL DISTRIBUTION WIDTH 17.1 % 11.6-14.4 H (BEAKER) (test code = 412) PLATELET COUNT (BEAKER) (test 277 K/CU MM 150-450 code = 756) MEAN PLATELET VOLUME (BEAKER) 10.4 fL 9.4-12.4 (test code = 754) NUCLEATED RED BLOOD CELLS 0 /100 WBC 0-0 (BEAKER) (test code = 413) NEUTROPHILS RELATIVE PERCENT 84 % (BEAKER) (test code = 429) LYMPHOCYTES RELATIVE PERCENT 7 % (BEAKER) (test code = 430) MONOCYTES RELATIVE PERCENT 7 % (BEAKER) (test code = 431) EOSINOPHILS RELATIVE PERCENT 1 % (BEAKER) (test code = 432) BASOPHILS RELATIVE PERCENT 1 % (BEAKER) (test code = 437) NEUTROPHILS ABSOLUTE COUNT 10.11 K/ L 1.78-5.38 H (BEAKER) (test code = 670) LYMPHOCYTES ABSOLUTE COUNT 0.88 K/ L 1.32-3.57 L (BEAKER) (test code = 414) MONOCYTES ABSOLUTE COUNT (BEAKER) 0.84 K/ L 0.30-0.82 H (test code = 415) EOSINOPHILS ABSOLUTE COUNT 0.09 K/ L 0.04-0.54 (BEAKER) (test code = 416) BASOPHILS ABSOLUTE COUNT (BEAKER) 0.06 K/ L 0.01-0.08 (test code = 417) IMMATURE GRANULOCYTES-RELATIVE 1 % 0-1 PERCENT (BEAKER) (test code = 2801) BASIC METABOLIC [id number] 06:44:00 Test Item Value Reference Range Interpretation Comments SODIUM (BEAKER) 137 meq/L 136-145 (test code = 381) POTASSIUM (BEAKER) 3.2 meq/L 3.5-5.1 L (test code = 379) CHLORIDE (BEAKER) 97 meq/L 98-107 L (test code = 382) CO2 (BEAKER) (test 31 meq/L 22-29 H code = 355) BLOOD UREA NITROGEN 54 mg/dL 7-21 H (BEAKER) (test code = 354) CREATININE (BEAKER) 2.11 mg/dL 0.57-1.25 H (test code = 358) GLUCOSE RANDOM 168 mg/dL 70-105 H (BEAKER) (test code = 652) CALCIUM (BEAKER) 7.4 mg/dL 8.4-10.2 L (test code = 697) EGFR (BEAKER) (test 38 mL/min/1.73 ESTIMA ARSALAN GFR IS code = 1092) sq m NOT ACCURATE CREATININE CLEARANCE IN PREDICTING GLOMERULAR FILTRATION RATE . ESTIMATED GFR I S NOT APPLICABLE FOR DIALYSIS PATIEN TS. Hammerer ID - SOBIA FHEMOGLOBIN AND [id number] 05:13:00 Test Item Value Reference Range Interpretation Comments HEMOGLOBIN (BEAKER) (test code = 7.6 GM/DL 13.7-17.5 L 410) HEMATOCRIT (BEAKER) (test code = 23.7 % 40.1-51.0 L 411) Hammerer ID - [id number], RANDOM [id number] 01:00:00 Test Item Value Reference Range Interpretation Comments CREATININE URINE (BEAKER) (test 134.2 mg/dL code = 375) Reference Range: No NormalsOperator ID - JOSELIN LSODIUM, RANDOM [id number] 01:00:00 Test Item Value Reference Range Interpretation Comments SODIUM URINE (BEAKER) (test code = 37 meq/L 243) Reference Range: No NormalsOperator ID - JOSELIN LTROPONIN [id number] 22:00:00 Test Item Value Reference Range Interpretation Comments TROPONIN I (BEAKER) (test code = 0.04 ng/mL 0.00-0.03 H 397) Troponin I (TnI) levels must be interpreted in the context of the presenting symptoms and the clinical findings. Elevated TnI levels indicate myocardial damage, but are not specific for ischemic heart disease. Elevated TnI levels are seen in patients with other cardiac conditions (including myocarditis and congestive heart failure), and slight TnI elevations occur in patients with other conditions, including sepsis, renal failure, acidosis, acute neurological disease, and persistent tachyarrhythmia.Hammerer ID - FSECOMPREHENSIVE METABOLIC [id number] 21:54:00 Test Item Value Reference Range Interpretation Comments TOTAL PROTEIN 5.8 gm/dL 6.0-8.3 L (BEAKER) (test code = 770) ALBUMIN (BEAKER) 2.9 g/dL 3.5-5.0 L (test code = 1145) ALKALINE PHOSPHATASE 44 U/L 40-150 (BEAKER) (test code = 346) BILIRUBIN TOTAL 1.5 mg/dL 0.2-1.2 H (BEAKER) (test code = 377) SODIUM (BEAKER) (test 138 meq/L 136-145 code = 381) POTASSIUM (BEAKER) 3.4 meq/L 3.5-5.1 L (test code = 379) CHLORIDE (BEAKER) 93 meq/L 98-107 L (test code = 382) CO2 (BEAKER) (test 35 meq/L 22-29 H code = 355) BLOOD UREA NITROGEN 63 mg/dL 7-21 H (BEAKER) (test code = 354) CREATININE (BEAKER) 2.37 mg/dL 0.57-1.25 H (test code = 358) GLUCOSE RANDOM 177 mg/dL 70-105 H (BEAKER) (test code = 652) CALCIUM (BEAKER) 8.0 mg/dL 8.4-10.2 L (test code = 697) AST (SGOT) (BEAKER) 14 U/L 5-34 (test code = 353) ALT (SGPT) (BEAKER) 15 U/L 6-55 (test code = 347) EGFR (BEAKER) (test 33 mL/min/1.73 ESTIMA ARSALAN GFR IS code = 1092) sq m NOT ACCURATE CREATININE CLEARANCE IN PREDICTING GLOMERULAR FILTRATION RATE . ESTIMATED GFR I S NOT APPLICABLE FOR DIALYSIS PATIEN TS. Hammerer ID - [id number] 21:27:00 Test Item Value Reference Range Interpretation Comments PARTIAL THROMBOPLASTIN TIME 25.5 seconds 22.5-36.0 (BEAKER) (test code = 760) PROTHROMBIN [id number] 21:26:00 Test Item Value Reference Range Interpretation Comments PROTIME (BEAKER) (test code = 13.9 seconds 11.9-14.2 759) INR (BEAKER) (test code = 370) 1.10 <=5.90 Effective 10/23/2018: PT Reference Range ChangeNew: 11.9-14.2 Previous: 11.7- 14.7RECOMMENDED COUMADIN/WARFARIN INR THERAPY RANGESSTANDARD DOSE: 2.0-3.0 Includes: PROPHYLAXIS for venous thrombosis, systemic embolization; TREATMENT for venous thrombosis and/or pulmonary embolus.HIGH RISK: Target INR is2.5-3.5 for patients wiht mechanical heart valves.LACTIC ACID, [id number] 21:23:00 Test Item Value Reference Range Interpretation Comments LACTATE BLOOD VENOUS (2) (BEAKER) 1.24 mmol/L 0.50-2.20 (test code = 2872) Hammerer ID - FSECBC W/PLT COUNT & AUTO [id number] 21:10:00 Test Item Value Reference Range Interpretation Comments WHITE BLOOD CELL COUNT (BEAKER) 14.5 K/ L 3.5-10.5 H (test code = 775) RED BLOOD CELL COUNT (BEAKER) 2.96 M/ L 4.63-6.08 L (test code = 761) HEMOGLOBIN (BEAKER) (test code = 7.7 GM/DL 13.7-17.5 L 410) HEMATOCRIT (BEAKER) (test code = 23.6 % 40.1-51.0 L 411) MEAN CORPUSCULAR VOLUME (BEAKER) 79.7 fL 79.0-92.2 (test code = 753) MEAN CORPUSCULAR HEMOGLOBIN 26.0 pg 25.7-32.2 (BEAKER) (test code = 751) MEAN CORPUSCULAR HEMOGLOBIN CONC 32.6 GM/DL 32.3-36.5 (BEAKER) (test code = 752) RED CELL DISTRIBUTION WIDTH 15.8 % 11.6-14.4 H (BEAKER) (test code = 412) PLATELET COUNT (BEAKER) (test 292 K/CU MM 150-450 code = 756) MEAN PLATELET VOLUME (BEAKER) 10.3 fL 9.4-12.4 (test code = 754) NUCLEATED RED BLOOD CELLS 0 /100 WBC 0-0 (BEAKER) (test code = 413) NEUTROPHILS RELATIVE PERCENT 80 % (BEAKER) (test code = 429) LYMPHOCYTES RELATIVE PERCENT 11 % (BEAKER) (test code = 430) MONOCYTES RELATIVE PERCENT 9 % (BEAKER) (test code = 431) EOSINOPHILS RELATIVE PERCENT 0 % (BEAKER) (test code = 432) BASOPHILS RELATIVE PERCENT 0 % (BEAKER) (test code = 437) NEUTROPHILS ABSOLUTE COUNT 11.50 K/ L 1.78-5.38 H (BEAKER) (test code = 670) LYMPHOCYTES ABSOLUTE COUNT 1.54 K/ L 1.32-3.57 (BEAKER) (test code = 414) MONOCYTES ABSOLUTE COUNT (BEAKER) 1.29 K/ L 0.30-0.82 H (test code = 415) EOSINOPHILS ABSOLUTE COUNT 0.00 K/ L 0.04-0.54 L (BEAKER) (test code = 416) BASOPHILS ABSOLUTE COUNT (BEAKER) 0.02 K/ L 0.01-0.08 (test code = 417) IMMATURE GRANULOCYTES-RELATIVE 1 % 0-1 PERCENT (BEAKER) (test code = 2801) TISSUE [id number] 16:45:00Surgical Pathology Report Case: [id number] Authorizing Provider: Dom Le MD Collected: 08/19/2018 1031 Ordering Location: [address] Received: 08/19/2018 1423 Service Pathologist: Jonas Gaines MD Specimens: A) - Biopsy, Gastric, R/O H PYLORI B) -Ulcer, PRE PYLORIC BX C) - Ulcer, INCISURA ULCER Addendum is issued to report additional results. The original diagnosis remains the same.Results:B. An iron stain is negative. The finding is supportive of the original diagnosis.Addendum electronically signed by Jonas Gaines MD on 08/23/2018 at 3:17 PMA. STOMACH, BIOPSY: - INTESTINAL METAPLASIA - CHRONIC ACTIVE GASTRITIS - MICROORGANISMS COMPATIBLE H. PYLORI IDENTIFIED BY BOTH WARTHIN- STARRY STAIN AND IMMUNOHISTOCHEMISTRY B. STOMACH, PRE PYLORIC AREA, ULCER, BIOPSY: - ULCER WITH GRANULATION TISSUE AND REACTIVE EPITHELIAL CHANGES - CHRONIC ACTIVE GASTRITIS (SEE COMMENT) - EQUIVOCAL FOR H. PYLORI-LIKE ORGANISMS BY IMMUNOHISTOCHEMISTRYC. STOMACH, INCISURA, ULCER, BIOPSY: - ULCER WITH CHRON ACTIVEGASTRITIS Signing Pathologist Direct Phone Line: [phone] electronically signed byJonas Gaines MD on 08/23/2018 at 4:45 PM [...] fungal elements. An iron stain is pending. [id number] x [id number] x [id number] bleed, rule out H. Pylori A. Gastric biopsy. B. Prepyloric ulcer biopsy. C. Incisura ulcer biopsy Specimen is received in three parts all labeled with the patient's information. Specimen A: Labeled "gastric biopsy" consists of three fragments of su tissue ranging from 0.1 to 0.3 cm, submitted entirelyin A1. Specimen B: Labeled "prepyloric ulcer biopsy" consists of four fragments of su tissue ranging from 0.1 to 0.3 cm, submitted entirely in B1. Specimen C: Labeled "incisura ulcer biopsy" consists of multiple fragments of su-white soft tissue ranging from 0.1 and 0.3 cm, submitted entirely in C1.CG/ew A-C performedThe interpretation of this case included the use of immunohistochemistry or special stains. Please see the immunohistochemistry and special stain results in the COMMENT section. Immun ohistochemistry technical testing was performed at [facility], Pathology Laboratory where it was developed and its performance characteristics were determined. It has not been cleared or approved by the U.S. Food and Drug Administration. The FDA has determined that such clearanceor approval is not necessary. The test is used for clinical purposes. It should not be regarded as investigational or for research. This laboratory is certified under the Clinical Laboratory Improvement Amendments of 1988 (CLIA-88) as qualified to perform high complexity clinical laboratory testing.CALCIUM, [id number] 07:23:00 Test Item Value Reference Range Interpretation Comments CALCIUM IONIZED (BEAKER) (test 0.94 mmol/L 1.12-1.27 L code = 698) PH, BLOOD (BEAKER) (test code = 7.37 1810) [id number] 05:55:00 Test Item Value Reference Range Interpretation Comments PHOSPHORUS (BEAKER) (test code = 3.0 mg/dL 2.3-4.7 604) [id number] 05:55:00 Test Item Value Reference Range Interpretation Comments MAGNESIUM (BEAKER) (test code = 1.7 mg/dL 1.6-2.6 627) BASIC METABOLIC [id number] 05:55:00 Test Item Value Reference Range Interpretation [...] ESTIMATED GFR. CBC W/PLT COUNT & AUTO [id number] 05:17:00 Test Item Value Reference Range Interpretation [...] PERCENT (BEAKER) (test code = 2801) CALCIUM, [id number] 05:40:00 Test Item Value Reference Range Interpretation Comments CALCIUM IONIZED (BEAKER) (test 1.09 mmol/L 1.12-1.27 L code = 698) PH, BLOOD (BEAKER) (test code = 7.31 1810) BASIC METABOLIC [id number] 04:21:00 Test Item Value Reference Range Interpretation [...] m DATA TO CALCULA TE ESTIMATED GFR. [id number] 04:18:00 Test Item Value Reference Range Interpretation Comments PHOSPHORUS (BEAKER) (test code = 2.2 mg/dL 2.3-4.7 L 604) [id number] 04:18:00 Test Item Value Reference Range Interpretation Comments MAGNESIUM (BEAKER) (test code = 1.9 mg/dL 1.6-2.6 627) CBC W/PLT COUNT & AUTO [id number] 04:02:00 Test Item Value Reference Range Interpretation [...] PERCENT (BEAKER) (test code = 2801) HEMOGLOBIN [id number] 14:11:00 Test Item Value Reference Range Interpretation Comments HEMOGLOBIN A1C (BEAKER) (test code = 5.8 % 4.3-6.1 368) TSH/FREE T4 IF [id number] 08:40:00 Test Item Value Reference Range Interpretation Comments THYROID STIMULATING HORMONE 1.88 uIU/mL 0.35-4.94 (BEAKER) (test code = 772) CBC W/PLT COUNT & AUTO [id number] 06:27:00 Test Item Value Reference Range Interpretation [...] (BEAKER) (test code = 2801) BASIC METABOLIC [id number] 06:09:00 Test Item Value Reference Range Interpretation [...] m DATA TO CALCULA TE ESTIMATED GFR. [id number] 06:08:00 Test Item Value Reference Range Interpretation Comments PHOSPHORUS (BEAKER) (test code = 3.1 mg/dL 2.3-4.7 604) [id number] 06:08:00 Test Item Value Reference Range Interpretation Comments MAGNESIUM (BEAKER) (test code = 1.7 mg/dL 1.6-2.6 627) LIPID [id number] 06:08:00 Test Item Value Reference Range Interpretation Comments TRIGLYCERIDES (BEAKER) (test code = 96 mg/dL 540) CHOLESTEROL (BEAKER) (test code = 121 mg/dL 631) HDL CHOLESTEROL (BEAKER) (test code 32 mg/dL = 976) LDL CHOLESTEROL CALCULATED (BEAKER) 70 mg/dL (test code = 633) Triglyceride Reference Range: Low Risk <150 Borderline 150-199 High Risk 200-499 Very High Risk >=500Cholesterol Reference Range: Low Risk <200 Borderline 200-239 High Risk >240HDL Cholesterol Reference Range: Low Risk >=60 High Risk <40LDL Cholesterol Reference Range: Optimal <100 Near Optimal 100-129 Borderline 130-159 High 160-189 Very High >=190CALCIUM, [id number] 05:51:00 Test Item Value Reference Range Interpretation Comments CALCIUM IONIZED (BEAKER) (test 1.01 mmol/L 1.12-1.27 L code = 698) PH, BLOOD (BEAKER) (test code = 7.37 1810) POCT-GLUCOSE [id number] 21:21:00 Test Item Value Reference Range Interpretation Comments POC-GLUCOSE METER 135 mg/dL 70-110 H TESTED AT [facility] 6720 (BEAKER) (test code = JUNG MONROY 1538) [address] PROTHROMBIN [id number] 17:27:00 Test Item Value Reference Range Interpretation Comments PROTIME (BEAKER) (test code = 14.1 seconds 11.7-14.7 759) INR (BEAKER) (test code = 370) 1.1 <=5.9 RECOMMENDED COUMADIN/WARFARIN INR THERAPY RANGESSTANDARD DOSE: 2.0 - 3.0 Includes: PROPHYLAXIS forvenous thrombosis, systemic embolization; TREATMENT for venous thrombosis and/or pulmonary embolus.HIGH RISK: Target INR is 2.5-3.5 for patients with mechanical heart valves.COMPREHENSIVE METABOLIC [id number] 10:27:00 Test Item Value Reference Range Interpretation Comments TOTAL PROTEIN 6.5 gm/dL 6.0-8.3 (BEAKER) (test code = 770) ALBUMIN (BEAKER) 3.4 g/dL 3.5-5.0 L (test code = [...] ATED GFR. CBC W/PLT COUNT & AUTO [id number] 09:55:00 Test Item Value Reference Range Interpretation [...] % 0-1 PERCENT (BEAKER) (test code = 7531)
[2021-05-01] MEDS ORDERED: ONDANSETRON 4 MG/2 ML VIAL ONE (10:06)
[2021-05-01 10:29] LABS: Absolute Lymphocytes (CBC) 0.8 K/uL (0.7-4.9); Basophils % 1.3 % (0-1.3); Hematocrit 36.2 % (39.6-49.0); Lymphocytes % 7.8 % (15.3-44.8); MPV 7.4 fL (7.6-11.3); RBC Red Blood Cell Count 4.39 M/uL (4.33-5.43)
[2021-05-01] MEDS ORDERED: PANTOPRAZOLE 40 MG INJ ONE ×2 (10:38→14:37)
[2021-05-01] MEDS ORDERED: NA CHLORIDE 0.9% 1,000 ML ONE (10:38)
[2021-05-01] MEDS ORDERED: LIDOCAINE VISCOUS 2% SOLN 15 ML UDC ONE (10:38)
[2021-05-01] MEDS ORDERED: MAGNES/ALUMIN/SIMET 30ML UCUP ONE (10:38)
[2021-05-01 11:02] LABS: ALT/SGPT 15 U/L (12-78); AST/SGOT 16 U/L (15-37); Albumin 3.4 g/dL (3.4-5.0); Alkaline Phosphatase 136 U/L (45-117); BUN Blood Urea Nitrogen 9 mg/dL (7-18); Bicarbonate 39 mmol/L (21-32); Bilirubin Direct < 0.1 mg/dL (0-0.2); Bilirubin Total 0.3 mg/dL (0.2-1.0); Glucose Level 167 mg/dL (74-106); Lipase 163 U/L (73-393); Protein, Total 8.9 g/dL (6.4-8.2); Sodium Level 142 mmol/L (136-145)
[2021-05-01 11:03] LABS: Potassium 2.7 mmol/L (3.5-5.1)
--- NOTE | 2021-05-01 12:12 | RAD REPORT ---
EXAM DESCRIPTION: CT - Abdomen Pelvis W Contrast - 05/01/2021 11:29 am CLINICAL HISTORY: epigastric pain, vomiting, GERD COMPARISON: Abdomen Pelvis Wo Contrast dated 02/09/2020 TECHNIQUE: Biphasic, helical CT imaging of the abdomen and pelvis was performed following 100 ml non -ionic IV contrast. No oral contrast administered. All CT scans are performed using dose optimization technique as appropriate and may include automated exposure control or mA/KV adjustment according to patient size. FINDINGS: No suspicious findings in the lung bases. No cardiomegaly or pericardial effusion. Liver and spleen show no suspicious findings. Gallbladder is normal size. No biliary tree dilatation. No mass of the pancreatic parenchyma seen. Gallbladder and biliary tree are also without suspicious finding. Symmetric renal function is seen with no hydronephrosis or suspicious renal mass. No pyelonephritis o r acute parenchymal process. No bladder abnormalities. No adrenal abnormalities. There is significant circumferential wall thickening of the distal esophagus. Few small adjacent lymp h nodes are present. The stomach is distended by fluid. Numerous surgical clips are seen along the le sser curvature an additional numerous surgical clips seen at the gastroduodenal junction and head of the pancreas region. Wall thickening is seen throughout the duodenum to the ligament of Treitz level. This does not continue into the jejunum. Duodenal bulb is involved as well. Numerous lymph nodes are seen in the central mesenteries with the largest lymph node 18 mm in size. No free air or pneumatosi s. No bulky lymphadenopathy, omental thickening or mass lesion. No suspicious bony findings. Prominent degenerative changes involve lumbar spine and lower thoracic s pine. L5 pars defects are present with very minimal 2- 3 mm anterior subluxation of L5. No pathologic bone process. No acute vascular finding. IMPRESSION: Circumferential wall thickening of the duodenum is present from the bulb to the Ligament of Treitz with congestion and edema in the adjacent fat. Multiple mesenteric lymph nodes are present . Stomach is distended by fluid and the gastric antrum may possibly be involved with wall thickening as well. The numerous surgical clips in the pyloric region limits assessment. Circumferential wall thickening of the partially imaged esophagus. No mass at the GE junction. Lymph nodes are present. Patient has no free air or surgically emergent process. Patient may have an infectious/inflammatory duodenitis or reactive change from duodenal ulcer. Esopha gitis is likely present as well. Esophageal mass cannot be excluded.
--- NOTE | 2021-05-01 13:07 | RAD REPORT ---
EXAM DESCRIPTION: US - Abdomen Exam Limited - 05/01/2021 12:50 pm CLINICAL HISTORY: EPIGASTRIC PAIN COMPARISON: Abdomen Pelvis W Contrast dated 05/01/2021 FINDINGS: No gallstones, sludge or other abnormalities within the gallbladder lumen. There is no wal l thickening or pericholecystic fluid. No common duct stone or biliary tree dilatation identified. IMPRESSION: Normal gallbladder and biliary tree ultrasound.
--- NOTE | 2021-05-01 13:34 | ER ---
Nurse's Notes [facility] Name: Justen Escalera Age: 70 yrs Sex: Male : 1950 Arrival Date: 05/01/2021 Time: 09:11 Bed 15 Private MD: Diagnosis: Vomiting, unspecified;Upper GI bleed;Esophagitis, unspecified;Acute gastritis with bleeding;Duodenitis with bleeding Presentation: 05/01 10:00 Chief complaint: Patient states: NVD x 2 days; actively vomiting in triage. States vg1 Epigastric pain, and last year had ABD sx due to ulcers. Coronavirus screen: Vaccine status: Patient reports being unvaccinated. Ebola Screen: Patient negative for fever greater than or equal to 101.5 degrees Fahrenheit, and additional compatible Ebola Virus Disease symptoms. Initial Sepsis Screen: Does the patient meet any 2 criteria? HR > 90 bpm. Yes Does the patient have a suspected source of infection? No. Patient's initial sepsis screen is negative. Risk Assessment: Do you want to hurt yourself or someone else? Patient reports no desire to harm self or others. Onset of symptoms was April 29, 2021. 10:00 Method Of Arrival: Ambulatory vg1 10:00 Acuity: SHU 3 vg1 Triage Assessment: 10:02 General: Appears in no apparent distress. uncomfortable, Behavior is cooperative. Pain: 1 Complains of pain in epigastric area Pain currently is 10 out of 10 on a pain scale. Pain began 2-3 days ago. Noted to be grimacing, guarding. GI: Reports diarrhea, nausea, vomiting. Historical: - Allergies: 10:02 No Known Allergies; vg1 - Home Meds: 10:02 None [Active]; vg1 - PMHx: 10:02 GERD; vg1 - Immunization history:: Client reports having NOT received the Covid vaccine. - Social history:: Smoking status: Patient denies any tobacco usage or history of. - Family history:: not pertinent. Screenin:28 Abuse screen: Denies threats or abuse. Nutritional screening: No deficits noted. jh6 Tuberculosis screening: No symptoms or risk factors identified. Fall Risk None identified. Assessment: 10:27 General: Appears in no apparent distress. Behavior is calm, cooperative. Pain: 6 Complains of pain in epigastric area Pain does not radiate. Pain currently is 4 out of 10 on a pain scale. Quality of pain is described as burning, Pain began 1 day ago. Is continuous. GI: Abdomen is flat, non-distended, Abdomen is tender to palpation in epigastric area Reports upper abdominal pain, nausea, vomiting. 11:42 Reassessment: Patient and/or family updated on plan of care and expected duration. Pain jh6 level reassessed. pt tolerating Regen-cov infusion well without signs of reaction. call light in reach and pt on monitor. 12:38 Reassessment: Patient and/or family updated on plan of care and expected duration. Pain jh6 level reassessed. pr without complaints, infusion complete. call light in reach. 13:48 Reassessment: Patient and/or family updated on plan of care and expected duration. Pain jh6 level reassessed. Pt alert vomited aprox 200cc and tested for blood. occult + noted and sample sent to lab. pt states that he is feeling much better now that he threw up. call light at bedside and md ordering new meds. 14:50 Reassessment: Patient and/or family updated on plan of care and expected duration. Pain jh6 level reassessed. Patient is alert, oriented x 3, equal unlabored respirations, skin warm/dry/pink. Patient denies pain at this time. Patient states feeling better. Patient states symptoms have improved. 16:00 Reassessment: No changes from previously documented assessment. Patient and/or family jh6 updated on plan of care and expected duration. Pain level reassessed. Pt resting nad noted, call light in reach.. 17:42 Reassessment: No changes from previously documented assessment. Patient and/or family jh6 updated on plan of care and expected duration. Pain level reassessed. Patient is alert, oriented x 3, equal unlabored respirations, skin warm/dry/pink. Patient denies pain at this time. 20:42 Reassessment: Patient appears in no apparent distress at this time. Appears to be lp1 resting comfortably, aware of pending admission to floor. Vital Signs: 10:00 BP 140 / 99; Pulse 116; Resp 18; Temp 98.4(O); Pulse Ox 100% ; Weight 97.52 kg; Height vg1 6 ft. 4 in. (193.04 cm); Pain 10/10; 10:35 BP 132 / 95; Pulse 105; Resp 20; Pulse Ox 100% ; Pain 8/10; jh6 11:30 BP 166 / 105; Pulse 107; Resp 18; Pulse Ox 98% ; Pain 6/10; jh6 12:58 BP 149 / 93; Pulse 100; Resp 18; Pain 1/10; jh6 13:51 BP 173 / 100; Pulse 105; Resp 20; Pulse Ox 100% ; Pain 2/10; jh6 15:00 BP 116 / 69; Pulse 107; Resp 17; Pulse Ox 100% ; Pain 0/10; jh6 17:00 BP 116 / 77; Pulse 93; Resp 17; Pulse Ox 99% ; Pain 0/10; jh6 20:33 BP 138 / 90; Pulse 96; Resp 20; Pulse Ox 100% on R/A; lp1 20:37 Temp 98.6(O); lp1 10:00 Body Mass Index 26.17 (97.52 kg, 193.04 cm) vg1 ED Course: 09:11 Patient arrived in ED. as 10:02 Triage completed. vg1 10:02 Arm band placed on. vg1 10:17 Guerrero Meyer MD is Attending Physician. rn 10:17 Initial lab(s) drawn, by ri, sent to lab. Inserted saline lock: 22 gauge in left vg1 antecubital area, using aseptic technique. Blood collected. 10:19 Kathi Sawant, AIMEE is Primary Nurse. jh6 10:28 Call light in reach. Side rails up X 1. Adult w/ patient. jh6 11:29 CT Abd/Pelvis - IV Contrast Only In Process Unspecified. EDMS 11:[address] Patient moved back from [address]. jh6 12:34 No apparent distress. jh6 12:50 US Abdomen Limited In Process Unspecified. EDMS 13:31 Ajith Briceño is Hospitalizing Provider. rn 13:54 Gastric Occult Blood Sent. jh6 13:54 COVID-19 SARS RT PCR (Document "Date of Onset" if Symptomatic) Sent. jh6 17:30 Inserted saline lock: 20 gauge in right forearm, using aseptic technique. mh5 17:41 Awaiting bed assignment. jh6 19:45 Primary Nurse role handed off by Kathi Sawant, AIMEE 9 19:53 Alphonse Burgess, AIMEE is Primary Nurse. mr2 20:29 No provider procedures requiring assistance completed. Patient admitted, IV remains in lp1 place. Administered Medications: 10:05 CANCELLED (Duplicate Order): Ondansetron 4 mg PO once rn 10:17 Drug: Zofran (Ondansetron) 4 mg Route: IVP; Site: left antecubital; vg1 10:26 Follow up: Response: Nausea is decreased jh6 11:01 Follow up: Response: Nausea is decreased jh6 11:30 Follow up: Response: Nausea is decreased jh6 10:50 Drug: ProTONIX (pantoprazole) 40 mg Route: IVP; Site: left antecubital; jh6 11:30 Follow up: Response: No adverse reaction jh6 11:30 Follow up: Response: No adverse reaction jh6 10:50 Drug: NS 0.9% 1000 ml Route: IV; Rate: 1000 ml; Site: left antecubital; jh6 11:30 Follow up: IV Status: Completed infusion jh6 10:50 Drug: GI Cocktail without - (Maalox Suspension 30 ml, Lidocaine Liquid 2 % 15 jh6 ml) Route: PO; 14:50 Drug: ProTONIX (pantoprazole) 8 mg/hr Route: IV; Rate: 25 ml/hr; Site: left antecubital;jh6 17:43 Follow up: Response: No adverse reaction jh6 21:34 Follow up: IV Status: Infusion continued upon admission lp1 14:50 Drug: Phenergan (promethazine) 12.5 mg Route: IVP; Site: left antecubital; jh6 15:11 Follow up: Response: Nausea is decreased jh6 17:43 Follow up: Response: Nausea is decreased jh6 Outcome: 13:32 Decision to Hospitalize by Provider. rn 20:33 Condition: stable lp1 20:33 Instructed on the need for admit. 21:25 Admitted to Med/surg via wheelchair, room 214, with chart, Report called to AIMEE Reynoso lp1 21:32 Patient left the ED. lp1 Signatures: Dispatcher [employer] Alethea Briseno Roman, MD MD rn Pena, Laura, RN RN lp1 Maria Teresa [facility] Nazanin Nobles RN RN 1 Alphonse Burgess RN RN 2 Alma Rush 9 Kathi Sawant RN RN jh6 Corrections: (The following items were deleted from the chart) 12:45 11:30 BP 145 / 81; Pulse 46bpm; Resp 20bpm; Pulse Ox 95% RA; [place] [address] 12:45 11:45 BP 160 / 81; Pulse 46bpm; Resp 20bpm; Pulse Ox 96%; Temp 97.6F; Pain 0/10; [place] [address] 12:45 12:00 BP 146 / 82; Pulse 45bpm; Resp 18bpm; Pulse Ox 96%; [place] [address] 12:59 12:56 BP 166 / 105; Pulse 107bpm; Resp 18bpm; Pulse Ox 98%; Pain 6/10; [place] [address]
--- NOTE | 2021-05-01 13:34 | EDPHYS ---
Physician Documentation [facility] Name: Justen Escalera Age: 70 yrs Sex: Male : 1950 Arrival Date: 05/01/2021 Time: 09:11 Bed 15 Private MD: ED Physician Guerrero Meyer HPI: 05/01 12:33 This 70 yrs old Black Male presents to ER via Ambulatory with complaints of Vomiting. rn 12:33 The patient presents to the emergency department with nausea, vomiting. Onset: The rn symptoms/episode began/occurred 2 day(s) ago. Possible causes: unknown. The symptoms are aggravated by nothing. The symptoms are alleviated by nothing. Associated signs and symptoms: Pertinent positives: abdominal pain, Pertinent negatives: fever, GI bleeding. Severity of symptoms: At their worst the symptoms were moderate in the emergency department the symptoms are unchanged. The patient has experienced a previous episode. The patient has not recently seen a physician. Patient reports 2 days of nausea and vomiting, is dark brown but no blood. No blood in stool or dark black stool. Reports started after eating funny smelling watermelon on Sunday. No known sick contacts. No fever. No trauma. Reports has happened once before and was told had ulcer. Does not take any blood thinners. Reports epigastric pain.. Historical: - Allergies: 10:02 No Known Allergies; vg1 - Home Meds: 10:02 None [Active]; vg1 - PMHx: 10:02 GERD; vg1 - Immunization history:: Client reports having NOT received the Covid vaccine. - Social history:: Smoking status: Patient denies any tobacco usage or history of. - Family history:: not pertinent. ROS: 12:33 Constitutional: Negative for fever, chills, and weight loss, Eyes: Negative for injury, rn pain, redness, and discharge, Neck: Negative for injury, pain, and swelling, Cardiovascular: Negative for chest pain, palpitations, and edema, Respiratory: Negative for shortness of breath, cough, wheezing, and pleuritic chest pain, Abdomen/GI: Negative for diarrhea, and constipation, Back: Negative for injury and pain, : Negative for injury, bleeding, discharge, and swelling, MS/Extremity: Negative for injury and deformity, Skin: Negative for injury, rash, and discoloration, Neuro: Negative for headache, weakness, numbness, tingling, and seizure. Exam: 12:33 Constitutional: This is a well developed, well nourished patient who is awake, alert, rn and in no acute distress. Head/Face: Normocephalic, atraumatic. Eyes: Periorbital areas with no swelling, redness, or edema. ENT: Dry mucous membranes Cardiovascular: Bradycardic, regular. No pulse deficits. Respiratory: No increased work of breathing, no retractions or nasal flaring. Abdomen/GI: Soft, mild epigastric tenderness. No peritoneal signs Skin: Warm, dry MS/ Extremity: Pulses equal, no cyanosis Neuro: Awake and alert, GCS 15, oriented to person, place, time, and situation. Cranial nerves II-XII grossly intact. Motor strength 5/5 in all extremities. Sensory grossly intact. Cerebellar exam normal. Vital Signs: 10:00 BP 140 / 99; Pulse 116; Resp 18; Temp 98.4(O); Pulse Ox 100% ; Weight 97.52 kg; Height vg1 6 ft. 4 in. (193.04 cm); Pain 10/10; 10:35 BP 132 / 95; Pulse 105; Resp 20; Pulse Ox 100% ; Pain 8/10; jh6 11:30 BP 166 / 105; Pulse 107; Resp 18; Pulse Ox 98% ; Pain 6/10; jh6 12:58 BP 149 / 93; Pulse 100; Resp 18; Pain 1/10; jh6 13:51 BP 173 / 100; Pulse 105; Resp 20; Pulse Ox 100% ; Pain 2/10; jh6 15:00 BP 116 / 69; Pulse 107; Resp 17; Pulse Ox 100% ; Pain 0/10; jh6 17:00 BP 116 / 77; Pulse 93; Resp 17; Pulse Ox 99% ; Pain 0/10; jh6 20:33 BP 138 / 90; Pulse 96; Resp 20; Pulse Ox 100% on R/A; lp1 20:37 Temp 98.6(O); lp1 10:00 Body Mass Index 26.17 (97.52 kg, 193.04 cm) vg1 MDM: 10:17 Patient medically screened. rn 13:29 Differential diagnosis: Nonspecific abd pain, gastritis, cholecystitis, pancreatitis, rn viral gastroenteritis, gastroenteritis. Data reviewed: vital signs, nurses notes, lab test result(s), radiologic studies, CT scan, ultrasound, and as a result, I will admit patient. Counseling: I had a detailed discussion with the patient and/or guardian regarding: the historical points, exam findings, and any diagnostic results supporting the discharge/admit diagnosis, lab results, radiology results, the need for further work-up and treatment in the hospital. Response to treatment: There is no appreciated change of the patient's symptoms at this time, and as a result, I will admit patient. Admission orders: after a detailed discussion of the patient's condition and case, the admit orders are written by me. ED course: Patient continues to throw up, here last emesis seemed more like coffee grounds may be a little maroon. Will admit for upper GI bleed and GI consult. Dr. Collazo is on-call. Will admit for Dr. Briceño. 13:31 ED course: Emesis tested and positive on hemoccult. Will send to lab for gastroccult. . rn 05/01 10:04 Order name: Basic Metabolic Panel; Complete Time: 11:07 rn 05/01 10:04 Order name: CBC with Diff; Complete Time: 11: rn 05/01 10:04 Order name: Hepatic Function; Complete Time: 11: rn 05/01 10:04 Order name: Lipase; Complete Time: 11: rn 05/01 13:30 Order name: COVID-19 SARS RT PCR (Document "Date of Onset" if Symptomatic); Complete eb Time: 18:21 05/01 13:30 Order name: Gastric Occult Blood; Complete Time: 14:11 eb 05/01 10:27 Order name: CT Abd/Pelvis - IV Contrast Only; Complete Time: 13:09 rn 05/01 11:08 Order name: US Abdomen Limited; Complete Time: 13:09 rn 05/01 20:31 Order name: Hemoglobin EDMN 05/01 20:31 Order name: Hematocrit EDMN 05/01 10:04 Order name: IV Saline Lock; Complete Time: 10:16 rn 05/01 10:04 Order name: Labs collected and sent; Complete Time: 10:16 rn 05/01 11:59 Order name: EKG; Complete Time: 12:47 rn 05/01 11:59 Order name: EKG - Nurse/Tech; Complete Time: 15:14 rn Administered Medications: 10:05 CANCELLED (Duplicate Order): Ondansetron 4 mg PO once rn 10:17 Drug: Zofran (Ondansetron) 4 mg Route: IVP; Site: left antecubital; vg1 10:26 Follow up: Response: Nausea is decreased jh6 11:01 Follow up: Response: Nausea is decreased jh6 11:30 Follow up: Response: Nausea is decreased jh6 10:50 Drug: ProTONIX (pantoprazole) 40 mg Route: IVP; Site: left antecubital; jh6 11:30 Follow up: Response: No adverse reaction jh6 11:30 Follow up: Response: No adverse reaction jh6 10:50 Drug: NS 0.9% 1000 ml Route: IV; Rate: 1000 ml; Site: left antecubital; jh6 11:30 Follow up: IV Status: Completed infusion jh6 10:50 Drug: GI Cocktail without - (Maalox Suspension 30 ml, Lidocaine Liquid 2 % 15 jh6 ml) Route: PO; 14:50 Drug: ProTONIX (pantoprazole) 8 mg/hr Route: IV; Rate: 25 ml/hr; Site: left antecubital;6 17:43 Follow up: Response: No adverse reaction jh6 21:34 Follow up: IV Status: Infusion continued upon admission 1 14:50 Drug: Phenergan (promethazine) 12.5 mg Route: IVP; Site: left antecubital; jh6 15:11 Follow up: Response: Nausea is decreased jh6 17:43 Follow up: Response: Nausea is decreased 6 Disposition Summary: 05/01/21 13:32 Hospitalization Ordered Hospitalization Status: Inpatient Admission rn Provider: Ajith Briceño rn [facility] rn Condition: Stable rn Problem: new rn Symptoms: are unchanged rn Bed/Room Type: Standard rn Room Assignment: 214(05/01/21 19:57) cg Diagnosis - Vomiting, unspecified rn - Upper GI bleed rn - Esophagitis, unspecified rn - Acute gastritis with bleeding rn - Duodenitis with bleeding rn Forms: - Medication Reconciliation Form rn - SBAR form rn Signatures: Dispatcher [employer] Guerrero Cruz MD MD rn Garcia, Cindy, RN RN cg Garcia, Victoria RN RN 1 Kathi Sawant RN RN jh6 Siena Callejas RN lp1 Corrections: (The following items were deleted from the chart) 10:05 10:03 Ondansetron 4 mg PO once ordered. megan rn 19:57 13:32 lyn
[2021-05-01] MEDS ORDERED: NA CHLORIDE 0.9% 250 ML ONE (14:37)
[2021-05-01] MEDS ORDERED: PROMETHAZINE INJ 25 MG/ML AMP ONE (14:37)
--- NOTE | 2021-05-01 15:40 | P.HP ---
Certification for Inpatient Patient admitted to: Inpatient With expected LOS: <2 Midnights Practitioner: I am a practitioner with admitting privileges, knowledge of patient current condition, hospital course, and medical plan of care. Services: Services provided to patient in accordance with Admission requirements found in Title 42 Section 412.3 of the Code of Federal Regulations Patient History Date of Service: 05/01/21 Reason for admission: Hematemesis History of Present Illness: 70-year-old gentleman with a history of gastric ulcer diagnosed by EGD 1 year ago presented to the emergency department with a complaint of hematemesis of onset this morning. Patient reports persistent nausea and vomiting, vomitus described as coffee-ground, no fresh blood. Symptoms associated with epigastric pain. His hemoglobin is 11 in the ED. Patient vomited a couple of times in the ED. Potassium level low at 2.7. Patient started on IV Protonix drip, GI-Dr. Collazo contacted who was planning an EGD today but this was canceled due to his hypokalemia. EGD is scheduled for tomorrow. Allergies No Known Drug Allergies Allergy (Unverified 09/13/14 12:12) Unknown No Known Aller Allergy (Uncoded 11/18/15 23:42) Unknown - Past Medical/Surgical History -: Gastric ulcer -: Ankle surgery - Family History Mother -: Heart disease - Social History Smoking Status: Never smoker Alcohol use: Yes CD- Drugs: No Place of Residence: Home Review of Systems Other: Except as documented, all other systems reviewed and negative. Physical Examination - Physical Exam General: Alert, In no apparent distress, Oriented x3 HEENT: PERRLA, Mucous membr. moist/pink, Sclerae nonicteric Neck: Supple, JVD not distended Respiratory: Clear to auscultation bilaterally, Normal air movement Cardiovascular: No edema, Regular rate/rhythm, Normal S1 S2, No murmurs Capillary refill: <2 Seconds Gastrointestinal: Soft and benign, Non-distended, No tenderness Musculoskeletal: No swelling, No tenderness Integumentary: No rashes, No erythema Neurological: Normal speech, Normal strength at 5/5 x4 extr, Cranial nerves 3-12 intact Lymphatics: No axilla or inguinal lymphadenopathy - Studies Laboratory Data (last 24 hrs) 05/01/21 10:16: WBC 10.20, Hgb 11.5 L, Hct 36.2 L, Plt Count 578 H 05/01/21 10:16: Sodium 142, Potassium 2.7 L*, BUN 9, Creatinine 1.20, Glucose 167 H, Total Bilirubin 0.3, AST 16, ALT 15, Alkaline Phosphatase 136 H, Lipase 163 Microbiology Data (last 24 hrs): 05/01/21 13:20 Gastric Aspirate Gastric Occult Blood - Final Assessment and Plan - Problems (Diagnosis) (1) Upper GI bleed Current Visit: Yes Status: Acute (2) History of gastric ulcer Current Visit: Yes Status: Acute (3) Anemia Current Visit: Yes Status: Acute (4) Hypokalemia Current Visit: Yes Status: Acute - Plan Admit patient to the medical floor. Patient started on Protonix drip. Monitor H&H every 4 hours and transfuse as needed for hemoglobin less than 7. GI consulted for EGD. Patient is planned for EGD tomorrow. Correct potassium with IV and oral potassium replacement. Monitor and optimize electrolytes. - Advance Directives Does patient have a Living Will: No Does patient have a Durable POA for Healthcare: No
[2021-05-01] MEDS ORDERED: POTASSIUM CL 40 MEQ in NA CHLORIDE 0.9% 500 ML IV SCH (16:00)
[2021-05-01] MEDS ORDERED: POTASSIUM CL IV ONE (17:00)
[2021-05-01] MEDS ORDERED: NA CHLORIDE 0.9% IV ONE (17:00)
[2021-05-01] MEDS ORDERED: MORPHINE 2 MG/ML SYR IV PRN (19:45)
[2021-05-01] MEDS ORDERED: NA CHLORIDE 0.9% 250 ML IV SCH (19:45)
[2021-05-01] MEDS: NA CHLORIDE 0.9% 1,000 ML IV SCH (19:45)
[2021-05-01] MEDS: PANTOPRAZOLE INJ 80 MG in NA CHLORIDE 0.9% 250 ML IV SCH (19:45)
[2021-05-01 20:30] LABS: Hematocrit 30.7 % (39.6-49.0)
[2021-05-01 22:53] VITALS: BMI 22.5
[2021-05-02 00:06] LABS: Hematocrit 29.5 % (39.6-49.0)
[2021-05-02] MEDS: NA CHLORIDE 0.9% 1,000 ML IV SCH (05:04)
[2021-05-02] MEDS: PANTOPRAZOLE INJ 80 MG in NA CHLORIDE 0.9% 250 ML IV SCH ×3 (05:04→23:53)
[2021-05-02 06:09] LABS: Absolute Lymphocytes (CBC) 1.1 K/uL (0.7-4.9); Basophils % 0.3 % (0-1.3); Hematocrit 28.4 % (39.6-49.0); Lymphocytes % 11.6 % (15.3-44.8); MPV 7.5 fL (7.6-11.3); RBC Red Blood Cell Count 3.44 M/uL (4.33-5.43)
[2021-05-02 06:12] LABS: Protime INR 1.09
[2021-05-02 06:23] LABS: BUN Blood Urea Nitrogen 9 mg/dL (7-18); Bicarbonate 35 mmol/L (21-32); Glucose Level 112 mg/dL (74-106); Sodium Level 145 mmol/L (136-145)
[2021-05-02 06:25] LABS: Potassium 2.7 mmol/L (3.5-5.1)
[2021-05-02] MEDS ORDERED: INFLUENZA VACCINE (for 6+ mo) 0.5 ML DOSE IMVAC ONE (08:00)
[2021-05-02 08:29] LABS: Hematocrit 26.7 % (39.6-49.0)
[2021-05-02 08:49] LABS: Phosphorus 3.3 mg/dL (2.5-4.9)
[2021-05-02] MEDS: KCL 20 MEQ/100 mL IVPB 20 MEQ/100 ML BAG IV SCH ×4 (09:40→23:54)
--- NOTE | 2021-05-02 13:45 | P.PN ---
Subjective Date of Service: 05/02/21 Chief Complaint: Hematemesis Patient has no new complaint. No vomiting since hospitalization. Hemoglobin dropped to 8.8. Patient still has significant hypokalemia despite IV potassium replacements. Physical Examination - Vital Signs Temperature: 99.8 F Blood Pressure: 131/65 Pulse: 86 Respirations: 18 Pulse Ox (%): 100 - Physical Exam General: Alert, In no apparent distress, Oriented x3 HEENT: Mucous membr. moist/pink Neck: Supple, JVD not distended Respiratory: Clear to auscultation bilaterally, Normal air movement Cardiovascular: No edema, Regular rate/rhythm, Normal S1 S2 Gastrointestinal: Normal bowel sounds, Soft and benign, Non-distended, No tenderness Musculoskeletal: No swelling, No tenderness Integumentary: No rashes, No erythema Neurological: Normal strength at 5/5 x4 extr - Studies Microbiology Data (last 24 hrs): 05/01/21 13:20 Gastric Aspirate Gastric Occult Blood - Final Assessment And Plan - Current Problems (Diagnosis) (1) Upper GI bleed Current Visit: Yes Status: Acute (2) History of gastric ulcer Current Visit: Yes Status: Acute (3) Anemia Current Visit: Yes Status: Acute (4) Hypokalemia Current Visit: Yes Status: Acute - Plan Continue Protonix drip. Monitor H&H every 4 hours and transfuse as needed for hemoglobin less than 7. GI consulted and planning for EGD once hypokalemia is adequately repleted. Correct potassium with IV and oral potassium replacement. IV NS + potassium Monitor and optimize electrolytes. Pain management as needed.
[2021-05-02] MEDS: NS KCL 20MEQ 20 MEQ/1,000 ML BAG IV SCH (15:45)
[2021-05-02] MEDS ORDERED: POTASSIUM CL 40 MEQ in NA CHLORIDE 0.9% 500 ML IV SCH (21:00)
[2021-05-03] MEDS: KCL 20 MEQ/100 mL IVPB 20 MEQ/100 ML BAG IV SCH (01:54)
[2021-05-03] MEDS: NS KCL 20MEQ 20 MEQ/1,000 ML BAG IV SCH ×3 (04:30→20:28)
[2021-05-03 04:35] LABS: Absolute Lymphocytes (CBC) 1.4 K/uL (0.7-4.9); Basophils % 0.7 % (0-1.3); Hematocrit 25.8 % (39.6-49.0); MPV 7.4 fL (7.6-11.3); RBC Red Blood Cell Count 3.11 M/uL (4.33-5.43)
[2021-05-03 04:46] LABS: BUN Blood Urea Nitrogen 7 mg/dL (7-18); Bicarbonate 30 mmol/L (21-32); Glucose Level 91 mg/dL (74-106); Potassium 3.8 mmol/L (3.5-5.1); Sodium Level 143 mmol/L (136-145)
--- NOTE | 2021-05-03 06:20 | P.PN ---
Date of Service: 05/03/21 Subjective: No acute events overnight. Denies any nausea/hematemesis Denies epigastric pain Reports he feels hungry, awaiting EGD ROS: 10 point ROS as noted above, otherwise negative Physical exam GEN: Alert, oriented, NAD HEENT: Normal conjunctiva, sclera anicteric CV: Regular rate and rhythm, no edema Pulm: Nonlabored respirations on room air ABD: Soft, nontender, nondistended Neuro: Normal speech, normal affect Problem List Hematemesis, concern for upper GI bleed History gastric ulcer Acute blood loss anemia Hypokalemia Continue Protonix, hemoglobin shows slowly downtrending GI consulted, EGD planned for today Hypokalemia resolved with repletion, will recheck tomorrow, unclear etiology Monitor H&H every 4 hours and transfuse as needed for hemoglobin less than 7. IV NS + potassium Monitor and optimize electrolytes. Pain management as needed. Dispo: Anticipate DC home tomorrow, pending EGD results and follow-up on electrolytes/hemoglobin Time Spent Managing Pts Care (In Minutes): 35
[2021-05-03] MEDS ORDERED: KCL 20 MEQ/100 mL IVPB 20 MEQ/100 ML BAG IV SCH (09:00)
[2021-05-03] MEDS: PANTOPRAZOLE INJ 80 MG in NA CHLORIDE 0.9% 250 ML IV SCH (10:49)
[2021-05-03] MEDS ORDERED: Ringers Lactate 1,000 ML IV ONE (13:05)
[2021-05-03] MEDS ORDERED: propofoL 200 MG/20 ML VIAL IV ONE (13:56)
[2021-05-03] MEDS ORDERED: LIDOCAINE 1% MPF 5 ML VIAL ONE (13:56)
--- NOTE | 2021-05-03 14:26 | ENDO RPT ---
[address], [address] EGD PROCEDURE REPORT EXAM DATE: 05/03/2021 PATIENT NAME: Justen Escalera MR#: [id number] BIRTHDATE: 1950 ATTENDING: Rito Collazo Dr STATUS: inpatient OPEN TENTER OPERATOR: Carmen Freitas RN and Awa Brown INDICATIONS: The patient is a 70 yr old Male here for an EGD due to hematemesis, nausea and vomiting, upper G.I. bleeding, and abdominal pain PROCEDURE PERFORMED: EGD with biopsy MEDICATIONS: Per Anesthesia. TOPICAL ANESTHETIC: none CONSENT: The patient understands the risks and benefits of the procedure and understands that these risks include, but are not limited to: sedation, allergic reaction, infection, perforation and/or bleeding. Alternative means of evaluation and treatment include, among others: physical exam, x-rays, and/or surgical intervention. The patient elects to proceed with this endoscopic procedure. DESCRIPTION OF PROCEDURE: During intra-op preparation period all mechanical medical equipment was checked for proper function. Hand hygiene and appropriate measures for infection prevention was taken. Procedure, possible complications, and alternatives including but not limited to the possibility of bleeding, perforation, tear, infection, sepsis, need for surgery, need for blood transfusion, and anesthesia related complications were explained to the patient. After the risks, benefits and alternatives of the procedure were thoroughly explained, Informed consent was verified, confirmed and timeout was successfully executed by the treatment team. The patient was placed in the left lateral position. The patient was anesthetized with topical anesthesia. Through the anesthetized oropharyngeal area, the scope was passed without any difficulty. The EC-[id number] ([id number]) and [id number] ([id number]) endoscope was introduced through the mouth and advanced to the second portion of the duodenum. Retroflexed views revealed gastritis. The gastroscope was then slowly withdrawn and removed. LA Class D esophagitis was found in the lower esophagus. Severe gastritis was found in the total stomach. Multiple biopsies were obtained and sent to pathology. Mild pyloric stenosis was observed Duodenitis was found in the bulb and descending duodenum. ADVERSE EVENTS: There were no complications, but did have excessive coughing during entire procedure. IMPRESSION 1. LA Class D esophagitis in the lower esophagus 2. Severe gastritis in the total stomach, s/p biopsies 3. Mild pyloric strenosis 4. Duodenitis in the bulb and descending duodenum RECOMMENDATIONS: 1. await biopsy results 2. acid suppression therapy REPEAT EXAM: Rito Collazo Dr eSigned: Rito Collazo Dr 05/03/2021 2:26 PM cc: CPT CODES: ICD9 CODES: PATIENT NAME: Justen Escalera MR#: [id number]
[2021-05-03 14:36] VITALS: O2SAT 97
[2021-05-04] MEDS: PANTOPRAZOLE INJ 80 MG in NA CHLORIDE 0.9% 250 ML IV SCH (01:21)
[2021-05-04 05:51] LABS: Hematocrit 25.3 % (39.6-49.0); MPV 7.6 fL (7.6-11.3); RBC Red Blood Cell Count 3.06 M/uL (4.33-5.43)
[2021-05-04 06:02] LABS: BUN Blood Urea Nitrogen 6 mg/dL (7-18); Bicarbonate 26 mmol/L (21-32); Glucose Level 90 mg/dL (74-106); Magnesium 1.9 mg/dL (1.8-2.4); Potassium 3.6 mmol/L (3.5-5.1); Sodium Level 141 mmol/L (136-145)
--- NOTE | 2021-05-04 07:27 | P.DS ---
Admission Date: 05/01/21 Discharge Date: 05/04/21 Disposition: ROUTINE DISCHARGE Discharge Condition: GOOD Reason for Admission: Hematemesis Consultations: GI - Dr. Collazo Procedures: CT Abd/Pelvis (05/01) IMPRESSION: Circumferential wall thickening of the duodenum is present from the bulb to the Ligament of Treitz with congestion and edema in the adjacent fat. Multiple mesenteric lymph nodes are present. Stomach is distended by fluid and the gastric antrum may possibly be involved with wall thickening as well. The numerous surgical clips in the pyloric region limits assessment. Circumferential wall thickening of the partially imaged esophagus. No mass at the GE junction. Lymph nodes are present. Patient has no free air or surgically emergent process. Patient may have an infectious/inflammatory duodenitis or reactive change from duodenal ulcer. Esophagitis is likely present as well. Esophageal mass cannot be excluded. U/S Abd (05/01): IMPRESSION: Normal gallbladder and biliary tree ultrasound. EGD (05/03): 1. LA Class D esophagitis in the lower esophagus 2. Severe gastritis in the total stomach, s/p biopsies 3. Mild pyloric stenosis 4. Duodenitis in the bulb and descending duodenum Problem List Hematemesis secondary to upper GI bleed Esophagitis, severe gastritis, duodenitis mild pyloric stenosis h/o gastric ulcer Acute blood loss anemia Hypokalemia secondary to emesis Brief History of Present Illness: 70-year-old gentleman with a history of gastric ulcer diagnosed by EGD 1 year ago presented to the emergency department with a complaint of hematemesis of onset this morning. Patient reports persistent nausea and vomiting, vomitus d escribed as coffee-ground, no fresh blood. Symptoms associated with epigastric pain. His hemoglobin is 11 in the ED. Patient vomited a couple of times in the ED. Potassium level low at 2.7. Patient started on IV Protonix drip, Yvon Collazo contacted who was planning an EGD today but this was canceled due to his hypokalemia. Hospital Course: Placed on protonix drip and bowel rest. GI consulted and patient underwent EGD on 05/03 which revealed esophagitis, gastritis, and duodenitis. Patient had resolution of his nausea/hematemesis, hgb stable in low 8s, resolution of pain. Diet after EGD was advanced to soft diet, which patient tolerated well. Potassium was repleted and remained stable. Hypokalemia likely secondary to GI losses from vomiting / hematemesis. Discharged home with pantoprazole BID x 1 month, then daily. Follow up with PCP in 1 week Follow up with Dr. Collazo in ~1 month. Vital Signs/Physical Exam: Temp Pulse Resp BP Pulse Ox 97.8 F 72 18 119/68 97 05/04/21 04:00 05/04/21 04:00 05/04/21 04:00 05/04/21 04:00 05/04/21 04:00 General: Alert, In no apparent distress, Oriented x3 HEENT: PERRLA, Sclerae nonicteric Neck: Supple, No LAD Respiratory: Clear to auscultation bilaterally, Normal air movement Cardiovascular: No edema, Regular rate/rhythm Gastrointestinal: Soft and benign, Non-distended, No tenderness Musculoskeletal: No erythema, No tenderness Integumentary: No rashes Neurological: Normal speech, Normal affect Laboratory Data at Discharge: WBC 4.70 K/uL (4.3-10.9) D 05/04/21 05:12 Hgb 8.1 g/dL (13.6-17.9) L 05/04/21 05:12 Hct 25.3 % (39.6-49.0) L 05/04/21 05:12 Plt Count 322 K/uL (152-406) 05/04/21 05:12 PT 12.5 SECONDS (9.5-12.5) 05/02/21 05:37 INR 1.09 05/02/21 05:37 Sodium 141 mmol/L (136-145) 05/04/21 05:12 Potassium Cancelled 05/04/21 Unknown BUN 6 mg/dL (7-18) L 05/04/21 05:12 Creatinine 0.89 mg/dL (0.55-1.3) 05/04/21 05:12 Glucose 90 mg/dL (74-106) 05/04/21 05:12 Phosphorus 3.0 mg/dL (2.5-4.9) 05/02/21 15:40 Magnesium 1.9 mg/dL (1.8-2.4) 05/04/21 05:12 Total Bilirubin 0.3 mg/dL (0.2-1.0) 05/01/21 10:16 AST 16 U/L (15-37) 05/01/21 10:16 ALT 15 U/L (12-78) 05/01/21 10:16 Alkaline Phosphatase 136 U/L (45-117) H 05/01/21 10:16 Lipase 163 U/L (73-393) 05/01/21 10:16 Home Medications: Pantoprazole [Protonix Tab*] 40 mg PO BIDAC 30 Days #60 tab 05/04/21 New Medications: Pantoprazole [Protonix Tab*] 40 mg PO BIDAC 30 Days #60 tab Diet: [place] Activity: Ad porsche Followup: NONE,NONE [Primary Care Provider] - Rito Collazo MD [ASSOCIATE-ACTIVE - CAN ADMIT] - Time spent managing pt's care (in minutes): 45
[2021-05-04] MEDS ORDERED: PANTOPRAZOLE 40MG TABLET PO SCH (07:30)
[2021-05-04] MEDS ORDERED: POTASSIUM 25 MEQ EFFERV TAB PO ONE (09:00)
[2021-05-04] MEDS ORDERED: ENSURE CLEAR 200 ML CAN PO SCH (09:00)
[2021-05-04 09:24] VITALS: BP 135/82; TEMP 97.7
== END 2021-05-04 12:12 | disposition home or self-care (01) | DRG 368 ==
LOC: ER 09:10 → ERHOLD 15:59 → 2ND 20:09
PROVIDERS: ADMIT Internal Medicine; ATTEND Hospitalist
PROC: 0DB68ZX Excision of Stomach, Via Natural or Artificial Opening Endoscopic, Diagnostic (ICD-10-PCS; principal; 2021-05-03 13:45)
DX: K20.91 Esophagitis, unspecified with bleeding (principal); K29.01 Acute gastritis with bleeding; K29.81 Duodenitis with bleeding; D62 Acute posthemorrhagic anemia; K31.1 Adult hypertrophic pyloric stenosis; K21.9 Gastro-esophageal reflux disease without esophagitis; E87.6 Hypokalemia; Z23 Encounter for immunization; Z79.899 Other long term (current) drug therapy; Z20.822 Contact with and (suspected) exposure to COVID-19
CPT/HCPCS: 36415; 74177; 76705; 80048; 80074; 80076; 81596; 82247; 82271; 82977; 83520; 83690; 83735; 83883; 83986; 84100; 84132; 85014; 85018; 85025; 85027; 85610; 86850; 86900; 86901; 88305; 88312; 90471; 93005; 96361; 96365; 96366; 96375; 99285; C9113; J2405; J2550; J2704; J3480; J7030; J7040; J7050; J7120; Q2035; Q9967; U0003